=== PATIENT | female | born 1930 | race American Indian/Alaskan Native ===

== ENCOUNTER 2016-11-13 17:35 | Inpatient (IN) | payer MEDICARE, OTHER ==
[2016-11-13 18:31] VITALS: BMI 19.8
--- NOTE | 2016-11-13 19:32 | ED PDOC ---
Arrival/HPI <Kian Boyd - Last Filed: 11/14/16 01:25> - General Historian: Patient - History of Present Illness Time/Duration: Other (Yesterday) Symptom Course: Worsening Quality: Other Context: Home <Mariluz Smith - Last Filed: 11/14/16 11:17> - General Chief Complaint: Shortness Of Breath Time Seen by Provider: 11/13/16 17:55 - History of Present Illness Narrative History of Present Illness (Text): 11/13/16 19:27 A 86 year old female, whose past medical history includes lung cancer, port-a cath, coronary artery bypass surgery, aortic aneurysm and CHF, was brought into the emergency department by EMS complaining of worsening shortness of breath since yesterday. Patient notes mild lower abdominal discomfort but denies any fever, nausea, vomiting, diarrhea, constipation, urinary symptoms, chest pain, shortness of breath or any other complaints. Patient reports she uses O2 at home. Implant Polisher: Dr. Stringer Oncologist: Dr. Duncan (Mariluz Smith) Past Medical History - Provider Review Nursing Documentation Reviewed: Yes - Infectious Disease Hx of Infectious Diseases: None - Tetanus Immunization Tetanus Immunization: Unknown - Cardiac Hx Cardiac Disorders: Yes Hx Congestive Heart Failure: Yes Hx Hypertension: Yes - Pulmonary Hx Respiratory Disorders: Yes Hx Chronic Obstructive Pulmonary Disease (COPD): Yes - Neurological Hx Neurological Disorder: Yes HX Cerebrovascular Accident: Yes (1990) - HEENT Hx HEENT Disorder: Yes Hx Cataracts: Yes (SURGERY) Hx Deafness: No ([place]) - Renal Hx Renal Disorder: No - Endocrine/Metabolic Hx Endocrine Disorders: Yes Hx Diabetes Mellitus Type 2: Yes - Hematological/Oncological Hx Blood Disorders: Yes Hx Cancer: Yes (COLON & LUNG) - Integumentary Hx Dermatological Disorder: No - Musculoskeletal/Rheumatological Hx Musculoskeletal Disorders: Yes Hx Arthritis: Yes - Gastrointestinal Hx Gastrointestinal Disorders: Yes Hx Gall Bladder Disease: Yes Other/Comment: APPENDECTOMY. CHOLECYSTECTOMY. COLON RESECTION - Genitourinary/Gynecological Hx Genitourinary Disorders: Yes Hx Urinary Tract Infection: Yes - Psychiatric Hx Psychophysiologic Disorder: Yes Hx Anxiety: Yes Hx Substance Use: No - Surgical History Hx Appendectomy: Yes Hx Cardiac Catheterization: Yes Hx Cholecystectomy: Yes Hx Coronary Artery Bypass Graft: Yes Hx Coronary Stent: Yes Other/Comment: COLON RESECTION - Anesthesia Hx Anesthesia: Yes Hx Anesthesia Reactions: No Hx Malignant Hyperthermia: No - Suicidal Assessment Feels Threatened In Home Enviroment: No <Mariluz Smith - Last Filed: 11/14/16 11:17> Family/Social History - Physician Review Nursing Documentation Reviewed: Yes Family/Social History: No Known Family HX Smoking Status: Former Smoker Hx Alcohol Use: No Hx Substance Use: No Hx Substance Use Treatment: No <SarahMariluz pedraza Deja - Last Filed: 11/14/16 11:17> Allergies/Home Meds <Kian Boyd - Last Filed: 11/14/16 01:25> <SarahMariluz - Last Filed: 11/14/16 11:17> Allergies/Adverse Reactions: Allergies atorvastatin Allergy (Verified 11/13/16 18:30) HEADACHE meclizine Allergy (Verified 11/13/16 18:30) RASH shellfish derived Allergy (Verified 11/13/16 18:30) SHORTNESS OF BREATH Home Medications: Home Meds Medication Instructions Recorded Confirmed Lidocaine 5% [Lidoderm] 1 patch TOP 07/12/16 Pantoprazole [Protonix EC Tab] 40 mg PO 07/12/16 Risperidone [Risperdal] 0.25 mg PO 16 Review of Systems - Physician Review All systems were reviewed & negative as marked: Yes - Review of Systems Constitutional: absent: Fevers Respiratory: SOB. absent: Cough Cardiovascular: absent: Chest Pain Gastrointestinal: Abdominal Pain (Lower abdominal discomfort). absent: Constipation, Diarrhea, Nausea, Vomiting Genitourinary Female: absent: Dysuria, Frequency, Hematuria, Urine Output Changes <Mariluz Smith Deja - Last Filed: 11/14/16 11:17> Physical Exam Vital Signs Reviewed: Yes Temperature: Afebrile Blood Pressure: Hypertensive Pulse: Regular Respiratory Rate: Normal Appearance: Positive for: Well-Appearing, Non-Toxic, Comfortable Pain Distress: None Mental Status: Positive for: Alert and Oriented X 3 - Systems Exam Head: Present: Atraumatic, Normocephalic Pupils: Present: PERRL Extroacular Muscles: Present: EOMI Conjunctiva: Present: Normal Ears: Present: Normal, Other (Hearing aid noted in right hear) Mouth: Present: Moist Mucous Membranes Neck: Present: Normal Range of Motion Respiratory/Chest: Present: Good Air Exchange, Decreased Breath Sounds, Rhonchi. No: Respiratory Distress, Accessory Muscle Use Cardiovascular: Present: Regular Rate and Rhythm, Normal S1, S2. No: Murmurs Abdomen: Present: Normal Bowel Sounds. No: Tenderness, Distention, Peritoneal Signs Back: Present: Normal Inspection Upper Extremity: Present: Normal Inspection. No: Cyanosis, Edema Lower Extremity: Present: Normal Inspection. No: Edema Neurological: Present: GCS=15, CN II-XII Intact, Speech Normal Skin: Present: Warm, Dry, Normal Color. No: Rashes Psychiatric: Present: Alert, Oriented x 3, Normal Insight, Normal Concentration <Mariluz Smith - Last Filed: 11/14/16 11:17> Vital Signs Temp Pulse Resp BP Pulse Ox 11/14/16 02:33 156/94 H 11/14/16 01:00 97.9 F 88 21 160/90 H 100 11/14/16 00:30 18 99 11/13/16 19:03 98.1 F 11/13/16 18:33 75 16 163/98 H 100 Medical Decision Making - RAD Interpretation Pick Up And Delivery Driver: Radiologist <Kian Boyd - Last Filed: 11/14/16 01:25> - Lab Interpretations I have reviewed the lab results: Yes <Mariluz Smith - Last Filed: 11/14/16 11:17> ED Course and Treatment: 11/13/16 19:27 Impression: A 86 year old female with worsening shortness of breath and lower abdominal discomfort. Plan: -- Abdomen and pelvis CT -- Chest xray -- EKG -- Labs -- Urine culture and Urinalysis -- Reassess and disposition Progress Notes: EKG shows NSR at 84 BPM with flipped T-waves in anterior leads, LVH. Interpreted by me. 11/13/16 22:00 Chest xray showed no change from prior. 11/13/16 23:00 Patient signed out to Dr. Boyd. Pending abdominal CT. 11/14/16 11:15 11/14/16 11:16 (Mariluz Smith) - Lab Interpretations Lab Results: 11/13/16 19:40 11/13/16 19:40 Lab Results 11/13/16 19:40: WBC 5.7, RBC 4.27, Hgb 11.5 L, Hct 36.3, MCV 85.0, MCH 26.9, MCHC 31.7, RDW 16.4 H, Plt Count 233, MPV 10.6, Gran % 67.9, Lymph % (Auto) 20.4 L, [place] % (Auto) 10.9 H, Eos % (Auto) 0.4 L, Baso % (Auto) 0.4, Gran # 3.87 , Lymph # 1.2, [place] # 0.6, Eos # 0.0, Baso # 0.02, Sodium 139, Potassium 4.0, Chloride 97 L, Carbon Dioxide 33, Anion Gap 13, BUN 23 H, Creatinine 1.0, Est GFR ( Amer) > 60, Est GFR (Non-Af Amer) 53, Random Glucose 99, Calcium 9.2, Total Bilirubin 0.9, AST 49 H, ALT 28, Alkaline Phosphatase 77, Troponin I 0.04, NT-Pro-B Natriuret Pep 42703 H, Total Protein 7.9, Albumin 4.1, Globulin 3.8, Albumin/Globulin Ratio 1.1 - RAD Interpretation Narrative RAD Interpretations (Text): CT Abdomen and Pelvis shows: CT Abdomen and Pelvis shows: Lower thorax: The ascending thoracic aorta measures 44 mm. Prominent calcification of the coronary arteries. The left atrium measures 5.2 cm in its AP dimension. Calcified right hilar nodes. Bilateral lower lobe and right middle lobe bronchiectasis with associated fibro- atelectatic change. Trace right pleural effusion. ABDOMEN: Liver: The liver is mildly inhomogeneous and demonstrates several low attenuation foci which are probably cysts. The largest measures 15 mm with a Hounsfield measurement of 16. Gallbladder and bile ducts: Unremarkable. No calcified stones. No ductal dilation. Pancreas: Unremarkable. No mass. No ductal dilation. Spleen: Unremarkable. No splenomegaly. Adrenals: Unremarkable. No mass. Kidneys and ureters: There are bilateral renal cysts measuring up to 24 mm on the right. No hydronephrosis. Stomach and bowel: Evidence of subtotal colectomy. No obstruction. Appendix: See above. PELVIS: Bladder: Unremarkable. No mass. Reproductive: Unremarkable as visualized. ABDOMEN and PELVIS: Intraperitoneal space: Unremarkable. No free air. No significant fluid collection. Bones/joints: Status post sternotomy. Degenerative facet arthropathy of the lower lumbar spine and probable old fractures of the pubic rami. No dislocation. Soft tissues: Unremarkable. Vasculature: There is moderate atherosclerotic calcification of the abdominal aorta. 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 Lymph nodes: See above. IMPRESSION: 1. Mild aneurysmal dilatation of the ascending thoracic aorta measuring 44 mm. 2. Mild cardiomegaly with coronary artery calcifications and prior sternotomy. 3. Bilateral lower lobe and right middle lobe bronchiectasis with associated fibro-atelectatic change and trace right pleural effusion. 4. 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 5. Subtotal colectomy. 6. No bowel obstruction. (Kian Boyd) Radiology Orders: 11/13/16 19:30 CHEST PORTABLE [RAD] Stat 11/13/16 19:32 ABD PELVIS PO & IV CONTRAST [CT] Stat - Medication Orders Current Medication Orders: Acetaminophen (Tylenol 325mg Tab) 650 mg PO Q4H PRN PRN Reason: Pain, Mild (1-3) Alprazolam (Xanax) 0.25 mg PO BID PRN; Protocol PRN Reason: Anxiety Stop: 11/21/16 10:46 Arformoterol Tartrate (Brovana) 15 mcg IH [id number] YAHIR Artificial Tears (Artificial Tears) 0 ml OU 5XD YAHIR Aspirin (Ecotrin) 81 mg PO DAILY YAHIR Budesonide (Pulmicort Respules) 0.25 mg IH [id number] YAHIR Carvedilol (Coreg) 6.25 mg PO BID YAHIR Clopidogrel Bisulfate (Plavix) 75 mg PO DAILY YAHIR Digoxin (Lanoxin) 0.125 mg PO 1400 YAHIR Furosemide (Lasix) 40 mg PO BID YAHIR Isosorbide Mononitrate (Imdur) 30 mg PO DAILY YAHIR Lisinopril (Zestril) 10 mg PO DAILY YAHIR Pantoprazole Sodium (Protonix Ec Tab) 20 mg PO 0730 YAHIR Spironolactone (Aldactone) 25 mg PO BID YAHIR Sucralfate (Carafate Oral Susp) 1 gm PO BID YAHIR Discontinued Medications Arformoterol Tartrate (Brovana) 15 mcg IH [id number] YAHIR Furosemide (Lasix) 40 mg IVP ONCE ONE Stop: 11/14/16 01:04 Last Admin: 11/14/16 02:33 Dose: 40 MG MAR Blood Pressure Document 11/14/16 02:33 MARTA (Rec: 11/14/16 02:34 MARTA [id number]) Blood Pressure Blood Pressure (100/60-150/90) 156/94 IVP Administration Document 11/14/16 02:33 MARTA (Rec: 11/14/16 02:34 MARTA [id number]) Charges for Administration # of IVP Administrations 1 Iohexol (Omnipaque 350 100 Ml) Confirm Administered Dose 350 mg .ROUTE .STK-MED ONE Stop: 11/13/16 21:15 Iohexol (Omnipaque 240 (50 Ml)) Confirm Administered Dose 50 ml .ROUTE .STK-MED ONE Stop: 11/13/16 21:20 Morphine Sulfate (Morphine) 2 mg IVP STAT STA Stop: 11/13/16 20:14 Last Admin: 11/13/16 20:33 Dose: 2 MG MAR Pain Assessment Document 11/13/16 20:33 (Rec: 11/13/16 20:33 [id number]) Pain Reassessment Is this a pain reassessment? Yes Sleep Is patient sleeping during reassessment? No Presence of Pain Presence of Pain Yes IVP Administration Document 11/13/16 20:33 (Rec: 11/13/16 20:33 [id number]) Charges for Administration # of IVP Administrations 1 ED OBSERVATION Date of observation admission: 11/13/16 Time of observation admission: 20:14 <Kian Boyd - Last Filed: 11/14/16 01:25> <Mariluz Smith - Last Filed: 11/14/16 11:17> - Observation admission statement Patient is being placed in observation because:: shortness of breath, abdominal discomfort (Kian Boyd) - Goals of Observation Goals of observation are:: treatment and determine etiology of symptoms. (Kian Boyd) - Progress Note Progress Note: 11/13/16 23:00 Case endorsed to me by Dr. Smith. Pt, whose past medical history includes lung cancer on home O2, port-a cath, coronary artery bypass surgery, aortic aneurysm and CHF, presented for worsening shortness of breath since yesterday, with some lower abdominal discomfort. Pending CT Abdomen/Pelvis, re-assessment, and final disposition. 11/14/16 01:00 Reviewed radiology, CT Abdomen and Pelvis shows: 1. Mild aneurysmal dilatation of the ascending thoracic aorta measuring 44 mm. 2. Mild cardiomegaly with coronary artery calcifications and prior sternotomy. 3. Bilateral lower lobe and right middle lobe bronchiectasis with associated fibro-atelectatic change and trace right pleural effusion. 4. 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 5. Subtotal colectomy. 6. No bowel obstruction. 11/14/16 01:[address] Boo, covering for Dr. Duncan, who is aware and agrees with plan. Accepts pt in to his service. Pt will go to Telemetry observation for CHF and abdominal pain. Requests Dr. Stringer on consult. Pt is no acute distress. Discussed results and hospital observation plan with pt , who is aware and verbalizes understanding. (Kian Boyd) <Kian Boyd - Last Filed: 11/14/16 01:25> - Scribe Statement The provider has reviewed the documentation as recorded by the Scribe <Mariluz Smith - Last Filed: 11/14/16 11:17> - Scribe Statement Carina Ordaz Provider Scribe Attestation: All medical record entries made by the Scribe were at my direction and personally dictated by me. I have reviewed the chart and agree that the record accurately reflects my personal performance of the history, physical exam, medical decision making, and the department course for this patient. I have also personally directed, reviewed, and agree with the discharge instructions and disposition. (Mariluz Smith) Disposition/Present on Arrival - Present on Arrival Any Indicators Present on Arrival: No History of DVT/PE: No History of Uncontrolled Diabetes: No Urinary Catheter: No History of Decub. Ulcer: No History Surgical Site Infection Following: None - Disposition Have Diagnosis and Disposition been Completed?: Yes Disposition Time: 01:27 Patient Plan: Observation <Kian Boyd - Last Filed: 11/14/16 01:25> - Present on Arrival Any Indicators Present on Arrival: No History of DVT/PE: No History of Uncontrolled Diabetes: No Urinary Catheter: No History of Decub. Ulcer: No History Surgical Site Infection Following: None - Disposition Have Diagnosis and Disposition been Completed?: Yes Disposition Time: 23:00 <Mariluz Smith - Last Filed: 11/14/16 11:17> - Disposition Diagnosis: CHF exacerbation, Abdominal pain Disposition: HOSPITALIZED Patient Problems: Current Active Problems Problem Status Diagnosed Urinary tract infection Acute Abdominal pain Acute Aortic aneurysm Acute CHF exacerbation Acute Cardiomegaly Acute Congestive heart failure Acute Metabolic alkalosis Acute Condition: STABLE - Notes Notes (Text): 11/14/16 11:[address] raymond altman pending CT and admission (for chf, if no acute findings on cT) (Mariluz Smith Y)
[2016-11-13 19:47] LABS: ADD MANUAL DIFF? NO
[2016-11-13 20:00] LABS: ALB/GLOB RATIO 1.1 (1.1-1.8); ALKALINE PHOSPHATASE 77 U/L (38-133); ALT/SGPT 28 U/L (7-56); AST/SGOT 49 U/L (15-39); BILIRUBIN,TOTAL 0.9 mg/dL (0.2-1.3); BLOOD UREA NITROGEN 23 mg/dL (7-21); CALCIUM 9.2 mg/dL (8.4-10.5); CARBON DIOXIDE 33 mmol/L (21-33); CHLORIDE 97 mmol/L (98-107); GFR AFRICAN-AMERICAN > 60; GLUCOSE,RANDOM 99 mg/dL (70-110); SODIUM 139 mmol/L (132-148); TOTAL PROTEIN 7.9 g/dL (5.8-8.3)
[2016-11-13 20:11] LABS: TROPONIN I 0.04 ng/mL
[2016-11-13] MEDS ORDERED: Morphine 2 mg/ml ISec IVP STA (20:13)
[2016-11-13 20:17] LABS: BASO # 0.02 [, K/mm3] (0.0-2.0); BASO % 0.4 % (0.0-3.0); EOS % 0.4 % (1.5-5.0); GRAN # 3.87 (1.4-6.5); GRAN % 67.9 % (50.0-68.0); HEMATOCRIT 36.3 % (36.0-48.0); LYMPH # 1.2 (1.2-3.4); LYMPH % 20.4 % (22.0-35.0); MEAN CORPUSCULAR HEMOGLOBIN 26.9 pg (25.0-35.0); MEAN CORPUSCULAR HGB CONC 31.7 g/dl (31.0-37.0); MEAN PLATELET VOLUME 10.6 fl (7.0-11.0); MONO # 0.6 (0.1-0.6); MONO % 10.9 % (1.0-6.0); PLATELET COUNT 233 [, 10^3/uL] (120.0-450.0); RED CELL DISTRIBUTION WIDTH 16.4 % (11.5-14.5); WHITE BLOOD COUNT 5.7 [, 10^3/ul] (4.5-11.0)
[2016-11-13] MEDS ORDERED: Iohexol 350 MG/100 ML VIAL ONE (21:14)
[2016-11-13] MEDS ORDERED: Iohexol 240 (50 ml) ONE (21:19)
--- NOTE | 2016-11-13 23:21 | ED PDOC ---
Physical Exam Vital Signs Reviewed: Yes Vital Signs Temp Pulse Resp BP Pulse Ox 11/13/16 19:03 98.1 F 11/13/16 18:33 75 16 163/98 H 100 Temperature: Afebrile Blood Pressure: Hypertensive Pulse: Regular Respiratory Rate: Normal Appearance: Positive for: Well-Appearing, Non-Toxic, Comfortable Pain Distress: None Mental Status: Positive for: Alert and Oriented X 3 Medical Decision Making ED Course and Treatment: 11/13/16 23:00 Case endorsed to me by Dr. Smith. Pt, whose past medical history includes lung cancer on home O2, port-a cath, coronary artery bypass surgery, aortic aneurysm and CHF, presented for worsening shortness of breath since yesterday, with some lower abdominal discomfort. Pending CT Abdomen/Pelvis, re-assessment, and final disposition. - Lab Interpretations Lab Results: 11/13/16 19:40 11/13/16 19:40 Lab Results 11/13/16 19:40: WBC 5.7, RBC 4.27, Hgb 11.5 L, Hct 36.3, MCV 85.0, MCH 26.9, MCHC 31.7, RDW 16.4 H, Plt Count 233, MPV 10.6, Gran % 67.9, Lymph % (Auto) 20.4 L, [place] % (Auto) 10.9 H, Eos % (Auto) 0.4 L, Baso % (Auto) 0.4, Gran # 3.87 , Lymph # 1.2, [place] # 0.6, Eos # 0.0, Baso # 0.02, Sodium 139, Potassium 4.0, Chloride 97 L, Carbon Dioxide 33, Anion Gap 13, BUN 23 H, Creatinine 1.0, Est GFR ( Amer) > 60, Est GFR (Non-Af Amer) 53, Random Glucose 99, Calcium 9.2, Total Bilirubin 0.9, AST 49 H, ALT 28, Alkaline Phosphatase 77, Troponin I 0.04, NT-Pro-B Natriuret Pep 63406 H, Total Protein 7.9, Albumin 4.1, Globulin 3.8, Albumin/Globulin Ratio 1.1 - RAD Interpretation Radiology Orders: 11/13/16 19:30 CHEST PORTABLE [RAD] Stat 11/13/16 19:32 ABD PELVIS PO & IV CONTRAST [CT] Stat - Medication Orders Current Medication Orders: Discontinued Medications Iohexol (Omnipaque 350 100 Ml) Confirm Administered Dose 350 mg .ROUTE .STK-MED ONE Stop: 11/13/16 21:15 Iohexol (Omnipaque 240 (50 Ml)) Confirm Administered Dose 50 ml .ROUTE .STK-MED ONE Stop: 11/13/16 21:20 Morphine Sulfate (Morphine) 2 mg IVP STAT STA Stop: 11/13/16 20:14 Last Admin: 11/13/16 20:33 Dose: 2 MG MAR Pain Assessment Document 11/13/16 20:33 (Rec: 11/13/16 20:33 [id number]) Pain Reassessment Is this a pain reassessment? Yes Sleep Is patient sleeping during reassessment? No Presence of Pain Presence of Pain Yes IVP Administration Document 11/13/16 20:33 (Rec: 11/13/16 20:33 [id number]) Charges for Administration # of IVP Administrations 1 Disposition/Present on Arrival - Present on Arrival History of DVT/PE: No History of Uncontrolled Diabetes: No Urinary Catheter: No History of Decub. Ulcer: No History Surgical Site Infection Following: None - Disposition Patient Problems: Current Active Problems Problem Status Diagnosed Urinary tract infection Acute Aortic aneurysm Acute CHF exacerbation Acute Cardiomegaly Acute Congestive heart failure Acute Metabolic alkalosis Acute
[2016-11-13 23:28] LABS: PH,URINE 6.5 (4.7-8.0); URINE BILIRUBIN NEGATIVE (NEGATIVE); URINE BLOOD TRACE-INTACT (NEGATIVE); URINE GLUCOSE (UA) NEGATIVE (NEGATIVE); URINE KETONE NEGATIVE (NEGATIVE); URINE LEUKOCYTE ESTERASE MODERATE Leu/uL (NEGATIVE); URINE PROTEIN NEGATIVE mg/dL (<30 mg/dL); URINE UROBILINOGEN 0.2 E.U./dL (<1 E.U./dL)
[2016-11-13 23:30] LABS: URINE APPEARANCE CLEAR (CLEAR); URINE COLOR YELLOW (YELLOW)
[2016-11-13 23:42] LABS: URINE BACTERIA TRACE (NEG); URINE EPITHELIAL CELLS 0 - 2 /hpf (0-5); URINE RBC 0 - 2 /hpf (0-2)
--- NOTE | 2016-11-14 08:00 | CT ---
PROCEDURE: CT Abdomen and Pelvis with contrast HISTORY: Diffuse abdominal pain, shortness of breath. Relevant surgical history: Colon resection. COMPARISON: 03/23/2015. TECHNIQUE: Contrast dose: 95 cc Omnipaque 350. Radiation dose: Total exam DLP = 237.69. MGy-cm. FINDINGS: LOWER THORAX: Marked cardiomegaly. Scarring, findings likely reflective of bronchiectasis. LIVER: Hepatomegaly, hepatic steatosis. Incidental finding(s): Innumerable simple hepatic cysts. GALLBLADDER AND BILE DUCTS: Unremarkable. PANCREAS: Unremarkable. No gross lesion or ductal dilatation. SPLEEN: Unremarkable. ADRENALS: Unremarkable. No mass. KIDNEYS AND URETERS: Unremarkable. No hydronephrosis. No solid mass. Incidental finding(s): Bilateral simple renal cysts VASCULATURE: Unremarkable. No aortic aneurysm. BOWEL: Unremarkable. No obstruction. No gross mural thickening. Postoperative findings status post partial colonic resection consistent with medical/ surgical history. APPENDIX: Not visualized. PERITONEUM: Unremarkable. No free fluid. No free air. LYMPH NODES: Unremarkable. No enlarged lymph nodes. BLADDER: Unremarkable. REPRODUCTIVE: Unremarkable. BONES: Bilateral pelvic ring fractures. No acute fractures identified. OTHER FINDINGS: None. IMPRESSION: No acute findings related to/accounting for the clinical presentation. No significant interval change compared to the prior examination(s). Additional benign and/or incidental findings described above. Concordant results (preliminary interpretation) provided by [facility]. Procedure Completed: 23:34. Preliminary ([facility]) Report: Dictated and Authenticated: 00:09. November 14, 2016. Final Interpretation: 07:58.
--- NOTE | 2016-11-14 08:30 | RAD ---
HISTORY: sob COMPARISON: Comparison is made to the previous study dated 07/19/2016 FINDINGS: LUNGS: Moderate pulmonary vascular congestion is noted. Haziness at the right lower chest is again noted. PLEURA: Right pleural effusion is again noted. CARDIOVASCULAR: Cardiomegaly is seen. Post sternotomy changes are again noted. The aortic arch is moderately enlarged. OSSEOUS STRUCTURES: No significant abnormalities. VISUALIZED UPPER ABDOMEN: Normal. OTHER FINDINGS: Right subclavian catheter is seen in place. IMPRESSION: No significant interval change compared to the previous exam. Moderate cardiomegaly and pulmonary vascular congestion associated with right pleural effusion.
[2016-11-14 11:08] LABS: ADD MANUAL DIFF? NO
[2016-11-14 11:09] LABS: BASO # 0.02 [, K/mm3] (0.0-2.0); BASO % 0.3 % (0.0-3.0); EOS % 0.1 % (1.5-5.0); GRAN # 4.68 (1.4-6.5); GRAN % 70.3 % (50.0-68.0); HEMATOCRIT 36.7 % (36.0-48.0); LYMPH # 1.4 (1.2-3.4); LYMPH % 20.5 % (22.0-35.0); MEAN CELL VOLUME 84.6 fL (80.0-105.0); MEAN CORPUSCULAR HEMOGLOBIN 26.5 pg (25.0-35.0); MEAN CORPUSCULAR HGB CONC 31.3 g/dl (31.0-37.0); MEAN PLATELET VOLUME 10.5 fl (7.0-11.0); MONO # 0.6 (0.1-0.6); MONO % 8.8 % (1.0-6.0); PLATELET COUNT 226 [, 10^3/uL] (120.0-450.0); RED CELL DISTRIBUTION WIDTH 16.1 % (11.5-14.5); WHITE BLOOD COUNT 6.7 [, 10^3/ul] (4.5-11.0)
[2016-11-14 11:22] LABS: ALB/GLOB RATIO 1.1 (1.1-1.8); BILIRUBIN,TOTAL 1.1 mg/dL (0.2-1.3); CALCIUM 9.4 mg/dL (8.4-10.5); POTASSIUM 3.9 mmol/L (3.6-5.0); TOTAL PROTEIN 7.6 g/dL (5.8-8.3)
--- NOTE | 2016-11-14 12:04 | CP.PCM.PCO ---
Physician Communication Note - Physician Communication Note Physician Communication Note: C/O Low abd pain-Neg CT/Physical exam:Chin Liquids /Reexamine prn
[2016-11-14] MEDS: Sucralfate 1 gm/10 ml Oral Susp UD PO SCH ×3 (12:09→18:09)
[2016-11-14] MEDS: Aritificial Tears (15ml) OU SCH ×4 (12:10→21:39)
[2016-11-14] MEDS: Pantoprazole 20 mg EC Tab PO SCH (12:24)
[2016-11-14 12:56] LABS: TROPONIN I 0.08 ng/mL
--- NOTE | 2016-11-14 15:17 | CP.PCM.CON ---
<Karo Ruiz - Last Filed: 11/14/16 15:06> History of Present Illness - History of Present Illness History of Present Illness: SURGICAL CONSULT NOTE FOR DR. WEST 86 year old female with past medical history of nonsmall cell lung ca., CAD s/p CABG, ischemic cardiomyopathy, complete colectomy, HTN, HLD, COPD presented to hospital yesterday for shortness of breath and abdominal pain. Patient is c/o of diffuse abdominal pain that began yesterday. Severity of pain is 10/10 and is constant in nature. Pain does not radiate anywhere. Patient denies having any N/V/D/C, fever, chills. Patient denies having eaten anything out of the ordinary or having any sick contacts. Last BM was today normal in nature. 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 -Medications: please see MAR -Social History: former smoker -Oncologist: Dr. Duncan -Remedial Reading Teacher: Dr. Stringer Review of Systems - Constitutional Constitutional: absent: Chills, Fever, Headache, Lethargy - EENT Eyes: absent: Blurred Vision, Change in Vision Nose/Mouth/Throat: absent: Nasal Congestion, Nasal Discharge, Sore Throat - Cardiovascular Cardiovascular: Dyspnea. absent: Chest Pain, Edema, Pedal Edema - Respiratory Respiratory: absent: Cough, Dyspnea, Wheezing - Gastrointestinal Gastrointestinal: As Per HPI, Abdominal Pain (diffuse). absent: Bloating, Constipation, Diarrhea, Nausea, Vomiting - Musculoskeletal Musculoskeletal: absent: Arthralgias - Integumentary Integumentary: absent: Changing Lesions - Neurological Neurological: absent: Dizziness, Weakness - Psychiatric Psychiatric: absent: Anxiety Past Patient History - Infectious Disease Hx of Infectious Diseases: None - Tetanus Immunizations Tetanus Immunization: Unknown - Past Social History Smoking Status: Former Smoker Alcohol: None Drugs: Denies - CARDIAC Hx Cardiac Disorders: Yes Hx Congestive Heart Failure: Yes Hx Hypertension: Yes - PULMONARY Hx Respiratory Disorders: Yes Hx Chronic Obstructive Pulmonary Disease (COPD): Yes - NEUROLOGICAL Hx Neurological Disorder: Yes HX Cerebrovascular Accident: Yes (1990) - HEENT Hx HEENT Problems: Yes Hx Cataracts: Yes (SURGERY) Hx Deafness: No ([place] - RENAL Hx Chronic Kidney Disease: No - ENDOCRINE/METABOLIC Hx Endocrine Disorders: Yes Hx Diabetes Mellitus Type 2: Yes - HEMATOLOGICAL/ONCOLOGICAL Hx Blood Disorders: Yes Hx Cancer: Yes (COLON & LUNG) - INTEGUMENTARY Hx Dermatological Problems: No - MUSCULOSKELETAL/RHEUMATOLOGICAL Hx Musculoskeletal Disorders: Yes Hx Arthritis: Yes - GASTROINTESTINAL Hx Gastrointestinal Disorders: Yes Hx Gall Bladder Disease: Yes Other/Comment: APPENDECTOMY. CHOLECYSTECTOMY. COLON RESECTION - GENITOURINARY/GYNECOLOGICAL Hx Genitourinary Disorders: Yes Hx Urinary Tract Infection: Yes - PSYCHIATRIC Hx Psychophysiologic Disorder: Yes Hx Anxiety: Yes Hx Substance Use: No - SURGICAL HISTORY Hx Appendectomy: Yes Hx Cardiac Catheterization: Yes Hx Cholecystectomy: Yes Hx Coronary Artery Bypass Graft: Yes Hx Coronary Stent: Yes Other/Comment: COLON RESECTION - ANESTHESIA Hx Anesthesia: Yes Hx Anesthesia Reactions: No Hx Malignant Hyperthermia: No Meds Allergies/Adverse Reactions: Allergies Allergy/AdvReac Type Severity Reaction Status Date / Time atorvastatin Allergy HEADACHE Verified 11/13/16 18:30 meclizine Allergy RASH Verified 11/13/16 18:30 shellfish derived Allergy SHORTNESS Verified 11/13/16 18:30 OF BREATH - Medications Medications: Current Medications Acetaminophen (Tylenol 325mg Tab) 650 mg PO Q4H PRN PRN Reason: Pain, Mild (1-3) Alprazolam (Xanax) 0.25 mg PO BID PRN; Protocol PRN Reason: Anxiety Stop: 11/21/16 10:46 Arformoterol Tartrate (Brovana) 15 mcg IH [id number] [facility] Artificial Tears (Artificial Tears) 0 ml OU 5XD [facility] Last Admin: 11/14/16 12:10 Dose: 1 drop Aspirin (Ecotrin) 81 mg PO DAILY [facility] Last Admin: 11/14/16 12:07 Dose: 81 mg Budesonide (Pulmicort Respules) 0.25 mg IH [id number] [facility] Carvedilol (Coreg) 6.25 mg PO BID [facility] Last Admin: 11/14/16 12:08 Dose: 6.25 mg Clopidogrel Bisulfate (Plavix) 75 mg PO DAILY [facility] Last Admin: 11/14/16 12:09 Dose: 75 mg Digoxin (Lanoxin) 0.125 mg PO 1400 [facility] Furosemide (Lasix) 40 mg PO BID [facility] Last Admin: 11/14/16 12:08 Dose: 40 mg Isosorbide Mononitrate (Imdur) 30 mg PO DAILY [facility] Last Admin: 11/14/16 12:09 Dose: 30 mg Lisinopril (Zestril) 10 mg PO DAILY [facility] Last Admin: 11/14/16 12:09 Dose: 10 mg Pantoprazole Sodium (Protonix Ec Tab) 20 mg PO 0730 [facility] Last Admin: 11/14/16 12:24 Dose: 20 mg Spironolactone (Aldactone) 25 mg PO BID [facility] Last Admin: 11/14/16 12:07 Dose: 25 mg Sucralfate (Carafate Oral Susp) 1 gm PO BID [facility] Last Admin: 11/14/16 12:09 Dose: 1 gm Physical Exam - Constitutional Appears: Non-toxic, No Acute Distress - Head Exam Head Exam: ATRAUMATIC, NORMAL INSPECTION - ENT Exam ENT Exam: Mucous Membranes Moist - Respiratory Exam Respiratory Exam: Clear to Auscultation Bilateral, NORMAL BREATHING PATTERN - Cardiovascular Exam Cardiovascular Exam: REGULAR RHYTHM, +S1, +S2 - GI/Abdominal Exam GI & Abdominal Exam: Normal Bowel Sounds, Soft. absent: Distended, Firm, Guarding, Rigid, Tenderness - Neurological Exam Neurological exam: Alert, Normal Gait, Oriented x3 Results - Vital Signs Recent Vital Signs: Last Vital Signs Temp 98.1 F 11/14/16 12:00 Pulse 75 11/14/16 12:09 Resp 18 11/14/16 12:00 BP 167/87 H 11/14/16 12:09 Pulse Ox 100 11/14/16 05:51 - Labs Result Diagrams: 11/14/16 11:06 11/14/16 11:06 Labs: Laboratory Results - last 24 hr 11/13/16 11/14/16 11/14/16 22:58 11:06 11:15 WBC 6.7 RBC 4.34 Hgb 11.5 L Hct 36.7 MCV 84.6 MCH 26.5 MCHC 31.3 RDW 16.1 H Plt Count 226 MPV 10.5 Gran % 70.3 H Lymph % (Auto) 20.5 L [place] % (Auto) 8.8 H Eos % (Auto) 0.1 L Baso % (Auto) 0.3 Gran # 4.68 Lymph # 1.4 [place] # 0.6 Eos # 0.0 Baso # 0.02 Sodium 138 Potassium 3.9 Chloride 96 L Carbon Dioxide 30 Anion Gap 16 BUN 24 H Creatinine 1.1 Est GFR ( Amer) 57 Est GFR (Non-Af Amer) 47 Random Glucose 87 Calcium 9.4 Total Bilirubin 1.1 AST 34 ALT 27 Alkaline Phosphatase 87 Lactate Dehydrogenase 518 Total Creatine Kinase 79 Troponin I 0.08 D Total Protein 7.6 Albumin 4.0 Globulin 3.6 Albumin/Globulin Ratio 1.1 Urine Color Yellow Urine Appearance Clear Urine pH 6.5 Ur Specific [place] 1.010 Urine Protein Negative Urine Glucose (UA) Negative Urine Ketones Negative Urine Blood Trace-intact H Urine Nitrate Negative Urine Bilirubin Negative Urine Urobilinogen 0.2 Ur Leukocyte Esterase Moderate H Urine RBC 0 - 2 Urine WBC 2 - 5 Ur Epithelial Cells 0 - 2 Urine Bacteria Trace Digoxin 1.1 - EKG Data EKG Interpreted by: Other Assessment & Plan - Assessment and Plan (Free Text) Assessment: 86 year old female with past medical history of subtotal colectomy, cholecysectomy with abdominal pain. Plan: - Liquid diet advance as tolerated - No surgical intervention at this time - Continue medical management - pain management D/W attending Dr. Yehuda Ruiz PGY 1 - Date & Time Date: 11/14/16 Time: 15:20 <Guzman West - Last Filed: 11/14/16 21:13> Meds - Medications Medications: Current Medications Acetaminophen (Tylenol 325mg Tab) 650 mg PO Q4H PRN PRN Reason: Pain, Mild (1-3) Alprazolam (Xanax) 0.25 mg PO BID PRN; Protocol PRN Reason: Anxiety Stop: 11/21/16 10:46 Arformoterol Tartrate (Brovana) 15 mcg IH [id number] [facility] Last Admin: 11/14/16 20:00 Dose: 15 mcg Artificial Tears (Artificial Tears) 0 ml OU 5XD [facility] Last Admin: 11/14/16 18:09 Dose: Not Given Aspirin (Ecotrin) 81 mg PO DAILY [facility] Last Admin: 11/14/16 12:07 Dose: 81 mg Budesonide (Pulmicort Respules) 0.25 mg IH [id number] [facility] Last Admin: 11/14/16 20:00 Dose: 0.25 mg Carvedilol (Coreg) 6.25 mg PO BID [facility] Last Admin: 11/14/16 18:10 Dose: Not Given Clopidogrel Bisulfate (Plavix) 75 mg PO DAILY [facility] Last Admin: 11/14/16 12:09 Dose: 75 mg Digoxin (Lanoxin) 0.125 mg PO 1400 [facility] Last Admin: 11/14/16 16:28 Dose: 0.125 mg Furosemide (Lasix) 40 mg PO BID [facility] Last Admin: 11/14/16 18:11 Dose: Not Given Isosorbide Mononitrate (Imdur) 30 mg PO DAILY [facility] Last Admin: 11/14/16 12:09 Dose: 30 mg Lisinopril (Zestril) 10 mg PO DAILY [facility] Last Admin: 11/14/16 12:09 Dose: 10 mg Pantoprazole Sodium (Protonix Ec Tab) 20 mg PO 0730 [facility] Last Admin: 11/14/16 12:24 Dose: 20 mg Spironolactone (Aldactone) 25 mg PO BID [facility] Last Admin: 11/14/16 18:09 Dose: Not Given Sucralfate (Carafate Oral Susp) 1 gm PO BID [facility] Last Admin: 11/14/16 18:09 Dose: Not Given Results - Vital Signs Recent Vital Signs: Last Vital Signs Temp 98.1 F 11/14/16 17:00 Pulse 63 11/14/16 17:00 Resp 18 11/14/16 17:00 BP 132/66 11/14/16 17:00 Pulse Ox 100 11/14/16 05:51 - Labs Result Diagrams: 11/14/16 11:06 11/14/16 11:06 Labs: Laboratory Results - last 24 hr 11/13/16 11/14/16 11/14/16 22:58 11:06 11:15 WBC 6.7 RBC 4.34 Hgb 11.5 L Hct 36.7 MCV 84.6 MCH 26.5 MCHC 31.3 RDW 16.1 H Plt Count 226 MPV 10.5 Gran % 70.3 H Lymph % (Auto) 20.5 L [place] % (Auto) 8.8 H Eos % (Auto) 0.1 L Baso % (Auto) 0.3 Gran # 4.68 Lymph # 1.4 [place] # 0.6 Eos # 0.0 Baso # 0.02 Sodium 138 Potassium 3.9 Chloride 96 L Carbon Dioxide 30 Anion Gap 16 BUN 24 H Creatinine 1.1 Est GFR ( Amer) 57 Est GFR (Non-Af Amer) 47 Random Glucose 87 Calcium 9.4 Total Bilirubin 1.1 AST 34 ALT 27 Alkaline Phosphatase 87 Lactate Dehydrogenase 518 Total Creatine Kinase 79 Troponin I 0.08 D Total Protein 7.6 Albumin 4.0 Globulin 3.6 Albumin/Globulin Ratio 1.1 Urine Color Yellow Urine Appearance Clear Urine pH 6.5 Ur Specific [place] 1.010 Urine Protein Negative Urine Glucose (UA) Negative Urine Ketones Negative Urine Blood Trace-intact H Urine Nitrate Negative Urine Bilirubin Negative Urine Urobilinogen 0.2 Ur Leukocyte Esterase Moderate H Urine RBC 0 - 2 Urine WBC 2 - 5 Ur Epithelial Cells 0 - 2 Urine Bacteria Trace Digoxin 1.1 Assessment & Plan - Assessment and Plan (Free Text) Assessment: Dx: Abd Pain post CT Abd/Pelvis with oral contrast-? due to adhesions No c/o now-Totally negative exam Recommend : Conservative Rx/No Surgery indicated This consultation done under my direct supervision Juan West MD FACS
--- NOTE | 2016-11-14 15:45 | CARD ---
APPROVED REPORT EKG Measurement Heart [id number] <Conclusion> Sinus rhythm with premature supraventricular complexes Left axis deviation Left ventricular hypertrophy with repolarization abnormality Abnormal ECG
--- NOTE | 2016-11-14 16:13 | PN ---
DATE: 11/14/2016 REASON FOR CONSULTATION AND FOLLOWUP: Abdominal pain, shortness of breath, history of coronary arter y disease, CABG, cardiomyopathy. BRIEF CLINICAL HISTORY: This is an 86-year-old female with a past medical history of coronary artery disease, came in with complaint of abdominal pain and shortness of breath. The patient's CAT scan o f the abdomen was done. Is n.p.o. The patient wants to eat something. Denies any chest pain, denie s any shortness of breath, denies any palpitation now. PAST HISTORY: Significant for coronary artery disease, CABG in the past, last catheterization reveal ed occluded CALLAHAN to LAD, inoperable lung CA, on chemo and radiation; status post Port-A-Cath. Histor y of aortic regurgitation. PREVIOUS CARDIAC WORKUP: As follows: The patient's last catheterization 11/29/2013 that shows severe triple vessel disease, patent saphenous graft to diagonal 1, patent saphenous graft to the RCA, occlu ded CALLAHAN to LAD, severely decreased ____ ejection fraction 20%. The patient had last echo 06/10/2014 that showed 4-chamber dilatation, ejection fraction significantly decreased, RV systolic pressure of 78. The patient had repeat echo on 06/29/2016 that shows ejection fraction 20% to 25%, 4-chamber dil atation consistent with cardiomyopathy, ejection fraction 25%, moderate mitral regurgitation, moderat e tricuspid regurgitation, severe aortic regurgitation, RV systolic pressure 46. CURRENT MEDICATIONS: The patient is taking at home Risperdal, losartan, isosorbide ____, Lasix, digo tracee, Plavix, carvedilol, Pulmicort, aspirin, Xanax. REVIEW OF SYSTEMS: As per HPI. PHYSICAL EXAMINATION: As follows: VITAL SIGNS: Temperature afebrile, heart rate 79, blood pressure 156/75. HEENT: PERRLA. Extraocular muscles intact. NECK: Supple. No carotid bruits. No thyromegaly. CHEST: Clear to auscultation. HEART: S1, S2 regular. ABDOMEN: Soft. EXTREMITIES: Clubbing and cyanosis negative. BLOOD WORKUP: As follows: WBC ____, hemoglobin 11.5, hematocrit ____, platelet count 226. Chemistr y shows sodium 130, potassium 4, chloride ____, carbon dioxide 33, anion gap of 13, BUN 23, creatinin e 1.0. BNP 16,400. Chest x-ray: No acute ____ chest x-ray ____ severe cardiomegaly, possible mild congestive changes. EKG shows normal sinus with APCs, heart rate 82, LVH, left anterior hemiblock. IMPRESSION: Abdominal pain baseline, patient has shortness of breath, history of congestive heart fa ilure, dilated cardiomyopathy, history of coronary artery disease, coronary artery bypass graft, occl uded left internal mammary artery to left anterior descending, patent saphenous vein graft to diagona l, patent right coronary artery, aortic regurgitation, 4 chamber dilated. Last echo 20% to 25%, card iomyopathy, moderate mitral regurgitation, moderate tricuspid regurgitation, severe aortic regurgitat ion, right ventricular systolic pressure 47. The patient had last echo on 06/29/2016 that showed 4-ch fina dilatation consistent with cardiomyopathy, ejection fraction 20% to 25%, moderate mitral regurg itation, moderate ____ regurgitation, severe ____ regurgitation, right ventricular systolic pressure of 46. CAT scan of the abdomen yesterday shows no acute ST-T changes, ____ with acute abdomen. RECOMMENDATION: Resume diet. Continue spironolactone. Continue ____. Continue Coreg. Continue di goxin. Continue Lasix. We will discontinue telemetry. We will follow with you. Thank you Dr. Duncan, for providing us the opportunity in taking care of the patient. We will follo w with you. No evidence of acute coronary syndrome noted. We will follow with you. Shekhar Howard MD cc: [phone] TT: 11/14/2016 13:02:20 Confirmation # [id number] Dictation # [id number] sn
[2016-11-14] MEDS: Digoxin 125 mcg (0.125 mg) Tab PO SCH (16:28)
[2016-11-14] MEDS ORDERED: Arformoterol 15 mcg/2 ml Inh Sol IH SCH (20:00)
[2016-11-14] MEDS: Budesonide 0.25 mg/2 ml Inhal Susp UD IH SCH (20:00)
[2016-11-14] MEDS: Arformoterol 15 mcg/2 ml Inh Sol IH SCH (20:00)
--- NOTE | 2016-11-14 23:27 | CON ---
DATE: 11/14/2016 This is the patient's admission H and P. For Dr. Duncan. CHIEF COMPLAINT: Abdominal pain, shortness of breath. HISTORY OF PRESENT ILLNESS: The patient is an 86-year-old female admitted via the Emergency Room aft er complaining of severe abdominal pain and shortness of breath for approximately 1 day's time. With this, the patient denies nausea or vomiting, diarrhea or constipation, however, her daughter reports she has been constipated lately. She has home oxygen, and has a significant history for comorbiditi es; will be elicited below. She is seen at present resting comfortably in no acute distress after tr eatment has been given in the Emergency Room and on the floor. ALLERGIES: ATORVASTATIN, MECLIZINE, SHELLFISH. Her medicines on admission included Aldactone, Brovana, Carafate, Coreg, Ecotrin, Imdur, digoxin, Las ix, Plavix, Protonix, Pulmicort, Xanax, Zestril, Tylenol. Her past medical history is significant for ASCVD status post CABG in the past, inoperable CA of the lung, hypertension, cardiomyopathy with poor ejection fraction, stage II non-small cell CA of lung tr eated conservatively with radiation, COPD with hypoxemia, history of congestive heart failure, GERD, anxiety. FAMILY HISTORY/SOCIAL HISTORY: Nonsmoker, non-ethanolic. Otherwise noncontributory. REVIEW OF SYSTEMS: Essentially negative to questioning except as above. OBJECTIVE: PHYSICAL EXAMINATION: VITAL SIGNS: Temperature 98.1, pulse 63, respirations 18, blood pressure 132/66, pulse ox of 100%. The patient's labs were done. White blood cell count was 6.7, hemoglobin 11.5, hematocrit 36.7, plat elet count of 226,000, with a chem metabolic panel within normal limits except for BUN of 24, creatin ine of 1.1. B-natriuretic peptide of 16,400. Troponin 0.04 with a repeat of 0.08. Otherwise, es l chem metabolic panel. Urine showed moderate amount of leukocyte esterase. Her digoxin was 1.1. The patient's chest x-ray was done yesterday. It was reported as no significant change, moderate car diomegaly, pulmonary vascular congestion associated right pleural effusion. Post-sternotomy wires ar e noted. The patient had a CT scan of her abdomen and pelvis. It was read as no acute findings related to acc ount for clinical presentation. Otherwise, unremarkable. History of partial colonic resection consi stent with the medical surgical history, as the patient is also status post colon resection. The patient's EKG was done. It was read as sinus rhythm with premature supraventricular complex, lef t axis deviation, LVH. The assessment for this patient is that of abdominal pain, congestive failure, severe cardiomyopathy, hypertension, severe ASCVD, history of carcinoma of the lung, stage II non-small cell in remission, history of colonic resection, chronic obstructive pulmonary disease, anxiety, hypoxemia. The plan for this patient is to admit to the medical floor. Initially, the patient was admitted to t telemetry floor, with transfer to the medical floor as per Dr. Howard, cardiology. Will ask for a c onsultation with Dr. Hernandez, gastrointestinal strategic consultant, along with Dr. Blackman, surgeon, and Dr. Banda, pulmonary. We will continue present her medical regimen as above, with monitoring clinicall y and with labs. The prognosis for this patient is guarded. Adrián Gavin MD cc: [phone] TT: 11/14/2016 23:26:56 Confirmation # [id number] Dictation # [id number] [place]
[2016-11-15] MEDS: Aritificial Tears (15ml) OU SCH ×5 (05:11→22:14)
[2016-11-15 07:23] LABS: ADD MANUAL DIFF? NO
[2016-11-15 07:27] LABS: BASO # 0.01 [, K/mm3] (0.0-2.0); BASO % 0.2 % (0.0-3.0); EOS % 0.3 % (1.5-5.0); GRAN # 4.03 (1.4-6.5); GRAN % 67.6 % (50.0-68.0); HEMATOCRIT 33.3 % (36.0-48.0); LYMPH # 1.1 (1.2-3.4); MEAN CELL VOLUME 83.7 fL (80.0-105.0); MEAN CORPUSCULAR HEMOGLOBIN 26.6 pg (25.0-35.0); MEAN CORPUSCULAR HGB CONC 31.8 g/dl (31.0-37.0); MEAN PLATELET VOLUME 10.5 fl (7.0-11.0); MONO # 0.8 (0.1-0.6); MONO % 13.9 % (1.0-6.0); PLATELET COUNT 218 [, 10^3/uL] (120.0-450.0)
[2016-11-15] MEDS: Acetylcysteine 20% Inhal Soln (4ml) IH SCH ×2 (07:37→19:38)
[2016-11-15] MEDS: Arformoterol 15 mcg/2 ml Inh Sol IH SCH ×2 (07:37→19:38)
[2016-11-15] MEDS: Budesonide 0.25 mg/2 ml Inhal Susp UD IH SCH ×2 (07:37→19:38)
--- NOTE | 2016-11-15 07:53 | CP.PCM.PN ---
Subjective - Date & Time of Evaluation Date of Evaluation: 11/15/16 Time of Evaluation: 06:50 - Subjective Subjective: Surgery Progress Note for Dr Blackman: Pt seen and at bedside. No acute events overnight. Pt reports minor abdominal pain well controlled with Tylenol. Denies any nausea, vomiting or diarrhea. Denies any headaches, dizziness, f/c, sob, cp, palpitations, urinary or BM changes. Objective - Vital Signs/Intake and Output Vital Signs (last 24 hours): Temp Pulse Resp BP Pulse Ox 98.1 F 63 18 132/66 100 11/14/16 17:00 11/14/16 17:00 11/14/16 17:00 11/14/16 17:00 11/14/16 05:51 Intake and Output: 11/15/16 11/15/16 06:59 18:59 Intake Total 240 0 Output Total 100 150 Balance 140 -150 - Medications Medications: Current Medications Acetaminophen (Tylenol 325mg Tab) 650 mg PO Q4H PRN PRN Reason: Pain, Mild (1-3) Last Admin: 11/15/16 05:11 Dose: 650 mg Acetylcysteine (Acetylcysteine 20%) 4 ml IH BIDRESP [facility] Last Admin: 11/15/16 07:37 Dose: 4 ml Alprazolam (Xanax) 0.25 mg PO BID PRN; Protocol PRN Reason: Anxiety Stop: 11/21/16 10:46 Arformoterol Tartrate (Brovana) 15 mcg IH [id number] [facility] Last Admin: 11/15/16 07:37 Dose: 15 mcg Artificial Tears (Artificial Tears) 0 ml OU 5XD [facility] Last Admin: 11/15/16 05:11 Dose: 1 drop Aspirin (Ecotrin) 81 mg PO DAILY [facility] Last Admin: 11/14/16 12:07 Dose: 81 mg Budesonide (Pulmicort Respules) 0.25 mg IH [id number] [facility] Last Admin: 11/15/16 07:37 Dose: 0.25 mg Carvedilol (Coreg) 6.25 mg PO BID [facility] Last Admin: 11/14/16 18:10 Dose: Not Given Clopidogrel Bisulfate (Plavix) 75 mg PO DAILY [facility] Last Admin: 11/14/16 12:09 Dose: 75 mg Digoxin (Lanoxin) 0.125 mg PO 1400 [facility] Last Admin: 11/14/16 16:28 Dose: 0.125 mg Furosemide (Lasix) 40 mg PO BID [facility] Last Admin: 11/14/16 18:11 Dose: Not Given Isosorbide Mononitrate (Imdur) 30 mg PO DAILY [facility] Last Admin: 11/14/16 12:09 Dose: 30 mg Lisinopril (Zestril) 10 mg PO DAILY [facility] Last Admin: 11/14/16 12:09 Dose: 10 mg Pantoprazole Sodium (Protonix Ec Tab) 20 mg PO 0730 [facility] Last Admin: 11/14/16 12:24 Dose: 20 mg Spironolactone (Aldactone) 25 mg PO BID [facility] Last Admin: 11/14/16 18:09 Dose: Not Given Sucralfate (Carafate Oral Susp) 1 gm PO BID [facility] Last Admin: 11/14/16 18:09 Dose: Not Given - Labs Labs: 11/15/16 07:00 - Constitutional Appears: No Acute Distress - ENT Exam ENT Exam: Mucous Membranes Moist - Respiratory Exam Respiratory Exam: Clear to Ausculation Bilateral, NORMAL BREATHING PATTERN - Cardiovascular Exam Cardiovascular Exam: REGULAR RHYTHM, RRR, +S1, +S2. absent: Murmur - GI/Abdominal Exam GI & Abdominal Exam: Soft, Normal Bowel Sounds. absent: Distended, Tenderness - Neurological Exam Neurological Exam: Alert, Awake, Oriented x3 Assessment and Plan - Assessment and Plan (Free Text) Assessment: 86 year old female with past medical history of subtotal colectomy, cholecysectomy presents with abdominal pain. Plan: - Conservative management with no surgical intervention at this time - HHD as tolerated - Medical management as per primary - Pain management Further recs discuss with Dr Yehuda Lr PGY-1
[2016-11-15 08:21] LABS: BILIRUBIN,TOTAL 0.8 mg/dL (0.2-1.3); MAGNESIUM 2.2 mg/dL (1.7-2.2); PHOSPHOROUS 4.1 mg/dL (2.5-4.5); POTASSIUM 3.8 mmol/L (3.6-5.0); TOTAL PROTEIN 6.7 g/dL (5.8-8.3)
--- NOTE | 2016-11-15 08:27 | CON ---
DATE: 11/14/2016 REFERRING PHYSICIAN: Dr. Duncan. REASON FOR CONSULT: History of lungs cancer, cough, and shortness of breath. HISTORY OF PRESENT ILLNESS: This is an 86-year-old female with past medical history significant for lung cancer, history of coronary artery disease, history of bypass, aortic aneurysm, congestive heart failure, came in to ER with shortness of breath, cough. Also had some abdominal discomfort, having loose bowel movements today. There is no hematuria. No leg pain or leg swelling. PAST MEDICAL HISTORY: Chronic obstructive lung disease, stage II lung cancer treated with radiation and chemotherapy, hypertension, cardiomyopathy with decreased LV function, goiter. ALLERGY TO MECLIZINE, SHELLFISH, ATORVASTATIN. SOCIAL HISTORY: Denies any active smoking or alcohol use. FAMILY HISTORY: No significant cardiopulmonary disease reported. MEDICATIONS: She is on Aldactone 25 mg twice a day, Artificial Tears 5 times a day, Brovana 15 mcg i nhaled twice a day, Carafate 1 g twice a day, Coreg 6.25 mg twice a day, Ecotrin 81 mg daily, Imdur 3 0 mg daily, digoxin 0.125 mg daily, Lasix 20 mg twice a day, Plavix 75 mg daily, Protonix 20 mg daily , Pulmicort inhaled twice a day, Tylenol p.r.n. basis, Xanax 0.25 mg twice a day p.r.n., Zestril 10 m g daily. REVIEW OF SYSTEMS: No headache. Has some rhinitis, cough, clear sputum production. No chest pain. Has some abdominal pain. Had a loose stool today. No dysuria. No leg pain or leg swelling. PHYSICAL EXAMINATION: Lying in the bed in no acute distress. Temp is 98, heart rate 63, respiratory rate is 20, blood pressure 132/66, pulse ox 100% on nasal sonido crystal. HENT: Moist mucous membranes. Crowded airway. NECK: Supple. No JVD. LUNGS: Have scattered rhonchi, few crackles at the bases. HEART: S1 and S2. ABDOMEN: Soft, nontender. No organomegaly. EXTREMITIES: There is no edema. NEUROLOGICALLY: Awake, alert. Follows simple commands. LABORATORY DATA: Shows hemoglobin 11.5, hematocrit 36.7, WBC 6.7, platelet count is 226. Sodium 138 , potassium 3.9, chloride 96, bicarbonate 30, BUN 24, creatinine 1.1, calcium is 9.4. AST 34, ALT 27 , alk phos is 87. Troponin is 8. ProBNP 16,400, albumin 4.0. Had a CAT scan of the abdomen done through ER yesterday which shows no acute findings accounting for clinical presentation, which is . Chest x-ray done in the ER shows moderate cardiomegaly and p ulmonary vascular congestion associated with some right pleural effusion. IMPRESSION AND PLAN: Cardiomyopathy with heart failure, stage II lung cancer, been on chemotherapy i n the past. Also has seizure disorder, hypertension. May have sleep apnea syndrome, Alzheimer type dementia, chronic lung disease. Pulmonary point of view doing okay. Will add Mucomyst and Pulmicort to Brovana, add Singulair 10 mg daily. Continue diuretics. Gastric prophylaxis, DVT prophylaxis. Cardiology followup. Thank you, and will follow with you. Shekhar Banda MD cc: [id number] TT: 11/15/2016 08:27:05 Confirmation # [id number] Dictation # [id number] jn
[2016-11-15] MEDS: Sucralfate 1 gm/10 ml Oral Susp UD PO SCH ×2 (09:19→17:15)
[2016-11-15] MEDS: Pantoprazole 20 mg EC Tab PO SCH (09:20)
--- NOTE | 2016-11-15 10:49 | CON ---
DATE: 11/15/2016 This patient was seen and evaluated today. Discussed with Dr. Duncan. This is an 86-year-old patie nt with a past medical history of CA lung, coronary artery disease, status post coronary artery bypas s graft, aortic aneurysm. Admitted with shortness of breath and also severe lower abdominal discomfo rt. No vomiting. The patient also complains of increased frequency of micturition and also some dif ficulty with bowel movements recently. No history of any fever, no hematuria, no bleeding per rectum . PAST MEDICAL HISTORY: Significant for coronary artery disease, status post CABG, history of lung can cer, cardiomyopathy, CHF, GERD, COPD. FAMILY HISTORY: Noncontributory. SOCIAL HISTORY: No smoking. No alcohol. REVIEW OF SYSTEMS: Positive as above. Other systems reviewed. PHYSICAL EXAMINATION: VITAL SIGNS: Temperature is 98.1, blood pressure is 132/66, respirations 18. HEENT: Atraumatic, anicteric. NECK: Supple. HEART: S1, S2 heard. LUNGS: Bilateral normal vesicular breath sounds. ABDOMEN: Soft. No tenderness at that time. EXTREMITIES: No cyanosis. No clubbing. LABORATORY DATA: WBCs 6.7, hemoglobin 11.5, hematocrit 36.7, platelets 226. Urinalysis shows modera te amount of leukocyte esterase. CT of the abdomen is reviewed. IMPRESSION: This 86-year-old patient with lung cancer, coronary artery disease, admitted with abdomi nal pain, shortness of breath. Urinalysis is positive for possible urinary tract infection. Would r equest urine culture, empiric antibiotic therapy, liquid diet. We will continue to closely follow up her care and suggest further management based on the clinical course. Impression is abdominal pain. RECOMMENDATIONS: Would recommend: 1. Follow up the urine culture. 2. Liquid diet. 3. Empiric antibiotic coverage, stool softeners and laxatives. We will continue to closely follow up her care and suggest further management based on the clinical c ourse. Serafin Hernandez MD cc: [id number] TT: 11/15/2016 09:06:44 Confirmation # [id number] Dictation # [id number] en
[2016-11-15] MEDS ORDERED: Simethicone 80 mg Chewtab PO PRN (12:06)
--- NOTE | 2016-11-15 12:08 | CP.PCM.PCO ---
Physician Communication Note - Physician Communication Note Physician Communication Note: +BM/Rx simethicone/tylenol-NO surgery needed
[2016-11-15] MEDS: Digoxin 125 mcg (0.125 mg) Tab PO SCH (13:50)
[2016-11-15 13:53] VITALS: PULSE 76
--- NOTE | 2016-11-15 14:53 | PN ---
DATE: 11/15/[address] Duncan. SUBJECTIVE: The patient is an 86-year-old female seen sitting up in bed, reporting that her abdomina l pain got better yesterday and now it was worse again today with approximately 4/10 on a pain scale, yesterday was 5/10. With this, the patient otherwise was seen by cardiology with cardiology evaluat ion and taken off the telemetry with her BNP rising from 16,400 and 20,000 with a troponin also modes tly elevated. She otherwise was seen by Dr. Blackman, surgeon and Dr. Hernandez with recommendations for simethicone to be given as this may be contributing to her discomfort; however, we will continue present medical regimen for now and monitor her clinically with consideration for discharge home once she is stable. PHYSICAL EXAMINATION: VITAL SIGNS: Temperature 98.5, pulse 60, respirations 20, blood pressure 156/85 and pulse ox 100%. HEENT: Unremarkable. Oxygen is on. NECK: Soft. HEART: Regular rate, occasional ectopic beat. LUNGS: Rare rhonchi, crackles faint at the bases. ABDOMEN: Soft. Minimal tenderness to gentle palpation to the mid epigastrium. NEUROLOGIC: The patient is awake and alert. SKIN: Otherwise, warm, dry and clear. LABORATORY DATA: The patient's labs were done. White blood cell count of 6.3, hemoglobin 10.6, le tocrit 32.3, platelet count 218,000 with a chem metabolic panel showing a B-natriuretic peptide 20,00 0. BUN of 35 with a creatinine of 1.4, otherwise normal chem panel. Her digoxin level earlier was 1 .1. 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 Ejection fraction of 20%-25%. PLAN: After conversation with Dr. Duncan, to continue present medical regimen with simethicone to b e given per Dr. Blackman with the patient to be monitored clinically with consideration for discharge home if she is stable. We will continue Tylenol as needed for her discomfort. Adrián Gavin MD cc: [id number] TT: 11/15/2016 14:52:36 Confirmation # [id number] Dictation # [id number] jn
--- NOTE | 2016-11-15 16:20 | PN ---
DATE: 11/15/2016 The patient is in room 376, bed 2. REASON FOR CONSULTATION: Abdominal pain, shortness of breath, history of coronary artery disease, CA BG, cardiomyopathy. HISTORY OF PRESENT ILLNESS: An 86-year-old female with past medical history of coronary artery disea se status post coronary artery bypass surgery and ischemic cardiomyopathy. Admitted with abdominal p ain and shortness of breath. The patient's CAT scan of the abdomen was done. No acute findings were seen on the CAT scan. The patient is feeling better now. Denies any chest pain, shortness of breat h or palpitations. The patient's previous cardiac workup has been mentioned in detail in our consult note dated 11/14/2016. PHYSICAL EXAMINATION: VITAL SIGNS: Blood pressure 156/85, respirations 20, pulse 60, temperature 98.5. HEAD: Normocephalic. EYES: Pupils normal. Conjunctivae slightly pale. NECK: JVP low. Carotid equal. THORAX: AP diameter normal. LUNGS: No rales. CARDIOVASCULAR: S1, S2. ABDOMEN: Soft. Bowel sounds normal. EXTREMITIES: No clubbing, no cyanosis. LABORATORIES: WBC 6.0, hemoglobin 10.6, hematocrit 33.3, platelets 218. Sodium 136, potassium 3.8, BUN 35, creatinine 1.4, glucose 101. Calcium, phosphorus, magnesium normal. AST, ALT normal. NT-pr o B-natriuretic pep 20,000. TSH 1.21. Chest x-ray: Moderate pulmonary vascular congestion, cardiomegaly, no change as compared to the prev ious exam. DIAGNOSES: Abdominal pain, congestive heart failure, acute on chronic left ventricular systolic fail ure, cardiomyopathy, ischemic type, coronary artery disease status post coronary artery bypass graft. Last echo showed ejection fraction of 20%-25%, moderate mitral regurgitation, moderate tricuspid re gurgitation, severe tricuspid regurgitation, right ventricle systolic pressure 47 mmHg. Echo was don e on 06/29/2016 with 4-chamber dilatation. The patient is on Coreg 6.25 b.i.d., aspirin 81 mg daily, isosorbide mono 30 daily, digoxin 0.125 raymond ly, furosemide 40 mg p.o. b.i.d., Plavix 75 mg p.o. daily, lisinopril 10 mg p.o. daily. We will cont inue present therapy and we will follow with you. Shekhar Stringer MD cc: [id number] TT: 11/15/2016 15:13:26 Confirmation # [id number] Dictation # [id number] en
--- NOTE | 2016-11-15 17:22 | PN ---
DATE: 11/15/2016 REFERRING PHYSICIAN: Dr. Duncan. SUBJECTIVE: She is lying in the bed, head at 45 degrees. Feels a little better. No headache, no rh initis. Cough is improved. No nausea, no vomiting. Improved abdominal pain. No dysuria. No leg p ain or leg swelling. OBJECTIVE: GENERAL: No acute distress. VITAL SIGNS: Temperature is 98, heart rate is 60, respiratory rate is 20, blood pressure 156/85, pul se ox 100% on nasal cannula. HEENT: Moist mucous membranes. Crowded airway. Mallampati score is 4. NECK: Supple, no JVD. LUNGS: Have a few crackles at the bases, scattered rhonchi. HEART: S1, S2. ABDOMEN: Soft, nontender, nondistended. EXTREMITIES: There is no edema. NEUROLOGIC: Awake, alert, follows simple commands. MEDICATIONS: She is on Mucomyst 20% inhaled twice a day, Aldactone 25 mg twice a day, artificial tea rs 5 times a day, Brovana 15 mcg inhaled twice a day, Carafate 1 gram b.i.d., Coreg 6.25 mg twice a d ay, Ecotrin 81 mg daily, Imdur 30 mg daily, digoxin 0.125 mg daily, Lasix 40 mg twice a day, simethic one 80 mg twice a day p.r.n., Plavix 75 mg daily, Protonix 40 mg daily, Pulmicort inhaled twice a da y, Tylenol p.r.n., Xopenex p.r.n., Zestril 10 mg daily. LABORATORY DATA: Shows hemoglobin 10.6, hematocrit 33.3, WBC 6.0, platelet count is 218. Sodium 136 , potassium 3.8, chloride 97, bicarbonate 31, BUN 35, creatinine 1.4, glucose is 101, calcium is 9.0, phosphorous is 4.1, magnesium 2.2. AST 30, ALT 24, alk phos is 68. ProBNP is 20,000. Albumin is 3 .4. TSH 1.21. MICROBIOLOGY: Urine culture has contamination. Recommended repeating it. IMPRESSION AND PLAN: Cardiomyopathy with heart failure; stage II lung cancer, been treated with chem otherapy and radiation therapy I believe, seizure disorder, hypertension, may have sleep apnea syndro me, Alzheimer type dementia, chronic lung disease. Cased discussed with oncology services. Jorge whitaker.o. and inhaled bronchodilator. Keep head elevated at 45 degrees. Gastric prophylaxis. Deep venous thrombosis prophylaxis. Continue diuretics, digoxin, Imdur, Ecotrin, Coreg for heart failure . Thank you, and will follow with you. Shekhar Banda MD cc: [id number] TT: 11/15/2016 17:22:37 Confirmation # [id number] Dictation # [id number] mn
[2016-11-16] MEDS: Aritificial Tears (15ml) OU SCH ×3 (06:10→14:03)
[2016-11-16] MEDS: Acetylcysteine 20% Inhal Soln (4ml) IH SCH (08:15)
[2016-11-16] MEDS: Arformoterol 15 mcg/2 ml Inh Sol IH SCH (08:15)
[2016-11-16] MEDS: Budesonide 0.25 mg/2 ml Inhal Susp UD IH SCH (08:15)
[2016-11-16] MEDS: Pantoprazole 20 mg EC Tab PO SCH (08:34)
[2016-11-16 08:42] VITALS: PULSE 56; O2SAT 100
[2016-11-16] MEDS: Sucralfate 1 gm/10 ml Oral Susp UD PO SCH (09:56)
--- NOTE | 2016-11-16 10:15 | CP.PCM.PCO ---
Physician Communication Note - Physician Communication Note Physician Communication Note: OK D/C:Miralax-Simethicone BID/F/U PRN
--- NOTE | 2016-11-16 13:44 | CP.PCM.PN ---
Subjective - Date & Time of Evaluation Date of Evaluation: 11/16/16 Time of Evaluation: 13:39 - Subjective Subjective: SURGERY NOTE FOR DR. BLACKMAN 86F seen and examined at bedside. Patient states she feels well, denies pain, F/ C/N/V. She is tolerating her diet. Objective - Vital Signs/Intake and Output Vital Signs (last 24 hours): Temp Pulse Resp BP Pulse Ox 98 F 56 L 20 154/80 H 100 11/16/16 08:41 11/16/16 08:41 11/16/16 08:41 11/16/16 09:56 11/16/16 08:41 Intake and Output: 11/16/16 11/16/16 06:59 18:59 Intake Total 120 Output Total 550 Balance -430 - Medications Medications: Current Medications Acetaminophen (Tylenol 325mg Tab) 650 mg PO Q4H PRN PRN Reason: Pain, Mild (1-3) Last Admin: 11/15/16 17:17 Dose: 650 mg Acetylcysteine (Acetylcysteine 20%) 4 ml IH BIDRESP [facility] Last Admin: 11/16/16 08:15 Dose: 4 ml Alprazolam (Xanax) 0.25 mg PO BID PRN; Protocol PRN Reason: Anxiety Stop: 11/21/16 10:46 Last Admin: 11/16/16 10:13 Dose: 0.25 mg Arformoterol Tartrate (Brovana) 15 mcg IH [id number] [facility] Last Admin: 11/16/16 08:15 Dose: 15 mcg Artificial Tears (Artificial Tears) 0 ml OU 5XD [facility] Last Admin: 11/16/16 09:57 Dose: 2 drop Aspirin (Ecotrin) 81 mg PO DAILY [facility] Last Admin: 11/16/16 09:56 Dose: 81 mg Budesonide (Pulmicort Respules) 0.25 mg IH [id number] [facility] Last Admin: 11/16/16 08:15 Dose: 0.25 mg Carvedilol (Coreg) 6.25 mg PO BID [facility] Last Admin: 11/16/16 09:55 Dose: 6.25 mg Clopidogrel Bisulfate (Plavix) 75 mg PO DAILY [facility] Last Admin: 11/16/16 09:56 Dose: 75 mg Digoxin (Lanoxin) 0.125 mg PO 1400 [facility] Last Admin: 11/15/16 13:50 Dose: 0.125 mg Furosemide (Lasix) 40 mg PO BID [facility] Last Admin: 11/16/16 09:56 Dose: 40 mg Isosorbide Mononitrate (Imdur) 30 mg PO DAILY [facility] Last Admin: 11/16/16 09:55 Dose: 30 mg Lisinopril (Zestril) 10 mg PO DAILY [facility] Last Admin: 11/16/16 09:56 Dose: 10 mg Pantoprazole Sodium (Protonix Ec Tab) 20 mg PO 0730 [facility] Last Admin: 11/16/16 08:34 Dose: 20 mg Simethicone (Mylicon Chew Tab) 80 mg PO BID PRN PRN Reason: GI distress Spironolactone (Aldactone) 25 mg PO BID [facility] Last Admin: 11/16/16 09:56 Dose: 25 mg Sucralfate (Carafate Oral Susp) 1 gm PO BID [facility] Last Admin: 11/16/16 09:56 Dose: 1 gm - Labs Labs: 11/15/16 07:00 11/15/16 07:00 - Constitutional Appears: Well, Non-toxic, No Acute Distress - Head Exam Head Exam: ATRAUMATIC - Respiratory Exam Respiratory Exam: Clear to Ausculation Bilateral, NORMAL BREATHING PATTERN - Cardiovascular Exam Cardiovascular Exam: REGULAR RHYTHM, +S1, +S2 - GI/Abdominal Exam GI & Abdominal Exam: Soft. absent: Distended, Firm, Guarding, Rigid, Tenderness , Rebound - Neurological Exam Neurological Exam: Alert, Awake - Skin Skin Exam: Dry, Intact, Normal Color, Warm Assessment and Plan - Assessment and Plan (Free Text) Assessment: 86F presents with abdominal pain. with history of subtotal colectomy and cholecystectomy. Plan: - patient clear for DC as per Dr. Blackman Note. Further recs discuss with Dr. Yehuda Rush, PGY1
[2016-11-16] MEDS: Digoxin 125 mcg (0.125 mg) Tab PO SCH (14:06)
--- NOTE | 2016-11-16 17:25 | PN ---
DATE: 11/16/2016 REFERRING PHYSICIAN: Dr. Duncan SUBJECTIVE: She is out of bed to chair. Night was unremarkable. Feels better. No headache, no rhi nitis. Has cough is better. No nausea, no vomiting, no abdominal pain, no dysuria. No leg pain or leg swelling. OBJECTIVE: GENERAL: No acute distress. VITAL SIGNS: Temperature is 98, heart rate is 56, respiratory rate is 20, blood pressure 154/80, pul se ox 99% on room air. HEENT: Moist mucous membranes. No ulcer or thrush noted. NECK: Supple. No JVD. LUNGS: Fair airflow with few rhonchi. HEART: S1 and S2. ABDOMEN: Soft, nontender. No organomegaly. EXTREMITIES: There is no edema. NEUROLOGIC: Awake, alert, follows simple commands. MEDICATIONS: She is on Mucomyst 20% inhaled q. 12 hours, Aldactone 25 mg twice a day, artificial tea rs to both eyes, Brovana 15 mcg inhaled twice a day, Carafate 1 g twice a day, Coreg 6.25 mg twice a day, Ecotrin 81 mg daily, Imdur 30 mg daily, digoxin 0.125 mg daily, Lasix 40 mg twice a day, Plavix 75 mg daily, Protonix 20 mg daily, Pulmicort inhaled twice a day, Tylenol on a p.r.n. basis, Xanax 0. 25 mg twice a day p.r.n., Zestril 10 mg daily. LABORATORY DATA: Shows hemoglobin 10.6, hematocrit 33.3, WBC 6.0, platelet is 218. Sodium 136, pota ssium 3.8, chloride 97, bicarbonate 31, BUN 35, creatinine 1.4, glucose 101, calcium 9.0, phosphorus 4.1, magnesium 2.2, AST 30, ALT is 24, alkaline phosphatase 68. ProBNP 20,000. IMPRESSION AND PLAN: Cardiomyopathy with heart failure, stage II lung cancer being treated with chem oradiation therapy, seizure disorder, hypertension, may have a sleep apnea syndrome, Alzheimer type d ementia, chronic lung disease. I spoke to nursing staff. Arrangements are being made to send her ho me. We will suggest outpatient attended sleep study, especially because of cardiomyopathy. Gastric prophylaxis, deep venous thrombosis prophylaxis. Fall precaution. Continue inhaled bronchodilators. Thank you and we will follow with you. Shekhar Banda MD cc: [id number] TT: 11/16/2016 17:24:47 Confirmation # [id number] Dictation # [id number]
[2016-11-16 18:04] VITALS: BP 129/67; RESP 19; TEMP 97.8
--- NOTE | 2016-11-16 19:16 | DS ---
For Dr. Duncan. SUBJECTIVE: The patient is an 86-year-old female admitted by the Emergency Room for abdominal discom fort with shortness of breath. She was then admitted to the telemetry for which she was discharged b y Dr. Howard earlier in her hospital stay. The patient noted to have a mild elevation of her troponin, which was being followed by Dr. Howard; however, we did have evaluations with Dr. Blackman, her surgeo n, and Dr. Hernandez, gastrointestinal, with the patient reporting that her abdominal pain is signific antly improved. She is for discharge home today, after conversation with her daughter, Kayla, phon e number [phone], with the patient otherwise in no acute distress. OBJECTIVE: PHYSICAL EXAMINATION: VITAL SIGNS: Temperature 98, pulse 67, respirations 20, blood pressure 162/83, pulse ox 100%. HEENT: Unremarkable. NECK: Supple. HEART: Regular rate. LUNGS: Scattered rhonchi. ABDOMEN: Soft, nontender this visit. EXTREMITIES: No edema. SKIN: Warm, dry and clear. NEUROLOGIC: Awake and alert. LABORATORY DATA: The patient's labs were done yesterday with a white blood cell count of 6.0, hemogl obin 10.6, hematocrit 33.3, platelet count of 218,000 with a chem panel showing a BUN of 35, normal c reatinine of 1.4, otherwise normal chem metabolic panel. Dig level done earlier in her stay of 1.1. ASSESSMENT: Abdominal pain, resolved. History of subtotal colectomy. History of congestive heart f ailure, severe cardiomyopathy, history of ASCVD, stage II nonsmall cell CA of the lung in remission, COPD, anxiety. Oxygen dependency, ejection fraction 20%. PLAN: After conversation with Dr. Duncan, we will discharge the patient on her present medical nelida men to include Aldactone 25 mg twice a day, Brovana 15 mg q.12, Carafate 1 gram b.i.d., Coreg 6.25 b. i.d., Ecotrin once a day 81 mg, Imdur 30 mg once a day, digoxin 0.125 a day, Lasix 40 mg b.i.d., Plav ix 75 mg daily, Protonix 20 mg once a day, Pulmicort 0.25 inhalation q.12, home oxygen, Xanax 0.25 b. i.d. p.r.n. and Zestril 10 mg p.o. daily. We will also recommend that the patient continue on simeth icone 80 mg b.i.d. p.r.n. for gas as this may have contributed to her abdominal pain as per Dr. Raphael landin. With this, the patient's followup will be in approximately 1 weeks' time. With the admonition that should she not feel well to come in earlier to the office or to the Emergency Room should it be necessary. Adrián Gavin MD cc: [id number] TT: 11/16/2016 19:15:01 kvng
--- NOTE | 2016-11-19 10:51 | PQF GENQUE ---
11/19/16 Dr. Guzman Blackman. Etiology of abdominal pain ? Thank you. Clarification of your documentation is requested to better reflect the severity of illness and intensity of treatment of your patient. Indicators present [] Specify: [] [] Specify: [] [] Specify: [] [] Specify: [] Location in the medical record that reflects the above clinical findings: [] Treatment Provided: [ 11/14/16 CONSERVATIVE MEDICAL MEASURES-MIRALAX/ SIMETHICONE RX PHYSICIAN'S RESPONSE Based on your medical judgment of the clinical indicators outlined above please clarify the following: [] Practitioner response GAS CRAMPS-CONSTIPATION [] If unable to determine, please check the box, sign and date. Present On Admission (POA) Indicator: [] Present at the time of admission [] Not present at the time of admissionNOT PRESENT [] Clinically Undetermined In responding to this query, please exercise your independent professional judgment. The fact that a question is asked does not imply that any particular answer is desired or expected. Thank you for your clarification on this documentation. 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
== END 2016-11-16 18:22 | disposition home or self-care (01) | DRG 391 ==
LOC: ED 17:35 → EROBSV 20:14 → ERH 11-14 02:09 → 2RNO 11-14 03:24 → 3RSO 11-14 17:59 → OBSVTOIN 11-14 20:01
PROVIDERS: ADMIT Family Medicine; ATTEND Family Medicine
DX: K59.00 Constipation, unspecified (principal); I50.23 Acute on chronic systolic (congestive) heart failure; J90 Pleural effusion, not elsewhere classified; E87.3 Alkalosis; I71.2 Thoracic aortic aneurysm, without rupture; C34.90 Malignant neoplasm of unspecified part of unspecified bronchus or lung; I42.0 Dilated cardiomyopathy; N39.0 Urinary tract infection, site not specified; R10.9 Unspecified abdominal pain; I08.3 Combined rheumatic disorders of mitral, aortic and tricuspid valves; E11.9 Type 2 diabetes mellitus without complications; I25.5 Ischemic cardiomyopathy; I25.10 Atherosclerotic heart disease of native coronary artery without angina pectoris; E78.5 Hyperlipidemia, unspecified; G40.909 Epilepsy, unspecified, not intractable, without status epilepticus; I10 Essential (primary) hypertension; J44.9 Chronic obstructive pulmonary disease, unspecified; J47.9 Bronchiectasis, uncomplicated; K21.9 Gastro-esophageal reflux disease without esophagitis; Z79.02 Long term (current) use of antithrombotics/antiplatelets; Z79.82 Long term (current) use of aspirin; Z79.899 Other long term (current) drug therapy; Z83.3 Family history of diabetes mellitus; Z85.118 Personal history of other malignant neoplasm of bronchus and lung; Z86.73 Personal history of transient ischemic attack (TIA), and cerebral infarction without residual deficits; Z87.440 Personal history of urinary (tract) infections; Z87.891 Personal history of nicotine dependence; Z90.49 Acquired absence of other specified parts of digestive tract; Z92.21 Personal history of antineoplastic chemotherapy; Z92.3 Personal history of irradiation; Z95.1 Presence of aortocoronary bypass graft; Z95.5 Presence of coronary angioplasty implant and graft; Z99.81 Dependence on supplemental oxygen; Z98.49 Cataract extraction status, unspecified eye; M19.90 Unspecified osteoarthritis, unspecified site; Z88.8 Allergy status to other drugs, medicaments and biological substances; Z91.013 Allergy to seafood; Z83.6 Family history of other diseases of the respiratory system; R09.02 Hypoxemia; F41.9 Anxiety disorder, unspecified; G47.30 Sleep apnea, unspecified; G30.9 Alzheimer's disease, unspecified; F02.80 Dementia in other diseases classified elsewhere, unspecified severity, without behavioral disturbance, psychotic disturbance, mood disturbance, and anxiety; E04.2 Nontoxic multinodular goiter; K66.0 Peritoneal adhesions (postprocedural) (postinfection)

== ENCOUNTER 2016-12-16 10:53 | Inpatient (IN) | payer MEDICARE, OTHER ==
[2016-12-16 10:54] VITALS: BMI 19.8
--- NOTE | 2016-12-16 11:26 | ED PDOC ---
Arrival/HPI - General Time Seen by Provider: 12/16/16 11:08 Historian: Patient - History of Present Illness Narrative History of Present Illness (Text): 12/16/16 11:26 A 86 year old female, whose past medical history includes lung cancer, port-a cath, coronary artery bypass surgery, aortic aneurysm and CHF, presents to the emergency department complaining of shortness of breath since yesterday. Patient denies any relieving or exacerbating factors. Patient notes mild abdominal discomfort but denies any fever, nausea, vomiting, diarrhea, urinary symptoms, chest pain, cough or any other complaints. Oncologist: Dr. Duncan Surgical Resident: Dr. Stringer Time/Duration: Other (Yesterday) Symptom Course: Unchanged Quality: Other Context: Home Past Medical History - Provider Review Nursing Documentation Reviewed: Yes - Infectious Disease Hx of Infectious Diseases: None - Tetanus Immunization Tetanus Immunization: Unknown - Cardiac Hx Cardiac Disorders: Yes Hx Congestive Heart Failure: Yes Hx Hypertension: Yes - Pulmonary Hx Chronic Obstructive Pulmonary Disease (COPD): Yes - Neurological HX Cerebrovascular Accident: Yes (1990) - HEENT Hx HEENT Disorder: Yes Hx Cataracts: Yes (SURGERY) Hx Deafness: No ([place]) - Renal Hx Renal Disorder: No - Endocrine/Metabolic Hx Diabetes Mellitus Type 2: Yes - Hematological/Oncological Hx Blood Disorders: Yes Hx Cancer: Yes (COLON & LUNG) - Integumentary Hx Dermatological Disorder: No - Musculoskeletal/Rheumatological Hx Arthritis: Yes - Gastrointestinal Hx Gastrointestinal Disorders: Yes Hx Gall Bladder Disease: Yes Other/Comment: APPENDECTOMY. CHOLECYSTECTOMY. COLON RESECTION - Genitourinary/Gynecological Hx Genitourinary Disorders: Yes Hx Urinary Tract Infection: Yes - Psychiatric Hx Psychophysiologic Disorder: Yes Hx Anxiety: Yes Hx Substance Use: No - Surgical History Hx Appendectomy: Yes Hx Cardiac Catheterization: Yes Hx Cholecystectomy: Yes Hx Coronary Artery Bypass Graft: Yes Hx Coronary Stent: Yes Other/Comment: COLON RESECTION - Anesthesia Hx Anesthesia: Yes Hx Anesthesia Reactions: No Hx Malignant Hyperthermia: No - Suicidal Assessment Feels Threatened In Home Enviroment: No Family/Social History - Physician Review Nursing Documentation Reviewed: Yes Family/Social History: No Known Family HX Smoking Status: Former Smoker Hx Alcohol Use: No Hx Substance Use: No Hx Substance Use Treatment: No Allergies/Home Meds Allergies/Adverse Reactions: Allergies atorvastatin Allergy (Verified 12/16/16 11:23) HEADACHE meclizine Allergy (Verified 12/16/16 11:23) RASH shellfish derived Allergy (Verified 12/16/16 11:23) SHORTNESS OF BREATH Home Medications: Home Meds Medication Instructions Recorded Confirmed Cholecalciferol (Vitamin D3) 1,000 unit PO DAILY 12/16/16 12/16/16 [Vitamin D3] Ferrous Sulfate [Feosol] 325 mg PO DAILY 12/16/16 12/16/16 Pyridoxine [Vitamin B6] 100 mg PO DAILY 12/16/16 12/16/16 Simvastatin 40 mg PO DAILY 12/16/16 12/16/16 Review of Systems - Physician Review All systems were reviewed & negative as marked: Yes - Review of Systems Constitutional: absent: Fevers Respiratory: SOB. absent: Cough Cardiovascular: absent: Chest Pain Gastrointestinal: Abdominal Pain (Abdominal discomfort). absent: Diarrhea, Nausea, Vomiting Genitourinary Female: absent: Dysuria, Frequency, Hematuria, Urine Output Changes Physical Exam Vital Signs Reviewed: Yes Vital Signs Temp Pulse Resp BP Pulse Ox 12/16/16 13:49 76 16 155/95 H 100 12/16/16 12:44 71 15 161/91 H 100 12/16/16 11:42 183/83 H 12/16/16 11:28 100 12/16/16 11:18 74 17 181/89 H 100 12/16/16 11:10 97.5 F L 78 18 157/89 H 98 Temperature: Afebrile Blood Pressure: Hypertensive Pulse: Regular Respiratory Rate: Normal Appearance: Positive for: Well-Appearing, Non-Toxic, Comfortable Pain Distress: None Mental Status: Positive for: Alert and Oriented X 3 - Systems Exam Head: Present: Atraumatic, Normocephalic Pupils: Present: PERRL Extroacular Muscles: Present: EOMI Conjunctiva: Present: Normal Respiratory/Chest: Present: Good Air Exchange, Rales (To bilateral bases). No: Respiratory Distress, Accessory Muscle Use Cardiovascular: Present: Normal S1, S2, Irregular Rhythm, Other (Regular Rate, 2 /6 Systolic ejection). No: Regular Rate and Rhythm, Murmurs Abdomen: Present: Normal Bowel Sounds. No: Tenderness, Distention, Peritoneal Signs, Rebound, Guarding Upper Extremity: Present: Normal Inspection. No: Cyanosis, Edema Lower Extremity: Present: Normal Inspection, NORMAL PULSES. No: Edema, CALF TENDERNESS Neurological: Present: GCS=15, CN II-XII Intact, Speech Normal Skin: Present: Warm, Dry, Normal Color. No: Rashes Psychiatric: Present: Alert, Oriented x 3, Normal Insight, Normal Concentration Medical Decision Making ED Course and Treatment: 12/16/16 11:26 Impression: A 86 year old female with shortness of breath. Patient notes abdominal discomfort. Plan: -- Chest xray -- EKG -- Labs -- Lasix -- Reassess and disposition Prior Visits: Notes and results from previous visits were reviewed. Patient last seen in ED on 11/13/16 for shortness of breath and lower abdominal discomfort. Patient was hospitalized for CHF exacerbation and abdominal pain. Progress Notes: Chest X-ray read and interpreted by me, which shows right pleura effusion, cardiomegaly, line present, hardware present, CHF. 12/16/16 14:[address] Duncan who referred to Dr. Stringer for admission. Discussed with who referred back to Dr. Duncan for admission. Discussed with who referred to the hospitalist for admission. Discussed with Dr.I Soto who accepts to her service. 12/16/16 14:44 EKG shows sinus arrhythmia with PACs and a left axis with nonspecific ST and T- wave changes similar to EKG of 11/13/2016 - Lab Interpretations Lab Results: 12/16/16 11:40 12/16/16 13:46 Lab Results 12/16/16 13:46: Sodium 140, Potassium 3.6, Chloride 97 L, Carbon Dioxide 32, Anion Gap 15, BUN 17, Creatinine 0.9, Est GFR ( Amer) > 60, Est GFR (Non- Af Amer) 60, Random Glucose 97, Calcium 9.6, Total Bilirubin 1.1, AST 33, ALT 29 , Alkaline Phosphatase 78, Lactate Dehydrogenase 535, Total Creatine Kinase 59, Troponin I 0.07, NT-Pro-B Natriuret Pep 34665 H, Total Protein 7.8, Albumin 4.1 , Globulin 3.7, Albumin/Globulin Ratio 1.1 12/16/16 11:40: WBC 6.4, RBC 4.33, Hgb 11.8 L, Hct 36.8, MCV 85.0, MCH 27.3, MCHC 32.1, RDW 16.0 H, Plt Count 262, MPV 11.8 H, Gran % 70.7 H, Lymph % (Auto) 16.2 L, [place] % (Auto) 12.3 H, Eos % (Auto) 0.5 L, Baso % (Auto) 0.3, Gran # 4.49 , Lymph # 1.0 L, [place] # 0.8 H, Eos # 0.0, Baso # 0.02, PT 12.3 H, INR 1.14 H, APTT 26.4 I have reviewed the lab results: Yes - RAD Interpretation Radiology Orders: 12/16/16 11:22 CHEST PORTABLE [RAD] Stat - Medication Orders Current Medication Orders: Discontinued Medications Furosemide (Lasix) 40 mg IVP STAT STA Stop: 12/16/16 11:22 Last Admin: 12/16/16 11:42 Dose: 40 MG MAR Blood Pressure Document 12/16/16 11:42 MMA (Rec: 12/16/16 11:47 [id number] Blood Pressure Blood Pressure (100/60-150/90 mm Hg) 183/83 IVP Administration Document 12/16/16 11:42 MMA (Rec: 12/16/16 11:47 [id number] Charges for Administration # of IVP Administrations 1 - Scribe Statement The provider has reviewed the documentation as recorded by the Augusta Ordaz Provider Scribe Attestation: All medical record entries made by the Scribe were at my direction and personally dictated by me. I have reviewed the chart and agree that the record accurately reflects my personal performance of the history, physical exam, medical decision making, and the department course for this patient. I have also personally directed, reviewed, and agree with the discharge instructions and disposition. Disposition/Present on Arrival - Present on Arrival Any Indicators Present on Arrival: No History of DVT/PE: No History of Uncontrolled Diabetes: No Urinary Catheter: No History of Decub. Ulcer: No History Surgical Site Infection Following: None - Disposition Have Diagnosis and Disposition been Completed?: Yes Diagnosis: CHF exacerbation, Cardiomegaly, Congestive heart failure, Aortic aneurysm Disposition: HOSPITALIZED Disposition Time: 14:10 Patient Plan: Admission, Telemetry Patient Problems: Current Active Problems Problem Status Diagnosed Urinary tract infection Acute Abdominal pain Acute Aortic aneurysm Acute CHF exacerbation Acute Cardiomegaly Acute Congestive heart failure Acute Metabolic alkalosis Acute Condition: SERIOUS Discharge Instructions (ExitCare): Heart Failure (ED)
[2016-12-16 11:56] LABS: ADD MANUAL DIFF? NO
[2016-12-16 12:01] LABS: BASO # 0.02 K/mm3 (0.0-2.0); BASO % 0.3 % (0.0-3.0); EOS % 0.5 % (1.5-5.0); GRAN # 4.49 (1.4-6.5); GRAN % 70.7 % (50.0-68.0); HEMATOCRIT 36.8 % (36.0-48.0); LYMPH % 16.2 % (22.0-35.0); MEAN CORPUSCULAR HEMOGLOBIN 27.3 pg (25.0-35.0); MEAN CORPUSCULAR HGB CONC 32.1 g/dl (31.0-37.0); MEAN PLATELET VOLUME 11.8 fl (7.0-11.0); MONO # 0.8 (0.1-0.6); MONO % 12.3 % (1.0-6.0); PLATELET COUNT 262 10^3/uL (120.0-450.0); WHITE BLOOD COUNT 6.4 10^3/ul (4.5-11.0)
[2016-12-16 12:13] LABS: INR 1.14 (0.93-1.08); PARTIAL THROMBOPLASTIN TIME 26.4 Seconds (23.7-30.8)
--- NOTE | 2016-12-16 13:04 | RAD ---
HISTORY: sob COMPARISON: 11/13/2016 FINDINGS: LUNGS: No active pulmonary disease. PLEURA: There is a small right effusion CARDIOVASCULAR: There is moderate to severe cardiomegaly OSSEOUS STRUCTURES: Sternal wires VISUALIZED UPPER ABDOMEN: Normal. OTHER FINDINGS: Moderate aortic tortuosity IMPRESSION: Severe cardiomegaly. Minimal right-sided effusion. No significant change
[2016-12-16 14:07] LABS: ALB/GLOB RATIO 1.1 (1.1-1.8); ALKALINE PHOSPHATASE 78 U/L (38-133); ALT/SGPT 29 U/L (7-56); AST/SGOT 33 U/L (15-39); BILIRUBIN,TOTAL 1.1 mg/dL (0.2-1.3); BLOOD UREA NITROGEN 17 mg/dL (7-21); CALCIUM 9.6 mg/dL (8.4-10.5); CARBON DIOXIDE 32 mmol/L (21-33); CHLORIDE 97 mmol/L (98-107); GFR AFRICAN-AMERICAN > 60; GLUCOSE,RANDOM 97 mg/dL (70-110); POTASSIUM 3.6 mmol/L (3.6-5.0); SODIUM 140 mmol/L (132-148); TOTAL PROTEIN 7.8 g/dL (5.8-8.3)
[2016-12-16 14:19] LABS: TROPONIN I 0.07 ng/mL
--- NOTE | 2016-12-16 17:05 | CP.PCM.HP ---
<Karo Ruiz - Last Filed: 12/16/16 17:00> History of Present Illness - History of Present Illness History of Present Illness: CC; SOB 86 year old female with past medical history of lung ca. s/p chemoradiation, colon ca. s/o partial colon resection, CHF with EF of 20-25%, CAD s/p CABG, congestive cardiomyopathy, HTN, HLD presented to ED for chronic SOB worse overnight. Patient states that over night she was unable to sleep due to shortness of breath. She usually uses 2L O2 NC continuously. Patient denies having any CP, however she does c/o of B/L arm pain. She states that this is similar to the pain she felt last time she had a heart attack. Patient also states that she has been drinking a lot more water and other liquids on a daily basis. Patient also c/o lower abdominal pain with no radiation. She denies having any N/V/D/C, dysuria. Last BM was yesterday. She denies having any fevers, chills, SOB at present time, CP, arm pain, abd pain, cough. Patient lives at home alone. 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 -Medications: please see MAR -Social History: former smoker -Oncologist: Dr. Duncan -Pediatric Registered Nurse: Dr. Stringer Present on Admission - Present on Admission Any Indicators Present on Admission: No Review of Systems - Review of Systems All systems: reviewed and no additional remarkable complaints except Past Patient History - Infectious Disease Hx of Infectious Diseases: None - Tetanus Immunizations Tetanus Immunization: Unknown - Past Social History Smoking Status: Former Smoker Chewing Tobacco Use: No Cigar Use: No Alcohol: None Drugs: Denies Home Situation {Lives}: Alone - CARDIAC Hx Cardiac Disorders: Yes Hx Congestive Heart Failure: Yes Hx Hypertension: Yes - PULMONARY Hx Chronic Obstructive Pulmonary Disease (COPD): Yes - NEUROLOGICAL HX Cerebrovascular Accident: Yes (1990) - HEENT Hx HEENT Problems: Yes Hx Cataracts: Yes (SURGERY) Hx Deafness: No ([place]) - RENAL Hx Chronic Kidney Disease: No - ENDOCRINE/METABOLIC Hx Diabetes Mellitus Type 2: Yes - HEMATOLOGICAL/ONCOLOGICAL Hx Blood Disorders: Yes Hx Cancer: Yes (COLON & LUNG) - INTEGUMENTARY Hx Dermatological Problems: No - MUSCULOSKELETAL/RHEUMATOLOGICAL Hx Arthritis: Yes - GASTROINTESTINAL Hx Gastrointestinal Disorders: Yes Hx Gall Bladder Disease: Yes Other/Comment: APPENDECTOMY. CHOLECYSTECTOMY. COLON RESECTION - GENITOURINARY/GYNECOLOGICAL Hx Genitourinary Disorders: Yes Hx Urinary Tract Infection: Yes - PSYCHIATRIC Hx Psychophysiologic Disorder: Yes Hx Anxiety: Yes Hx Substance Use: No - SURGICAL HISTORY Hx Appendectomy: Yes Hx Cardiac Catheterization: Yes Hx Cholecystectomy: Yes Hx Coronary Artery Bypass Graft: Yes Hx Coronary Stent: Yes Other/Comment: COLON RESECTION - ANESTHESIA Hx Anesthesia: Yes Hx Anesthesia Reactions: No Hx Malignant Hyperthermia: No Meds Allergies/Adverse Reactions: Allergies Allergy/AdvReac Type Severity Reaction Status Date / Time atorvastatin Allergy HEADACHE Verified 12/16/16 11:23 meclizine Allergy RASH Verified 12/16/16 11:23 shellfish derived Allergy SHORTNESS Verified 12/16/16 11:23 OF BREATH Physical Exam - Constitutional Appears: Non-toxic, No Acute Distress - Head Exam Head Exam: ATRAUMATIC - Eye Exam Eye Exam: EOMI - ENT Exam ENT Exam: Mucous Membranes Moist - Respiratory Exam Respiratory Exam: Rales (on right lower lung base ). absent: Accessory Muscle Use, Rhonchi, Wheezes, Respiratory Distress - Cardiovascular Exam Cardiovascular Exam: REGULAR RHYTHM, +S1, +S2, Systolic Murmur (Right systolic border ). absent: Gallop, Rubs - GI/Abdominal Exam GI & Abdominal Exam: Normal Bowel Sounds, Soft. absent: Distended, Firm, Guarding, Rigid, Tenderness - Extremities Exam Extremities exam: Negative for: calf tenderness, pedal edema, tenderness - Neurological Exam Neurological exam: Alert, Oriented x3 - Psychiatric Exam Psychiatric exam: Normal Affect, Normal Mood - Skin Skin Exam: Dry, Intact, Normal Color, Warm Results - Vital Signs Recent Vital Signs: Last Vital Signs Temp 97.5 F L 12/16/16 11:10 Pulse 76 12/16/16 13:49 Resp 16 12/16/16 13:49 BP 155/95 H 12/16/16 13:49 Pulse Ox 100 12/16/16 13:49 - Labs Result Diagrams: 12/16/16 11:40 12/16/16 13:46 - EKG Data EKG Interpreted by: ER Physician Assessment & Plan - Assessment and Plan (Free Text) Assessment: 86 year old female with past medical history of history of lung ca. s/p chemoradiation, colon ca. s/o partial colon resection, CHF with EF of 20-25%, CAD s/p CABG, congestive cardiomyopathy, HTN, HLD is admitted for CHF exacerbation. CXR shows right pleural effusion but unchanged from previous CXR from 11/13/16. EKG shows sinus arrhythmia with PAC and left axis deviation. [place] [address]. Initial troponin is .07. Patient is afebrile and normal WBC count. 1. CHF exacerbation - Lasix 40 IV BID - Cardiology Dr. Stringer consulted - Admit to tele - Monitor Is and Os - Heart healthy diet - NC cont 2L to maintain O2 sat >90% - Digoxin .125 mg po qd (home med), Coreg 3.125 mg po BID 2. CAD s/p CABG - Will check serial trops and EKGs - Hgb A1c and lipid panel - Aspirin, plavix - Simvastatin 40 mg PO QD 3. Hx of lung ca. - NC cont - Budesonide, Brovana 4. Anxiety - Xanax .25 BID prn Prophylaxis -Lovenox QD, SCDs - Protonix QD - Continue home meds: VitB6, Vit D, Feosol QD - Date & Time Date: 12/16/16 Time: 17:07 <Stephanie Soto - Last Filed: 12/17/16 17:47> Results - Vital Signs Recent Vital Signs: Last Vital Signs Temp 98.3 F 12/17/16 12:00 Pulse 70 12/17/16 14:00 Resp 18 12/17/16 12:00 BP 141/77 12/17/16 12:00 Pulse Ox 100 12/16/16 20:45 - Labs Result Diagrams: 12/17/16 06:30 12/17/16 06:30 Labs: Laboratory Results - last 24 hr 12/16/16 12/17/16 12/17/16 22:57 06:30 06:30 WBC 6.2 RBC 4.19 Hgb 11.3 L Hct 35.8 L MCV 85.4 MCH 27.0 MCHC 31.6 RDW 15.8 H Plt Count 223 MPV 11.4 H Gran % 73.6 H Lymph % (Auto) 17.4 L [place] % (Auto) 8.8 H Eos % (Auto) 0.0 L Baso % (Auto) 0.2 Gran # 4.53 Lymph # 1.1 L [place] # 0.5 Eos # 0.0 Baso # 0.01 Sodium 140 Potassium 4.1 Chloride 98 Carbon Dioxide 33 Anion Gap 13 BUN 25 H Creatinine 1.1 Est GFR ( Amer) 57 Est GFR (Non-Af Amer) 47 POC Glucose (mg/dL) Random Glucose 111 H Hemoglobin A1c Calcium 9.3 Troponin I 0.09 D 0.10 Triglycerides 82 Cholesterol 138 LDL Cholesterol Direct 51 HDL Cholesterol 59 12/17/16 12/17/16 06:30 16:18 WBC RBC Hgb Hct MCV MCH MCHC RDW Plt Count MPV Gran % Lymph % (Auto) [place] % (Auto) Eos % (Auto) Baso % (Auto) Gran # Lymph # [place] # Eos # Baso # Sodium Potassium Chloride Carbon Dioxide Anion Gap BUN Creatinine Est GFR ( Amer) Est GFR (Non-Af Amer) POC Glucose (mg/dL) 125 H Random Glucose Hemoglobin A1c 6.1 Calcium Troponin I Triglycerides Cholesterol LDL Cholesterol Direct HDL Cholesterol Attending/Attestation - Attestation I have personally seen and examined this patient.: Yes I have fully participated in the care of the patient.: Yes I have reviewed all pertinent clinical information: Yes Notes (Text): I have seen and examined the patient at bedside. This is 86 year old female with history of lung cancer s/p chemoradiation, colon cancer s/p partial colon resection, CHF (EF~20-25%), CAD s/p CABG, Congestive cardiomyopathy, Aortic regurg, HTN, dyslipidemia who presented for evaluation of shortness of breath and found to have CHF exacerbation. Will start lasix 40 IV q12 and continue digoxin, coreg, lipitor, budesonide and brovana. Cardiology consult appreciated. Patient lives alone and is not interested in going to rehab facility. Patient daughter fill up her pill box and she takes her medications regularly. Dr Stephanie Soto
[2016-12-16] MEDS: Digoxin 125 mcg (0.125 mg) Tab PO SCH (18:06)
--- NOTE | 2016-12-16 20:07 | CON ---
DATE: 12/16/2016 The patient in Emergency Room at present. REASON FOR CONSULTATION: Shortness of breath, history of coronary artery disease, COPD, CABG, ischem ic cardiomyopathy. 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 The patient denies chest pain. She complains o f vague abdominal pain in the mid abdomen without nausea, vomiting and diarrhea. The patient states that shortness of breath is present at rest. PAST MEDICAL HISTORY: Positive for coronary artery disease, status post coronary artery bypass graft , occluded grafts and they were followed by stent insertion, cardiomyopathy, EF around 20%-25%, COPD, goiter, small cell CA of the lung treated with chemo and radiation therapy. The patient also has celis btotal colectomy, had a Port-A-Cath insertion. ALLERGIES: ATORVASTATIN AND MECLIZINE AND SHELLFISH. FAMILY HISTORY: Sister has diabetes and tuberculosis. REVIEW OF SYSTEMS: All the systems were reviewed, positive mentioned in the history, others were neg ative. MEDICATIONS: List of home medications. The patient was taking simvastatin 40 mg daily, Feosol 325 m g daily, Brovana 15 mcg IH q. 12 hours, Lasix 40 mg b.i.d., digoxin 0.125 p.o. daily, Plavix 75 mg da linda, Coreg 3.125 b.i.d., Xanax 0.25 b.i.d. p.r.n., vitamin D3 and 1000 units p.o. daily. REVIEW OF SYSTEMS: All the systems were reviewed, positive mentioned in the history, others were neg ative. PHYSICAL EXAMINATION: VITAL SIGNS: Blood pressure 145/95, respirations 16, pulse 84, temperature 97.5. HEENT: Head is normocephalic. Eyes: Pupils normal. Conjunctivae slightly pale. NECK: JVP low. Carotid equal. THORAX: AP diameter normal. LUNGS: Few basal rales. CARDIOVASCULAR: S1, S2, systolic murmur grade III/. No rub. ABDOMEN: Soft, nontender, no organomegaly. EXTREMITIES: No clubbing, no cyanosis. LABORATORY DATA: Shows WBC 6.4, hemoglobin 11.8, platelets 262, hematocrit 36.8. Sodium 140, potass ium 3.6, BUN 17, creatinine 0.9. AST, ALT normal. Troponin 0.07, anti proB natriuretic pep 22,700. Total protein and albumin normal. Chest x-ray showed small right-sided pleural effusion, cardiomega ly. EKG showed multifocal atrial rhythm, LVH, ST-T changes, Q-waves in 1 and aVL suggestive of old a nterior wall MT. The patient's previous cardiac workup; the patient had cardiac catheterization 2013 that showed severe triple-vessel disease, patent SVG to diagonal 1, patent saphenous graft to RC A, occluded CALLAHAN to LAD, severely decreased LV function, ejection fraction 20% with occluded CALLAHAN. T he patient also had echo 06/10/2014 that showed 4-chamber dilatation, ejection fraction decreased, RV systolic pressure of 78. The patient's last echocardiogram was done on 06/29/2016 that showed LV eje ction fraction 20%-25%, 4-chamber dilatation consistent with cardiomyopathy, ejection fraction 20% -2 5%, moderate mitral regurgitation, moderate tricuspid regurgitation, severe aortic regurg, RV systoli c pressure of 46 mmHg suggestive of mild pulmonary hypertension. The patient's anti proB natriuretic pep 22,700. DIAGNOSES: Acute decompensated congestive heart failure, acute on chronic left ventricular systolic failure, 4-chamber dilatation, ejection fraction 20%-25%, moderate mitral regurgitation, moderate tri cuspid regurgitation, right ventricle systolic pressure of 49 mmHg suggestive of mild pulmonary hyper tension, history of coronary artery disease, coronary artery bypass surgery occluded CALLAHAN to LAD, pa tent saphenous graft to right coronary artery, patent diagonal 1, severe aortic regurgitation, diabet es, hypertension, hyperlipidemia, small cell carcinoma of the lung treated with chemo and radiation t herapy, cancer was inoperable, Port-A-Cath insertion. PLAN: To give Lasix 40 IV b.i.d., simvastatin 40 mg p.o. daily, carvedilol 3.125 b.i.d., aspirin 81 mg p.o. daily, ferrous sulfate 324 mg p.o. daily, digoxin 0.125 p.o. daily, Plavix 75 mg p.o. daily, Protonix 40 mg p.o. daily, Xanax 0.25 b.i.d. p.r.n. We will add lisinopril 5 mg p.o. daily to therap y. Will follow repeat troponin and we will follow with you. Shekhar Stringer MD cc: [id number] TT: 12/16/2016 20:06:53 Confirmation # [id number] Dictation # [id number] jn
[2016-12-16] MEDS ORDERED: Pneumococcal 23-Valent Vaccine IM ONE (22:25)
[2016-12-17 07:06] LABS: ADD MANUAL DIFF? NO
[2016-12-17 07:10] LABS: BASO # 0.01 K/mm3 (0.0-2.0); BASO % 0.2 % (0.0-3.0); GRAN # 4.53 (1.4-6.5); GRAN % 73.6 % (50.0-68.0); HEMATOCRIT 35.8 % (36.0-48.0); LYMPH # 1.1 (1.2-3.4); LYMPH % 17.4 % (22.0-35.0); MEAN CELL VOLUME 85.4 fL (80.0-105.0); MEAN CORPUSCULAR HGB CONC 31.6 g/dl (31.0-37.0); MEAN PLATELET VOLUME 11.4 fl (7.0-11.0); MONO # 0.5 (0.1-0.6); MONO % 8.8 % (1.0-6.0); PLATELET COUNT 223 10^3/uL (120.0-450.0); RED CELL DISTRIBUTION WIDTH 15.8 % (11.5-14.5); WHITE BLOOD COUNT 6.2 10^3/ul (4.5-11.0)
[2016-12-17 07:29] LABS: CALCIUM 9.3 mg/dL (8.4-10.5); POTASSIUM 4.1 mmol/L (3.6-5.0)
[2016-12-17 07:34] LABS: TROPONIN I 0.1 ng/mL
[2016-12-17] MEDS: Arformoterol 15 mcg/2 ml Inh Sol IH SCH ×3 (07:57→21:50)
[2016-12-17] MEDS: Budesonide 0.5 mg/2 ml Inhal Susp UD IH SCH ×3 (07:57→21:50)
--- NOTE | 2016-12-17 08:56 | CP.PCM.PN ---
<Bailey Krause - Last Filed: 12/17/16 11:00> Subjective - Date & Time of Evaluation Date of Evaluation: 12/17/16 Time of Evaluation: 08:52 - Subjective Subjective: Hospitalist Progress Note Patient seen and examined at bedside. There were no acute overnight events. She reports feeling well this morning. She does have some mild RLQ abdominal pain. It does not radiate. The patient denies n/v/d or constipation. She says she is regular and has a BM daily. She denies CP, SOB, numbness/tingling, dysuria, hematuria or vision changes. Objective - Vital Signs/Intake and Output Vital Signs (last 24 hours): Temp Pulse Resp BP Pulse Ox 97.2 F L 75 20 188/98 H 100 12/17/16 00:01 12/17/16 02:00 12/17/16 00:01 12/17/16 00:01 12/16/16 20:45 Intake and Output: 12/17/16 12/17/16 06:59 18:59 Intake Total 0 Output Total 0 Balance 0 - Medications Medications: Current Medications Alprazolam (Xanax) 0.25 mg PO BID PRN; Protocol PRN Reason: Anxiety Stop: 12/23/16 15:53 Last Admin: 12/17/16 00:01 Dose: 0.25 mg Arformoterol Tartrate (Brovana) 15 mcg IH [id number] [facility] Last Admin: 12/17/16 07:57 Dose: 15 mcg Aspirin (Ecotrin) 81 mg PO DAILY [facility] Budesonide (Pulmicort Respules) 0.5 mg IH [id number] [facility] Last Admin: 12/17/16 07:57 Dose: 0.5 mg Carvedilol (Coreg) 3.125 mg PO 0800,1700 [facility] Last Admin: 12/16/16 18:06 Dose: 3.125 mg Cholecalciferol (Vitamin D) 1,000 iu PO DAILY [facility] Clopidogrel Bisulfate (Plavix) 75 mg PO DAILY [facility] Digoxin (Lanoxin) 0.125 mg PO 1400 [facility] Last Admin: 12/16/16 18:06 Dose: 0.125 mg Enoxaparin Sodium (Lovenox) 40 mg SC DAILY [facility] PRN Reason: Protocol Ferrous Sulfate (Feosol) 324 mg PO DAILY [facility] Furosemide (Lasix) 40 mg IVP BID [facility] Last Admin: 12/16/16 18:07 Dose: 40 mg Lisinopril (Zestril) 5 mg PO DAILY [facility] Non-Formulary Medication (Simvastatin [Simvastatin]) 40 mg PO DAILY [facility] Pantoprazole Sodium (Protonix Ec Tab) 40 mg PO DAILY [facility] Pyridoxine HCl (Vitamin B6 50 Mg Tab) 100 mg PO DAILY [facility] - Labs Labs: 12/17/16 06:30 12/17/16 06:30 PT 12.3 Seconds (9.9-11.8) H 12/16/16 11:40 INR 1.14 (0.93-1.08) H 12/16/16 11:40 APTT 26.4 Seconds (23.7-30.8) 12/16/16 11:40 - Constitutional Appears: No Acute Distress - Head Exam Head Exam: ATRAUMATIC, NORMAL INSPECTION, NORMOCEPHALIC - Eye Exam Eye Exam: Normal appearance, PERRL Pupil Exam: NORMAL ACCOMODATION - ENT Exam ENT Exam: Mucous Membranes Moist - Neck Exam Neck Exam: Normal Inspection - Respiratory Exam Respiratory Exam: Rales (at bases bilaterally ), NORMAL BREATHING PATTERN. absent: Clear to Ausculation Bilateral, Rhonchi, Wheezes - Cardiovascular Exam Cardiovascular Exam: REGULAR RHYTHM, +S1, +S2. absent: Gallop, Rubs, Murmur - GI/Abdominal Exam GI & Abdominal Exam: Soft, Hypoactive Bowel Sounds. absent: Tenderness, Mass, Organomegaly, Rebound - Extremities Exam Extremities Exam: Normal Inspection. absent: Calf Tenderness, Pedal Edema - Neurological Exam Neurological Exam: Alert, Awake, CN II-XII Intact - Psychiatric Exam Psychiatric exam: Normal Affect, Normal Mood - Skin Skin Exam: Dry, Normal Color, Warm Assessment and Plan - Assessment and Plan (Free Text) Assessment: This is an 86Y F PMH of lung cancer s/p radiation, colon cancer s/p partial colon resection, CHF, CAD, CABG, HTN, HLD admtited for CHF exacerbation. Plan: 1. CHF exacerbation - Last echo showed EF 20-25%, severe aortic regurg, mod tricuspid and mitral regurg - Continue Lasix 40mg BID - Daily weights, strict I&O - Keep Head of bed elevated - Cardiology Consulted - NC 2L prn SOB- maintain spO2>90% 2. CAD s/p CABG - Troponin 0.7, 0.9 and peaked at 0.10 - Continue ASA, Plavix, Lipitor - Heart Healthy Diet - Lipid panel normal - HgbA1c pending 3. HTN - Cardiology added Lisinopril - Continue Coreg, Digoxin 4. History of Lung cancer - Continue Brovana and Pulmicort - NC 2L maintain spO2>90% - Continue home vitamins: Vit B6, Iron, Vit D 5. Anxiety - Continue Xanax 0.25mg BID prn 6. Abdominal pain - will continue to monitor - Most likely secondary to increased gas - patient has regular BM - Will add simethicone GI ppx: Protonix DVT ppx: Lovenox Case seen, reviewed and discussed with attending. Jake Krause PGY1 <Stephanie Soto B - Last Filed: 12/17/16 17:53> Objective - Vital Signs/Intake and Output Vital Signs (last 24 hours): Temp Pulse Resp BP Pulse Ox 98.3 F 70 18 141/77 100 12/17/16 12:00 12/17/16 14:00 12/17/16 12:00 12/17/16 12:00 12/16/16 20:45 Intake and Output: 12/17/16 12/17/16 06:59 18:59 Intake Total 0 Output Total 0 Balance 0 - Medications Medications: Current Medications Albuterol/Ipratropium (Duoneb 3 Mg/0.5 Mg (3 Ml) Ud) 3 ml IH [id number] PRN PRN Reason: Shortness of Breath Alprazolam (Xanax) 0.25 mg PO BID PRN; Protocol PRN Reason: Anxiety Stop: 12/23/16 15:53 Last Admin: 12/17/16 00:01 Dose: 0.25 mg Arformoterol Tartrate (Brovana) 15 mcg IH [id number] [facility] Last Admin: 12/17/16 07:57 Dose: 15 mcg Aspirin (Ecotrin) 81 mg PO DAILY [facility] Last Admin: 12/17/16 10:29 Dose: 81 mg Atorvastatin Calcium (Lipitor) 20 mg PO DIN [facility] Budesonide (Pulmicort Respules) 0.5 mg IH [id number] [facility] Last Admin: 12/17/16 07:57 Dose: 0.5 mg Carvedilol (Coreg) 3.125 mg PO 0800,1700 [facility] Last Admin: 12/17/16 08:57 Dose: 3.125 mg Cholecalciferol (Vitamin D) 1,000 iu PO DAILY [facility] Last Admin: 12/17/16 10:29 Dose: 1,000 iu Clopidogrel Bisulfate (Plavix) 75 mg PO DAILY [facility] Last Admin: 12/17/16 10:29 Dose: 75 mg Digoxin (Lanoxin) 0.125 mg PO 1400 [facility] Last Admin: 12/17/16 14:55 Dose: 0.125 mg Enoxaparin Sodium (Lovenox) 40 mg SC DAILY [facility] PRN Reason: Protocol Last Admin: 12/17/16 10:36 Dose: 40 mg Ferrous Sulfate (Feosol) 324 mg PO DAILY [facility] Last Admin: 12/17/16 10:29 Dose: 324 mg Furosemide (Lasix) 40 mg IVP BID [facility] Last Admin: 12/17/16 10:30 Dose: 40 mg Ibuprofen (Motrin Tab) 600 mg PO Q6H PRN PRN Reason: Pain, moderate (4-7) Lisinopril (Zestril) 5 mg PO DAILY [facility] Last Admin: 12/17/16 10:29 Dose: 5 mg Morphine Sulfate (Morphine) 1 mg IVP Q6H PRN PRN Reason: Pain, severe (8-10) Pantoprazole Sodium (Protonix Ec Tab) 40 mg PO DAILY [facility] Last Admin: 12/17/16 10:29 Dose: 40 mg Pyridoxine HCl (Vitamin B6 50 Mg Tab) 100 mg PO DAILY [facility] Last Admin: 12/17/16 10:31 Dose: 100 mg Simethicone (Mylicon Chew Tab) 80 mg PO [facility] PRN PRN Reason: GI distress Last Admin: 12/17/16 14:55 Dose: 80 mg - Labs Labs: 12/17/16 06:30 12/17/16 06:30 PT 12.3 Seconds (9.9-11.8) H 12/16/16 11:40 INR 1.14 (0.93-1.08) H 12/16/16 11:40 APTT 26.4 Seconds (23.7-30.8) 12/16/16 11:40 Attending/Attestation - Attestation I have personally seen and examined this patient.: Yes I have fully participated in the care of the patient.: Yes I have reviewed all pertinent clinical information, including history, physical exam and plan: Yes Notes (Text): I have seen and examined the patient at bedside. This is 86 year old female with history of lung cancer s/p chemoradiation, colon cancer s/p partial colon resection, CHF (EF~20-25%), CAD s/p CABG, Congestive cardiomyopathy, Aortic regurg, HTN, dyslipidemia who presented for evaluation of shortness of breath and found to have CHF exacerbation. Patient reports that her shortness of breath has improved however she still feels that its hard for her to breath at times. Today she is able to talk in complete sentences. Will continue lasix, digoxin, coreg, lipitor, budesonide and brovana. Patient lives alone and is not interested in going to rehab facility. Patient daughter fill up her pill box and she takes her medications regularly. Dr Stephanie Soto
[2016-12-17] MEDS ORDERED: Non Formulary Medication (Cholecalciferol (Vitamin D3) [Vitamin D3] 1,000 UNIT) PO SCH (10:00)
[2016-12-17] MEDS ORDERED: Non Formulary Medication (Simvastatin [Simvastatin] 40 MG) PO SCH (10:00)
[2016-12-17] MEDS ORDERED: Non Formulary Medication (Pyridoxine [Vitamin B6] 100 MG) PO SCH (10:00)
[2016-12-17] MEDS ORDERED: Non Formulary Medication (Ferrous Sulfate [Feosol] 325 MG) PO SCH (10:00)
[2016-12-17] MEDS: Pantoprazole 40 mg EC Tab PO SCH (10:29)
[2016-12-17] MEDS: Enoxaparin 40 mg Syringe SC SCH (10:36)
--- NOTE | 2016-12-17 11:22 | PN ---
DATE: 12/17/2016 REASON FOR CONSULTATION AND FOLLOWUP: Shortness of breath, coronary artery disease, ischemic cardiom yopathy, COPD. BRIEF CLINICAL HISTORY: This is an 86-year-old female with past medical history significant for maty nary artery disease with CABG, occluded bypass graft, coronary stent post CABG, ischemic cardiomyopat hy; lung CA, inoperable, status post chemoradiation, who came in with 2 days' duration with shortness of breath, possible acute decompensated congestive heart failure secondary to systolic dysfunction, history of aortic regurgitation. Last echo shows ejection fraction 20-25%. The patient denies any c hest pain ____. Feels a lot better and wanted to go home. PHYSICAL EXAMINATION: VITAL SIGNS: Temperature afebrile, heart rate 75, blood pressure 188/98. HEENT: PERRLA. Extraocular muscles intact. NECK: Supple. No carotid bruits. No thyromegaly. CHEST: Clear to auscultation. HEART: S1, S2 regular. ABDOMEN: Soft. EXTREMITIES: Clubbing and cyanosis negative. BLOOD WORKUP: WBC 6.2, hemoglobin 11.____, hematocrit 35.8, platelet count 223. Chemistry shows sod ium 140, potassium 4.1, chloride 90, carbon dioxide 33, anion gap of 13, BUN 25, creatinine 1.1. BNP 22,700. Troponin, 0.07, 0.____, repeat 0.1. IMPRESSION: Decompensated congestive heart failure, indeterminate range of troponin is possibly seco ndary to congestive heart failure, history of coronary artery disease with coronary artery bypass gra ft, history of percutaneous transluminal coronary angioplasty. Last catheterization in 11/29/2016 sh owed severe triple vessel disease: Saphenous venous graft to diagonal 1, saphenous vein graft to rig ht coronary artery patent, occluded left internal mammary artery to left anterior descending; decreas ed left ventricular function. Last echocardiogram on 06/29/2016 shows ejection fraction 20-25%, 4-ch fina dilation consistent with cardiomyopathy. Clinically not in overt failure, though the BNP is el evated. Small cell cancer, on chemoradiation, inoperable. RECOMMENDATION: Continue IV Lasix, continue simvastatin, continue Coreg, aspirin. Will continue lis inopril. Will add DVT prophylaxis. Will continue digoxin. Continue Plavix. Monitor electrolytes. If remains stable, possible discharge home by tomorrow. Continue ELIZABETH inhibitor. Repeat the lab in the morning. Thank you, Dr. Soto/Dr. Duncan, for providing the opportunity in taking care of the patient. Will also add TSH level tomorrow. Will also order a hemoglobin A1c. Shekhar Howard MD cc: [id number] TT: 12/17/2016 10:37:14 Confirmation # [id number] Dictation # [id number] mn
--- NOTE | 2016-12-17 11:31 | CARD ---
APPROVED REPORT EKG Measurement Heart [id number] <Conclusion> Sinus rhythm with blocked premature atrial complexes with occasional premature ventricular complexes Left axis deviation Left ventricular hypertrophy with repolarization abnormality Abnormal ECG
[2016-12-17] MEDS: Simethicone 80 mg Chewtab PO PRN (14:55)
[2016-12-17] MEDS: Digoxin 125 mcg (0.125 mg) Tab PO SCH (14:55)
[2016-12-17] MEDS ORDERED: Morphine 2 mg/ml ISec IVP PRN (14:58)
[2016-12-17] MEDS ORDERED: Albuterol-Ipratrop 3 mg / 0.5 (3 ml) UD IH PRN (15:02)
[2016-12-18 07:15] LABS: ADD MANUAL DIFF? NO
[2016-12-18 07:24] LABS: BASO # 0.01 K/mm3 (0.0-2.0); BASO % 0.2 % (0.0-3.0); EOS % 0.2 % (1.5-5.0); GRAN % 69.2 % (50.0-68.0); HEMATOCRIT 35.3 % (36.0-48.0); LYMPH # 1.2 (1.2-3.4); MEAN CELL VOLUME 84.4 fL (80.0-105.0); MEAN PLATELET VOLUME 11.5 fl (7.0-11.0); MONO # 0.5 (0.1-0.6); MONO % 9.4 % (1.0-6.0); PLATELET COUNT 211 10^3/uL (120.0-450.0); RED CELL DISTRIBUTION WIDTH 15.6 % (11.5-14.5); WHITE BLOOD COUNT 5.8 10^3/ul (4.5-11.0)
[2016-12-18 07:36] LABS: CALCIUM 9.2 mg/dL (8.4-10.5); POTASSIUM 4.4 mmol/L (3.6-5.0)
[2016-12-18] MEDS: Arformoterol 15 mcg/2 ml Inh Sol IH SCH ×2 (07:56→19:32)
[2016-12-18] MEDS: Budesonide 0.5 mg/2 ml Inhal Susp UD IH SCH ×2 (07:57→19:32)
--- NOTE | 2016-12-18 09:56 | US ---
HISTORY: abdominal pain r/o gallstones COMPARISON: 03/24/2015 abdominal ultrasound. Renal ultrasound 06/14/2015 TECHNIQUE: Sonographic evaluation of the right upper quadrant of the abdomen. FINDINGS: LIVER: Measures 14.4 by 10.2 x 15.7 cm. Mild increased echogenicity with mild heterogeneous echotexture suggested of the liver parenchyma. No mass. No intrahepatic bile duct dilatation. GALLBLADDER: The gallbladder is not distended. Diffuse gallbladder wall thickening -measuring approximately 6 mm is re- suggested. No gallstones. COMMON BILE DUCT: Measures 3.4 mm. No stones. No dilatation. PANCREAS: Unremarkable as visualized. No mass. No ductal dilatation. RIGHT KIDNEY: Measures 11.8 cm in length. Normal echogenicity. No calculus, solid mass or hydronephrosis. Two right renal cysts are suggested in the midpole 1.9 x 2.2 x 2.2 cm and on an and a lower pole 2.7 x 2.6 x 2.9 cm. Similar right renal cysts were reported AORTA: No aneurysmal dilatation. IVC: Unremarkable. OTHER FINDINGS: Right pleural effusion. Minimal ascites IMPRESSION: Chronic gallbladder wall thickening. No gallstones seen. Chronic acalculous cholecystitis is 1 consideration. Other etiologies cardiac and liver disease are as noted before also considerations. Small right pleural effusion and trace ascites noted on this exam. Correlation with patient's medical status/other medical issues is needed. Similar right renal cysts Mild diffuse increased liver echogenicity with mild heterogeneity -diffuse fatty infiltration and/or hepatic parenchymal pathology, nonspecific, are considerations. No intrahepatic masses perceived
--- NOTE | 2016-12-18 11:00 | CP.PCM.PN ---
<Bailey Krause - Last Filed: 12/18/16 12:16> Subjective - Date & Time of Evaluation Date of Evaluation: 12/18/16 Time of Evaluation: 10:59 - Subjective Subjective: Hospitalist Progress Note Patient seen and examined at bedside. There were no acute overnight events. She reports that she has abdominal pain that is located in the RUQ. It does not radiate. It is not associated with food. She is having regular BM and passing gas. She denies CP, SOB, n/v/d, numbness/tingling, dysuria or hematuria. Objective - Vital Signs/Intake and Output Vital Signs (last 24 hours): Temp Pulse Resp BP Pulse Ox 98.5 F 66 20 150/81 100 12/18/16 06:00 12/18/16 08:31 12/18/16 06:00 12/18/16 08:31 12/16/16 20:45 Intake and Output: 12/18/16 12/18/16 06:59 18:59 Intake Total 420 Output Total 400 Balance 20 - Medications Medications: Current Medications Albuterol/Ipratropium (Duoneb 3 Mg/0.5 Mg (3 Ml) Ud) 3 ml IH [id number] PRN PRN Reason: Shortness of Breath Alprazolam (Xanax) 0.25 mg PO BID PRN; Protocol PRN Reason: Anxiety Stop: 12/23/16 15:53 Last Admin: 12/17/16 00:01 Dose: 0.25 mg Arformoterol Tartrate (Brovana) 15 mcg IH [id number] [facility] Last Admin: 12/18/16 07:56 Dose: 15 mcg Aspirin (Ecotrin) 81 mg PO DAILY [facility] Last Admin: 12/17/16 10:29 Dose: 81 mg Atorvastatin Calcium (Lipitor) 20 mg PO DIN [facility] Last Admin: 12/17/16 19:05 Dose: Not Given Budesonide (Pulmicort Respules) 0.5 mg IH [id number] [facility] Last Admin: 12/18/16 07:57 Dose: 0.5 mg Carvedilol (Coreg) 3.125 mg PO 0800,1700 [facility] Last Admin: 12/18/16 08:31 Dose: 3.125 mg Cholecalciferol (Vitamin D) 1,000 iu PO DAILY [facility] Last Admin: 12/17/16 10:29 Dose: 1,000 iu Clopidogrel Bisulfate (Plavix) 75 mg PO DAILY [facility] Last Admin: 12/17/16 10:29 Dose: 75 mg Digoxin (Lanoxin) 0.125 mg PO 1400 [facility] Last Admin: 12/17/16 14:55 Dose: 0.125 mg Enoxaparin Sodium (Lovenox) 40 mg SC DAILY [facility] PRN Reason: Protocol Last Admin: 12/17/16 10:36 Dose: 40 mg Ferrous Sulfate (Feosol) 324 mg PO DAILY [facility] Last Admin: 12/17/16 10:29 Dose: 324 mg Furosemide (Lasix) 40 mg IVP BID [facility] Last Admin: 12/17/16 18:49 Dose: 40 mg Ibuprofen (Motrin Tab) 600 mg PO Q6H PRN PRN Reason: Pain, moderate (4-7) Lisinopril (Zestril) 5 mg PO DAILY [facility] Last Admin: 12/17/16 10:29 Dose: 5 mg Morphine Sulfate (Morphine) 1 mg IVP Q6H PRN PRN Reason: Pain, severe (8-10) Pantoprazole Sodium (Protonix Ec Tab) 40 mg PO DAILY [facility] Last Admin: 12/17/16 10:29 Dose: 40 mg Pyridoxine HCl (Vitamin B6 50 Mg Tab) 100 mg PO DAILY [facility] Last Admin: 12/17/16 10:31 Dose: 100 mg Simethicone (Mylicon Chew Tab) 80 mg PO [facility] PRN PRN Reason: GI distress Last Admin: 12/17/16 14:55 Dose: 80 mg - Labs Labs: 12/18/16 06:30 12/18/16 06:30 PT 12.3 Seconds (9.9-11.8) H 12/16/16 11:40 INR 1.14 (0.93-1.08) H 12/16/16 11:40 APTT 26.4 Seconds (23.7-30.8) 12/16/16 11:40 - Constitutional Appears: No Acute Distress - Head Exam Head Exam: ATRAUMATIC, NORMAL INSPECTION, NORMOCEPHALIC - Eye Exam Eye Exam: Normal appearance, PERRL Pupil Exam: NORMAL ACCOMODATION, PERRL - ENT Exam ENT Exam: Mucous Membranes Moist - Neck Exam Neck Exam: Normal Inspection - Respiratory Exam Respiratory Exam: Clear to Ausculation Bilateral, NORMAL BREATHING PATTERN. absent: Rales, Respiratory Distress, Stridor - Cardiovascular Exam Cardiovascular Exam: REGULAR RHYTHM, +S1, +S2. absent: Gallop, Rubs, Murmur - GI/Abdominal Exam GI & Abdominal Exam: Soft, Tenderness (RUQ), Normal Bowel Sounds. absent: Guarding, Hernia, Mass - Extremities Exam Extremities Exam: Normal Inspection. absent: Calf Tenderness, Pedal Edema - Neurological Exam Neurological Exam: Alert, Awake, CN II-XII Intact - Psychiatric Exam Psychiatric exam: Normal Affect, Normal Mood - Skin Skin Exam: Dry, Normal Color, Warm Assessment and Plan - Assessment and Plan (Free Text) Assessment: This is an 86Y F PMH of lung cancer s/p radiation, colon cancer s/p partial colon resection, CHF, CAD, CABG, HTN, HLD admitted for CHF exacerbation. Plan: 1. CHF exacerbation - Improved- no rales on lung exam - Lasix on hold secondary to MADELINE - Cardiology Consulted - NC 2L prn SOB- maintain spO2>90% - Daily weights, strict I&O - Keep Head of bed elevated 2. Abdominal Pain - Abd U/S showed possible chronic cholecystitis - Lactate 1.2, afebrile, no leukocytosis - Motrin prn mod pain, Morphine prn severe pain, simethicone prn - Abdominal pain is intermittent, will continue to monitor 3. MADELINE - Cr increased from 1.1 to 1.6 - will check U/A, FeNa - Lasix on Hold - Continue to monitor 4. CAD s/p CABG - Lipid panel normal - HgbA1c 6.1 - Continue ASA, Plavix - Pt has history of allergy to lipitor- on hold - Pt takes simvastatin at home 5. HTN - Continue Coreg, Digoxin, Lisinopril 6. History of Lung cancer - Continue Brovana and Pulmicort - Continue Vit B6, Iron, Vit D 7. Anxiety - Continue Xanax 0.25mg BID prn GI ppx: Protonix DVT ppx: Lovenox Case seen, reviewed and discussed with attending. Jake Krause PGY1 <Stephanie Soto - Last Filed: 12/19/16 12:36> Objective - Vital Signs/Intake and Output Vital Signs (last 24 hours): Temp Pulse Resp BP Pulse Ox 98.9 F 57 L 19 134/69 99 12/19/16 12:00 12/19/16 12:00 12/19/16 12:00 12/19/16 12:00 12/19/16 06:00 Intake and Output: 12/19/16 12/19/16 06:59 18:59 Intake Total 840 Output Total 800 Balance 40 - Medications Medications: Current Medications Acetaminophen (Tylenol 325mg Tab) 650 mg PO Q4H PRN PRN Reason: Pain, Mild (1-3) Last Admin: 12/19/16 02:40 Dose: 650 mg Albuterol/Ipratropium (Duoneb 3 Mg/0.5 Mg (3 Ml) Ud) 3 ml IH [id number] PRN PRN Reason: Shortness of Breath Alprazolam (Xanax) 0.25 mg PO BID PRN; Protocol PRN Reason: Anxiety Stop: 12/23/16 15:53 Last Admin: 12/17/16 00:01 Dose: 0.25 mg Arformoterol Tartrate (Brovana) 15 mcg IH [id number] [facility] Last Admin: 12/19/16 07:46 Dose: 15 mcg Aspirin (Ecotrin) 81 mg PO DAILY [facility] Last Admin: 12/19/16 09:51 Dose: 81 mg Budesonide (Pulmicort Respules) 0.5 mg IH [id number] [facility] Last Admin: 12/19/16 07:46 Dose: 0.5 mg Carvedilol (Coreg) 3.125 mg PO 0800,1700 [facility] Last Admin: 12/19/16 08:22 Dose: 3.125 mg Clopidogrel Bisulfate (Plavix) 75 mg PO DAILY [facility] Last Admin: 12/19/16 09:50 Dose: 75 mg Digoxin (Lanoxin) 0.125 mg PO 1400 [facility] Last Admin: 12/18/16 14:40 Dose: 0.125 mg Furosemide (Lasix) 40 mg PO 0800,1400 [facility] Isosorbide Mononitrate (Imdur) 30 mg PO DAILY [facility] Last Admin: 12/19/16 09:50 Dose: 30 mg Lisinopril (Zestril) 5 mg PO DAILY [facility] Last Admin: 12/19/16 09:50 Dose: 5 mg Morphine Sulfate (Morphine) 1 mg IVP Q6H PRN PRN Reason: Pain, severe (8-10) Pantoprazole Sodium (Protonix Ec Tab) 40 mg PO ACB [facility] Last Admin: 12/19/16 08:22 Dose: 40 mg Simethicone (Mylicon Chew Tab) 80 mg PO [facility] PRN PRN Reason: GI distress Last Admin: 12/19/16 02:42 Dose: 80 mg Simethicone (Mylicon Liq) 40 mg PO QID PRN PRN Reason: for stomach pain Spironolactone (Aldactone) 25 mg PO BID [facility] Last Admin: 12/19/16 09:50 Dose: 25 mg Sucralfate (Carafate Oral Susp) 1 gm PO ACBD [facility] Last Admin: 12/19/16 08:21 Dose: 1 gm - Labs Labs: 12/19/16 05:00 12/19/16 05:00 PT 12.3 Seconds (9.9-11.8) H 12/16/16 11:40 INR 1.14 (0.93-1.08) H 12/16/16 11:40 APTT 26.4 Seconds (23.7-30.8) 12/16/16 11:40 Attending/Attestation - Attestation I have personally seen and examined this patient.: Yes I have fully participated in the care of the patient.: Yes I have reviewed all pertinent clinical information, including history, physical exam and plan: Yes Notes (Text): I have seen and examined the patient at bedside. This is 86 year old female with history of lung cancer s/p chemoradiation, colon cancer s/p partial colon resection, CHF (EF~20-25%), CAD s/p CABG, Congestive cardiomyopathy, Aortic regurg, HTN, dyslipidemia who presented for evaluation of shortness of breath and found to have CHF exacerbation. Denies chest pain, sob, nausea, vomiting or diarrhea. Patient reports that she has mild abdominal pain. Upon exam, she had mild RUQ tenderness. Abdominal ultrasound revealed fatty infiltration vs CHF vs chronic acalculous cholecystitis. Patient does not have fever, leukocytosis and has mild abdominal pain. Will do blood cultures and procal however will not start antibiotics. Review of record shows that she has been having chronic intermittent abdominal pain. Last time CT was done and it showed fatty infiltration. Will not do HIDA or antibiotics at this time. Today creatinine increased most likely due to lasix. Will hold lasix. Will continue digoxin, coreg, lipitor, budesonide and brovana. Patient lives alone and is not interested in going to rehab facility. Patient daughter fill up her pill box and she takes her medications regularly. Dr Stephanie Soto
[2016-12-18] MEDS: Enoxaparin 40 mg Syringe SC SCH (11:12)
[2016-12-18] MEDS: Pantoprazole 40 mg EC Tab PO SCH (11:13)
[2016-12-18] MEDS: Digoxin 125 mcg (0.125 mg) Tab PO SCH (14:40)
[2016-12-18] MEDS ORDERED: Simethicone 40 mg/0.6 ml Liquid (30 ml) PO STA (17:48)
[2016-12-18] MEDS: Simethicone 80 mg Chewtab PO PRN (18:31)
--- NOTE | 2016-12-18 19:02 | PN ---
DATE: 12/18/2016 REASON FOR CONSULTATION AND FOLLOWUP: Shortness of breath, coronary artery disease, ischemic cardiom yopathy, COPD. BRIEF CLINICAL HISTORY: An 86-year-old female with past medical history significant for CAD, CABG, c ardiomyopathy, aortic regurgitation, admitted with decompensated congestive heart failure, ejection f raction 20%-25%. Denies any chest pain. Complained of mild shortness of breath with complaint of ab dominal pain. PHYSICAL EXAMINATION: VITAL SIGNS: Temperature afebrile, heart rate 60, blood pressure 150/75. HEENT: PERRLA. Extraocular muscles intact. NECK: Supple. No carotid bruits. No thyromegaly. CHEST: Clear to auscultation. HEART: S1, S2 regular. ABDOMEN: Soft. EXTREMITIES: Clubbing and cyanosis negative. LABORATORY DATA: WBC 5.8, hemoglobin , hematocrit 35.3, platelet count 211. Chemistry shows so dium 130, potassium 4.4, chloride 95, carbon dioxide 33, anion gap of 15, BUN 42, creatinine 1.6. IMPRESSION: Decompensated congestive heart failure, acute on chronic, secondary to systolic dysfunct ion, cardiomyopathy, history of coronary artery bypass graft, last catheterization 11/29/2016 shows sev ere triple vessel disease, saphenous graft to diagonal 1, patent saphenous graft to right coronary ar coral, occluded left internal mammary artery to left anterior descending, 4-chamber dilatation by echo , ejection fraction 20%-25%, small cell lung cancer, inoperable, on chemotherapy. RECOMMENDATION: Continue gentle diuretics, continue simvastatin, continue Coreg, continue aspirin, c ontinue lisinopril. Complaining of abdominal pain. Continue ELIZABETH inhibitors. We will get a GI evalu ation with Dr. Hernandez for the abdominal pain. We will follow with you. Shekhar Howard MD cc: [id number] TT: 12/18/2016 19:01:48 Confirmation # [id number] Dictation # [id number] lena
[2016-12-18] MEDS ORDERED: Pantoprazole 40 mg EC Tab PO SCH (21:27)
[2016-12-18] MEDS ORDERED: Sucralfate 1 gm/10 ml Oral Susp UD PO SCH ×2 (21:30)
--- NOTE | 2016-12-18 23:57 | CON ---
DATE: 12/18/2016 This is the patient's hospital visit on the telemetry floor. For Dr. Duncan. CHIEF COMPLAINT: Shortness of breath, abdominal pain. HISTORY OF PRESENT ILLNESS: The patient is an 86-year-old female admitted via the Emergency Room to the hospitalist service for abdominal discomfort, shortness of breath. She was recently admitted on 11/16/2016. One is referred to those records, with discharge medications listed. With this, the colin ent is a patient of Dr. Howard and Dr. Stringer, known to have significant compromised cardiac function w ith her ejection fraction approximately 20%. She was admitted 2 days prior for worsening shortness o f breath. After conversation with Dr. Duncan, we will ask Dr. Howard if the patient may be a candidate for IV Primacor or milrinone with consideration for abdominal discomfort, possibly due to her previo us history of subtotal colectomy along with possible ischemic changes due to poor oxygenation due to cardiomyopathy. With this, her medications were adjusted as the patient was on Lovenox, Plavix and a spirin along with ibuprofen. The ibuprofen was discontinued along with Lovenox. She will continue o n aspirin and Plavix. An iron tablet was also discontinued as this can cause GI upset as the patient is now complaining of abdominal pain. SHE IS ALSO ALLERGIC TO ATORVASTATIN. Atorvastatin was ordered for her; this will be discontinued after conversation with the pharmacy. We will also monitor clini homar. 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 ALLERGIES: INCLUDE ATORVASTATIN, MECLIZINE AND SHELLFISH. MEDICATIONS: At time of discharge included Aldactone, Brovana, Carafate, Coreg, Ecotrin, Imdur, digo tracee, Lasix, Plavix, Protonix, Pulmicort, home oxygen and portable oxygen, Xanax, Zestril, simethicone p.r.n. FAMILY HISTORY AND SOCIAL HISTORY: Nonsmoker, nonethanolic. Her daughter, Kayla, cares for the pat ient at home. REVIEW OF SYSTEMS: Essentially negative to questioning except as above. PHYSICAL EXAMINATION: VITAL SIGNS: Temperature 98, pulse 63, respirations 16, blood pressure 151/81 with a pulse ox of 100 %. LABORATORY DATA: The patient did have an ultrasound of her abdomen yesterday. It was read as chronic gallbladder wall thickening, no gallstones seen, chronic acalculous cholecystitis one consider ation, small right pleural effusion, diffuse fatty liver. A chest x-ray was done 2 days prior. It was read as severe cardiomegaly, minimal right-sided effusion, no significant change. Her EKG done 2 da ys prior was read as sinus rhythm with blocked premature atrial complexes, left axis deviation, left ventricular hypertrophy. ASSESSMENT: Decompensated congestive heart failure, severe cardiomyopathy, atherosclerotic cardiovas cular disease, status post coronary artery bypass grafting with ejection fraction 20%, history of sta ge II nonsmall cell carcinoma of the lung in remission, chronic obstructive pulmonary disease, histor y of subtotal colectomy, anxiety, gastroesophageal reflux disease. PLAN: The patient is to continue present medical regimen with medications adjusted as listed above, consideration for IV milrinone/Primacor as per Dr. Howard. We will monitor clinically and with labs as indicated. Prognosis for this patient is guarded. Adrián Gavin MD cc: [phone] TT: 12/18/2016 23:56:29 Confirmation # [id number] Dictation # [id number] ln
[2016-12-19] MEDS: Simethicone 80 mg Chewtab PO PRN (02:42)
[2016-12-19 06:08] VITALS: O2SAT 99
[2016-12-19 06:57] LABS: ADD MANUAL DIFF? NO
[2016-12-19 07:09] LABS: BASO # 0.01 K/mm3 (0.0-2.0); BASO % 0.2 % (0.0-3.0); EOS % 0.2 % (1.5-5.0); GRAN # 3.57 (1.4-6.5); GRAN % 69.3 % (50.0-68.0); HEMATOCRIT 34.2 % (36.0-48.0); LYMPH # 0.9 (1.2-3.4); LYMPH % 18.1 % (22.0-35.0); MEAN CELL VOLUME 83.8 fL (80.0-105.0); MEAN CORPUSCULAR HEMOGLOBIN 26.7 pg (25.0-35.0); MEAN CORPUSCULAR HGB CONC 31.9 g/dl (31.0-37.0); MEAN PLATELET VOLUME 11.3 fl (7.0-11.0); MONO # 0.6 (0.1-0.6); MONO % 12.2 % (1.0-6.0); PLATELET COUNT 190 10^3/uL (120.0-450.0); RED CELL DISTRIBUTION WIDTH 15.5 % (11.5-14.5); WHITE BLOOD COUNT 5.2 10^3/ul (4.5-11.0)
[2016-12-19 07:26] LABS: CALCIUM 8.8 mg/dL (8.4-10.5); POTASSIUM 3.9 mmol/L (3.6-5.0)
[2016-12-19] MEDS: Arformoterol 15 mcg/2 ml Inh Sol IH SCH (07:46)
[2016-12-19] MEDS: Budesonide 0.5 mg/2 ml Inhal Susp UD IH SCH (07:46)
--- NOTE | 2016-12-19 09:21 | CP.PCM.PN ---
<JimiBailey - Last Filed: 12/19/16 12:27> Subjective - Date & Time of Evaluation Date of Evaluation: 12/19/16 Time of Evaluation: 09:17 - Subjective Subjective: Hospitalist Progress Note Patient seen and examined at bedside. There were no acute overnight events. She reports having abdominal pain that is located at the RUQ. It does not radiate. She is passing gas, and has regular BM, but feels like she is more on the constipated side. She denies CP, SOB, n/v/d, numbness/tingling, dysuria, or hematuria. Objective - Vital Signs/Intake and Output Vital Signs (last 24 hours): Temp Pulse Resp BP Pulse Ox 98.7 F 64 18 161/78 H 99 12/19/16 06:00 12/19/16 06:00 12/19/16 06:00 12/19/16 06:00 12/19/16 06:00 Intake and Output: 12/19/16 12/19/16 06:59 18:59 Intake Total 840 Output Total 800 Balance 40 - Medications Medications: Current Medications Acetaminophen (Tylenol 325mg Tab) 650 mg PO Q4H PRN PRN Reason: Pain, Mild (1-3) Last Admin: 12/19/16 02:40 Dose: 650 mg Albuterol/Ipratropium (Duoneb 3 Mg/0.5 Mg (3 Ml) Ud) 3 ml IH [id number] PRN PRN Reason: Shortness of Breath Alprazolam (Xanax) 0.25 mg PO BID PRN; Protocol PRN Reason: Anxiety Stop: 12/23/16 15:53 Last Admin: 12/17/16 00:01 Dose: 0.25 mg Arformoterol Tartrate (Brovana) 15 mcg IH [id number] [facility] Last Admin: 12/19/16 07:46 Dose: 15 mcg Aspirin (Ecotrin) 81 mg PO DAILY [facility] Last Admin: 12/18/16 11:12 Dose: 81 mg Budesonide (Pulmicort Respules) 0.5 mg IH [id number] [facility] Last Admin: 12/19/16 07:46 Dose: 0.5 mg Carvedilol (Coreg) 3.125 mg PO 0800,1700 [facility] Last Admin: 12/19/16 08:22 Dose: 3.125 mg Clopidogrel Bisulfate (Plavix) 75 mg PO DAILY [facility] Last Admin: 12/18/16 11:13 Dose: 75 mg Digoxin (Lanoxin) 0.125 mg PO 1400 [facility] Last Admin: 12/18/16 14:40 Dose: 0.125 mg Furosemide (Lasix) 40 mg IVP BID [facility] Last Admin: 12/17/16 18:49 Dose: 40 mg Isosorbide Mononitrate (Imdur) 30 mg PO DAILY [facility] Lisinopril (Zestril) 5 mg PO DAILY [facility] Last Admin: 12/18/16 11:13 Dose: 5 mg Morphine Sulfate (Morphine) 1 mg IVP Q6H PRN PRN Reason: Pain, severe (8-10) Pantoprazole Sodium (Protonix Ec Tab) 40 mg PO ACB [facility] Last Admin: 12/19/16 08:22 Dose: 40 mg Simethicone (Mylicon Chew Tab) 80 mg PO PCHS PRN PRN Reason: GI distress Last Admin: 12/19/16 02:42 Dose: 80 mg Spironolactone (Aldactone) 25 mg PO BID [facility] Sucralfate (Carafate Oral Susp) 1 gm PO ACBD [facility] Last Admin: 12/19/16 08:21 Dose: 1 gm - Labs Labs: 12/19/16 05:00 12/19/16 05:00 PT 12.3 Seconds (9.9-11.8) H 12/16/16 11:40 INR 1.14 (0.93-1.08) H 12/16/16 11:40 APTT 26.4 Seconds (23.7-30.8) 12/16/16 11:40 - Constitutional Appears: No Acute Distress - Head Exam Head Exam: ATRAUMATIC, NORMAL INSPECTION, NORMOCEPHALIC - Eye Exam Eye Exam: Normal appearance, PERRL Pupil Exam: NORMAL ACCOMODATION, PERRL - ENT Exam ENT Exam: Mucous Membranes Moist - Neck Exam Neck Exam: Full ROM, Normal Inspection - Respiratory Exam Respiratory Exam: Clear to Ausculation Bilateral, NORMAL BREATHING PATTERN. absent: Rales, Rhonchi, Wheezes - Cardiovascular Exam Cardiovascular Exam: REGULAR RHYTHM, +S1, +S2. absent: Gallop, Rubs, Murmur - GI/Abdominal Exam GI & Abdominal Exam: Soft, Normal Bowel Sounds. absent: Rigid, Tenderness, Mass , Rebound - Extremities Exam Extremities Exam: Normal Inspection. absent: Calf Tenderness, Pedal Edema - Neurological Exam Neurological Exam: Alert, Awake, CN II-XII Intact, Oriented x3 - Psychiatric Exam Psychiatric exam: Normal Affect, Normal Mood - Skin Skin Exam: Dry, Normal Color, Warm Assessment and Plan - Assessment and Plan (Free Text) Assessment: This is an 86Y F PMH of lung cancer s/p radiation, colon cancer s/p partial colon resection, CHF, CAD, CABG, HTN, HLD admitted for CHF exacerbation. Plan: 1. CHF exacerbation - Improved - Lasix 40mg PO BID - Cardiology Consulted started spiranolactone - Daily weight - Strict I&O - NC 2L prn SOB- maintain spO2>90% 2. Abdominal Pain - chronic pain, no pain on exam. - Abd U/S showed possible chronic cholecystitis - afebrile, no leukocytosis - Motrin prn mod pain, Morphine prn severe pain, simethicone prn - GI consulted 3. MADELINE- improved - Cr: 1.4 from 1.6 - FeNa pending - Will restart home lasix PO 4. CAD s/p CABG - Continue ASA, Plavix - Pt takes simvastatin at home 5. HTN - Continue Coreg, Digoxin, Lisinopril 6. History of Lung cancer - Continue Brovana and Pulmicort - Home meds: Vit B6, Iron, Vit D 7. Anxiety - Continue Xanax 0.25mg BID prn GI ppx: Protonix DVT ppx: Lovenox Dispo: Patient is being referred to TCU for further strengthening. Case seen, reviewed and discussed with attending. Jake Krause PGY1 <Stephanie Soto B - Last Filed: 12/19/16 15:55> Objective - Vital Signs/Intake and Output Vital Signs (last 24 hours): Temp Pulse Resp BP Pulse Ox 98.9 F 57 L 19 134/69 99 12/19/16 12:00 12/19/16 12:00 12/19/16 12:00 12/19/16 14:06 12/19/16 06:00 Intake and Output: 12/19/16 12/19/16 06:59 18:59 Intake Total 840 Output Total 800 Balance 40 - Labs Labs: 12/19/16 05:00 12/19/16 05:00 PT 12.3 Seconds (9.9-11.8) H 12/16/16 11:40 INR 1.14 (0.93-1.08) H 12/16/16 11:40 APTT 26.4 Seconds (23.7-30.8) 12/16/16 11:40 Attending/Attestation - Attestation I have personally seen and examined this patient.: Yes I have fully participated in the care of the patient.: Yes I have reviewed all pertinent clinical information, including history, physical exam and plan: Yes Notes (Text): Please refer to discharge summary dictated today. Dr Stephanie Soto
[2016-12-19 11:00] LABS: PH,URINE 5.5 (4.7-8.0); URINE BILIRUBIN NEGATIVE (NEGATIVE); URINE BLOOD TRACE-LYSED (NEGATIVE); URINE GLUCOSE (UA) NEGATIVE (NEGATIVE); URINE KETONE NEGATIVE (NEGATIVE); URINE LEUKOCYTE ESTERASE SMALL Leu/uL (NEGATIVE); URINE PROTEIN NEGATIVE mg/dL (<30 mg/dL); URINE UROBILINOGEN 0.2 E.U./dL (<1 E.U./dL)
[2016-12-19 11:01] LABS: URINE APPEARANCE CLEAR (CLEAR); URINE COLOR YELLOW (YELLOW)
[2016-12-19] MEDS ORDERED: Simethicone 40 mg/0.6 ml Liquid (30 ml) PO PRN (11:07)
--- NOTE | 2016-12-19 11:39 | PN ---
DATE: 12/19/2016 REASON FOR CONSULTATION AND FOLLOWUP: Shortness of breath, coronary artery disease, ischemic cardiom yopathy, COPD. BRIEF CLINICAL HISTORY: This is an 86-year-old female with a past medical history significant for CA D, CABG, cardiomyopathy, aortic regurgitation. Admitted with decompensated congestive heart failure, ejection fraction 20%-25%. Denies any chest pain. Complained of abdominal pain yesterday. Mylicon was given, patient feels a lot better. PHYSICAL EXAMINATION: VITAL SIGNS: Temperature afebrile, heart rate 64, blood pressure 148/69. HEENT: PERRLA. Extraocular muscles intact. NECK: Supple. No carotid bruits. No thyromegaly. CHEST: Clear to auscultation. HEART: S1, S2 regular. ABDOMEN: Soft. EXTREMITIES: Clubbing, cyanosis negative. BLOOD WORKUP: WBC 5. , hemoglobin 10.9, hematocrit 34.2, platelet count 190. Chemistry shows so dium 130, potassium 3. , chloride 98, carbon dioxide 33, anion gap of 10, BUN , creatinine 1 .4. IMPRESSION: Decompensated congestive heart failure, cardiomyopathy, ischemic, status post coronary a rtery bypass graft, status post occluded left internal mammary artery to left anterior descending, pa tent saphenous vein graft to diagonal, patent saphenous vein graft to right coronary artery, aortic r egurgitation, inoperable lung cancer, on chemo and radiation. Last catheterization 11/29/2013. Last echo 06/29/2016 shows 20%-25%, 4-chamber dilatation, consistent with cardiomyopathy. The patient is clinically not in overt heart failure, though BNP elevated. Small cell cancer, on chemo and radiatio n, inoperable lung carcinoma. RECOMMENDATION: Continue gentle diuretic. Discontinue telemetry. Ambulate. We will give another d ose of Mylicon. Continue spironolactone. Continue Coreg. Continue isosorbide mononitrate. Continu e digoxin. Continue Lasix. Discontinue telemetry. We will follow with you. We will give another d ose of Mylicon. The patient feels better with Mylicon. We will follow with you. Discharge planning . Shekhar Howard MD cc: [id number] TT: 12/19/2016 11:38:36 Confirmation # [id number] Dictation # [id number]
[2016-12-19 12:14] LABS: URINE RBC 0 - 2 /hpf (0-2)
[2016-12-19 12:15] LABS: URINE BACTERIA FEW (NEG)
[2016-12-19 12:27] VITALS: BP 134/69; PULSE 57; RESP 19; TEMP 98.9
[2016-12-19] MEDS ORDERED: POLYETHYLENE GLYCOL 3350 17 GM/Dose PACKET PO SCH (13:00)
[2016-12-19 14:07] VITALS: PULSE 78
[2016-12-19] MEDS: Digoxin 125 mcg (0.125 mg) Tab PO SCH (14:07)
--- NOTE | 2016-12-19 14:27 | CP.PCM.DIS ---
<JimiBailey - Last Filed: 12/19/16 14:20> Provider - Provider Date of Admission: 12/16/16 14:46 Attending physician: Stephanie Soto MD Primary care physician: Jose Francisco Duncan MD Consults: Cardio: Lee GI: Mary Time Spent in preparation of Discharge (in minutes): 35 Hospital Course - Lab Results Lab Results: Most Recent Lab Values WBC 5.2 10^3/ul (4.5-11.0) 12/19/16 05:00 RBC 4.08 10^6/uL (3.5-6.1) 12/19/16 05:00 Hgb 10.9 gm/dL (12.0-16.0) L 12/19/16 05:00 Hct 34.2 % (36.0-48.0) L 12/19/16 05:00 MCV 83.8 fL (80.0-105.0) 12/19/16 05:00 MCH 26.7 pg (25.0-35.0) 12/19/16 05:00 MCHC 31.9 g/dl (31.0-37.0) 12/19/16 05:00 RDW 15.5 % (11.5-14.5) H 12/19/16 05:00 Plt Count 190 10^3/uL (120.0-450.0) 12/19/16 05:00 MPV 11.3 fl (7.0-11.0) H 12/19/16 05:00 Gran % 69.3 % (50.0-68.0) H 12/19/16 05:00 Lymph % (Auto) 18.1 % (22.0-35.0) L 12/19/16 05:00 [place] % (Auto) 12.2 % (1.0-6.0) H 12/19/16 05:00 Eos % (Auto) 0.2 % (1.5-5.0) L 12/19/16 05:00 Baso % (Auto) 0.2 % (0.0-3.0) 12/19/16 05:00 Gran # 3.57 (1.4-6.5) 12/19/16 05:00 Lymph # 0.9 (1.2-3.4) L 12/19/16 05:00 [place] # 0.6 (0.1-0.6) 12/19/16 05:00 Eos # 0.0 (0.0-0.7) 12/19/16 05:00 Baso # 0.01 K/mm3 (0.0-2.0) 12/19/16 05:00 PT 12.3 Seconds (9.9-11.8) H 12/16/16 11:40 INR 1.14 (0.93-1.08) H 12/16/16 11:40 APTT 26.4 Seconds (23.7-30.8) 12/16/16 11:40 Sodium 137 mmol/L (132-148) 12/19/16 05:00 Potassium 3.9 mmol/L (3.6-5.0) 12/19/16 05:00 Chloride 98 mmol/L (98-107) 12/19/16 05:00 Carbon Dioxide 33 mmol/L (21-33) 12/19/16 05:00 Anion Gap 10 (10-20) 12/19/16 05:00 BUN 53 mg/dL (7-21) H 12/19/16 05:00 Creatinine 1.4 mg/dL (0.5-1.4) 12/19/16 05:00 Est GFR ( Amer) 43 12/19/16 05:00 Est GFR (Non-Af Amer) 36 12/19/16 05:00 POC Glucose (mg/dL) 117 mg/dL (65-110) H 12/18/16 21:33 Random Glucose 96 mg/dL (70-110) 12/19/16 05:00 Hemoglobin A1c 6.1 % (4.2-6.5) 12/17/16 06:30 Lactic Acid 1.2 mmol/L (0.7-2.1) 12/18/16 09:05 Calcium 8.8 mg/dL (8.4-10.5) 12/19/16 05:00 Total Bilirubin 1.1 mg/dL (0.2-1.3) 12/16/16 13:46 AST 33 U/L (15-39) 12/16/16 13:46 ALT 29 U/L (7-56) 12/16/16 13:46 Alkaline Phosphatase 78 U/L (38-133) 12/16/16 13:46 Lactate Dehydrogenase 535 U/L (333-699) 12/16/16 13:46 Total Creatine Kinase 59 U/L (35-230) 12/16/16 13:46 Troponin I 0.10 ng/mL 12/17/16 06:30 NT-Pro-B Natriuret Pep 95193 pg/mL (0-450) H 12/16/16 13:46 Total Protein 7.8 g/dL (5.8-8.3) 12/16/16 13:46 Albumin 4.1 g/dL (3.0-4.8) 12/16/16 13:46 Globulin 3.7 gm/dL 12/16/16 13:46 Albumin/Globulin Ratio 1.1 (1.1-1.8) 12/16/16 13:46 Triglycerides 82 mg/dL (35-160) 12/17/16 06:30 Cholesterol 138 mg/dL (130-200) 12/17/16 06:30 LDL Cholesterol Direct 51 mg/dL (0-129) 12/17/16 06:30 HDL Cholesterol 59 mg/dL (29-60) 12/17/16 06:30 Procalcitonin 0.14 NG/ML (0.19-0.49) L 12/19/16 09:00 TSH 3rd Generation 0.80 mIU/mL (0.46-4.68) 12/18/16 06:30 Urine Color Yellow (YELLOW) 12/19/16 10:00 Urine Appearance Clear (CLEAR) 12/19/16 10:00 Urine pH 5.5 (4.7-8.0) 12/19/16 10:00 Ur Specific [place] 1.010 (1.005-1.035) 12/19/16 10:00 Urine Protein Negative mg/dL (<30 mg/dL) 12/19/16 10:00 Urine Glucose (UA) Negative mg/dL (NEGATIVE) 12/19/16 10:00 Urine Ketones Negative mg/dL (NEGATIVE) 12/19/16 10:00 Urine Blood Trace-lysed (NEGATIVE) H 12/19/16 10:00 Urine Nitrate Negative (NEGATIVE) 12/19/16 10:00 Urine Bilirubin Negative (NEGATIVE) 12/19/16 10:00 Urine Urobilinogen 0.2 E.U./dL (<1 E.U./dL) 12/19/16 10:00 Ur Leukocyte Esterase Small Baldev/uL (NEGATIVE) H 12/19/16 10:00 Urine RBC 0 - 2 /hpf (0-2) 12/19/16 10:00 Urine WBC 2 - 5 /hpf (0-6) 12/19/16 10:00 Ur Epithelial Cells 4 - 5 /hpf (0-5) 12/19/16 10:00 Urine Bacteria Few (NEG) 12/19/16 10:00 Ur Random Creatinine 92 mg/dL 12/19/16 10:00 - Hospital Course Hospital Course: This is a 86y F with PMH of lung cancer s/p radiation, colon cancer s/p partial colon resection, CHF, CAD, CABG, HTN, HLD admitted for CHF exacerbation. Cardiology was consulted. Patient was diuresed with IV lasix. During her course of diuresis, patient had transient MADELINE, which has improved. Her shortness of breath improved. She was switched to Spiranolactone and PO Lasix. She has been stable throughout her stay. She did report having abdominal pain in her RUQ. GI was consulted. Patient had an abdominal ultrasound, which showed possible chronic cholecystitis. This abdominal pain is not present on examination and patient remained afebrile without leukocytosis. She had regular BM and was passing gas. She denies CP, SOB, n/v/d, numbness/tingling or edema. The patient agreed to be transferred to TCU for further strengthening. We will continue her present management and medications in the TCU. - Date & Time of H&P Date of H&P: 12/16/16 Time of H&P: 17:00 Discharge Exam - Head Exam Head Exam: ATRAUMATIC, NORMAL INSPECTION, NORMOCEPHALIC - Eye Exam Eye Exam: Normal appearance Pupil Exam: NORMAL ACCOMODATION - Respiratory Exam Respiratory Exam: Clear to PA & Lateral (minimal rale), NORMAL BREATHING PATTERN , UNREMARKABLE. absent: Rhonchi, Wheezes - Cardiovascular Exam Cardiovascular Exam: REGULAR RHYTHM, +S1, +S2. absent: Gallop, Rubs, Systolic Murmur - GI/Abdominal Exam GI & Abdominal Exam: Normal Bowel Sounds, Soft, Unremarkable. absent: Guarding , Mass, Rebound, Rigid, Tenderness - Extremities Exam Extremities exam: normal inspection - Neurological Exam Neurological exam: Alert, CN II-XII Intact, Oriented x3 - Psychiatric Exam Psychiatric exam: Normal Affect, Normal Mood - Skin Skin Exam: Dry, Normal Color, Warm Discharge Plan - Follow Up Plan Condition: SERIOUS Disposition: TRANSF TO SNF Instructions: Heart Failure (DC) Additional Instructions: 1. D/C to TCU for further strengthening 2. Continue Orders, Medications and Consult in TCU Referrals: Jose Francisco Duncan MD [Primary Care Provider] - <Stephanie Soto - Last Filed: 12/19/16 15:54> Provider - Provider Date of Admission: 12/16/16 14:46 Attending physician: Stephanie Soto MD Primary care physician: Jose Francisco Duncan MD Hospital Course - Lab Results Lab Results: Most Recent Lab Values WBC 5.2 10^3/ul (4.5-11.0) 12/19/16 05:00 RBC 4.08 10^6/uL (3.5-6.1) 12/19/16 05:00 Hgb 10.9 gm/dL (12.0-16.0) L 12/19/16 05:00 Hct 34.2 % (36.0-48.0) L 12/19/16 05:00 MCV 83.8 fL (80.0-105.0) 12/19/16 05:00 MCH 26.7 pg (25.0-35.0) 12/19/16 05:00 MCHC 31.9 g/dl (31.0-37.0) 12/19/16 05:00 RDW 15.5 % (11.5-14.5) H 12/19/16 05:00 Plt Count 190 10^3/uL (120.0-450.0) 12/19/16 05:00 MPV 11.3 fl (7.0-11.0) H 12/19/16 05:00 Gran % 69.3 % (50.0-68.0) H 12/19/16 05:00 Lymph % (Auto) 18.1 % (22.0-35.0) L 12/19/16 05:00 [place] % (Auto) 12.2 % (1.0-6.0) H 12/19/16 05:00 Eos % (Auto) 0.2 % (1.5-5.0) L 12/19/16 05:00 Baso % (Auto) 0.2 % (0.0-3.0) 12/19/16 05:00 Gran # 3.57 (1.4-6.5) 12/19/16 05:00 Lymph # 0.9 (1.2-3.4) L 12/19/16 05:00 [place] # 0.6 (0.1-0.6) 12/19/16 05:00 Eos # 0.0 (0.0-0.7) 12/19/16 05:00 Baso # 0.01 K/mm3 (0.0-2.0) 12/19/16 05:00 PT 12.3 Seconds (9.9-11.8) H 12/16/16 11:40 INR 1.14 (0.93-1.08) H 12/16/16 11:40 APTT 26.4 Seconds (23.7-30.8) 12/16/16 11:40 Sodium 137 mmol/L (132-148) 12/19/16 05:00 Potassium 3.9 mmol/L (3.6-5.0) 12/19/16 05:00 Chloride 98 mmol/L (98-107) 12/19/16 05:00 Carbon Dioxide 33 mmol/L (21-33) 12/19/16 05:00 Anion Gap 10 (10-20) 12/19/16 05:00 BUN 53 mg/dL (7-21) H 12/19/16 05:00 Creatinine 1.4 mg/dL (0.5-1.4) 12/19/16 05:00 Est GFR ( Amer) 43 12/19/16 05:00 Est GFR (Non-Af Amer) 36 12/19/16 05:00 POC Glucose (mg/dL) 117 mg/dL (65-110) H 12/18/16 21:33 Random Glucose 96 mg/dL (70-110) 12/19/16 05:00 Hemoglobin A1c 6.1 % (4.2-6.5) 12/17/16 06:30 Lactic Acid 1.2 mmol/L (0.7-2.1) 12/18/16 09:05 Calcium 8.8 mg/dL (8.4-10.5) 12/19/16 05:00 Total Bilirubin 1.1 mg/dL (0.2-1.3) 12/16/16 13:46 AST 33 U/L (15-39) 12/16/16 13:46 ALT 29 U/L (7-56) 12/16/16 13:46 Alkaline Phosphatase 78 U/L (38-133) 12/16/16 13:46 Lactate Dehydrogenase 535 U/L (333-699) 12/16/16 13:46 Total Creatine Kinase 59 U/L (35-230) 12/16/16 13:46 Troponin I 0.10 ng/mL 12/17/16 06:30 NT-Pro-B Natriuret Pep 96373 pg/mL (0-450) H 12/16/16 13:46 Total Protein 7.8 g/dL (5.8-8.3) 12/16/16 13:46 Albumin 4.1 g/dL (3.0-4.8) 12/16/16 13:46 Globulin 3.7 gm/dL 12/16/16 13:46 Albumin/Globulin Ratio 1.1 (1.1-1.8) 12/16/16 13:46 Triglycerides 82 mg/dL (35-160) 12/17/16 06:30 Cholesterol 138 mg/dL (130-200) 12/17/16 06:30 LDL Cholesterol Direct 51 mg/dL (0-129) 12/17/16 06:30 HDL Cholesterol 59 mg/dL (29-60) 12/17/16 06:30 Procalcitonin 0.14 NG/ML (0.19-0.49) L 12/19/16 09:00 TSH 3rd Generation 0.80 mIU/mL (0.46-4.68) 12/18/16 06:30 Urine Color Yellow (YELLOW) 12/19/16 10:00 Urine Appearance Clear (CLEAR) 12/19/16 10:00 Urine pH 5.5 (4.7-8.0) 12/19/16 10:00 Ur Specific [place] 1.010 (1.005-1.035) 12/19/16 10:00 Urine Protein Negative mg/dL (<30 mg/dL) 12/19/16 10:00 Urine Glucose (UA) Negative mg/dL (NEGATIVE) 12/19/16 10:00 Urine Ketones Negative mg/dL (NEGATIVE) 12/19/16 10:00 Urine Blood Trace-lysed (NEGATIVE) H 12/19/16 10:00 Urine Nitrate Negative (NEGATIVE) 12/19/16 10:00 Urine Bilirubin Negative (NEGATIVE) 12/19/16 10:00 Urine Urobilinogen 0.2 E.U./dL (<1 E.U./dL) 12/19/16 10:00 Ur Leukocyte Esterase Small Baldev/uL (NEGATIVE) H 12/19/16 10:00 Urine RBC 0 - 2 /hpf (0-2) 12/19/16 10:00 Urine WBC 2 - 5 /hpf (0-6) 12/19/16 10:00 Ur Epithelial Cells 4 - 5 /hpf (0-5) 12/19/16 10:00 Urine Bacteria Few (NEG) 12/19/16 10:00 Ur Random Creatinine 92 mg/dL 12/19/16 10:00 Attending/Attestation - Attestation I have personally seen and examined this patient.: Yes I have fully participated in the care of the patient.: Yes I have reviewed all pertinent clinical information, including history, physical exam and plan: Yes Notes (Text): I have seen and examined the patient at bedside. This is 86 year old female with history of lung cancer s/p chemoradiation, colon cancer s/p partial colon resection, CHF (EF~20-25%), CAD s/p CABG, Congestive cardiomyopathy, Aortic regurg, HTN, dyslipidemia who presented for evaluation of shortness of breath and found to have CHF exacerbation. Denies chest pain, sob, nausea, vomiting or diarrhea. Patient reports that she has intermittent mild abdominal pain which got improved with mylicon. Upon exam , she had mild RUQ tenderness. Abdominal ultrasound revealed fatty infiltration vs CHF vs chronic acalculous cholecystitis. Discussed with Dr Hernandez. Review of record shows that she has been having chronic intermittent abdominal pain. Last time CT was done and it showed fatty infiltration. Will not do HIDA or antibiotics at this time. Creatinine slightly better. Will resume lasix. Will continue digoxin, coreg, lipitor, budesonide and brovana. Patient lives alone and wants to go to TCU. Dr Stephanie Soto
--- NOTE | 2016-12-19 20:21 | CON ---
DATE: 12/19/2016 Seen and examined at the bedside earlier this morning. REQUEST FOR CONSULT: Abdominal pain. HISTORY OF PRESENT ILLNESS: This is an 86-year-old female with a past medical history of lung cancer status post chemo and radiation, colon cancer, status post partial colon resection with history of s evere coronary artery disease. The patient was brought to the Emergency Room for complaints of chron ic shortness of breath, worsening during the night. The patient also is complaining of lower abdomin al pain with no radiation. No reports of any nausea, vomiting, diarrhea or overt GI bleed. The colin ent states that her last bowel movement was yesterday, but does get constipated. Currently complaini ng of dysuria, but denies any hematuria. This patient had an abdominal ultrasound showing chronic ga llbladder wall thickening, no gallstones, and diffuse fatty infiltrations in the liver and increased echogenicity. No mass or intrahepatic ductal dilatation was reported. She was seen by our GI group in the past for abdominal pain in the lower abdomen at least 2 years ago. The patient had a HIDA sca n done back in 03/2015 for thickened gallbladder wall, reported on ultrasound back in 02/2015. The HID A scan was negative and her abdominal pain resolved. She did have a CAT scan done on 10/2016 with p.o . and IV contrast and there were no acute findings related to or accounting for the patient's complai nts. Her last endoscopy was in 2011, found to have gastritis and esophagitis and colonoscopy was in 2010, found to have an anastomotic ulcer and was status post subtotal colectomy. PAST MEDICAL HISTORY: As stated above. Again, has COPD, history of lung cancer, nonsmall cell carci noma stage II, treated with radiation and chemotherapy; history of colon cancer, severe coronary curt ry disease, ischemic cardiomyopathy, history of grade IV aortic regurgitation, dyslipidemia, anxiety and hypertension. PAST SURGICAL HISTORY: She had a subtotal colectomy, CABG, cardiac catheterization in 2013 for sever e triple vessel disease, EGD was 2011, in 2010 showed anastomotic ulcer. ALLERGIES: ATORVASTATIN, MECLIZINE, SHELLFISH DERIVED. FAMILY HISTORY: Sister with diabetes and tuberculosis. MEDICATIONS: Reviewed as per MAR. SOCIAL HISTORY: The patient was a former smoker. Denies ETOH or substance abuse. REVIEW OF SYSTEMS: Systems were reviewed with positive findings, see HPI. LABORATORY DATA: WBC is 5.2, H and H is 10.9 and 34.2, platelet count is 190. PT is from 12/16, it was 12.3, INR is 1.14, PTT 26.4. Sodium 137, K is 3.9, BUN 53, creatinine is 1.4. LFTs are within n ormal limits from 12/16. Had elevated BNP at . Chest x-ray from 12/16 is [id number] card iomegaly, there is a small right pleural effusion. PHYSICAL EXAMINATION: VITAL SIGNS: Temperature is 98.7, blood pressure is 161/78, pulse is 62, respirations 18, 98 on room air. HEENT: Sclerae anicteric. NECK: Supple. CARDIAC: S1, S2. LUNGS: Sounds are clear. No rales or wheeze. ABDOMEN: With bowel sounds. It is soft. On exam, the patient's primary tenderness was in the lower abdomen. When palpated to the right upper quadrant, no tenderness was appreciated. Most of the beau n and tenderness palpated was in the lower abdomen. No rebound or guarding. The patient also was co mplaining of dysuria. EXTREMITIES: No edema, no calf tenderness. NEUROLOGIC: Awake, alert, and oriented. ASSESSMENT: This is an 86-year-old female with a history of lung cancer, status post radiation and c hemotherapy. She also had a history of colon cancer with partial colon resection complaining of lowe r abdominal pain and also dysuria. She did have an abdominal ultrasound reporting chronic gallbladde r wall thickening, likely chronic cholecystitis. She did have a HIDA scan in the past, which was neg ative. Rule out any urinary tract infection. Her urine culture is pending. Has a history of anasto motic ulcer, history of hypertension, coronary artery disease status post coronary artery bypass estefania t, and also constipation. PLAN: Will give the patient a dose of MiraLax. Also, urine culture was sent; follow this up. The p atient is on Plavix and aspirin and is also on Lasix, Aldactone and Carafate. Will continue to follo w the patient with you. Thank you for this consult and for allowing us to participate in your patient's care. The patient wa s seen and case discussed with Dr. Hernandez. The plan was discussed with nursing staff. Quynh GATES cc: [id number] TT: 12/19/2016 20:20:14 Confirmation # [id number] Dictation # [id number] dn
--- NOTE | 2016-12-20 04:46 | CON ---
DATE: 12/19/2016 ADDENDUM: This is an addendum to the GI consultation report dictated by Quynh Gill NP. The patient was seen and evaluated. The patient's main complaint seems to be mainly in the suprapubi c area. The patient also complains of constipation and PHYSICAL EXAMINATION: On examination, she had mild tenderness in the suprapubic area, otherwise unremarkable. The patient complains of constipation. Would start the patient on MiraLax. Follow up the stool and send the urine for culture. Will advance the diet. Thank you very much for allowing us to participate in the care of the patient. Serafin Hernandez MD cc: [id number] TT: 12/20/2016 04:46:15 Confirmation # [id number] Dictation # [id number] [place]
== END 2016-12-19 14:37 | DRG 292 ==
LOC: ED 10:53 → ERH 14:46 → 2RNO 21:54
PROVIDERS: ADMIT Hospitalist; ATTEND Hospitalist
DX: I11.0 Hypertensive heart disease with heart failure (principal); I50.23 Acute on chronic systolic (congestive) heart failure; N17.9 Acute kidney failure, unspecified; I42.0 Dilated cardiomyopathy; I27.2 Other secondary pulmonary hypertension; J44.9 Chronic obstructive pulmonary disease, unspecified; I08.1 Rheumatic disorders of both mitral and tricuspid valves; K81.1 Chronic cholecystitis; E11.9 Type 2 diabetes mellitus without complications; I25.10 Atherosclerotic heart disease of native coronary artery without angina pectoris; E78.5 Hyperlipidemia, unspecified; I25.5 Ischemic cardiomyopathy; K21.9 Gastro-esophageal reflux disease without esophagitis; F41.9 Anxiety disorder, unspecified; R09.02 Hypoxemia; K59.00 Constipation, unspecified; Z87.891 Personal history of nicotine dependence; Z95.1 Presence of aortocoronary bypass graft; Z85.038 Personal history of other malignant neoplasm of large intestine; Z85.118 Personal history of other malignant neoplasm of bronchus and lung; Z92.3 Personal history of irradiation

== ENCOUNTER 2016-12-19 14:37 | Inpatient (IN) | payer OTHER ==
[2016-12-19] MEDS ORDERED: Simethicone 80 mg Chewtab PO PRN (15:46)
[2016-12-19] MEDS ORDERED: Simethicone 40 mg/0.6 ml Liquid (30 ml) PO PRN (15:47)
[2016-12-19 17:10] VITALS: BMI 18.1
[2016-12-19] MEDS ORDERED: Pneumococcal 23-Valent Vaccine IM ONE (17:10)
[2016-12-19] MEDS: Budesonide 0.5 mg/2 ml Inhal Susp UD IH SCH (20:44)
[2016-12-19] MEDS: Arformoterol 15 mcg/2 ml Inh Sol IH SCH ×2 (20:44)
[2016-12-20] MEDS: Pantoprazole 40 mg EC Tab PO SCH (06:02)
[2016-12-20] MEDS: Budesonide 0.5 mg/2 ml Inhal Susp UD IH SCH ×2 (07:15→20:33)
[2016-12-20] MEDS: Arformoterol 15 mcg/2 ml Inh Sol IH SCH ×4 (07:15→20:33)
[2016-12-20] MEDS: Albuterol-Ipratrop 3 mg / 0.5 (3 ml) UD IH PRN (07:15)
[2016-12-20 09:24] LABS: HEMATOCRIT 36.8 % (36.0-48.0); MEAN CELL VOLUME 84.8 fL (80.0-105.0); MEAN CORPUSCULAR HEMOGLOBIN 27.2 pg (25.0-35.0); MEAN CORPUSCULAR HGB CONC 32.1 g/dl (31.0-37.0); MEAN PLATELET VOLUME 11.5 fl (7.0-11.0); RED CELL DISTRIBUTION WIDTH 15.6 % (11.5-14.5); WHITE BLOOD COUNT 5.5 10^3/ul (4.5-11.0)
[2016-12-20 09:33] LABS: ALB/GLOB RATIO 1.1 (1.1-1.8); BILIRUBIN,TOTAL 0.8 mg/dL (0.2-1.3); CALCIUM 9.1 mg/dL (8.4-10.5); POTASSIUM 3.9 mmol/L (3.6-5.0); TOTAL PROTEIN 7.4 g/dL (5.8-8.3)
--- NOTE | 2016-12-20 10:27 | CP.PCM.HP ---
<Bailey Krause - Last Filed: 12/20/16 10:20> History of Present Illness - History of Present Illness History of Present Illness: This is an 86Y F with PMH COPD, CHF (EF 20-25%), CAD, HTN, HLD, lung cancer s/p chemoradiation and colon cancer s/p resection admitted for CHF exacerbation who was transferred to TCU for further strengthening. Patient reports having trouble sleeping last night. She received one Xanax 0.25 without any relief. She reports her abdominal pain, which was present on the medical floor has improved. Miralax was added to her regimen. She reports her stool became loose, but believes that is what has helped the abdominal pain. The patient reports her breathing has improved. She denies having CP, SOB, n/v/d, numbness/tingling , dysuria or hematuria. PMH: COPD, lung cancer s/p chemoradiation, colon cancer s/p colon resection, CHF , CAD s/p CABG, HTN, HLD, aortic regurgitation PSH: CABG, partial colectomy, portacath Home meds: Simvastatin 40mg qd, Vit B6 100mg qd, Lasix 40mg BID, digoxin 0.125mg qd, Plavix 75mg qd, Coreg 3.125mg BID, Pulmicort inh BID, Brovana inh BID, Xanax 0.25mg BID prn, Vit D3, Feosol All: Atorvastatin- headache, Meclizine- Rash, Shellfish-SOB SH: Lives alone, former smoker. Denies drug or alcohol use FH: Non- contributory Superintendent Menagerie: Dr. Stringer Oncologist: Dr. Duncan Present on Admission - Present on Admission Any Indicators Present on Admission: No Review of Systems - Review of Systems Review of Systems: As per HPI Past Patient History - Infectious Disease Hx of Infectious Diseases: None - Tetanus Immunizations Tetanus Immunization: Unknown - Past Social History Smoking Status: Former Smoker Alcohol: None Drugs: Denies Home Situation {Lives}: Alone - CARDIAC Hx Cardiac Disorders: Yes (cad, cabg) Hx Congestive Heart Failure: Yes Hx Hypercholesterolemia: Yes Hx Hypertension: Yes - PULMONARY Hx Chronic Obstructive Pulmonary Disease (COPD): Yes - NEUROLOGICAL HX Cerebrovascular Accident: Yes (1990) - HEENT Hx HEENT Problems: Yes Hx Cataracts: Yes (SURGERY) 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 CHOLECYSTECTOMY. COLON RESECTION - GENITOURINARY/GYNECOLOGICAL Hx Reproductive Disorders: No - PSYCHIATRIC Hx Substance Use: No - SURGICAL HISTORY Hx Appendectomy: Yes Hx Cardiac Catheterization: Yes Hx Cholecystectomy: Yes Hx Coronary Stent: Yes Other/Comment: COLON RESECTION - ANESTHESIA Hx Anesthesia: Yes Hx Anesthesia Reactions: No Hx Malignant Hyperthermia: No Meds Allergies/Adverse Reactions: Allergies Allergy/AdvReac Type Severity Reaction Status Date / Time atorvastatin Allergy HEADACHE Verified 12/16/16 11:23 meclizine Allergy RASH Verified 12/16/16 11:23 shellfish derived Allergy SHORTNESS Verified 12/16/16 11:23 OF BREATH Physical Exam - Constitutional Appears: No Acute Distress - Head Exam Head Exam: NORMAL INSPECTION - Eye Exam Eye Exam: Normal appearance Pupil Exam: NORMAL ACCOMODATION - ENT Exam ENT Exam: Mucous Membranes Moist - Neck Exam Neck exam: Positive for: Normal Inspection - Respiratory Exam Respiratory Exam: Clear to Auscultation Bilateral, NORMAL BREATHING PATTERN. absent: Rales, Rhonchi, Wheezes - Cardiovascular Exam Cardiovascular Exam: REGULAR RHYTHM, +S1, +S2. absent: Gallop, Rubs, Systolic Murmur - GI/Abdominal Exam GI & Abdominal Exam: Normal Bowel Sounds, Soft. absent: Guarding, Mass, Rebound , Rigid, Tenderness - Extremities Exam Extremities exam: Positive for: normal inspection. Negative for: calf tenderness, pedal edema - Neurological Exam Neurological exam: Alert, CN II-XII Intact, Oriented x3 - Psychiatric Exam Psychiatric exam: Normal Affect, Normal Mood - Skin Skin Exam: Dry, Normal Color, Warm Results - Vital Signs Recent Vital Signs: Last Vital Signs Temp 98 F 12/20/16 06:00 Pulse 60 12/20/16 08:43 Resp 20 12/20/16 06:00 BP 124/74 12/20/16 08:43 Pulse Ox 99 12/20/16 06:00 - Labs Result Diagrams: 12/20/16 09:00 12/20/16 09:00 Labs: Laboratory Results - last 24 hr 12/20/16 12/20/16 09:00 09:00 WBC 5.5 RBC 4.34 Hgb 11.8 L Hct 36.8 MCV 84.8 MCH 27.2 MCHC 32.1 RDW 15.6 H Plt Count 214 MPV 11.5 H Sodium 139 Potassium 3.9 Chloride 98 Carbon Dioxide 32 Anion Gap 13 BUN 40 H Creatinine 1.3 Est GFR ( Amer) 47 Est GFR (Non-Af Amer) 39 Random Glucose 118 H Calcium 9.1 Total Bilirubin 0.8 AST 34 ALT 41 Alkaline Phosphatase 72 Total Protein 7.4 Albumin 3.8 Globulin 3.6 Albumin/Globulin Ratio 1.1 Assessment & Plan - Assessment and Plan (Free Text) Assessment: This is an 86Y F with PMH COPD, CHF (EF 20-25%), CAD, HTN, HLD, lung cancer s/p chemoradiation and colon cancer s/p resection admitted for CHF exacerbation who was transferred to TCU for further strengthening. Plan: 1. CHF exacerbation - Improved - Lasix 40mg PO BID, Spiranolactone 25mg BID - Cardiology Consulted - Daily weights, strict I&O - NC 2L prn - maintain spO2>90% 2. Abdominal Pain - Improved - GI consulted - Abd U/S at previous admission showed fatty liver versus chronic cholecystitis - Tylenol prn pain, Simethicone prn gas, Miralax prn constipation - Carafate 3. MADELINE-resolved - Cr: 1.3, baseline around 1.1 - Will continue to monitor Cr and BUN as well as electrolytes and replace as needed 4. CAD s/p CABG - ASA, Plavix 5. HTN - Coreg, Digoxin, Lisinopril 6. Lung cancer History - Brovana and Pulmicort, Duoneb prn SOB - Home meds: Vit B6, Iron, Vit D 7. Anxiety - Xanax 0.25mg BID prn - Will Add Ambien prn at night for sleep GI ppx: Protonix DVT ppx: Lovenox Case seen, discussed and reviewed with attending Jake Krause PGY1 - Date & Time Date: 12/20/16 Time: 10:30 <Stephanie Soto - Last Filed: 12/21/16 12:16> Results - Vital Signs Recent Vital Signs: Last Vital Signs Temp 98.0 F 12/20/16 16:00 Pulse 54 L 12/20/16 18:53 Resp 14 12/20/16 16:00 BP 140/62 12/21/16 09:59 Pulse Ox 95 12/20/16 10:00 - Labs Result Diagrams: 12/21/16 07:00 12/21/16 07:00 Labs: Laboratory Results - last 24 hr 12/20/16 12/20/16 12/20/16 11:23 17:30 21:36 WBC RBC Hgb Hct MCV MCH MCHC RDW Plt Count MPV Sodium Potassium Chloride Carbon Dioxide Anion Gap BUN Creatinine Est GFR ( Amer) Est GFR (Non-Af Amer) POC Glucose (mg/dL) 142 H 130 H 173 H Random Glucose Calcium Total Bilirubin AST ALT Alkaline Phosphatase Total Protein Albumin Globulin Albumin/Globulin Ratio 12/21/16 12/21/16 07:00 07:00 WBC 5.3 RBC 3.91 Hgb 10.6 L Hct 33.1 L MCV 84.7 MCH 27.1 MCHC 32.0 RDW 15.6 H Plt Count 200 MPV 11.3 H Sodium 139 Potassium 3.7 Chloride 96 L Carbon Dioxide 36 H Anion Gap 11 BUN 31 H Creatinine 1.1 Est GFR ( Amer) 57 Est GFR (Non-Af Amer) 47 POC Glucose (mg/dL) Random Glucose 102 Calcium 9.0 Total Bilirubin 0.7 AST 33 ALT 37 Alkaline Phosphatase 61 Total Protein 6.6 Albumin 3.3 Globulin 3.2 Albumin/Globulin Ratio 1.0 L Attending/Attestation - Attestation I have personally seen and examined this patient.: Yes I have fully participated in the care of the patient.: Yes I have reviewed all pertinent clinical information: Yes Notes (Text): I have seen and examined the patient at bedside. This is 86 year old female with history of lung cancer s/p chemoradiation, colon cancer s/p partial colon resection, CHF (EF~20-25%), CAD s/p CABG, Congestive cardiomyopathy, Aortic regurg, HTN, dyslipidemia who presented for evaluation of shortness of breath and found to have CHF exacerbation. Patient will be admitted to TCU for rehab. Denies chest pain, abdominal pain, sob, nausea, vomiting or diarrhea. Will continue digoxin, coreg, lipitor, lasix, budesonide and brovana. Upon discharge patient will follow up with Dr Duncan and Dr Howard. Dr Stephanie Soto
[2016-12-20] MEDS ORDERED: POLYETHYLENE GLYCOL 3350 17 GM/Dose PACKET PO PRN (10:38)
[2016-12-20] MEDS ORDERED: POLYETHYLENE GLYCOL 3350 17 GM/Dose PACKET PO SCH (13:00)
[2016-12-20] MEDS: Digoxin 125 mcg (0.125 mg) Tab PO SCH (13:43)
--- NOTE | 2016-12-20 14:51 | CON ---
DATE: 12/20/[address] Duncan. CHIEF COMPLAINT: Deconditioning. HISTORY OF PRESENT ILLNESS: The patient is an 86-year-old female transferred from the medical floor to TCU for reconditioning. She was admitted for shortness of breath, abdominal pain, with the chong contreras now significantly improved. She was treated for decompensated CHF, cardiomyopathy with followup wi Dr. Howard with consideration for Primacor if she will be a candidate for it. With this, the patibutch contreras is also known to have had surgery in the past, subtotal colectomy with possible adhesions, scar tis efren causing her abdominal discomfort. With this, the patient is otherwise without complaint now, for reconditioning and further treatment as per her attending. PAST MEDICAL HISTORY: As above, ASCVD, status post CABG, inoperable cancer of the lung, cardiomyopat hy, ejection fraction 20%, stage II nonsmall cell CA treated with radiation, COPD with hypoxemia, his tory of CHF, GERD, anxiety, subtotal colectomy. ALLERGIES: INCLUDE ATORVASTATIN, MECLIZINE, SHELLFISH. MEDICATIONS: Included Aldactone, Brovana, Carafate, Coreg, Ecotrin, Imdur, digoxin, Lasix, Plavix, P rotonix, Pulmicort, home oxygen, Xanax, Zestril, simethicone. FAMILY HISTORY AND SOCIAL HISTORY: Noncontributory. She lives with her daughter. She is a nonsmoke r and non-ethanolic. REVIEW OF SYSTEMS: Essentially negative to questioning except as above. OBJECTIVE PHYSICAL EXAMINATION: VITAL SIGNS: Temperature 97.3, pulse 57, respirations 20, blood pressure 140/70, pulse ox 95%. HEENT: Unremarkable. NECK: Supple. HEART: Regular rate. LUNGS: Clear. ABDOMEN: Soft, nontender. EXTREMITIES: No edema. SKIN: Warm, dry and clear. NEUROLOGIC: Awake, alert and oriented. LABORATORY DATA: The patient's labs were done. White blood cell count of 5.5, hemoglobin 11.8, le tocrit 36.8, platelet count 214,000 with a chem metabolic panel showing a BUN of 40, creatinine of 1. 3 with a procalcitonin of 0.1. The patient's blood cultures are negative from yesterday. ASSESSMENT: Deconditioning, exacerbation of congestive heart failure, cardiomyopathy, severe arterio sclerotic cardiovascular disease, status post coronary artery bypass graft, ejection fraction 20%, hi story of stage II nonsmall cell carcinoma of the lung in remission, chronic obstructive pulmonary dis ease, subtotal colectomy, history of anxiety, gastroesophageal reflux disease. PLAN: To continue present medical regimen as per her attending, Dr. Soto with the patient to be mariluz tored clinically and with labs. Prognosis for this patient is guarded. Adrián Gavin MD cc: [id number] TT: 12/20/2016 14:50:33 Confirmation # [id number] Dictation # [id number] tn
--- NOTE | 2016-12-20 17:07 | CON ---
DATE: 12/20/2016 SERVICE: Cardiology. REASON FOR CONSULTATION: Continuity of the care in transitional care unit, history of cardiomyopathy , coronary artery disease, CABG, aortic regurgitation, inoperable lung cancer on chemo, ischemic card iomyopathy. 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 Denies any chest pain, shortness of breath, any palpitation. PAST MEDICAL HISTORY: Significant for coronary artery disease as mentioned, coronary artery bypass m any years ago, status post occluded CALLAHAN to LAD, status post patent saphenous graft to diagonal 1, sa phenous graft to RCA, last stent was placed many years ago, history of cardiomyopathy. Last ejection fraction ____ COPD, goiter, small cell lung carcinoma, inoperable, treated with chemo and radiation, history of subtotal colectomy, history of Port-A-Cath placement. ALLERGIES: ATORVASTATIN, MECLIZINE AND SHELLFISH. FAMILY HISTORY: Diabetes ____. REVIEW OF SYSTEMS: As per HPI. CURRENT MEDICATIONS: The patient is taking at home simvastatin 40 mg daily, Feosol 325 mg, Brovana _ ___ hours a day, Lasix 40 mg daily, digoxin 0.125 mg daily, Plavix 75 mg daily, Coreg 3.125 mg daily, Xanax 0.25 mg daily, vitamin D3. REVIEW OF SYSTEMS: As per HPI. PHYSICAL EXAMINATION: VITAL SIGNS: Temperature afebrile, heart rate 57, blood pressure 140/70. HEENT: PERRLA. Extraocular muscles intact. NECK: Supple. No carotid bruits. No thyromegaly. CHEST: Clear to auscultation. HEART: S1, S2 regular. ABDOMEN: Soft. EXTREMITIES: Clubbing and cyanosis negative. LABORATORY DATA: Blood workup as follows: WBC 5.5, hemoglobin 11.8, hematocrit 36.8, platelet count 214. Chemistry shows sodium 139, potassium 3.9, chloride 90, carbon dioxide 32, anion gap of 13, BU N 40, creatinine 1.3. IMPRESSION: Decompensated congestive heart failure, acute on chronic secondary to systolic dysfuncti on, ischemic cardiomyopathy, ejection fraction 25%, as well as nonischemic secondary to chemo and rad iation, occluded CALLAHAN to LAD, patent saphenous graft to RCA, patent graft to diagonal on last cathete rization. Last echo shows 4-chamber ____ ejection fraction 20%-25%, mitral regurgitation, tricuspid regurgitation, aortic regurgitation, history of multiple stents, history of Port-A-Cath placement. RECOMMENDATION: Continue digoxin, diuretics, spironolactone, sucralfate, Coreg, aspirin, Lasix p.o. b.i.d. Continue rehab. Continue simvastatin, continue Plavix. We will follow with you. Thank you, Dr. Duncan, for providing the opportunity in taking care of this patient. Shekhar Howard MD cc: [id number] TT: 12/20/2016 17:06:11 Confirmation # [id number] Dictation # [id number] lena
[2016-12-21] MEDS: Pantoprazole 40 mg EC Tab PO SCH ×2 (05:24→08:42)
[2016-12-21] MEDS: Arformoterol 15 mcg/2 ml Inh Sol IH SCH ×4 (07:19→22:00)
[2016-12-21] MEDS: Budesonide 0.5 mg/2 ml Inhal Susp UD IH SCH (07:19)
[2016-12-21 08:03] LABS: HEMATOCRIT 33.1 % (36.0-48.0); MEAN CELL VOLUME 84.7 fL (80.0-105.0); MEAN CORPUSCULAR HEMOGLOBIN 27.1 pg (25.0-35.0); MEAN PLATELET VOLUME 11.3 fl (7.0-11.0); RED CELL DISTRIBUTION WIDTH 15.6 % (11.5-14.5); WHITE BLOOD COUNT 5.3 10^3/ul (4.5-11.0)
[2016-12-21 08:12] LABS: BILIRUBIN,TOTAL 0.7 mg/dL (0.2-1.3); POTASSIUM 3.7 mmol/L (3.6-5.0); TOTAL PROTEIN 6.6 g/dL (5.8-8.3)
[2016-12-21] MEDS ORDERED: Non Formulary Medication (Simvastatin [Simvastatin] 40 MG) PO SCH (10:00)
--- NOTE | 2016-12-21 11:16 | PN ---
DATE: 12/21/2016 REASON FOR CONSULTATION AND FOLLOWUP: Continuity of care in transitional care unit, coronary artery disease, CABG, aortic regurgitation, inoperable lung CA, on chemo and ____ ischemic cardiomyopathy. BRIEF CLINICAL HISTORY: This is an 86-year-old female with past medical history significant for maty nary artery disease, CABG, ____ ischemic cardiomyopathy, occluded CALLAHAN to LAD, patent saphenous graft to the diagonal, patent saphenous graft to RCA, multiple admissions with recurrent CHF, 4-chamber di latation, ejection fraction 20-25%, inoperable lung CA, history of aortic regurgitation, admitted wit h shortness of breath, initially treated on the floor and now transferred to transitional care unit. Denies any chest pain, shortness of breath, any palpitation. Complaining of loss of sleep, insomnia at night. PHYSICAL EXAMINATION: VITAL SIGNS: Temperature afebrile, heart rate 54, blood pressure 138/68. HEENT: PERRLA. Extraocular muscles intact. NECK: Supple. No carotid bruits. No thyromegaly. CHEST: Clear to auscultation. HEART: S1, S2 regular. ABDOMEN: Soft. EXTREMITIES: Clubbing and cyanosis negative. LABORATORY DATA: Blood workup as follows: WBC 5.7, hemoglobin 10.7, hematocrit 33.1, platelet count 200. Chemistry shows sodium 130, potassium 3.7, chloride 96, carbon dioxide 39, anion gap of 11, BU N 31, creatinine 1.1. IMPRESSION: Decompensated congestive heart failure, acute on chronic systolic dysfunction, 4-chamber dilatation, ejection fraction 20-25%, aortic regurgitation, coronary artery disease, coronary artery bypass graft, occluded left internal mammary artery to left anterior descending, patent saphenous gr aft to diagonal 1, patent saphenous graft to right coronary artery on last catheterization. Aortic r egurgitation, inoperable lung carcinoma, on chemotherapy, history of radiation and chemotherapy, hist ory of removal of Port-A-Cath. RECOMMENDATION: Continue digoxin, continue diuretics and spironolactone. Continue sucralfate. Cont inue Coreg, aspirin, Lasix p.o. ____.. Continue rehab. Continue Plavix. We will follow with you. Will give 2 doses of Ambien and see the response. Shekhar Howard MD cc: [id number] TT: 12/21/2016 11:15:45 Confirmation # [id number] Dictation # [id number] tn
[2016-12-21] MEDS: Digoxin 125 mcg (0.125 mg) Tab PO SCH (13:54)
--- NOTE | 2016-12-21 19:12 | PN ---
DATE: 12/21/2016 This is the patient's hospital visit on the TCU floor. For Dr. Duncan. SUBJECTIVE: The patient is an 86-year-old female admitted for reconditioning after shortness of sanford th, recurrent CHF, cardiomyopathy, abdominal discomfort, now is improved. She is now participating w [facility] physiotherapy. She is in no acute distress at this time. The patient did complain of some insomnia, but she did sleep during the day yesterday. OBJECTIVE: PHYSICAL EXAMINATION: VITAL SIGNS: Temperature 98.3, pulse 59, respirations 18, blood pressure 134/70, pulse ox 99%. HEENT: Unremarkable. NECK: Supple. HEART: Regular rate. LUNGS: Clear. ABDOMEN: Soft, nontender. EXTREMITIES: No edema. SKIN: Warm, dry and clear. NEUROLOGIC: Awake, alert. LABORATORY DATA: The patient's labs were done. White blood cell count of 5.3, hemoglobin 10.6, le tocrit 33.1, platelet count 200,000. Chem panel showing a chloride of 96, carbon dioxide 36 with an otherwise normal chem panel. ASSESSMENT: Decompensated congestive heart failure, ischemic cardiomyopathy, poor ejection fraction, deconditioning, stage II nonsmall cell cancer of the lung in remission, subtotal colectomy, history of chronic obstructive pulmonary disease, gastroesophageal reflux disease, anxiety. PLAN: Continue present medical regimen with consideration for evaluation with Dr. Howard commenting on milrinone if necessary for this patient. We will monitor clinically and with labs as per Dr. Soto. Adrián Gavin MD cc: [id number] TT: 12/21/2016 19:11:56 Confirmation # [id number] Dictation # [id number] lena
[2016-12-21] MEDS: Albuterol-Ipratrop 3 mg / 0.5 (3 ml) UD IH PRN (22:00)
[2016-12-22] MEDS: Pantoprazole 40 mg EC Tab PO SCH (05:41)
[2016-12-22] MEDS: Arformoterol 15 mcg/2 ml Inh Sol IH SCH ×4 (07:31→21:28)
[2016-12-22] MEDS: Budesonide 0.5 mg/2 ml Inhal Susp UD IH SCH ×2 (07:32→21:33)
[2016-12-22 09:09] LABS: HEMATOCRIT 35.1 % (36.0-48.0); MEAN CELL VOLUME 85.4 fL (80.0-105.0); MEAN CORPUSCULAR HGB CONC 31.6 g/dl (31.0-37.0); MEAN PLATELET VOLUME 11.3 fl (7.0-11.0); RED CELL DISTRIBUTION WIDTH 15.7 % (11.5-14.5); WHITE BLOOD COUNT 5.8 10^3/ul (4.5-11.0)
[2016-12-22 09:19] LABS: BILIRUBIN,TOTAL 0.8 mg/dL (0.2-1.3); CALCIUM 9.7 mg/dL (8.4-10.5); POTASSIUM 4.4 mmol/L (3.6-5.0); TOTAL PROTEIN 7.3 g/dL (5.8-8.3)
--- NOTE | 2016-12-22 10:54 | PN ---
DATE: 12/22/2016 REASON FOR CONSULTATION AND FOLLOWUP: Continuity of care in transitional care unit, CAD, CABG, cardi omyopathy, lung CA, inoperable, status post chemo, status post radiation. BRIEF CLINICAL HISTORY: An 86-year-old female with a past medical history significant for lung CA, i noperable, ischemic and nonischemic cardiomyopathy, CABG. Admitted with decompensated congestive hea rt failure, 4-chamber dilatation, ejection fraction 20%-25%. The patient was treated . Now, alyce wilfred is in transitional care for the continuity of care. Denies any chest pain, shortness of breath , any palpitation. PHYSICAL EXAMINATION: VITAL SIGNS: Temperature afebrile, heart rate 65, blood pressure 143/70. HEENT: PERRLA. Extraocular muscles intact. NECK: Supple. No carotid bruits. No thyromegaly. CHEST: Clear to auscultation. HEART: S1, S2 regular. ABDOMEN: Soft. EXTREMITIES: Clubbing, cyanosis negative. BLOOD WORKUP: WBC 5.8, hemoglobin 11. , hematocrit 35.1, platelet count 211. Chemistry shows so dium 139, potassium 4.4, chloride 90, carbon dioxide 35, anion gap of 10, BUN 30, creatinine 1.2. IMPRESSION: Decompensated congestive heart failure, cardiomyopathy, ischemic and nonischemic, ejecti on fraction 20%-25%. Last catheterization revealed occluded left internal mammary artery, patent sap henous vein graft to diagonal, patent saphenous vein graft to right coronary artery. Inoperable canc er, history of removal of Port-A-Cath. RECOMMENDATION: Continue spironolactone. Continue diuretic. Continue sucralfate. Continue Coreg, aspirin. The patient was complaining of insomnia. Ambien was given. The patient feels okay today. We will follow with you. Thank you, Dr. Duncan, for providing us the opportunity in taking care of the patient. Shekhar Howard MD cc: [id number] TT: 12/22/2016 10:53:34 Confirmation # [id number] Dictation # [id number] en
--- NOTE | 2016-12-22 11:37 | CP.PCM.PN ---
<Josue Lr - Last Filed: 12/22/16 11:34> Subjective - Date & Time of Evaluation Date of Evaluation: 12/22/16 Time of Evaluation: 07:45 - Subjective Subjective: Hospitalist Progress Note: Pt seen and examined at bedside. No acute events overnight. States that she is doing well with no complaints. Denies any sob or leg swelling. She denies any headaches, dizziness, f/c, sob, cp, palpitations, abd pain, urinary or bm changes. Objective - Vital Signs/Intake and Output Vital Signs (last 24 hours): Temp Pulse Resp BP Pulse Ox 98.7 F 65 18 143/70 95 12/22/16 10:00 12/22/16 10:22 12/22/16 10:00 12/22/16 10:22 12/22/16 10:00 - Medications Medications: Current Medications Acetaminophen (Tylenol 325mg Tab) 650 mg PO Q4H PRN PRN Reason: Pain, Mild (1-3) Albuterol/Ipratropium (Duoneb 3 Mg/0.5 Mg (3 Ml) Ud) 3 ml IH [id number] PRN PRN Reason: Shortness of Breath Last Admin: 12/21/16 22:00 Dose: 3 ml Alprazolam (Xanax) 0.25 mg PO BID PRN; Protocol PRN Reason: Anxiety Stop: 12/26/16 18:01 Last Admin: 12/20/16 00:32 Dose: 0.25 mg Arformoterol Tartrate (Brovana) 15 mcg IH [id number] [facility] Last Admin: 12/22/16 07:31 Dose: 15 mcg Arformoterol Tartrate (Brovana) 15 mcg IH [id number] [facility] Last Admin: 12/22/16 07:32 Dose: Not Given Aspirin (Ecotrin) 81 mg PO 0800 [facility] Last Admin: 12/22/16 08:21 Dose: 81 mg Budesonide (Pulmicort Respules) 0.5 mg IH [id number] [facility] Last Admin: 12/22/16 07:32 Dose: 0.5 mg Carvedilol (Coreg) 3.125 mg PO 0800,1700 [facility] Last Admin: 12/22/16 08:20 Dose: 3.125 mg Clopidogrel Bisulfate (Plavix) 75 mg PO 0800 [facility] Last Admin: 12/22/16 08:21 Dose: 75 mg Digoxin (Lanoxin) 0.125 mg PO 1400 [facility] Last Admin: 12/21/16 13:54 Dose: 0.125 mg Furosemide (Lasix) 40 mg PO BID [facility] Last Admin: 12/22/16 10:21 Dose: 40 mg Lisinopril (Zestril) 5 mg PO DAILY [facility] Last Admin: 12/22/16 10:22 Dose: 5 mg Pantoprazole Sodium (Protonix Ec Tab) 40 mg PO 0630 [facility] Last Admin: 12/22/16 05:41 Dose: 40 mg Polyethylene Glycol (Miralax) 17 gm PO DAILY PRN PRN Reason: Constipation Simethicone (Mylicon Liq) 40 mg PO QID PRN PRN Reason: Pain, Mild (1-3) Last Admin: 12/20/16 10:28 Dose: 40 mg Spironolactone (Aldactone) 25 mg PO BID [facility] Last Admin: 12/22/16 10:21 Dose: 25 mg Sucralfate (Carafate Tab) 1 gm PO 0630,1130,1630,2200 [facility] Last Admin: 12/22/16 05:41 Dose: 1 gm Zolpidem Tartrate (Ambien) 5 mg PO HS PRN; Protocol PRN Reason: Insomnia Last Admin: 12/21/16 23:37 Dose: 5 mg - Labs Labs: 12/22/16 08:10 12/22/16 08:10 - Constitutional Appears: No Acute Distress - Head Exam Head Exam: ATRAUMATIC, NORMAL INSPECTION, NORMOCEPHALIC - Eye Exam Eye Exam: EOMI, Normal appearance, PERRL - ENT Exam ENT Exam: Mucous Membranes Moist, Normal Exam - Neck Exam Neck Exam: Full ROM, Normal Inspection. absent: Lymphadenopathy - Respiratory Exam Respiratory Exam: Clear to Ausculation Bilateral, NORMAL BREATHING PATTERN. absent: Rales, Wheezes - Cardiovascular Exam Cardiovascular Exam: REGULAR RHYTHM, RRR, +S1, +S2. absent: Murmur - GI/Abdominal Exam GI & Abdominal Exam: Soft. absent: Distended, Tenderness - Extremities Exam Extremities Exam: absent: Calf Tenderness - Neurological Exam Neurological Exam: Alert, Awake, Oriented x3 - Psychiatric Exam Psychiatric exam: Normal Affect, Normal Mood - Skin Skin Exam: Dry, Intact, Normal Color, Warm Assessment and Plan - Assessment and Plan (Free Text) Assessment: This is an 86Y F with PMH COPD, CHF (EF 20-25%), CAD, HTN, HLD, lung cancer s/p chemoradiation and colon cancer s/p resection admitted for CHF exacerbation who was transferred to TCU for further rehab. 1. CHF exacerbation - Improved - Cont Lasix 40mg PO BID, Spiranolactone 25mg BID - Cardiology Dr Howard Consulted appreciate recs - Daily weights, strict I&O - NC 2L prn - maintain spO2>90% 2. Abdominal Pain - Improved - Abd U/S at previous admission showed fatty liver versus chronic cholecystitis - Tylenol prn pain, Simethicone prn gas, Miralax prn constipation - Carafate 3. MADELINE-resolved - Cr 1.2 - Will continue to monitor Cr and BUN as well as electrolytes and replace as needed 4. CAD s/p CABG - Cont ASA, Plavix 5. HTN - Cont Coreg, Digoxin, Lisinopril 6. Lung cancer History - Brovana and Pulmicort, Duoneb prn SOB - Home meds: Vit B6, Iron, Vit D - F/u Heme/ onc Dr Duncan recs 7. Anxiety - Xanax 0.25mg BID prn - Will Add Ambien prn at night for sleep GI ppx: Protonix DVT ppx: Lovenox Case was seen, discussed and reviewed in detail with Dr Ravi <Rene Ravi - Last Filed: 12/22/16 14:21> Objective - Vital Signs/Intake and Output Vital Signs (last 24 hours): Temp Pulse Resp BP Pulse Ox 98.7 F 65 18 143/70 95 12/22/16 10:00 12/22/16 10:22 12/22/16 10:00 12/22/16 10:22 12/22/16 10:00 - Medications Medications: Current Medications Acetaminophen (Tylenol 325mg Tab) 650 mg PO Q4H PRN PRN Reason: Pain, Mild (1-3) Albuterol/Ipratropium (Duoneb 3 Mg/0.5 Mg (3 Ml) Ud) 3 ml IH [id number] PRN PRN Reason: Shortness of Breath Last Admin: 12/21/16 22:00 Dose: 3 ml Alprazolam (Xanax) 0.25 mg PO BID PRN; Protocol PRN Reason: Anxiety Stop: 12/26/16 18:01 Last Admin: 12/20/16 00:32 Dose: 0.25 mg Arformoterol Tartrate (Brovana) 15 mcg IH [id number] [facility] Last Admin: 12/22/16 07:31 Dose: 15 mcg Arformoterol Tartrate (Brovana) 15 mcg IH [id number] [facility] Last Admin: 12/22/16 07:32 Dose: Not Given Aspirin (Ecotrin) 81 mg PO 0800 [facility] Last Admin: 12/22/16 08:21 Dose: 81 mg Budesonide (Pulmicort Respules) 0.5 mg IH [id number] [facility] Last Admin: 12/22/16 07:32 Dose: 0.5 mg Carvedilol (Coreg) 3.125 mg PO 0800,1700 [facility] Last Admin: 12/22/16 08:20 Dose: 3.125 mg Clopidogrel Bisulfate (Plavix) 75 mg PO 0800 [facility] Last Admin: 12/22/16 08:21 Dose: 75 mg Digoxin (Lanoxin) 0.125 mg PO 1400 [facility] Last Admin: 12/21/16 13:54 Dose: 0.125 mg Furosemide (Lasix) 40 mg PO BID [facility] Last Admin: 12/22/16 10:21 Dose: 40 mg Lisinopril (Zestril) 5 mg PO DAILY [facility] Last Admin: 12/22/16 10:22 Dose: 5 mg Pantoprazole Sodium (Protonix Ec Tab) 40 mg PO 0630 [facility] Last Admin: 12/22/16 05:41 Dose: 40 mg Polyethylene Glycol (Miralax) 17 gm PO DAILY PRN PRN Reason: Constipation Simethicone (Mylicon Liq) 40 mg PO QID PRN PRN Reason: Pain, Mild (1-3) Last Admin: 12/20/16 10:28 Dose: 40 mg Spironolactone (Aldactone) 25 mg PO BID [facility] Last Admin: 12/22/16 10:21 Dose: 25 mg Sucralfate (Carafate Tab) 1 gm PO 0630,1130,1630,2200 [facility] Last Admin: 12/22/16 12:25 Dose: 1 gm Zolpidem Tartrate (Ambien) 5 mg PO HS PRN; Protocol PRN Reason: Insomnia Last Admin: 12/21/16 23:37 Dose: 5 mg - Labs Labs: 12/22/16 08:10 12/22/16 08:10 Attending/Attestation - Attestation I have personally seen and examined this patient.: Yes I have fully participated in the care of the patient.: Yes I have reviewed all pertinent clinical information, including history, physical exam and plan: Yes Notes (Text): 12/22/16 14:11 Attending note; I have seen and examined the patient at bedside with resident. This is a 86 year old female with history of lung cancer s/p chemoradiation, colon cancer s/p partial colon resection, CHF (EF~20-25%), CAD s/p CABG, Congestive cardiomyopathy, Aortic regurg, HTN, dyslipidemia who presented for evaluation of shortness of breath and found to have CHF exacerbation. currently in TCU for gait training. Denies chest pain, abdominal pain, sob, nausea, vomiting or diarrhea. Will continue digoxin, coreg, lipitor, lasix, budesonide and brovana. clinically improving. Continue physical therapy. Upon discharge patient will follow up with PMd and cardiology Dr. Howard. 12/22/16 14:20
[2016-12-22] MEDS: Digoxin 125 mcg (0.125 mg) Tab PO SCH (15:05)
--- NOTE | 2016-12-22 15:59 | PN ---
DATE: 12/22/2016 Hospital visit on TCU. For Dr. Duncan. SUBJECTIVE: The patient is an 86-year-old female admitted for reconditioning after shortness of san[place] th, recurrent CHF, cardiomyopathy, now participating with physiotherapy TCU protocols in no acute dis tress. With this, the patient is also being seen by Dr. Howard, with consideration for Primacor? If he believes it is indicated as the patient has recurrent episodes of presenting symptoms. She is other [place] resting comfortably, in no acute distress at this time. PHYSICAL EXAMINATION: VITAL SIGNS: Temperature 98.7, pulse 65, respirations 18, blood pressure 143/70, pulse ox 95%. HEENT: Unremarkable. NECK: Supple. HEART: Regular rate. LUNGS: Clear. ABDOMEN: Soft, nontender. EXTREMITIES: No edema. SKIN: Warm, dry and clear. NEUROLOGIC: Awake and alert. LABORATORY DATA: The patient's labs were done. White blood cell count 5.8, hemoglobin 11.1, hematoc rit 35.1, platelet count 211,000 with a chem panel showing a BUN of 30, creatinine of 1.2; otherwise, normal chem metabolic panel. ASSESSMENT: Deconditioning, recurrent congestive heart failure, poor ejection fraction, atherosclero tic cardiovascular disease status post coronary artery bypass graft, hypertension, gastroesophageal r eflux disease, nonsmall cell cancer of the lung, stage II in remission, history of subtotal colectomy . PLAN: The patient is to continue present medical regimen with reconditioning with comment from Dr. Ty black regarding possible Primacor/IV milrinone for her recurrent congestive heart failure. Adrián Gavin MD cc: [phone] TT: 12/22/2016 15:59:08 Confirmation # [id number] Dictation # [id number] dn
[2016-12-22] MEDS: Enoxaparin 30 mg Syringe SC SCH (17:25)
[2016-12-23] MEDS: Pantoprazole 40 mg EC Tab PO SCH (05:41)
[2016-12-23 07:09] LABS: HEMATOCRIT 34.8 % (36.0-48.0); MEAN CELL VOLUME 84.3 fL (80.0-105.0); MEAN CORPUSCULAR HEMOGLOBIN 26.6 pg (25.0-35.0); MEAN CORPUSCULAR HGB CONC 31.6 g/dl (31.0-37.0); MEAN PLATELET VOLUME 11.3 fl (7.0-11.0); RED CELL DISTRIBUTION WIDTH 15.4 % (11.5-14.5); WHITE BLOOD COUNT 5.9 10^3/ul (4.5-11.0)
[2016-12-23 07:26] LABS: ALB/GLOB RATIO 1.1 (1.1-1.8); BILIRUBIN,TOTAL 0.8 mg/dL (0.2-1.3); CALCIUM 9.2 mg/dL (8.4-10.5); POTASSIUM 4.4 mmol/L (3.6-5.0)
[2016-12-23] MEDS: Budesonide 0.5 mg/2 ml Inhal Susp UD IH SCH ×2 (07:34→21:22)
[2016-12-23] MEDS: Arformoterol 15 mcg/2 ml Inh Sol IH SCH ×4 (07:34→21:22)
--- NOTE | 2016-12-23 10:11 | PN ---
DATE: 12/23/2016 REASON FOR CONSULTATION AND FOLLOWUP: Continuity of the care in transitional care unit, CAD, CABG, c ardiomyopathy, lung CA, inoperable, status post chemo, status post radiation. BRIEF CLINICAL HISTORY: An 86-year-old female with a past medical history significant for lung CA, i noperable, ischemic cardiomyopathy, CABG. Admitted with decompensated congestive heart failure to [facility] floor and now patient is on transitional care unit for the continuity of care. Denies any chest pain, shortness of breath. Feels better, wanting to go home. PHYSICAL EXAMINATION: VITAL SIGNS: Temperature afebrile, heart rate , blood pressure 144/68. HEENT: PERRLA. Extraocular muscles intact. NECK: Supple. No carotid bruits. No thyromegaly. CHEST: Clear to auscultation. HEART: S1, S2 regular. ABDOMEN: Soft. EXTREMITIES: Clubbing, cyanosis negative. BLOOD WORKUP: WBC 5.9, hemoglobin 11, hematocrit 34.8, platelet count 201. Chemistry shows sodium 1 35, potassium 4.4, chloride 93, carbon dioxide 33, anion gap of 13, BUN 35, creatinine 1.4. IMPRESSION: Decompensated congestive heart failure, acute on chronic secondary to systolic dysfuncti on, ejection fraction 20%-25%, 4-chamber dilatation, history of coronary artery disease, history of c oronary artery bypass graft, history of occluded graft left internal mammary artery to left anterior descending, patent saphenous vein graft to right coronary artery, patent diagonal 1, aortic regurgita tion, mitral regurgitation, tricuspid regurgitation, lung cancer, status post chemo, inoperable lung carcinoma, ischemic and nonischemic cardiomyopathy. RECOMMENDATION: Continue , continue diuretic, continue sucralfate, continue Coreg, continue asp irin. Give Ambien for insomnia. Cardiovascular status is stable. Continue rehabilitation. Okay to be discharged. Shekhar Howard MD cc: [id number] TT: 12/23/2016 10:10:57 Confirmation # [id number] Dictation # [id number] en
[2016-12-23] MEDS: Enoxaparin 30 mg Syringe SC SCH (11:00)
[2016-12-23] MEDS: Digoxin 125 mcg (0.125 mg) Tab PO SCH (14:25)
[2016-12-23 14:27] VITALS: PULSE 62
[2016-12-23 16:19] VITALS: RESP 18
--- NOTE | 2016-12-23 18:09 | PN ---
DATE: 12/23/2016 This is the patient's hospital visit on the TCU floor. For Dr. Duncan. SUBJECTIVE: The patient is an 86-year-old female for reconditioning on TCU after readmission for josue rtness of breath, recurrent CHF, cardiomyopathy, now participating with TCU protocols. After convers ation with Dr. Howard, she is not a candidate for Primacor at this point as he believes some of these s ymptoms she reports may be due to psychologic problems, as the patient does have increased anxiety as per Dr. Howard. We will continue present medical regimen. PHYSICAL EXAMINATION: VITAL SIGNS: Temperature 98.3, pulse 64, respirations 18, blood pressure 142/77 and pulse ox 97%. HEENT: Unremarkable. NECK: Supple. HEART: Regular rate, occasional ectopic beat. LUNGS: Clear. ABDOMEN: Soft, nontender. EXTREMITIES: No edema. SKIN: Warm, dry and clear. NEUROLOGIC: Awake, alert. LABORATORY DATA: The patient's labs were done. White blood cell count of 5.9, hemoglobin 11.0, le tocrit 34.8, platelet count of 201,000. Chem metabolic panel within normal limits except for chlorid e of 93, BUN of 35 with a creatinine of 1.4. ASSESSMENT: Deconditioning, recurrent congestive heart failure, poor ejection fraction, atherosclero tic cardiovascular disease, status post coronary artery bypass graft, hypertension, gastroesophageal reflux disease; nonsmall cell cancer of the lung history, stage II, in remission; history of subtotal colectomy. PLAN: To continue present medical regimen. She is not a candidate for Primacor. Her followup will be clinically and with labs. To participate in TCU protocols. Adrián Gavin MD cc: [id number] TT: 12/23/2016 18:09:29 Confirmation # [id number] Dictation # [id number]
[2016-12-24] MEDS: Pantoprazole 40 mg EC Tab PO SCH (05:33)
[2016-12-24 06:26] VITALS: O2SAT 98
[2016-12-24] MEDS: Arformoterol 15 mcg/2 ml Inh Sol IH SCH (07:36)
[2016-12-24] MEDS: Budesonide 0.5 mg/2 ml Inhal Susp UD IH SCH (07:36)
[2016-12-24 07:41] LABS: HEMATOCRIT 33.7 % (36.0-48.0); MEAN CELL VOLUME 83.4 fL (80.0-105.0); MEAN CORPUSCULAR HGB CONC 32.3 g/dl (31.0-37.0); MEAN PLATELET VOLUME 10.8 fl (7.0-11.0); RED CELL DISTRIBUTION WIDTH 15.3 % (11.5-14.5); WHITE BLOOD COUNT 5.1 10^3/ul (4.5-11.0)
[2016-12-24 07:58] LABS: BILIRUBIN,TOTAL 0.9 mg/dL (0.2-1.3); CALCIUM 9.2 mg/dL (8.4-10.5); POTASSIUM 4.3 mmol/L (3.6-5.0); TOTAL PROTEIN 6.6 g/dL (5.8-8.3)
--- NOTE | 2016-12-24 08:03 | CP.PCM.PN ---
Subjective - Date & Time of Evaluation Date of Evaluation: 12/24/16 Time of Evaluation: 07:59 - Subjective Subjective: Hospitalist Progress Note Patient seen and examined at bedside. There were no acute overnight events. She is resting comfortably in bed. She denies CP, SOB, numbness/tingling, pain, dysuria or hematuria. Objective - Vital Signs/Intake and Output Vital Signs (last 24 hours): Temp Pulse Resp BP Pulse Ox 98.1 F 59 L 18 139/67 98 12/24/16 06:00 12/24/16 06:00 12/24/16 06:00 12/24/16 06:00 12/24/16 06:00 Intake and Output: 12/24/16 12/24/16 06:59 18:59 Intake Total 240 Balance 240 - Medications Medications: Current Medications Acetaminophen (Tylenol 325mg Tab) 650 mg PO Q4H PRN PRN Reason: Pain, Mild (1-3) Last Admin: 12/24/16 01:45 Dose: 650 mg Albuterol/Ipratropium (Duoneb 3 Mg/0.5 Mg (3 Ml) Ud) 3 ml IH [id number] PRN PRN Reason: Shortness of Breath Last Admin: 12/21/16 22:00 Dose: 3 ml Alprazolam (Xanax) 0.25 mg PO BID PRN; Protocol PRN Reason: Anxiety Stop: 12/26/16 18:01 Last Admin: 12/24/16 02:19 Dose: 0.25 mg Arformoterol Tartrate (Brovana) 15 mcg IH [id number] [facility] Last Admin: 12/24/16 07:36 Dose: 15 mcg Arformoterol Tartrate (Brovana) 15 mcg IH [id number] [facility] Last Admin: 12/23/16 21:22 Dose: Not Given Aspirin (Ecotrin) 81 mg PO 0800 [facility] Last Admin: 12/23/16 11:00 Dose: 81 mg Budesonide (Pulmicort Respules) 0.5 mg IH [id number] [facility] Last Admin: 12/24/16 07:36 Dose: 0.5 mg Carvedilol (Coreg) 3.125 mg PO 0800,1700 [facility] Last Admin: 12/23/16 18:00 Dose: 3.125 mg Clopidogrel Bisulfate (Plavix) 75 mg PO 0800 [facility] Last Admin: 12/23/16 09:00 Dose: 75 mg Digoxin (Lanoxin) 0.125 mg PO 1400 [facility] Last Admin: 12/23/16 14:25 Dose: 0.125 mg Enoxaparin Sodium (Lovenox) 30 mg SC DAILY [facility] PRN Reason: Protocol Last Admin: 12/23/16 11:00 Dose: 30 mg Furosemide (Lasix) 40 mg PO BID [facility] Last Admin: 12/23/16 18:46 Dose: 40 mg Lisinopril (Zestril) 5 mg PO DAILY [facility] Last Admin: 12/23/16 11:00 Dose: 5 mg Pantoprazole Sodium (Protonix Ec Tab) 40 mg PO 0630 [facility] Last Admin: 12/24/16 05:33 Dose: 40 mg Polyethylene Glycol (Miralax) 17 gm PO DAILY PRN PRN Reason: Constipation Simethicone (Mylicon Liq) 40 mg PO QID PRN PRN Reason: Pain, Mild (1-3) Last Admin: 12/20/16 10:28 Dose: 40 mg Spironolactone (Aldactone) 25 mg PO BID [facility] Last Admin: 12/23/16 18:44 Dose: 25 mg Sucralfate (Carafate Tab) 1 gm PO 0630,1130,1630,2200 [facility] Last Admin: 12/24/16 05:33 Dose: 1 gm Zolpidem Tartrate (Ambien) 5 mg PO HS PRN; Protocol PRN Reason: Insomnia Last Admin: 12/24/16 01:45 Dose: 5 mg - Labs Labs: 12/24/16 07:00 12/23/16 06:20 - Constitutional Appears: No Acute Distress - Head Exam Head Exam: NORMAL INSPECTION, NORMOCEPHALIC - Eye Exam Eye Exam: Normal appearance - ENT Exam ENT Exam: Mucous Membranes Moist - Respiratory Exam Respiratory Exam: Clear to Ausculation Bilateral, NORMAL BREATHING PATTERN. absent: Rales, Rhonchi, Wheezes - Cardiovascular Exam Cardiovascular Exam: REGULAR RHYTHM, +S1, +S2. absent: Gallop, Rubs, Murmur - GI/Abdominal Exam GI & Abdominal Exam: Soft, Normal Bowel Sounds. absent: Rigid, Tenderness, Mass , Rebound - Extremities Exam Extremities Exam: Normal Inspection. absent: Calf Tenderness, Pedal Edema - Neurological Exam Neurological Exam: Alert, Awake, CN II-XII Intact, Oriented x3 - Psychiatric Exam Psychiatric exam: Normal Affect, Normal Mood - Skin Skin Exam: Dry, Normal Color, Warm Assessment and Plan - Assessment and Plan (Free Text) Assessment: This is an 86Y F with PMH COPD, CHF (EF 20-25%), CAD, HTN, HLD, lung cancer s/p chemoradiation and colon cancer s/p resection admitted for CHF exacerbation who was transferred to TCU for further rehab. Plan: 1. CHF exacerbation- resolved - Cardiology Consulted - Continue Lasix and Spiranolactone - Continue daily weights, strict 1&O - Continue NC prn SOB 2. Abdominal pain - chronic and intermittent, no tenderness on exam - reports it is relieved by Miralax - Will continue Miralax prn, Simethicone prn - Continue Carafate, Tylenol prn pain 3. HTN - Continue Lisinopril, Digoxin, Coreg 4. CAD - Continue ASA and Plavix 5. History of Lung cancer - Continue Brovana, Pulmicort - Continue Duoneb prn - Continue Iron, Vitamin B6 and D 6. Anxiety - Xanax prn - Ambien prn insomnia GI ppx: Protonix DVT ppx: Lovenox Dispo: Patient plan for D/C on December 26. She will follow up with PMD Dr. Duncan and Cardiology Dr. Howard. She will be d/c with one new medicine: Spiranolactone 25mg BID Case was seen, discussed and reviewed in with attending.
[2016-12-24 10:19] VITALS: TEMP 98.3
[2016-12-24 10:24] VITALS: BP 139/67; PULSE 62
--- NOTE | 2016-12-24 13:02 | PN ---
DATE: 12/24/2016 REASON FOR CONSULTATION AND FOLLOWUP: Continuity of care in transitional care unit, history of CAD, history of CABG, history of cardiomyopathy. History of lung CA, inoperable; status post chemo, statu s post radiation. BRIEF CLINICAL HISTORY: An 86-year-old female with past medical history of CA lung inoperable, histo ry of cardiomyopathy, admitted with CHF on acute floor, now is in transitional care unit for the cont inuity of care. Denies any chest pain, shortness of breath, any palpitation. PHYSICAL EXAMINATION: VITAL SIGNS: Temperature afebrile, heart rate 62, blood pressure 139/67. HEENT: PERRLA. Extraocular muscles intact. NECK: Supple. No carotid bruits. No thyromegaly. CHEST: Clear to auscultation. HEART: S1, S2 regular. ABDOMEN: Soft. EXTREMITIES: Clubbing and cyanosis negative. LABORATORY DATA: Blood workup as follows: WBC 5.1, hemoglobin 10.9, hematocrit 33.7, platelet count 201. Chemistry shows sodium 130, potassium 4.2, chloride 95, carbon dioxide 34, anion gap of 14, BU N 35, creatinine 1.2. IMPRESSION: Acute decompensated congestive heart failure, acute on chronic secondary to systolic dys function, hypertension, hyperlipidemia, coronary artery disease, coronary artery bypass graft, inoper able lung cancer, cardiomyopathy, ischemic, occluded left internal mammary artery to left anterior de scending. RECOMMENDATION: Continue medical treatment. Continue rehab. We will follow with you. Aggressive m edical treatment. No invasive cardiac workup at this time. Thank you, Dr. Duncan, for providing us the opportunity in taking care of the patient. We will foll ow with you. Shekhar Howard MD cc: [id number] TT: 12/24/2016 13:02:13 Confirmation # [id number] Dictation # [id number]
--- NOTE | 2016-12-24 13:24 | CP.PCM.DIS ---
<Bailey Krause - Last Filed: 12/24/16 13:12> Provider - Provider Date of Admission: 12/19/16 14:37 Attending physician: Rene Ravi MD Primary care physician: Jose Francisco Duncan MD Consults: Cardiology: Dr. Howard Time Spent in preparation of Discharge (in minutes): 35 Hospital Course - Lab Results Lab Results: Most Recent Lab Values WBC 5.1 10^3/ul (4.5-11.0) 12/24/16 07:00 RBC 4.04 10^6/uL (3.5-6.1) 12/24/16 07:00 Hgb 10.9 gm/dL (12.0-16.0) L 12/24/16 07:00 Hct 33.7 % (36.0-48.0) L 12/24/16 07:00 MCV 83.4 fL (80.0-105.0) 12/24/16 07:00 MCH 27.0 pg (25.0-35.0) 12/24/16 07:00 MCHC 32.3 g/dl (31.0-37.0) 12/24/16 07:00 RDW 15.3 % (11.5-14.5) H 12/24/16 07:00 Plt Count 201 10^3/uL (120.0-450.0) 12/24/16 07:00 MPV 10.8 fl (7.0-11.0) 12/24/16 07:00 Sodium 139 mmol/L (132-148) 12/24/16 07:00 Potassium 4.3 mmol/L (3.6-5.0) 12/24/16 07:00 Chloride 95 mmol/L (98-107) L 12/24/16 07:00 Carbon Dioxide 34 mmol/L (21-33) H 12/24/16 07:00 Anion Gap 14 (10-20) 12/24/16 07:00 BUN 35 mg/dL (7-21) H 12/24/16 07:00 Creatinine 1.2 mg/dL (0.5-1.4) 12/24/16 07:00 Est GFR ( Amer) 52 12/24/16 07:00 Est GFR (Non-Af Amer) 43 12/24/16 07:00 POC Glucose (mg/dL) 112 mg/dL (65-110) H 12/23/16 05:23 Random Glucose 100 mg/dL (70-110) 12/24/16 07:00 Calcium 9.2 mg/dL (8.4-10.5) 12/24/16 07:00 Total Bilirubin 0.9 mg/dL (0.2-1.3) 12/24/16 07:00 AST 26 U/L (15-39) 12/24/16 07:00 ALT 37 U/L (7-56) 12/24/16 07:00 Alkaline Phosphatase 55 U/L (38-133) 12/24/16 07:00 Total Protein 6.6 g/dL (5.8-8.3) 12/24/16 07:00 Albumin 3.3 g/dL (3.0-4.8) 12/24/16 07:00 Globulin 3.3 gm/dL 12/24/16 07:00 Albumin/Globulin Ratio 1.0 (1.1-1.8) L 12/24/16 07:00 - Hospital Course Hospital Course: This is an 86Y F with PMH COPD, CHF (EF 20-25%), CAD, HTN, HLD, lung cancer s/p chemoradiation and colon cancer s/p resection admitted for CHF exacerbation who was transferred to TCU for further gait training. Throughout her stay, the patient remained stable. She said she feels well and would like to go home. She denies having any CP, SOB, n/v/d, numbness/tingling or pain. She was seen by Cardiology who reports that the patient has been stable and is OK for discharge. One new medication was added to her current home regimen. Spiranolactone 25mg BID which was sent to her pharmacy. Of note, patient does not have an advance directive or power of civil litigation attorney. Patient was educated on advance directive, but would not like to make a final decision at this time. I spoke with her daughter who is aware of patient's discharge and condition. The patient will follow up with Dr. Stringer in [address] Duncan in 1 week. - Date & Time of H&P Date of H&P: 12/20/16 Time of H&P: 08:00 Discharge Exam - Head Exam Head Exam: ATRAUMATIC, NORMAL INSPECTION, NORMOCEPHALIC - Eye Exam Eye Exam: Normal appearance Pupil Exam: NORMAL ACCOMODATION - ENT Exam ENT Exam: Mucous Membranes Moist - Respiratory Exam Respiratory Exam: Clear to PA & Lateral, NORMAL BREATHING PATTERN, UNREMARKABLE. absent: Rales, Rhonchi, Wheezes - Cardiovascular Exam Cardiovascular Exam: REGULAR RHYTHM, +S1, +S2. absent: Gallop, Rubs, Systolic Murmur - GI/Abdominal Exam GI & Abdominal Exam: Normal Bowel Sounds, Soft, Unremarkable. absent: Mass, Rebound, Rigid, Tenderness - Extremities Exam Extremities exam: normal inspection - Psychiatric Exam Psychiatric exam: Normal Affect, Normal Mood - Skin Skin Exam: Dry, Normal Color, Warm Discharge Plan - Discharge Medications Prescriptions: Spironolactone [Aldactone] 25 mg PO BID #60 tab Aspirin [Ecotrin] 81 mg PO 0800 #30 - Follow Up Plan Condition: GOOD Disposition: HOME/ ROUTINE Instructions: Heart Failure (DC), Diabetes Mellitus Type 2 in Adults (DC), Fall Prevention for Older Adults (GEN) Additional Instructions: 1. Please start Spiranolactone 25mg BID. 2. Follow up with Dr. Stringer in 1 week. 3. Follow up with PMD Dr. Duncan in 1 week. Referrals: Jose Francisco Duncan MD [Primary Care Provider] - Clinical Quality Measures - CQM - Heart Failure Ejection Fraction: Less Than 40 % ELIZABETH Inhibitor Prescribed: Yes Beta-Jace Prescribed: Carvedilol Aldosterone Antagonist Prescribed: Yes Will be discharged to: Home Follow Up Date (must be within 7 days from discharge): 12/31/16 Follow Up Time: 09:00 - Date & Time of Discharge Summary Date of Discharge Summary: 12/24/16 Time of Discharge Summary: 13:15 <Rene Ravi - Last Filed: 12/24/16 15:53> Provider - Provider Date of Admission: 12/19/16 14:37 Attending physician: Rene Ravi MD Primary care physician: Jose Francisco Duncan MD Hospital Course - Lab Results Lab Results: Most Recent Lab Values WBC 5.1 10^3/ul (4.5-11.0) 12/24/16 07:00 RBC 4.04 10^6/uL (3.5-6.1) 12/24/16 07:00 Hgb 10.9 gm/dL (12.0-16.0) L 12/24/16 07:00 Hct 33.7 % (36.0-48.0) L 12/24/16 07:00 MCV 83.4 fL (80.0-105.0) 12/24/16 07:00 MCH 27.0 pg (25.0-35.0) 12/24/16 07:00 MCHC 32.3 g/dl (31.0-37.0) 12/24/16 07:00 RDW 15.3 % (11.5-14.5) H 12/24/16 07:00 Plt Count 201 10^3/uL (120.0-450.0) 12/24/16 07:00 MPV 10.8 fl (7.0-11.0) 12/24/16 07:00 Sodium 139 mmol/L (132-148) 12/24/16 07:00 Potassium 4.3 mmol/L (3.6-5.0) 12/24/16 07:00 Chloride 95 mmol/L (98-107) L 12/24/16 07:00 Carbon Dioxide 34 mmol/L (21-33) H 12/24/16 07:00 Anion Gap 14 (10-20) 12/24/16 07:00 BUN 35 mg/dL (7-21) H 12/24/16 07:00 Creatinine 1.2 mg/dL (0.5-1.4) 12/24/16 07:00 Est GFR ( Amer) 52 12/24/16 07:00 Est GFR (Non-Af Amer) 43 12/24/16 07:00 POC Glucose (mg/dL) 112 mg/dL (65-110) H 12/23/16 05:23 Random Glucose 100 mg/dL (70-110) 12/24/16 07:00 Calcium 9.2 mg/dL (8.4-10.5) 12/24/16 07:00 Total Bilirubin 0.9 mg/dL (0.2-1.3) 12/24/16 07:00 AST 26 U/L (15-39) 12/24/16 07:00 ALT 37 U/L (7-56) 12/24/16 07:00 Alkaline Phosphatase 55 U/L (38-133) 12/24/16 07:00 Total Protein 6.6 g/dL (5.8-8.3) 12/24/16 07:00 Albumin 3.3 g/dL (3.0-4.8) 12/24/16 07:00 Globulin 3.3 gm/dL 12/24/16 07:00 Albumin/Globulin Ratio 1.0 (1.1-1.8) L 12/24/16 07:00 Attending/Attestation - Attestation I have personally seen and examined this patient.: Yes I have fully participated in the care of the patient.: Yes I have reviewed all pertinent clinical information, including history, physical exam and plan: Yes Notes (Text): 12/24/16 15:50 Attending note; I have seen and examined the patient at bedside with resident in TCU. This is a 86 year old female with history of lung cancer s/p chemoradiation, colon cancer s/p partial colon resection, CHF (EF~20-25%), CAD s/p CABG, Congestive cardiomyopathy, Aortic regurg, HTN, dyslipidemia who presented for evaluation of shortness of breath and found to have CHF exacerbation. Currently stable cardiac status. Cardiology evaluation with Dr. Howard appreciated. Cleared by cardiology for discharge. continue aspirin, Plavix, digoxin, coreg, lipitor, lasix, budesonide and brovana. Advance directives discussed. PoLST form given. Patient will consider getting power of civil litigation attorney/complete POlst form. Case discussed with social service manager in detail. Patient will be discharged home today. Upon discharge patient will follow up with PMd and cardiology Dr. Howard. Diagnosis; Acute systolic heart failure Cardiomyopathy History of lung cancer Hypertension
[2016-12-24] MEDS: Enoxaparin 30 mg Syringe SC SCH (14:16)
--- NOTE | 2016-12-24 23:30 | CON ---
DATE: 12/24/2016 The patient is in room 314, bed 1. REASON FOR CONSULTATION: Followup. 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 BRIEF CLINICAL HISTORY: The patient is 86 years old. PAST MEDICAL HISTORY: Significant for stage IV lung cancer, inoperable; history of cardiomyopathy ad mitted with CHF on the acute floor and now transferred to the TCU. The patient denies any history of fevers, chills, nausea, vomiting at rest. PHYSICAL EXAMINATION: VITAL SIGNS: Stable. T-max is 98.4. Heart rate is 62, blood pressure is 139/67. HEENT: Head is normocephalic, atraumatic. Conjunctivae pale. Sclerae are anicteric. Pupils are e qually reactive to light and accommodation. NECK: Supple. There is no adenopathy. LUNGS: Clear to percussion and auscultation. HEART: Reveals PMI to be in the 5th intercostal space inside the midclavicular line. S1 and S2 are normal. No gallop or murmur is heard. ABDOMEN: Soft, nontender. EXTREMITIES: Reveals no cyanosis, clubbing, or edema. LABORATORY DATA: Reveals a white count of 5.1, hemoglobin 10.9, hematocrit 33.7, platelet count 201, 000. Sodium is 130, K is 4.2, chloride is 95, CO2 is 34, anion gap of 14, BUN is 35, creatinine of 1 .2. ASSESSMENT NOTES AND PLAN: The patient has acute decompensated congestive heart failure; background history of anemia with heart failure secondary to chronic dysfunction of the systolic aspect of the h eart; hypertension; hyperlipidemia; coronary artery disease; coronary artery bypass graft; inoperable lung cancer; cardiomyopathy, ischemic. Occluded left internal mammary artery, left anterior d escending artery as well. We will continue the current medications. Discussed with Dr. Saldana and Dr. Howard, and we will eduardo nue to follow up with the patient and make appropriate recommendations. The patient will continue me dical treatment. Continue rehabilitation and will stay in a heart surgery facility before plan casandra to go home. Routine post exam instructions have been given to the patient. Orders for the leiva sfer and medicines also described in the management. Jose Francisco Duncan MD cc: [id number] TT: 12/24/2016 23:29:56 Confirmation # [id number] Dictation # [id number]
== END 2016-12-24 18:52 | disposition home health service (06) | DRG 292 ==
LOC: TRCU 14:37
PROVIDERS: ADMIT Hospitalist; ATTEND Internal Medicine
PROC: F07Z9FZ Gait Training/Functional Ambulation Treatment using Assistive, Adaptive, Supportive or Protective Equipment (ICD-10-PCS; principal; 2016-12-21)
PROC: F07Z8ZZ Transfer Training Treatment (ICD-10-PCS; 2016-12-21)
PROC: F07Z5ZZ Bed Mobility Treatment (ICD-10-PCS; 2016-12-21)
PROC: F07L6YZ Therapeutic Exercise Treatment of Musculoskeletal System - Lower Back / Lower Extremity using Other Equipment (ICD-10-PCS; 2016-12-21)
PROC: F08Z2FZ Grooming/Personal Hygiene Treatment using Assistive, Adaptive, Supportive or Protective Equipment (ICD-10-PCS; 2016-12-21)
PROC: F08Z1FZ Dressing Techniques Treatment using Assistive, Adaptive, Supportive or Protective Equipment (ICD-10-PCS; 2016-12-23)
DX: I11.0 Hypertensive heart disease with heart failure (principal); I50.23 Acute on chronic systolic (congestive) heart failure; C34.91 Malignant neoplasm of unspecified part of right bronchus or lung; I08.3 Combined rheumatic disorders of mitral, aortic and tricuspid valves; J44.9 Chronic obstructive pulmonary disease, unspecified; I25.10 Atherosclerotic heart disease of native coronary artery without angina pectoris; E78.5 Hyperlipidemia, unspecified; F41.9 Anxiety disorder, unspecified; R10.9 Unspecified abdominal pain; G47.00 Insomnia, unspecified; I25.5 Ischemic cardiomyopathy; K21.9 Gastro-esophageal reflux disease without esophagitis; Z95.5 Presence of coronary angioplasty implant and graft; Z85.038 Personal history of other malignant neoplasm of large intestine; Z87.891 Personal history of nicotine dependence; Z95.1 Presence of aortocoronary bypass graft; Z92.3 Personal history of irradiation; Z90.49 Acquired absence of other specified parts of digestive tract

== ENCOUNTER 2018-05-09 04:02 | Inpatient (IN) | payer MEDICARE, OTHER ==
[2018-05-09 04:02] VITALS: PULSE 62
[2018-05-09 05:12] LABS: HEMOGLOBIN 11.4 g/dL (12.0-16.0); MEAN CELL VOLUME 84.4 fl (80.0-105.0); MEAN CORPUSCULAR HEMOGLOBIN 26.9 pg (25.0-35.0); MEAN CORPUSCULAR HGB CONC 31.8 g/dl (31.0-37.0); RBC 4.24 10^6/uL (3.5-6.1); RED CELL DISTRIBUTION WIDTH 14.3 % (11.5-14.5); WHITE BLOOD COUNT 8.4 10^3/ul (4.5-11.0)
[2018-05-09 05:14] LABS: ALB/GLOB RATIO 1.2 (1.1-1.8); ALBUMIN 3.9 g/dL (3.0-4.8); CALCIUM 9.4 mg/dL (8.4-10.5)
[2018-05-09 05:26] LABS: TROPONIN I 0.05 ng/mL
[2018-05-09 05:35] LABS: PARTIAL THROMBOPLASTIN TIME 24.8 Seconds (25.1-36.5); PROTHROMBIN TIME 11.5 SECONDS (9.4-12.5)
--- NOTE | 2018-05-09 05:46 | ED PDOC ---
Arrival/HPI - General Chief Complaint: Chest Pain Time Seen by Provider: 05/09/18 04:24 Historian: Patient - History of Present Illness Narrative History of Present Illness (Text): 05/09/18 05:43 87 year old female, whose past medical history includes lung cancer, colon cancer, colon resection, CAD, CABG, cardiomyopathy, and hypertension, who presents to the Emergency department complaining of a transient episode of left sided chest discomfort. Patient states she feels fine now. Patient denies any sob, back pain, chills, fever, cough, or any other complaints. Time/Duration: 4-6 hours Symptom Onset: Gradual Symptom Course: Unchanged Activities at Onset: Light Context: Home Past Medical History - Provider Review Nursing Documentation Reviewed: Yes - Infectious Disease Hx of Infectious Diseases: None - Tetanus Immunization Tetanus Immunization: Unknown - Cardiac Hx Cardiac Disorders: Yes (CAD, CABG) Hx Congestive Heart Failure: Yes Hx Hypertension: Yes - Pulmonary Hx Chronic Obstructive Pulmonary Disease (COPD): Yes - Neurological HX Cerebrovascular Accident: Yes (1990) - HEENT Hx HEENT Disorder: Yes Hx Cataracts: Yes (SURGERY) Hx Deafness: ([place]) - Renal Hx Renal Disorder: No - Endocrine/Metabolic Hx Diabetes Mellitus Type 2: Yes - Hematological/Oncological Hx Blood Disorders: Yes Hx Anemia: Yes Hx Cancer: Yes (COLON & LUNG) Hx Chemotherapy: Yes Other/Comment: chemo and radiation - Integumentary Hx Dermatological Disorder: No - Musculoskeletal/Rheumatological Hx Falls: No - Gastrointestinal Hx Gastrointestinal Disorders: Yes Hx Gall Bladder Disease: Yes Other/Comment: APPENDECTOMY. CHOLECYSTECTOMY. COLON RESECTION - Genitourinary/Gynecological Hx Reproductive Disorders: No - Psychiatric Hx Psychophysiologic Disorder: Yes Hx Anxiety: Yes Hx Substance Use: No - Surgical History Hx Appendectomy: Yes Hx Cardiac Catheterization: Yes Hx Cholecystectomy: Yes Hx Coronary Stent: Yes Other/Comment: COLON RESECTION - Anesthesia Hx Anesthesia: Yes Hx Anesthesia Reactions: No Hx Malignant Hyperthermia: No - Suicidal Assessment Feels Threatened In Home Enviroment: No Family/Social History - Physician Review Nursing Documentation Reviewed: Yes Family/Social History: Unknown Family HX Smoking Status: Former Smoker Hx Alcohol Use: No Hx Substance Use: No Hx Substance Use Treatment: No Allergies/Home Meds Allergies/Adverse Reactions: Allergies atorvastatin Allergy (Verified 05/09/18 04:03) HEADACHE meclizine Allergy (Verified 05/09/18 04:03) RASH shellfish derived Allergy (Verified 05/09/18 04:03) SHORTNESS OF BREATH Home Medications: Home Meds Medication Instructions Recorded Confirmed Cholecalciferol (Vitamin D3) 1,000 unit PO DAILY 12/16/16 12/19/16 [Vitamin D3] Ferrous Sulfate [Feosol] 325 mg PO DAILY 12/16/16 12/19/16 Pyridoxine [Vitamin B6] 100 mg PO DAILY 12/16/16 12/19/16 Simvastatin 40 mg PO DAILY 12/16/16 12/19/16 Review of Systems - Physician Review All systems were reviewed & negative as marked: Yes - Review of Systems Constitutional: Normal Eyes: Normal ENT: Normal Respiratory: Normal. absent: SOB, Cough Cardiovascular: Chest Pain (lft sided cp) Gastrointestinal: Normal. absent: Abdominal Pain Genitourinary Female: Normal. absent: Dysuria, Frequency Musculoskeletal: Normal. absent: Back Pain, Neck Pain Skin: Normal. absent: Rash Neurological: Normal. absent: Headache, Dizziness Endocrine: Normal Hemo/Lymphatic: Normal Psychiatric: Normal Physical Exam Vital Signs Reviewed: Yes Vital Signs Temp Pulse Resp BP Pulse Ox 05/09/18 04:12 97.8 F 80 17 106/68 99 Temperature: Afebrile Blood Pressure: Normal Pulse: Regular Respiratory Rate: Normal Appearance: Positive for: Well-Appearing, Non-Toxic, Comfortable Pain Distress: None Mental Status: Positive for: Alert and Oriented X 3 - Systems Exam Head: Present: Atraumatic, Normocephalic Pupils: Present: PERRL Extroacular Muscles: Present: EOMI Conjunctiva: Present: Normal Mouth: Present: Moist Mucous Membranes Neck: Present: Normal Range of Motion Respiratory/Chest: Present: Clear to Auscultation, Good Air Exchange. No: Respiratory Distress, Accessory Muscle Use Cardiovascular: Present: Regular Rate and Rhythm, Normal S1, S2. No: Murmurs Abdomen: No: Tenderness, Distention, Peritoneal Signs Back: Present: Normal Inspection Upper Extremity: Present: Normal Inspection. No: Cyanosis, Edema Lower Extremity: Present: Normal Inspection. No: Edema Neurological: Present: GCS=15, CN II-XII Intact, Speech Normal Skin: Present: Warm, Dry, Normal Color. No: Rashes Psychiatric: Present: Alert, Oriented x 3, Normal Insight, Normal Concentration Medical Decision Making ED Course and Treatment: 05/09/18 05:46 Impression: 87 year old female presents to the emergency department Complaining of left sided chest pain. Plan: -- EKG -- CXR -- Reassess and disposition Progress Notes: EKG reviewed, shows NSR at 66 bpm. PAC. LAD. Nonspecific ST/T wave changes. CXR reviewed, shows no acute processes. 05/09/18 06:02 Patient remained asymptomatic in the ED.Case was discussed with PMD .Request patient be placed on his service./ on consult. - Lab Interpretations Lab Results: 05/09/18 04:32 05/09/18 04:32 Lab Results 05/09/18 04:32: WBC 8.4 D, RBC 4.24, Hgb 11.4 L, Hct 35.8 L, MCV 84.4, MCH 26.9 , MCHC 31.8, RDW 14.3, Plt Count 294, MPV 10.0 05/09/18 04:32: Sodium 137, Potassium 4.4, Chloride 96 L, Carbon Dioxide 31, Anion Gap 15, BUN 38 H, Creatinine 1.5 H, Est GFR ( Amer) 40, Est GFR ( Non-Af Amer) 33, Random Glucose 123 H, Calcium 9.4, Total Bilirubin 0.4, AST 25 , ALT 19, Alkaline Phosphatase 54, Lactate Dehydrogenase 405, Total Creatine Kinase 73, Troponin I 0.05 D, Total Protein 7.1, Albumin 3.9, Globulin 3.2, Albumin/Globulin Ratio 1.2 05/09/18 04:32: PT 11.5, INR 1.00, APTT 24.8 L - RAD Interpretation Radiology Orders: 05/09/18 04:51 CHEST PORTABLE [RAD] Stat - Scribe Statement The provider has reviewed the documentation as recorded by the Scribvaleria Vazquez All medical record entries made by the Scribe were at my direction and personally dictated by me. I have reviewed the chart and agree that the record accurately reflects my personal performance of the history, physical exam, medical decision making, and the department course for this patient. I have also personally directed, reviewed, and agree with the discharge instructions and disposition. Disposition/Present on Arrival - Present on Arrival Any Indicators Present on Arrival: No History of DVT/PE: No History of Uncontrolled Diabetes: No Urinary Catheter: No History of Decub. Ulcer: No History Surgical Site Infection Following: None - Disposition Have Diagnosis and Disposition been Completed?: Yes Diagnosis: Chest pain Disposition: HOSPITALIZED Disposition Time: 06:02 Condition: STABLE Discharge Instructions (ExitCare): Chest Pain (ED) Forms: [employer] (Korean)
[2018-05-09] MEDS: Arformoterol 15 mcg/2 ml Inh Sol IH SCH ×2 (08:30→19:32)
[2018-05-09] MEDS: Budesonide 0.5 mg/2 ml Inhal Susp UD IH SCH ×2 (09:30→19:32)
--- NOTE | 2018-05-09 09:32 | CARD ---
APPROVED REPORT Date of service: 05/09/2018 EKG Measurement Heart [id number] [id number] <Conclusion> Sinus rhythm with blocked premature atrial complexes Left axis deviation Left ventricular hypertrophy with repolarization abnormality Abnormal ECG
--- NOTE | 2018-05-09 11:32 | RAD ---
Date of service: 05/09/2018 HISTORY: chest pain COMPARISON: 12/16/2016 FINDINGS: LUNGS: No active pulmonary disease. PLEURA: No significant pleural effusion identified, no pneumothorax apparent. CARDIOVASCULAR: Severe cardiomegaly and aortic tortuosity. Sternal wires OSSEOUS STRUCTURES: No significant abnormalities. VISUALIZED UPPER ABDOMEN: Normal. OTHER FINDINGS: None. IMPRESSION: No active disease.
[2018-05-09 15:48] VITALS: BMI 19.1
[2018-05-09] MEDS ORDERED: Pneumococcal 23-Valent Vaccine IM ONE (15:48)
--- NOTE | 2018-05-09 19:45 | CON ---
DATE: 05/09/2018 PULMONARY CONSULTATION REFERRING PHYSICIAN: Adrián Gavin MD REASON FOR CONSULTATION: Cough, shortness of breath, chest pain, lung cancer. HISTORY OF PRESENT ILLNESS: This is an 87-year-old female known to me from previous admission with multiple medical issue including chronic lung disease, history of lung cancer, colon cancer, history of colon resection, coronary artery disease, history of coronary bypass surgery, cardiomyopathy, hypertension, comes into emergency room with chest discomfort with shortness of breath, not much cough. No sputum production. No nausea. No vomiting. No diarrhea. No leg pain or leg swelling. PAST MEDICAL HISTORY: As per history of present illness, also with diabetes, anemia. ALLERGIES: ATORVASTATIN, MECLIZINE, SHELLFISH. FAMILY HISTORY: No significant cardiopulmonary disease reported. SOCIAL HISTORY: Stopped smoking many years ago. Denies any alcohol use. MEDICATIONS: She is on Aldactone 25 mg twice a day, aspirin 81 mg daily, Brovana inhaled twice a day, Coreg 3.125 mg twice a day, ferrous sulfate 324 mg daily, Lasix 40 mg twice a day, Plavix 75 mg daily, budesonide inhaled twice a day, Tylenol p.r.n., vitamin B6 100 mg daily, Xanax 0.25 mg twice a day. REVIEW OF SYSTEMS: No headache. No rhinitis. Gets short of breath, cough, left-sided chest discomfort. No nausea. No vomiting. No diarrhea. No dysuria. No leg pain or leg swelling. PHYSICAL EXAMINATION: GENERAL: Lying in the bed, no acute distress. VITAL SIGNS: Temperature is 98, heart rate 68, respiratory rate is 20, blood pressure is 148/77, pulse ox 96% on room air. HEENT: Moist mucous membrane. No ulcer or thrush noted. NECK: Supple. No JVD. LUNGS: Have a few scattered rhonchi. She has left-sided chest tender on palpation. HEART: S1 and S2. ABDOMEN: Soft, nontender. No organomegaly. EXTREMITIES: No edema. NEUROLOGICAL: Awake and alert. Follows simple command. LABORATORY DATA: Shows hemoglobin 11.4, hematocrit 35.8, WBC 8.4, platelet is 294. INR 1. PTT is 25. Sodium 137, potassium 4.4, chloride 96, bicarbonate 31, BUN 38, creatinine 1.5, glucose 123, calcium is 9.4, total bili 0.4, AST 25, ALT 19, alk phos is 54. LDH 405. Troponin less than 0.05. Albumin is 3.9. Digoxin level 1.7. Chest x-ray done in ER shows no infiltrate or effusion noted. Has CAT scan of the chest done in 01/22/2018, which showed there is a chronic consolidation and bronchiectasis in the right lower lobe, amount of consolidation has slightly improved. There is no evidence of discrete mass or endobronchial lesion. IMPRESSION AND PLAN: Chronic obstructive lung disease with bronchiectasis, history of cardiomyopathy with heart failure. Has a history of stage II lung cancer treated with chemotherapy. There is also seizure disorder, hypertension with some component of dementia, chronic lung disease. Pulmonary point of view, probably have exacerbation of her bronchiectasis. We will add inhaled bronchodilator, antibiotics, small dose of steroids, gastric prophylaxis, deep vein thrombosis prophylaxis. We will recommend pulmonary function test and attended sleep study upon discharge as outpatient to assure there is no component of sleep apnea adding to the cardiomyopathy. Thank you and we will follow with you. Shekhar Banda MD
[2018-05-09] MEDS: MethylPREDNISolone 40 mg Vial IVP SCH (21:41)
[2018-05-10] MEDS: Budesonide 0.5 mg/2 ml Inhal Susp UD IH SCH ×2 (07:39→19:40)
[2018-05-10] MEDS: Arformoterol 15 mcg/2 ml Inh Sol IH SCH ×2 (07:39→19:40)
[2018-05-10 07:59] LABS: BASO # 0.01 K/mm3 (0.0-2.0); BASO % 0.1 % (0.0-3.0); EOS % 0.1 % (1.5-5.0); GRAN # 8.26 (1.4-6.5); GRAN % 84.8 % (50.0-68.0); HEMOGLOBIN 12.7 g/dL (12.0-16.0); LYMPH # 1.4 (1.2-3.4); LYMPH % 13.9 % (22.0-35.0); MEAN CELL VOLUME 83.8 fl (80.0-105.0); MEAN CORPUSCULAR HEMOGLOBIN 27.1 pg (25.0-35.0); MEAN CORPUSCULAR HGB CONC 32.4 g/dl (31.0-37.0); MEAN PLATELET VOLUME 9.8 fl (7.0-11.0); MONO # 0.1 (0.1-0.6); MONO % 1.1 % (1.0-6.0); RBC 4.68 10^6/uL (3.5-6.1); RED CELL DISTRIBUTION WIDTH 14.2 % (11.5-14.5); WHITE BLOOD COUNT 9.8 10^3/ul (4.5-11.0)
[2018-05-10 08:14] LABS: ALB/GLOB RATIO 1.1 (1.1-1.8); ALBUMIN 4.2 g/dL (3.0-4.8); CALCIUM 9.7 mg/dL (8.4-10.5)
[2018-05-10 08:21] LABS: TROPONIN I 0.04 ng/mL
[2018-05-10] MEDS: MethylPREDNISolone 40 mg Vial IVP SCH ×2 (10:37→21:33)
[2018-05-10] MEDS ORDERED: POLYETHYLENE GLYCOL 3350 17 GM/Dose PACKET PO ONE (14:36)
[2018-05-10] MEDS: POLYETHYLENE GLYCOL 3350 17 GM/Dose PACKET PO SCH (17:32)
--- NOTE | 2018-05-11 00:16 | PN ---
DATE: 05/10/2018 PULMONARY PROGRESS NOTE REFERRING PHYSICIAN: Adrián Gavin MD. SUBJECTIVE: She is lying in the bed, head at 45 degrees. Son is at bedside. Night was unremarkable. Feels better. Has some upper shoulder discomfort. Short of breath with exertion. No chest pain. No nausea, vomiting, diarrhea, leg pain or leg swelling. OBJECTIVE: GENERAL: In no acute distress. VITAL SIGNS: Temperature is 98, heart rate is 82, respiratory rate is 20, blood pressure 170/96, pulse ox 97% on nasal cannula. HEENT: Moist mucous membrane. No ulcer or thrush. NECK: Supple. No JVD. LUNGS: Have a few scattered rhonchi. HEART: S1 and S2. ABDOMEN: Soft, nontender, no organomegaly. EXTREMITIES: No edema. NEUROLOGIC: Awake, alert. Follows simple command. MEDICATIONS: She is on spironolactone 25 mg twice a day, aspirin 81 mg daily, Brovana inhaled twice a day, Colace 100 mg three times a day, Coreg 3.125 mg twice a day, Cozaar 12.5 mg daily, ferrous sulfate 324 mg daily, heparin 5000 subcu every 12 hours, Lasix 40 mg twice a day, MiraLax 17 g twice a day, Plavix 75 mg daily, Pulmicort inhaled twice a day, Solu-Medrol 20 mg every 12 hours, Tylenol p.r.n., vitamin B6 100 mg daily, Xanax 0.25 mg twice a day. LABORATORY DATA: Shows hemoglobin 12.7, hematocrit 39.2, WBC 9.8, platelet is 288. Sodium 137, potassium 5.1, chloride 97, bicarbonate 31, BUN 40, creatinine 1.5, glucose 171, calcium 9.7, total bili 0.5, AST 29, ALT 19, alk phos is 58. Albumin is 4.2. TSH 0.73. Chest x-ray done yesterday does not show any infiltrate or effusion. IMPRESSION AND PLAN: Chronic obstructive lung disease with bronchiectasis; also history of cardiomyopathy; heart failure; history of stage II lung cancer, been on chemotherapy; seizure disorder; hypertension; dementia; chronic lung disease. Spoke to the patient's son at bedside. All the questions answered. Also spoke to the nursing staff. Continue IV and inhaled bronchodilator, antibiotics. Keep head at 45 degrees. Gastric prophylaxis, deep vein thrombosis prophylaxis. Fall precaution. Out of bed to chair. Thank you and we will follow with you. Shekhar Banda MD
--- NOTE | 2018-05-11 02:33 | CON ---
DATE: 05/10/2018 REASON FOR CONSULTATION: Chest pain. HISTORY OF PRESENT ILLNESS: The patient is an 87-year-old female who has a history of lung cancer, colon cancer, status post resection and chemotherapy. The patient has a history of coronary artery disease, status post coronary artery bypass surgery and was last seen by Dr. Howard in 11/[address] Howard's evaluation that find the patient has left ventricular systolic dysfunction, ischemic cardiomyopathy with ejection fraction of 25% and the patient did have on a previous cardiac catheterization, occluded CALLAHAN to the LAD with patent saphenous vein graft to the right coronary artery and patent saphenous vein graft to a diagonal branch and was not amenable for any further intervention after having multiple coronary stents. The patient presented with chest pain which she described as sharp. SOCIAL HISTORY: The patient is a nonsmoker. She lives by herself with the help of homemaker. MEDICATIONS: Aldactone 25 mg twice a day, aspirin 81 mg once daily, Brovana 15 mcg inhalation every 12 hours, Colace 100 mg t.i.d., Coreg 3.125 mg twice a day, Feosol one tablet once a day, Lasix 40 mg p.o. twice a day, Plavix 75 mg once a day, Solu-Medrol 20 mg a.c. every 12 hours, pyridoxine 100 mg daily, Xanax 0.25 mg twice a day. REVIEW OF SYSTEMS: No fever or chills. No hematemesis and no hemoptysis. The patient was reported to have history of seizure, however, she denies having any recent seizure activity. PHYSICAL EXAMINATION: GENERAL: The patient is an elderly female who does not appear to be in acute distress. VITAL SIGNS: Blood pressure 139/67, heart rate 66, temperature 98.3, respirations 19. HEENT: Head normocephalic. CHEST: Minimal rhonchi. HEART: S1, S2 regular. ABDOMEN: Soft. EXTREMITIES: Significant muscle wasting. LABORATORY DATA: Today's hemoglobin and hematocrit 12.7 and 39.2, white count and platelet count are within normal limits. Today's SMA-7, sodium 137, potassium 5.1, chloride 97, CO2 of 31, glucose 171, BUN 40, creatinine 1.1. Troponin was 0.05, 0.03 and 0.04. TSH level is within normal limit. PTT 24.8, INR is 1. Digoxin level is 1.7. EKG on 05/09 revealed sinus rhythm with prolonged APCs. LVH with repolarization changes. ASSESSMENT: 1. Chest pain, consider non-ST elevation myocardial infarction. 2. Coronary artery disease, status post coronary artery bypass surgery with occluded left internal mammary artery to the left anterior descending and patent saphenous vein graft to the right coronary artery and to a diagonal branch. 3. Ischemic cardiomyopathy. 4. History of stage IV lung carcinoma with recurrence, on chemotherapy. 5. History of colon carcinoma. RECOMMENDATIONS: Continue Aldactone 25 mg twice a day, aspirin 81 mg once a day, Coreg 3.125 mg twice a day, Lasix 40 mg p.o. twice a day, Plavix 75 mg orally daily, Solu-Medrol 20 mg intravenously every 4 hours. Start subcutaneous heparin at 5000 units twice a day and Cozaar 12.5 mg orally daily and conservative medical approach is recommended. Malachi Jensen MD
--- NOTE | 2018-05-11 05:23 | HP ---
HISTORY OF PRESENT ILLNESS: This is one of the several admissions for this 87-year-old female who was admitted through the emergency room with left-sided chest pain associated with cough, shortness of breath in the background history of having multiple medical issues including chronic lung disease, history of stage IV non-small cell lung cancer, colon cancer, history of colonic resection, coronary artery disease with significant cardiomyopathy and ejection fraction in the low teens, history of coronary artery bypass surgery, history of hypertension, and now admitted through the emergency room with the complaints of chest discomfort associated with shortness of breath lasting few hours, therefore coming into the hospital. Patient denies any history of sputum production. No nausea, vomiting, diarrhea, leg pain, or leg swelling. REVIEW OF SYSTEMS: A 12-system review of systems was done, all of which were inconclusive except for what is mentioned in the HPI. PAST MEDICAL HISTORY: Significant for anemia, coronary artery disease, chronic obstructive pulmonary disease, cardiomyopathy with very poor ejection fraction, hypertension, history of colonic resection with a history of colon cancer and diverticulosis. Patient is being on nasal oxygen at home as well and on multiple cardiac medications under the care of Dr. Howard. ALLERGIES: PATIENT'S ALLERGIES ARE TO ATORVASTATIN, MECLIZINE, AND SHELLFISH. FAMILY HISTORY: No significant cardiopulmonary disease in the family and no history of cancers in the family as well. MEDICATIONS: Patient's medications at home include Aldactone 25 b.i.d., aspirin 81 mg daily, Brovana inhaled daily twice, Coreg 3.125 mg twice a day, ferrous sulfate 324 mg daily, Lasix 40 mg twice a day, Plavix 75 mg daily, budesonide inhaled twice a day, Tylenol p.r.n., vitamin B6 100 mg daily, Xanax 0.25 mg p.o. b.i.d. PHYSICAL EXAMINATION: GENERAL: Patient is examined in bed. She is lying in bed, in no acute distress. VITAL SIGNS: Stable. T-max is 98.4, heart rate of 68, respirations 20, blood pressure is 148/77, pulse ox is 96% on room air. HEENT: Head is normocephalic, atraumatic. Conjunctivae pale. Sclerae is anicteric. Pupils are equally reactive to light and accommodation. Examination of the oropharynx reveals no ulcers or thrush. Tongue is moist. Patient is edentulous. NECK: Supple. There is no adenopathy. No jugular venous distention noted. LUNGS: Reveal scattered rhonchi. Patient is complaining of some left-sided chest wall pain, which is tender on palpation. HEART: Reveals PMI to be in the fifth intercostal space, inside the midclavicular line. S1 and S2 are normal. No gallop or murmur is heard. ABDOMEN: Soft and nontender. Bowel sounds are present. Liver and spleen are not palpable. No rebound, rigidity or guarding is noted. EXTREMITIES: Reveal no cyanosis, clubbing, or edema. NEUROLOGIC: Reveals higher functions to be normal. No focal deficits are noted. Patient is able to recognize me, but she still has problems of early dementia. LABORATORY DATA: Reveals a hemoglobin of 11.4, hematocrit 35.8, white count of 8.4, platelet count 294,000. INR is 1, PTT is 25. Sodium is 137, K is 4.4, chloride is 96, bicarbonate is 31, BUN is 38 with creatinine of 1.5, glucose is 123. Calcium is 9.4. Total bili is 0.4, AST is 25, ALT is 19, alkaline phosphatase is 54. LDH is 405. Troponin is less than 0.05. Albumin is 3.9. Digoxin level is 1.7. Chest x-ray done in the emergency room shows no infiltrate or effusion. 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 There is no evidence of discrete mass or endobronchial lesion on that CAT scan. ASSESSMENT, NOTES AND PLAN: Patient has chronic obstructive lung disease with bronchiectasis, history of cardiomyopathy with heart failure, history of stage IV lung cancer treated with chemotherapy and radiation, history of seizure disorder, history of hypertension, some component of dementia, chronic lung disease. Patient has bronchiectasis, on bronchodilators. Question of sleep apnea is also raised. Patient has been seen by Pulmonology and has been started on bronchodilators and steroids along with antibiotics along with gastric and deep venous thrombosis prophylaxes. PLAN: Serial cardiac enzymes have been ordered. We will continue to monitor the patient. From the pulmonary point of view, we will get per se input from Cardiology as to further management. From cardiac point of view, to optimize the oral medications, so that if the additional workup over the next 24 hours was negative, we can plan on patient being treated as an outpatient when she is stabilized. I discussed in detail with the patient and the patient's daughter is visiting her today. Plan is as aforementioned. We will continue to monitor the patient. Labs for a.m. have been requested. Jose Francisco Duncan MD
--- NOTE | 2018-05-11 06:42 | CP.PCM.PN ---
Subjective - Date & Time of Evaluation Date of Evaluation: 05/11/18 Time of Evaluation: 06:30 - Subjective Subjective: Awake, alert, denies chest pain, trying to sleep Reason for consultation and follow up: Cardiac evaluation of chest pain,history of coronary artery disease,coronary artery bypass grafting, cardiomyopathy Seen and examined by me and Dr. Howard Objective - Vital Signs/Intake and Output Vital Signs (last 24 hours): Temp Pulse Resp BP Pulse Ox 98.2 F 75 20 124/67 96 05/11/18 00:00 05/11/18 02:00 05/11/18 00:00 05/11/18 00:00 05/11/18 00:00 Intake and Output: 05/10/18 05/11/18 18:59 06:59 Intake Total 660 Balance 660 - Medications Medications: Current Medications Acetaminophen (Tylenol 325mg Tab) 650 mg PO Q4 PRN PRN Reason: Fever >100.4 F Last Admin: 05/09/18 23:17 Dose: 650 mg Acetaminophen (Tylenol 325mg Tab) 650 mg PO Q4H PRN PRN Reason: Pain, Mild (1-3) Alprazolam (Xanax) 0.25 mg PO BID PRN PRN Reason: Anxiety Stop: 05/16/18 06:45 Last Admin: 05/11/18 00:48 Dose: 0.25 mg Arformoterol Tartrate (Brovana) 15 mcg IH [id number] [facility] Last Admin: 05/10/18 19:40 Dose: 15 mcg Aspirin (Aspirin Chewable) 81 mg PO DAILY [facility] Last Admin: 05/10/18 10:36 Dose: 81 mg Budesonide (Pulmicort Respules) 0.5 mg IH [id number] [facility] Last Admin: 05/10/18 19:40 Dose: 0.5 mg Carvedilol (Coreg) 3.125 mg PO BID [facility] Last Admin: 05/10/18 17:29 Dose: 3.125 mg Clopidogrel Bisulfate (Plavix) 75 mg PO DAILY [facility] Last Admin: 05/10/18 10:37 Dose: 75 mg Docusate Sodium (Colace) 100 mg PO TID [facility] Last Admin: 05/10/18 17:29 Dose: 100 mg Ferrous Sulfate (Feosol) 324 mg PO DAILY [facility] Last Admin: 05/09/18 10:03 Dose: 324 mg Furosemide (Lasix) 40 mg PO BID [facility] Last Admin: 05/10/18 17:30 Dose: 40 mg Heparin Sodium (Porcine) (Heparin) 5,000 units SC Q12 [facility] PRN Reason: Protocol Last Admin: 05/10/18 21:35 Dose: 5,000 units Losartan Potassium (Cozaar) 12.5 mg PO DAILY [facility] Last Admin: 05/10/18 15:00 Dose: 12.5 mg Methylprednisolone (Solu-Medrol) 20 mg IVP Q12 [facility] Last Admin: 05/10/18 21:33 Dose: 20 mg Polyethylene Glycol (Miralax) 17 gm PO BID [facility] Last Admin: 05/10/18 17:32 Dose: 17 gm Pyridoxine HCl (Vitamin B6 50 Mg Tab) 100 mg PO DAILY [facility] Last Admin: 05/10/18 10:47 Dose: 100 mg Spironolactone (Aldactone) 25 mg PO BID [facility] Last Admin: 05/10/18 17:32 Dose: 25 mg - Labs Labs: 05/10/18 07:00 05/10/18 07:00 PT 11.5 SECONDS (9.4-12.5) 05/09/18 04:32 INR 1.00 05/09/18 04:32 APTT 24.8 Seconds (25.1-36.5) L 05/09/18 04:32 - Constitutional Appears: No Acute Distress - Eye Exam Eye Exam: Normal appearance - ENT Exam ENT Exam: Mucous Membranes Moist - Respiratory Exam Respiratory Exam: Decreased Breath Sounds, Clear to Ausculation Bilateral, NORMAL BREATHING PATTERN - Cardiovascular Exam Cardiovascular Exam: REGULAR RHYTHM, +S1, +S2 Additional comments: denies chest pain now - GI/Abdominal Exam GI & Abdominal Exam: Soft, Normal Bowel Sounds - Extremities Exam Extremities Exam: Normal Capillary Refill - Neurological Exam Neurological Exam: Alert, Awake, Oriented x3 - Psychiatric Exam Psychiatric exam: Normal Affect - Skin Skin Exam: Dry, Warm Assessment and Plan - Assessment and Plan (Free Text) Assessment: A 87 year old female who came in to the ER due to left sided chest discomfort, non radiating. History of coronary artery disease, post CABG 2005, cardiomyopathy, CHF, COPD, hyperlipidemia,peripheral vascular disease and hypertension. History of lung cancer, colon cancer, colon resection. Denies chest pain now. Atypical chest pain. Echo to evaluate LV function. Review of previous cardiac work up: 07/09/16- ECHO- Dilated four chambers, LVEF 20-25% Moderate TR/MR, Severe AR, RVSP 46 mmHg 12/09/13- Cardiac cath done due to chest pain and positive stress test Triple vessel disease, Patent SVG to D1 and RCA LVEF 15-20%, Severe AR Optimal medical management at that time. Plan: Denies chest pain now EKG -NSR with APC's Troponin- indeterminate results x 3 Will order echo to evaluate LV function Stable heart rate and blood pressure Continue current treatment Continue current medications Will follow up Plan and treatment discussed with Dr. Howard
[2018-05-11 07:12] LABS: BASO # 0.01 K/mm3 (0.0-2.0); BASO % 0.1 % (0.0-3.0); GRAN # 12.15 (1.4-6.5); GRAN % 87.5 % (50.0-68.0); HEMOGLOBIN 11.8 g/dL (12.0-16.0); LYMPH # 1.3 (1.2-3.4); LYMPH % 9.5 % (22.0-35.0); MEAN CORPUSCULAR HEMOGLOBIN 27.1 pg (25.0-35.0); MEAN CORPUSCULAR HGB CONC 32.6 g/dl (31.0-37.0); MEAN PLATELET VOLUME 10.1 fl (7.0-11.0); MONO # 0.4 (0.1-0.6); MONO % 2.9 % (1.0-6.0); RBC 4.36 10^6/uL (3.5-6.1); RED CELL DISTRIBUTION WIDTH 14.2 % (11.5-14.5); WHITE BLOOD COUNT 13.9 10^3/ul (4.5-11.0)
[2018-05-11 07:43] LABS: ALB/GLOB RATIO 1.2 (1.1-1.8); CALCIUM 9.6 mg/dL (8.4-10.5)
[2018-05-11] MEDS: Budesonide 0.5 mg/2 ml Inhal Susp UD IH SCH (08:12)
[2018-05-11] MEDS: Arformoterol 15 mcg/2 ml Inh Sol IH SCH (08:12)
[2018-05-11] MEDS: MethylPREDNISolone 40 mg Vial IVP SCH (09:31)
[2018-05-11] MEDS: POLYETHYLENE GLYCOL 3350 17 GM/Dose PACKET PO SCH (09:31)
--- NOTE | 2018-05-11 13:28 | CP.PCM.PN ---
Subjective - Date & Time of Evaluation Date of Evaluation: 05/11/18 Time of Evaluation: 13:24 - Subjective Subjective: Heme/Onc Progress Note for Dr. Duncan -- Johann Salazar DO PGY2 Patient seen and examined at bedside. No acute overnight events. Patient states that CP has subsided. Patient offers no other complaints at this time. Pt denies CP, SOB, n/v/d, abdominal pain, fever, chills, HUANG, or dizziness. Objective - Vital Signs/Intake and Output Vital Signs (last 24 hours): Temp Pulse Resp BP Pulse Ox 97.9 F 69 20 122/68 97 05/11/18 08:20 05/11/18 09:25 05/11/18 08:20 05/11/18 09:30 05/11/18 08:20 Intake and Output: 05/11/18 05/11/18 06:59 18:59 Intake Total 240 Balance 240 - Medications Medications: Current Medications Acetaminophen (Tylenol 325mg Tab) 650 mg PO Q4 PRN PRN Reason: Fever >100.4 F Last Admin: 05/09/18 23:17 Dose: 650 mg Acetaminophen (Tylenol 325mg Tab) 650 mg PO Q4H PRN PRN Reason: Pain, Mild (1-3) Alprazolam (Xanax) 0.25 mg PO BID PRN PRN Reason: Anxiety Stop: 05/16/18 06:45 Last Admin: 05/11/18 00:48 Dose: 0.25 mg Arformoterol Tartrate (Brovana) 15 mcg IH [id number] [facility] Last Admin: 05/11/18 08:12 Dose: 15 mcg Aspirin (Aspirin Chewable) 81 mg PO DAILY [facility] Last Admin: 05/11/18 09:24 Dose: 81 mg Budesonide (Pulmicort Respules) 0.5 mg IH [id number] [facility] Last Admin: 05/11/18 08:12 Dose: 0.5 mg Carvedilol (Coreg) 3.125 mg PO BID [facility] Last Admin: 05/11/18 09:24 Dose: 3.125 mg Clopidogrel Bisulfate (Plavix) 75 mg PO DAILY [facility] Last Admin: 05/11/18 09:31 Dose: 75 mg Docusate Sodium (Colace) 100 mg PO TID [facility] Last Admin: 05/11/18 09:24 Dose: 100 mg Ferrous Sulfate (Feosol) 324 mg PO DAILY [facility] Last Admin: 05/11/18 09:28 Dose: 324 mg Furosemide (Lasix) 40 mg PO BID [facility] Last Admin: 05/11/18 09:30 Dose: 40 mg Heparin Sodium (Porcine) (Heparin) 5,000 units SC Q12 [facility] PRN Reason: Protocol Last Admin: 05/11/18 09:32 Dose: 5,000 units Losartan Potassium (Cozaar) 12.5 mg PO DAILY [facility] Last Admin: 05/11/18 09:25 Dose: 12.5 mg Methylprednisolone (Solu-Medrol) 20 mg IVP Q12 [facility] Last Admin: 05/11/18 09:31 Dose: 20 mg Polyethylene Glycol (Miralax) 17 gm PO BID [facility] Last Admin: 05/11/18 09:31 Dose: Not Given Pyridoxine HCl (Vitamin B6 50 Mg Tab) 100 mg PO DAILY [facility] Last Admin: 05/10/18 10:47 Dose: 100 mg Spironolactone (Aldactone) 25 mg PO BID [facility] Last Admin: 05/11/18 09:24 Dose: 25 mg - Labs Labs: 05/11/18 06:30 05/11/18 06:30 PT 11.5 SECONDS (9.4-12.5) 05/09/18 04:32 INR 1.00 05/09/18 04:32 APTT 24.8 Seconds (25.1-36.5) L 05/09/18 04:32 - Constitutional Appears: No Acute Distress, Cachectic - Eye Exam Eye Exam: Normal appearance - ENT Exam ENT Exam: Mucous Membranes Moist - Neck Exam Neck Exam: Normal Inspection - Respiratory Exam Respiratory Exam: Clear to Ausculation Bilateral. absent: Rales, Rhonchi, Wheezes - Cardiovascular Exam Cardiovascular Exam: RRR, +S1, +S2. absent: Gallop, Rubs, Murmur - GI/Abdominal Exam GI & Abdominal Exam: Soft. absent: Distended, Guarding, Tenderness, Rebound - Extremities Exam Extremities Exam: Normal Inspection - Back Exam Back Exam: NORMAL INSPECTION - Neurological Exam Neurological Exam: Alert, Awake, Oriented x3 - Psychiatric Exam Psychiatric exam: Normal Affect, Normal Mood - Skin Skin Exam: Dry, Intact, Normal Color, Warm Assessment and Plan - Assessment and Plan (Free Text) Assessment: 88 yo F with PMH of stage IV NSCLC, colon CA s/p colonic resection, COPD, CAD, HFrEF, CABG, and HTN admitted for for evaluation and treatment for chest pain. EKG and cardiac enzymes were trended and ACS was ruled out. CP has subsided and we will f/u with cardiology to optimize patient's home medications prior to discharge. Plan: - Troponin x3 indeterminate - EKG showed NSR with APC's - F/u Echo - Cont Aldactone, Coreg, Cozaar, Lasix for medical management of HF - Cont ASA, Plavix for CAD - Cont Budesonide and Pulmicort for h/o COPD - Cont Feosol/Colace for h/o Fe-def anemia - Solu-medrol per Pulm - Heparin for DVT PPx - Cardiology consulted - Pulm consulted Case reviewed and discussed with Dr. Duncan. Johann Salazar DO PGY2
--- NOTE | 2018-05-11 15:27 | CP.PCM.DIS ---
Provider - Provider Date of Admission: 05/09/18 08:16 Attending physician: Adrián Gavin MD Primary care physician: Adrián Gavin MD Consults: Cardio: Lee Pulm: Veronika Time Spent in preparation of Discharge (in minutes): 45 Diagnosis - Discharge Diagnosis (1) Chest pain Status: Resolved Priority: High (2) CAD (coronary artery disease) Status: Chronic Priority: High (3) Chronic HFrEF (heart failure with reduced ejection fraction) Status: Chronic Priority: High (4) Lung cancer Status: Chronic Priority: Medium (5) Colon cancer Status: Chronic Priority: Medium Hospital Course - Lab Results Lab Results: Most Recent Lab Values WBC 13.9 10^3/ul (4.5-11.0) H D 05/11/18 06:30 RBC 4.36 10^6/uL (3.5-6.1) 05/11/18 06:30 Hgb 11.8 g/dL (12.0-16.0) L 05/11/18 06:30 Hct 36.2 % (36.0-48.0) 05/11/18 06:30 MCV 83.0 fl (80.0-105.0) 05/11/18 06:30 MCH 27.1 pg (25.0-35.0) 05/11/18 06:30 MCHC 32.6 g/dl (31.0-37.0) 05/11/18 06:30 RDW 14.2 % (11.5-14.5) 05/11/18 06:30 Plt Count 305 10^3/uL (120.0-450.0) 05/11/18 06:30 MPV 10.1 fl (7.0-11.0) 05/11/18 06:30 Gran % 87.5 % (50.0-68.0) H 05/11/18 06:30 Lymph % (Auto) 9.5 % (22.0-35.0) L 05/11/18 06:30 [place] % (Auto) 2.9 % (1.0-6.0) 05/11/18 06:30 Eos % (Auto) 0.0 % (1.5-5.0) L 05/11/18 06:30 Baso % (Auto) 0.1 % (0.0-3.0) 05/11/18 06:30 Gran # 12.15 (1.4-6.5) H 05/11/18 06:30 Lymph # (Auto) 1.3 (1.2-3.4) 05/11/18 06:30 [place] # (Auto) 0.4 (0.1-0.6) 05/11/18 06:30 Eos # (Auto) 0.0 (0.0-0.7) 05/11/18 06:30 Baso # (Auto) 0.01 K/mm3 (0.0-2.0) 05/11/18 06:30 PT 11.5 SECONDS (9.4-12.5) 05/09/18 04:32 INR 1.00 05/09/18 04:32 APTT 24.8 Seconds (25.1-36.5) L 05/09/18 04:32 Sodium 138 mmol/L (132-148) 05/11/18 06:30 Potassium 5.1 mmol/L (3.6-5.0) H 05/11/18 06:30 Chloride 98 mmol/L (98-107) 05/11/18 06:30 Carbon Dioxide 30 mmol/L (21-33) 05/11/18 06:30 Anion Gap 15 (10-20) 05/11/18 06:30 BUN 58 mg/dL (7-21) H 05/11/18 06:30 Creatinine 1.6 mg/dl (0.7-1.2) H 05/11/18 06:30 Est GFR ( Amer) 37 05/11/18 06:30 Est GFR (Non-Af Amer) 30 05/11/18 06:30 Random Glucose 165 mg/dL (70-110) H 05/11/18 06:30 Calcium 9.6 mg/dL (8.4-10.5) 05/11/18 06:30 Total Bilirubin 0.4 mg/dL (0.2-1.3) 05/11/18 06:30 AST 34 U/L (14-36) 05/11/18 06:30 ALT 18 U/L (7-56) 05/11/18 06:30 Alkaline Phosphatase 54 U/L (38-126) 05/11/18 06:30 Lactate Dehydrogenase 405 U/L (333-699) 05/09/18 04:32 Total Creatine Kinase 73 U/L (35-230) 05/09/18 04:32 Troponin I 0.04 ng/mL D 05/10/18 07:00 Total Protein 7.3 g/dL (5.8-8.3) 05/11/18 06:30 Albumin 4.0 g/dL (3.0-4.8) 05/11/18 06:30 Globulin 3.3 gm/dL 05/11/18 06:30 Albumin/Globulin Ratio 1.2 (1.1-1.8) 05/11/18 06:30 TSH 3rd Generation 0.73 mIU/mL (0.46-4.68) 05/10/18 07:00 Digoxin 1.7 ng/mL (0.8-2.0) 05/09/18 04:32 - Hospital Course Hospital Course: Patient is a 88 yo F with PMH of stage IV NSCLC, colon CA s/p colonic resection , COPD, CAD, HFrEF, CABG, and HTN presented to ED with transient left sided chest pain and dyspnea on exertion. When evaluated in the ED chest pain had resolved. However, troponin was found to be at an indeterminate and with her significant cardiac history the patient was admitted for chest pain to rule out acute coronary syndrome. EKG was unremarkable showing NSR with occasional PAC's and rate of 66. Cardiac enzymes were trended which were indeterminate x3. Pulmonology was consulted due to her dyspnea, which was likely due to a worsening of her bronchiectasis. IV steroids and inhaled treatments were started. Pulmonology recommended outpatient pulmonary function testing and sleep study. Cardiology was consulted, medications were optimized and repeat echo was ordered as the previous echo from 2016 showed EF of 20-25%, moderate TR /MR, and severe AR. Today, the patient was seen and examined at bedside. Patient reports no chest pain since admission. Case was discussed and cleared by all consultants. Plan including follow up and medications were discussed with patient and family at bedside, who acknowledged and agreed with plan. Patient to follow up with Dr. Duncan, Dr. Howard, and Dr. Banda on discharge. Discharge Prescriptions - Medrol dose pack - Losartan 12.5 mg PO daily #30 - Simvastatin 40 mg PO daily #30 Home Medications to Continue - Pyridoxine 100 mg PO daily - Ferrous Sulfate 325 mg PO daily - Cholecalciferol 1000 mg PO daily - Aldactone 25 mg PO BID - Lasix 40 mg PO BID - Digoxin 0.125 mg PO daily - Plavix 75 mg PO daily - Coreg 3.125 mg PO BID - Pulmicort 0.5 mg IH BID - Brovana 15 mcg IH BID - Xanax 0.25 mg PO BID prn - ASA 81 mg PO daily Discharge Exam - Head Exam Head Exam: NORMAL INSPECTION - Eye Exam Eye Exam: Normal appearance - ENT Exam ENT Exam: Normal Exam - Respiratory Exam Respiratory Exam: Clear to PA & Lateral. absent: Rales, Rhonchi, Wheezes - Cardiovascular Exam Cardiovascular Exam: RRR, +S1, +S2. absent: Diastolic murmur, Gallop, Rubs - GI/Abdominal Exam GI & Abdominal Exam: Soft. absent: Distended, Guarding, Hernia, Tenderness - Extremities Exam Extremities exam: normal inspection - Back Exam Back exam: NORMAL INSPECTION - Neurological Exam Neurological exam: Alert, Oriented x3 - Psychiatric Exam Psychiatric exam: Normal Affect, Normal Mood - Skin Skin Exam: Dry, Intact, Normal Color, Warm Discharge Plan - Discharge Medications Prescriptions: Losartan [Cozaar] 12.5 mg PO DAILY #30 tab Methylprednisolone [Medrol Dose Pack (21 tabs)] See Taper PO DAILY #21 mg Simvastatin 40 mg PO DAILY #30 tablet - Follow Up Plan Condition: STABLE Disposition: HOME/ ROUTINE Instructions: Chest Pain (DC), Chest Pain (GEN) Additional Instructions: - Follow up with Dr. Duncan within 3-5 days - Follow up with book publisher within 3-5 days - Follow up with quality assurance consultant within 3-5 days for outpatient pulmonary function testing and sleep study - Take New medications as prescribed - Resume other home medications as prescribed - Return to ED if symptoms return Referrals: Shekhar Howard MD [Staff Provider] - Adrián Gavin MD [Primary Care Provider] - Shekhar Banda MD [Staff Provider] -
--- NOTE | 2018-05-11 16:07 | CARD ---
APPROVED REPORT Date of service: 05/11/2018 EXAM: Two-dimensional and M-mode echocardiogram with Doppler and color Doppler. INDICATION CP/LVFX 2D DIMENSIONS Left Atrium (2D)4.7 (1.6-4.0cm)IVSd1.2 (0.7-1.1cm) LVDd3.9 (3.9-5.9cm)PWd1.2 (0.7-1.1cm) M-Mode DIMENSIONS Aortic Root3.40 (2.2-3.7cm)Aortic Cusp Exc.1.40 (1.5-2.0cm) Aortic Valve AoV Peak Fmslocth877.0cm/sAoV VTI35.1cmAO Peak GR.15mmHg LVOT Peak Uphqdtit422.0cm/sLVOT VTI22.30cmAO Mean GR.7mmHg AI P 1/2 [id number] Mitral Valve MV E Xqrmhdpm23.8cm/sMV A Ejznutec38.6cm/sE/A ratio0.5 TDI Lateral E' Peak V5.07cm/sMedial E' Peak V3.51cm/sE/Lateral E'7.1 E/Medial E'10.2 Pulmonary Valve PV Peak Rmfwkuwh14.3cm/sPV Peak Grad.2mmHg Tricuspid Valve TR Peak Ybzgdufg426bn/sRAP [id number] Peak Gr.21mmHg [id number] LEFT VENTRICLE The left ventricle is normal size. There is mild concentric left ventricular hypertrophy. The systolic function is moderately impaired.EF-25-30% There is moderate to severe hypokinesis in the lateral wall. Transmitral Doppler flow pattern is Grade III-reversible restrictive diastolic dysfunction. No left ventricle thrombus noted on this study. There is no ventricular septal defect visualized. There is no left ventricular aneurysm. There is no mass noted in the left ventricle. RIGHT VENTRICLE The right ventricle is normal size. There is normal right ventricular wall thickness. The right ventricular systolic function is normal. ATRIA The left atrium is mildly dilated. The right atrium size is normal. The atrial septum is aneurysmal. AORTIC VALVE The aortic valve is thickened but opens well. There is moderate to severe aortic regurgitation. There is mild valvular aortic stenosis. There is no aortic valvular vegetation. MITRAL VALVE The mitral valve is thickened but opens well. Mitral annular calcification is moderate. Mitral regurgitation is trace to mild. There is no mitral valve stenosis. There is no evidence of mitral valve prolapse. TRICUSPID VALVE The tricuspid valve leaflets are thickened , but open well. There is trace to mild tricuspid regurgitation.RVSP-31 mmof Hg. There is no tricuspid valve stenosis. There is no tricuspid valve prolapse or vegetation. PULMONIC VALVE The pulmonary valve is normal in structure. There is trace pulmonic valvular regurgitation. There is no pulmonic valvular stenosis. GREAT VESSELS The aortic root is normal in size. The ascending aorta is normal in size. The pulmonary artery is normal. The IVC is normal in size and collapses >50% with inspiration. PERICARDIAL EFFUSION There is no pleural effusion. There is no pericardial effusion. <Conclusion> The left ventricle is normal size. There is mild concentric left ventricular hypertrophy. The systolic function is moderately impaired.EF-25-30% There is mild valvular aortic stenosis. Mitral regurgitation is trace to mild. There is trace to mild tricuspid regurgitation.RVSP-31 mmof Hg. The IVC is normal in size and collapses >50% with inspiration. There is no pericardial effusion.
[2018-05-11 17:03] VITALS: BP 127/75; PULSE 73; RESP 18; TEMP 98.3; O2SAT 98
--- NOTE | 2018-05-11 18:43 | PN ---
DATE: 05/11/2018 PULMONARY PROGRESS NOTE REFERRING PHYSICIAN: Adrián Gavin MD SUBJECTIVE: She is lying in the bed, head at 45 degrees. Night was unremarkable. No chest pain, no nausea, no vomiting, no diarrhea. No leg pain or leg swelling. OBJECTIVE: GENERAL: In no acute distress. VITAL SIGNS: Temperature is 98, heart rate 73, respiratory rate is 18, blood pressure 127/75, pulse ox 98% on room air. HEENT: Moist mucous membranes. Crowded airway. NECK: Supple. No JVD. LUNGS: A fair airflow with rhonchi. HEART: S1 and S2. ABDOMEN: Soft, nontender. No organomegaly. EXTREMITIES: No edema. NEUROLOGIC: Awake, alert, and follows simple commands. LABORATORY DATA: Shows hemoglobin 11.8, hematocrit 36.2, WBC 13.9, and platelet count is 305. Sodium 138, potassium 4.1, chloride 98, bicarbonate 30. BUN 58, creatinine 1.6. Glucose 165. Calcium 9.6. AST 34, ALT 18, alk phos is 54. Albumin is 4. TSH is 0.3. MEDICATIONS: Reviewed. No new changes in medication reported since yesterday. Had an echocardiogram done today, which shows right ventricular systolic pressure is 31, LV ejection fraction 25% to 30%. 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 Pulmonary point of view, she is doing okay. Continue bronchodilator. Keep head at 45 degrees. Could be discharged on p.o. antibiotics. Gastric prophylaxis, DVT prophylaxis. Aspiration precaution. Fall precaution. Out of bed to chair. Will benefit from therapy. Thank you and we will follow with you. Shekhar Banda MD
== END 2018-05-11 18:14 | disposition home or self-care (01) | DRG 191 ==
LOC: ED 04:02 → ERH 06:00 → OBSVTOIN 08:16 → ERH 13:46 → 3RSO 14:26
PROVIDERS: ADMIT Family Medicine; ATTEND Family Medicine
DX: J47.1 Bronchiectasis with (acute) exacerbation (principal); I50.22 Chronic systolic (congestive) heart failure; I11.0 Hypertensive heart disease with heart failure; I25.10 Atherosclerotic heart disease of native coronary artery without angina pectoris; I25.5 Ischemic cardiomyopathy; G40.909 Epilepsy, unspecified, not intractable, without status epilepticus; F03.90 Unspecified dementia, unspecified severity, without behavioral disturbance, psychotic disturbance, mood disturbance, and anxiety; E78.5 Hyperlipidemia, unspecified; E11.51 Type 2 diabetes mellitus with diabetic peripheral angiopathy without gangrene; H91.90 Unspecified hearing loss, unspecified ear; Z85.118 Personal history of other malignant neoplasm of bronchus and lung; Z85.038 Personal history of other malignant neoplasm of large intestine; Z92.3 Personal history of irradiation; Z95.1 Presence of aortocoronary bypass graft; Z79.02 Long term (current) use of antithrombotics/antiplatelets; Z79.82 Long term (current) use of aspirin; Z87.891 Personal history of nicotine dependence; Z92.21 Personal history of antineoplastic chemotherapy; Z99.81 Dependence on supplemental oxygen; Z86.73 Personal history of transient ischemic attack (TIA), and cerebral infarction without residual deficits; Z95.5 Presence of coronary angioplasty implant and graft

== ENCOUNTER 2018-06-16 00:28 | Inpatient (IN) | payer MEDICARE, OTHER ==
--- NOTE | 2018-06-16 01:02 | ED PDOC ---
Arrival/HPI - General Chief Complaint: Dizziness/Lightheaded Time Seen by Provider: 06/16/18 00:32 Historian: Patient - History of Present Illness Narrative History of Present Illness (Text): 06/16/18 01:02 Enriqueta Escobar is a 88 year old female, whose past medical history includes lung cancer, colon cancer, colon resection, CAD, CABG, cardiomyopathy, and hypertension, who presents to the Emergency department brought in by EMS co mplaining of near-syncope prior to arrival. Patient states she was at home when she felt increasingly dizzy and near-syncopal. Patient notes she felt weak and could not stand, so she crawled to the door. Patient reports associated headache and chest discomfort. Patient denies fevers, chills, shortness of breath, abdominal pain, nausea, vomiting, diarrhea, back pain, neck pain, or any other complaints. PMD: Dr. Boo Time/Duration: Prior to Arrival Symptom Onset: Gradual Symptom Course: Unchanged Activities at Onset: Light Context: Home Past Medical History - Provider Review Nursing Documentation Reviewed: Yes - Infectious Disease Hx of Infectious Diseases: None - Tetanus Immunization Tetanus Immunization: Unknown - Cardiac Hx Cardiac Disorders: Yes (CAD, CABG) Hx Congestive Heart Failure: Yes Hx Hypertension: Yes - Pulmonary Hx Chronic Obstructive Pulmonary Disease (COPD): Yes - Neurological HX Cerebrovascular Accident: Yes (1990) - HEENT Hx HEENT Disorder: Yes Hx Cataracts: Yes (SURGERY) Hx Deafness: ([place]) - Renal Hx Renal Disorder: No - Endocrine/Metabolic Hx Diabetes Mellitus Type 2: Yes - Hematological/Oncological Hx Blood Disorders: Yes Hx Anemia: Yes Hx Cancer: Yes (COLON & LUNG) Hx Chemotherapy: Yes Other/Comment: chemo and radiation - Integumentary Hx Dermatological Disorder: No - Musculoskeletal/Rheumatological Hx Falls: No - Gastrointestinal Hx Gastrointestinal Disorders: Yes Hx Gall Bladder Disease: Yes Other/Comment: APPENDECTOMY. CHOLECYSTECTOMY. COLON RESECTION - Genitourinary/Gynecological Hx Genitourinary Disorders: Yes Hx Urinary Tract Infection: Yes - Psychiatric Hx Psychophysiologic Disorder: Yes Hx Anxiety: Yes Hx Substance Use: No - Surgical History Hx Appendectomy: Yes Hx Cardiac Catheterization: Yes Hx Cholecystectomy: Yes Hx Coronary Stent: Yes Other/Comment: COLON RESECTION - Anesthesia Hx Anesthesia: Yes Hx Anesthesia Reactions: No Hx Malignant Hyperthermia: No - Suicidal Assessment Feels Threatened In Home Enviroment: No Family/Social History - Physician Review Nursing Documentation Reviewed: Yes Family/Social History: Unknown Family HX Smoking Status: Former Smoker Hx Alcohol Use: No Hx Substance Use: No Hx Substance Use Treatment: No Allergies/Home Meds Allergies/Adverse Reactions: Allergies atorvastatin Allergy (Verified 06/16/18 00:30) HEADACHE meclizine Allergy (Verified 06/16/18 00:30) RASH shellfish derived Allergy (Verified 06/16/18 00:30) SHORTNESS OF BREATH Home Medications: Home Meds Medication Instructions Recorded Confirmed Cholecalciferol (Vitamin D3) 1,000 unit PO DAILY 12/16/16 06/16/18 [Vitamin D3] Ferrous Sulfate [Feosol] 325 mg PO DAILY 12/16/16 06/16/18 Pyridoxine [Vitamin B6] 100 mg PO DAILY 12/16/16 06/16/18 Review of Systems - Physician Review All systems were reviewed & negative as marked: Yes - Review of Systems Constitutional: Other (+Generalized Weakness). absent: Fevers Respiratory: absent: SOB, Cough Cardiovascular: Chest Pain, Other (+near-syncope) Gastrointestinal: absent: Abdominal Pain, Nausea, Vomiting Musculoskeletal: absent: Back Pain, Neck Pain Neurological: Headache, Dizziness Physical Exam Vital Signs Reviewed: Yes Appearance: Positive for: Well-Appearing Pain Distress: None Mental Status: Positive for: Alert and Oriented X 3 - Systems Exam Head: Present: Atraumatic, Normocephalic Pupils: Present: PERRL Extroacular Muscles: Present: EOMI Conjunctiva: Present: Normal Mouth: Present: Moist Mucous Membranes Neck: Present: Normal Range of Motion Respiratory/Chest: Present: Clear to Auscultation, Good Air Exchange. No: Respiratory Distress, Accessory Muscle Use Cardiovascular: Present: Regular Rate and Rhythm, Normal S1, S2. No: Murmurs Abdomen: No: Tenderness, Distention, Peritoneal Signs Back: Present: Normal Inspection Upper Extremity: Present: Normal Inspection. No: Cyanosis, Edema Lower Extremity: Present: Normal Inspection. No: Edema Neurological: Present: GCS=15, CN II-XII Intact, Speech Normal Skin: Present: Warm, Dry, Normal Color. No: Rashes Psychiatric: Present: Alert, Oriented x 3, Normal Insight, Normal Concentration Medical Decision Making ED Course and Treatment: 06/16/18 01:02 Impression: 88 year old female presents to the Emergency department with complaints of dizziness and a headache. Plan: -- Labs -- Head CT -- EKG -- CXR -- Reassess and disposition Prior Visits: Notes and results from previous visits were reviewed. Progress Notes: Reviewed EKG, NSR at 72 bpm. Occasional PAC. LVH. Unchanged from previous on 05/09/2018. 06/16/18 02:58 CXR reviewed, shows no acute processes. 06/16/18 03:[address] reviewed, shows: CT SCAN OF THE BRAIN WITHOUT IV CONTRAST CLINICAL INDICATION: Near syncope. COMPARISON: 07/03/2016. TECHNIQUE: Axial and reformatted sagittal and coronal images of the brain obtained without IV contrast administration. COMMENTS: There is normal configuration of sella turcica. There are no intra or extra- axial collections. There is no mass effect or midline shift. There is no evidence of hematoma formation. No hydrocephalus is present. The ventricles are symmetrical. No abnormal calcifications are present. There is diffuse age-appropriate cerebellar and cerebral atrophy with proportionally dilated ventricles and cortical sulci. There are bilateral periventricular and subcortical white matter hypolucencies compatible with mild chronic microvascular disease. Otherwise, no significant focal abnormalities are seen either in the posterior fossa or supratentorial compartment. IMPRESSION: 1. Age-appropriate cerebellar and cerebral atrophy. 2. Mild chronic microvascular disease. 3. No evidence of acute intracranial pathology. Unchanged. Thank you for your kind referral of this patient. Electronically signed on Jun 16, 2018 3:07:13 AM EDT by: Scotty Hester M.D., Certified by ABR, MSK, Neuroradiology 06/16/18 03:[address] Duncan, covering for Dr. Boo, who is aware and agrees with plan. Pt will go to Telemetry observation for near syncope. Requests Dr. Marroquin on consult. - Lab Interpretations I have reviewed the lab results: Yes - RAD Interpretation Hand Wood Sander: ED Physician - EKG Interpretation Interpreted by ED Physician: Yes Type: 12 lead EKG - PA / FRUIT SHIPPER / Resident Statement MD/DO has reviewed & agrees with the documentation as recorded. - Scribe Statement The provider has reviewed the documentation as recorded by the Scribe Nahed Salas training with Raiza Oh Provider Scribe Attestation: All medical record entries made by the Scribe were at my direction and personally dictated by me. I have reviewed the chart and agree that the record accurately reflects my personal performance of the history, physical exam, medical decision making, and the department course for this patient. I have also personally directed, reviewed, and agree with the discharge instructions and disposition. Disposition/Present on Arrival - Present on Arrival Any Indicators Present on Arrival: No History of DVT/PE: No History of Uncontrolled Diabetes: No Urinary Catheter: No History of Decub. Ulcer: No History Surgical Site Infection Following: None - Disposition Have Diagnosis and Disposition been Completed?: Yes Diagnosis: Near syncope Disposition: HOSPITALIZED Disposition Time: 03:29 Patient Plan: Observation Condition: STABLE Referrals: Adrián Gavin MD [Primary Care Provider] - Follow up with primary Forms: [employer] (Romanian)
[2018-06-16 03:00] LABS: HEMOGLOBIN 11.4 g/dL (12.0-16.0); MEAN CORPUSCULAR HEMOGLOBIN 27.1 pg (25.0-35.0); MEAN CORPUSCULAR HGB CONC 31.6 g/dl (31.0-37.0); MEAN PLATELET VOLUME 9.4 fl (7.0-11.0); PARTIAL THROMBOPLASTIN TIME 27.2 Seconds (25.1-36.5); PROTHROMBIN TIME 11.4 SECONDS (9.4-12.5); RBC 4.2 10^6/uL (3.5-6.1); RED CELL DISTRIBUTION WIDTH 14.5 % (11.5-14.5); WHITE BLOOD COUNT 9.4 10^3/ul (4.5-11.0)
[2018-06-16 03:01] LABS: ALB/GLOB RATIO 1.2 (1.1-1.8); ALBUMIN 4.2 g/dL (3.0-4.8); CALCIUM 9.7 mg/dL (8.4-10.5)
[2018-06-16 03:13] LABS: TROPONIN I 0.03 ng/mL
[2018-06-16] MEDS ORDERED: Non Formulary Medication (Simvastatin [Simvastatin] 40 MG) PO SCH (10:00)
--- NOTE | 2018-06-16 10:26 | CARD ---
APPROVED REPORT Date of service: 06/16/2018 EKG Measurement Heart [id number] <Conclusion> Sinus rhythm with premature atrial complexes in a pattern of bigeminy Left axis deviation Left ventricular hypertrophy with repolarization abnormality No change
[2018-06-16] MEDS: Cholecalciferol 1,000 INTLU TAB PO SCH (10:45)
--- NOTE | 2018-06-16 12:01 | RAD ---
Date of service: 06/16/2018 PROCEDURE: CHEST RADIOGRAPH, 1 VIEW HISTORY: fever COMPARISON: Portable chest 05/09/2018. Chest CT 01/22/2018. FINDINGS: Right-sided MediPort reiterated as well as post CABG changes. LUNGS: No definite acute airspace disease appreciated. Fibrotic changes are reiterated at the right greater than left lung bases. PLEURA: No pneumothorax or pleural fluid seen. CARDIOVASCULAR: Stable cardiomegaly. No pulmonary vascular congestion. Calcific atherosclerotic changes are seen related to the thoracic aorta. Prominent aortic ectasis is appreciated with dilatation reiterated as documented on prior chest CT 01/22/2018. OSSEOUS STRUCTURES: No significant abnormalities. VISUALIZED UPPER ABDOMEN: Normal. OTHER FINDINGS: None. IMPRESSION: No definite acute infiltrate, pleural effusion or pneumothorax. No pulmonary vascular congestion. Cardiomegaly is stable as well as aortic ectasis and dilatation appearing reiterated.
--- NOTE | 2018-06-16 12:09 | CT ---
Date of service: 06/16/2018 PROCEDURE: CT HEAD WITHOUT CONTRAST. HISTORY: near syncope COMPARISON: None available. TECHNIQUE: Axial computed tomography images were obtained through the head/brain without intravenous contrast. Radiation dose: Total exam DLP = mGy-cm. This CT exam was performed using one or more of the following dose reduction techniques: Automated exposure control, adjustment of the mA and/or kV according to patient size, and/or use of iterative reconstruction technique. FINDINGS: HEMORRHAGE: No intracranial hemorrhage. BRAIN: No mass effect or edema. Chronic periventricular white matter ischemic disease. VENTRICLES: Unremarkable. No hydrocephalus. CALVARIUM: Unremarkable. PARANASAL SINUSES: Unremarkable as visualized. No significant inflammatory changes. MASTOID AIR CELLS: Unremarkable as visualized. No inflammatory changes. OTHER FINDINGS: None. IMPRESSION: No acute hemorrhage.
[2018-06-16 14:15] VITALS: BMI 21.3
[2018-06-16] MEDS ORDERED: Influenza Vaccine 60 mcg/0.5 mL SYR (4YR UP) IM ONE (14:15)
[2018-06-16] MEDS ORDERED: Pneumococcal 23-Valent Vaccine IM ONE (14:15)
[2018-06-16] MEDS: Digoxin 125 mcg (0.125 mg) Tab PO SCH (14:20)
[2018-06-16 17:47] LABS: URINE BILIRUBIN NEGATIVE (NEGATIVE); URINE BLOOD NEGATIVE (NEGATIVE); URINE GLUCOSE (UA) NEGATIVE (NEGATIVE); URINE LEUKOCYTE ESTERASE SMALL Leu/uL (NEGATIVE); URINE PROTEIN NEGATIVE mg/dL (<30 mg/dL); URINE UROBILINOGEN 0.2 E.U./dL (<1 E.U./dL)
[2018-06-16 17:48] LABS: URINE APPEARANCE CLEAR (CLEAR); URINE COLOR LIGHT YELLOW (YELLOW)
[2018-06-16 17:51] LABS: URINE BACTERIA NEG (NEG); URINE RBC NEGATIVE /hpf (0-2)
--- NOTE | 2018-06-16 19:49 | CON ---
DATE: 06/16/2018 CARDIOLOGY CONSULTATION REASON FOR CONSULTATION: Followup dizziness, lightheadedness, near syncope, cardiac evaluation, history of coronary artery disease with CABG. BRIEF CLINICAL HISTORY: The patient is an 88-year-old female, with a past medical history significant for lung CA, colon cancer, chronic resection, CAD status post CABG, status post stent, cardiomyopathy, ishemic hypertension, aortic regurgitation, who was in her usual state of health yesterday when she started walking at home, felt very dizzy and very unsteady gait. She felt that she was going to pass out or she will fall, so called the daughter and called the ambulance and came here. Denies any chest pain, denies shortness of breath, denies any palpitation. PAST MEDICAL HISTORY: Significant for coronary artery disease, as mentioned history of coronary artery bypass surgery. Her last catheterization revealed occluded CALLAHAN to LAD, patent saphenous graft to diagonal 1 and patent saphenous graft to RCA. Last stent was placed many years ago. History of ischemic cardiomyopathy. Ejection fraction significantly decreased. COPD, goiter, small cell lung cancer, inoperable treated with chemo and radiation. History of subtotal colectomy, history of Port-A-Cath. SURGICAL HISTORY: Significant for inoperable lung cancer treated with radiation and chemo, history of subtotal colectomy for colon cancer, history of Port-A-Cath placement. ALLERGIES: ALLERGY TO SHELL FISH, ALLERGY TO MECLIZINE AND ATORVASTATIN. Recent cardiac workup as follows: The patient had an echocardiography done on 05/11/2018 that revealed ejection fraction 25% to 30%, mild valvular aortic stenosis, trace to mild mitral regurgitation, trace to mild tricuspid regurgitation, RV systolic pressure of 31. No pericardial effusion dated 05/11/2018. CURRENT MEDICATIONS: The patient is taking at home spironolactone 25 mg, simvastatin 40 mg daily, Vitamin B6, pyridoxine, Medrol pack, losartan, furosemide,ferrous sulphate, digoxin, Plavix, Coreg, aspirin and Brovana. REVIEW OF SYSTEMS: As per HPI. PHYSICAL EXAMINATION VITAL SIGNS: As follows: Height of the patient 5 feet 1 inch, weight of the patient 113 pounds, body mass index 21.5 kg/m2. Rest of the examination as follows. Temperature afebrile, heart rate 61, blood pressure 113/62. HEENT: PERRLA. Extraocular muscles intact. NECK: Supple. No carotid bruit or thyromegaly. CHEST: Clear to auscultation. HEART: S1 and S2, regular. ABDOMEN: Soft. EXTREMITIES: Clubbing and cyanosis negative. No JVD LABORATORY DATA: Blood workup as follows: WBC 9.5, hemoglobin 11.4, hematocrit 36.1, and platelet count 350. Chemistry shows sodium 130, potassium 4.9, chloride 97, carbon dioxide 32, anion gap of 35. BUN 35, creatinine 1.5. Total protein 0.03 x2 negative. EKG shows normal sinus . No acute ST-T changes noted. IMPRESSION: An 88-year-old female with past medical history significant for coronary artery disease; CABG many years ago; history of lung CA, inoperable status post chemo, status post radiation; history of colon cancer; status post right hemicolectomy; cardiomyopathy, last echo in April 2018 showed ejection fraction 20% to 25%, trace to mild mitral regurgitation, trace to mild tricuspid regurgitation, right ventricular systolic pressure of 31, admitted with dizziness, near syncope. RECOMMENDATIONS: We will do orthostatic hypotension. Check electrolytes, monitor electrolytes closely. Further recommendations per hospital course. We will follow with you. No evidence of acute CO at this time. We will get TSH and also get orthostatics. Thank you, Dr. Lazo for providing us the opportunity in taking care of her patient, Enriqueta Escobar. We will follow with you. Shekhar Howard MD
[2018-06-16] MEDS ORDERED: Arformoterol 15 mcg/2 ml Inh Sol IH SCH ×2 (20:00)
--- NOTE | 2018-06-16 20:22 | CP.PCM.HP ---
History of Present Illness - History of Present Illness History of Present Illness: Hematology/Oncology History and Physical (Dr. Duncan's Service) Mrs. Martins is an 88 year old female with a past medical history significant for COPD, systolic CHF (EF 25-30%), CAD, HTN, HLD, lung cancer s/p chemoradiation and colon cancer s/p resection who presented with near syncope. Patient reports that she was resting in her bed and suddenly felt as if she was going to faint. She felt this way for approximately one minute, in which time she dialed for an ambulance and unlocked her front door. Patient reports that she had associated SOB and vague chest discomfort. She denies ever having felt this way in the past. She reports that she has been urinating more frequently lately but that she is staying hydrated with adequate PO intake. She denies any dysuria, malodorous urine, or any changes in color. She also denies any fevers, chills, headache, changes in her vision, dysphagia, palpitations, cough, wheezing, sputum production, hemoptysis, abdominal pain, N/V/D/C, skin changes or any numbness/tingling of any extremity. PMH: As stated above PSH: CABG, partial colectomy, portacath Family History: Non-contributory Social History: Denies any current tobacco, alcohol or illicit drug use; Former smoker; Lives alone Allergies: Lipitor, Meclizine, and Shellfish Home Medications: As per VICKIE Assistant Professor Of Economics: Dr. Howard Oncologist: Dr. Duncan Present on Admission - Present on Admission Any Indicators Present on Admission: No Review of Systems - Review of Systems Review of Systems: As stated in HPI, otherwise negative Past Patient History - Infectious Disease Hx of Infectious Diseases: None - Tetanus Immunizations Tetanus Immunization: Unknown - Past Social History Smoking Status: Former Smoker - CARDIAC Hx Cardiac Disorders: Yes Hx Angina: Yes Hx Cardia Arrhythmia: Yes Hx Circulatory Problems: Yes Hx Congestive Heart Failure: Yes Hx Heart Murmur: No Hx Heart Transplant: No Hx Hypercholesterolemia: Yes Hx Hypertension: Yes Hx Internal Defibrillator: No Hx Mitral Valve Prolapse: No Hx Pacemaker: No Hx Peripheral Edema: Yes Hx Peripheral Vascular Disease: No - PULMONARY Hx Respiratory Disorders: No - NEUROLOGICAL Hx Neurological Disorder: No - HEENT Hx HEENT Problems: No - RENAL Hx Chronic Kidney Disease: No - ENDOCRINE/METABOLIC Hx Diabetes Mellitus Type 2: Yes - HEMATOLOGICAL/ONCOLOGICAL Hx Blood Disorders: No - INTEGUMENTARY Hx Dermatological Problems: No - MUSCULOSKELETAL/RHEUMATOLOGICAL Hx Musculoskeletal Disorders: No Hx Arthritis: Yes Hx Falls: No - GASTROINTESTINAL Hx Gastrointestinal Disorders: No - GENITOURINARY/GYNECOLOGICAL Hx Genitourinary Disorders: No - PSYCHIATRIC Hx Psychophysiologic Disorder: No Hx Substance Use: No - SURGICAL HISTORY Hx Surgeries: Yes Hx Amputation: No Hx Appendectomy: Yes Hx Cardiac Catheterization: Yes Hx Cholecystectomy: Yes Hx Coronary Stent: No Hx Gastric Bypass Surgery: No Hx Hysterectomy: No Hx Joint Replacement: No Hx Kidney Transplant: No Hx Liver Transplant: No Hx Mastectomy: No Hx Musculoskeletal Surgery: No Hx Open Heart Surgery: Yes Hx Orthopedic Surgery: No Hx Splenectomy: No Hx Valve Replacement: No - ANESTHESIA Hx Anesthesia: Yes Hx Anesthesia Reactions: No Hx Malignant Hyperthermia: No Meds Allergies/Adverse Reactions: Allergies Allergy/AdvReac Type Severity Reaction Status Date / Time atorvastatin Allergy HEADACHE Verified 06/16/18 00:30 meclizine Allergy RASH Verified 06/16/18 00:30 shellfish derived Allergy SHORTNESS Verified 06/16/18 00:30 OF BREATH Physical Exam - Constitutional Appears: Non-toxic, No Acute Distress - Head Exam Head Exam: ATRAUMATIC, NORMOCEPHALIC - Eye Exam Eye Exam: EOMI, Normal appearance - ENT Exam ENT Exam: Mucous Membranes Moist - Neck Exam Neck exam: Positive for: Full Rom - Respiratory Exam Respiratory Exam: Clear to Auscultation Bilateral, NORMAL BREATHING PATTERN. absent: Accessory Muscle Use, Decreased Breath Sounds, Rales, Rhonchi, Wheezes, Respiratory Distress, Stridor - Cardiovascular Exam Cardiovascular Exam: RRR, +S1, +S2 - GI/Abdominal Exam GI & Abdominal Exam: Normal Bowel Sounds, Soft. absent: Tenderness - Extremities Exam Extremities exam: Positive for: full ROM, normal capillary refill, normal inspection, pedal pulses present. Negative for: calf tenderness, joint swelling, pedal edema, tenderness - Neurological Exam Neurological exam: Alert, Oriented x3 - Psychiatric Exam Psychiatric exam: Normal Affect, Normal Mood - Skin Skin Exam: Dry, Intact, Normal Color, Warm Results - Vital Signs Recent Vital Signs: Last Vital Signs Temp 98.5 F 06/16/18 14:29 Pulse 70 06/16/18 17:32 Resp 18 06/16/18 14:29 BP 136/76 06/16/18 17:32 Pulse Ox 98 06/16/18 06:24 - Labs Result Diagrams: 06/16/18 02:30 06/16/18 02:30 Labs: Laboratory Results - last 24 hr 06/16/18 06/16/18 06/16/18 02:30 02:30 02:30 WBC 9.4 D RBC 4.20 Hgb 11.4 L Hct 36.1 MCV 86.0 D MCH 27.1 MCHC 31.6 RDW 14.5 Plt Count 350 MPV 9.4 PT 11.4 INR 1.00 APTT 27.2 Sodium 138 Potassium 4.9 Chloride 97 L Carbon Dioxide 32 Anion Gap 13 BUN 35 H Creatinine 1.5 H Est GFR ( Amer) 40 Est GFR (Non-Af Amer) 33 POC Glucose (mg/dL) Random Glucose 136 H Serum Osmolality Calcium 9.7 Total Bilirubin 0.3 AST 23 ALT 18 Alkaline Phosphatase 60 Lactate Dehydrogenase 402 Total Creatine Kinase 67 Troponin I 0.03 D Total Protein 7.6 Albumin 4.2 Globulin 3.4 Albumin/Globulin Ratio 1.2 Urine Color Urine Appearance Urine pH Ur Specific Howell Urine Protein Urine Glucose (UA) Urine Ketones Urine Blood Urine Nitrate Urine Bilirubin Urine Urobilinogen Ur Leukocyte Esterase Urine RBC Urine WBC Ur Epithelial Cells Urine Bacteria Urine Osmolality Ur Random Urea Nitrogn 06/16/18 06/16/18 06/16/18 08:12 09:00 09:00 WBC RBC Hgb Hct MCV MCH MCHC RDW Plt Count MPV PT INR APTT Sodium Potassium Chloride Carbon Dioxide Anion Gap BUN Creatinine Est GFR ( Amer) Est GFR (Non-Af Amer) POC Glucose (mg/dL) 126 H Random Glucose Serum Osmolality 298 Calcium Total Bilirubin AST ALT Alkaline Phosphatase Lactate Dehydrogenase Total Creatine Kinase Troponin I 0.03 Total Protein Albumin Globulin Albumin/Globulin Ratio Urine Color Urine Appearance Urine pH Ur Specific Howell Urine Protein Urine Glucose (UA) Urine Ketones Urine Blood Urine Nitrate Urine Bilirubin Urine Urobilinogen Ur Leukocyte Esterase Urine RBC Urine WBC Ur Epithelial Cells Urine Bacteria Urine Osmolality Ur Random Urea Nitrogn 06/16/18 06/16/18 06/16/18 11:48 14:45 17:43 WBC RBC Hgb Hct MCV MCH MCHC RDW Plt Count MPV PT INR APTT Sodium Potassium Chloride Carbon Dioxide Anion Gap BUN Creatinine Est GFR ( Amer) Est GFR (Non-Af Amer) POC Glucose (mg/dL) 211 H Random Glucose Serum Osmolality Calcium Total Bilirubin AST ALT Alkaline Phosphatase Lactate Dehydrogenase Total Creatine Kinase Troponin I 0.02 D Total Protein Albumin Globulin Albumin/Globulin Ratio Urine Color Urine Appearance Urine pH Ur Specific Howell Urine Protein Urine Glucose (UA) Urine Ketones Urine Blood Urine Nitrate Urine Bilirubin Urine Urobilinogen Ur Leukocyte Esterase Urine RBC Urine WBC Ur Epithelial Cells Urine Bacteria Urine Osmolality 331 Ur Random Urea Nitrogn 06/16/18 06/16/18 17:43 17:43 WBC RBC Hgb Hct MCV MCH MCHC RDW Plt Count MPV PT INR APTT Sodium Potassium Chloride Carbon Dioxide Anion Gap BUN Creatinine Est GFR ( Amer) Est GFR (Non-Af Amer) POC Glucose (mg/dL) Random Glucose Serum Osmolality Calcium Total Bilirubin AST ALT Alkaline Phosphatase Lactate Dehydrogenase Total Creatine Kinase Troponin I Total Protein Albumin Globulin Albumin/Globulin Ratio Urine Color Light yellow Urine Appearance Clear Urine pH 6.0 Ur Specific Howell 1.010 Urine Protein Negative Urine Glucose (UA) Negative Urine Ketones Negative Urine Blood Negative Urine Nitrate Negative Urine Bilirubin Negative Urine Urobilinogen 0.2 Ur Leukocyte Esterase Small H Urine RBC Negative Urine WBC 1 - 3 Ur Epithelial Cells 1 - 3 Urine Bacteria Neg Urine Osmolality Ur Random Urea Nitrogn 522 Assessment & Plan - Assessment and Plan (Free Text) Assessment: 88 year old female with a past medical history significant for COPD, systolic CHF (EF 25-30%), CAD, HTN, HLD, lung cancer s/p chemoradiation and colon cancer s/p resection who presented with near syncope. Plan: 1. Near Syncope -CT Head showed age appropriate microvascular changes and no acute intracranial pathology -Chest X-Ray showed no acute disease -EKG showed NSR at 72 beats/min with PAC's and LVH; Unchanged from previous EKG's -Three serial troponins negative -UA negative for UTI -Orthostatic VS negative -Carotid US pending -Neurology and Cardiology consulted, all recommendations appreciated 2. MADELINE -Patient with Creatinine of 1.5 (Baseline prior to 04/2018 was approximately 1.1) -Fractional Excretion of Urea workup pending -Holding Cozaar and Lasix for 24 hours -No signs/symptoms of obstruction with adequate UOP -Continue to monitor with daily CMP's 3. History of Systolic CHF (EF 25-30%) -Most Recent 2D Echocardiogram reviewed -Holding Cozaar and Lasix for 24 hours -Continue home Coreg, Digoxin and Aldactone -Cardiology consulted, all recommendations appreciated 4. History of CAD s/p CABG -TSH, Lipid panel and A1c pending -Continue home ASA and Plavix 5. History of HTN -Holding Cozaar for 24 hours -Currently normotensive 6. History of HLD -Lipid panel pending -Lipitor 20mg daily GI Prophylaxis: Protonix DVT Prophylaxis: Heparin Diet: Heart Healthy Patient seen and case discussed with attending, Dr. Duncan. Dane Newsome PGY2 - Date & Time Date: 06/16/18 Time: 20:22
[2018-06-16] MEDS: Budesonide 0.5 mg/2 ml Inhal Susp UD IH SCH (21:30)
[2018-06-16] MEDS ORDERED: Simethicone 80 mg Chewtab PO ONE (23:12)
[2018-06-16 23:29] LABS: URINE BILIRUBIN NEGATIVE (NEGATIVE); URINE BLOOD NEGATIVE (NEGATIVE); URINE GLUCOSE (UA) NEGATIVE (NEGATIVE); URINE LEUKOCYTE ESTERASE MODERATE Leu/uL (NEGATIVE); URINE PROTEIN NEGATIVE mg/dL (<30 mg/dL); URINE UROBILINOGEN 0.2 E.U./dL (<1 E.U./dL)
[2018-06-16 23:35] LABS: URINE APPEARANCE SL CLOUDY (CLEAR); URINE COLOR YELLOW (YELLOW)
[2018-06-16 23:49] LABS: URINE BACTERIA SMALL (NEG); URINE RBC 0 - 2 /hpf (0-2)
[2018-06-17] MEDS: Pantoprazole 40 mg EC Tab PO SCH (06:17)
--- NOTE | 2018-06-17 07:15 | CP.PCM.PN ---
Subjective - Date & Time of Evaluation Date of Evaluation: 06/17/18 Time of Evaluation: 06:15 - Subjective Subjective: Awake, alert, no distress,some dizziness when getting up Reason for consultation and follow up:Cardiac evaluation of near syncopal epis ode,lightheadedness, history of coronary artery disease post CABG. See and examined by me and Dr. Howard Objective - Vital Signs/Intake and Output Vital Signs (last 24 hours): Temp Pulse Resp BP Pulse Ox 98.5 F 70 18 136/76 98 06/16/18 14:29 06/16/18 17:32 06/16/18 14:29 06/16/18 17:32 06/16/18 06:24 - Medications Medications: Current Medications Aspirin (Ecotrin) 81 mg PO 0800 [facility] Atorvastatin Calcium (Lipitor) 20 mg PO DAILY [facility] Last Admin: 06/16/18 10:45 Dose: 20 mg Budesonide (Pulmicort Respules) 0.5 mg IH [id number] [facility] Last Admin: 06/16/18 21:30 Dose: 0.5 mg Carvedilol (Coreg) 3.125 mg PO 0800,1700 [facility] Last Admin: 06/16/18 17:32 Dose: 3.125 mg Cholecalciferol (Vitamin D) 1,000 intlu PO DAILY [facility] Last Admin: 06/16/18 10:45 Dose: 1,000 intlu Clopidogrel Bisulfate (Plavix) 75 mg PO 0800 [facility] Digoxin (Digoxin) 0.125 mg PO 1400 [facility] Last Admin: 06/16/18 14:20 Dose: 0.125 mg Ferrous Sulfate (Feosol) 324 mg PO DAILY [facility] Last Admin: 06/16/18 10:45 Dose: 324 mg Furosemide (Lasix) 40 mg PO 0800,1400 [facility] Heparin Sodium (Porcine) (Heparin) 5,000 units SC Q8 [facility]; Protocol Last Admin: 06/17/18 06:15 Dose: 5,000 units Losartan Potassium (Cozaar) 12.5 mg PO DAILY [facility] Pantoprazole Sodium (Protonix Ec Tab) 40 mg PO 0600 [facility] Last Admin: 06/17/18 06:17 Dose: 40 mg Spironolactone (Aldactone) 25 mg PO BID [facility] Last Admin: 06/16/18 17:32 Dose: 25 mg - Labs Labs: 06/16/18 02:30 06/16/18 02:30 PT 11.4 SECONDS (9.4-12.5) 06/16/18 02:30 INR 1.00 06/16/18 02:30 APTT 27.2 Seconds (25.1-36.5) 06/16/18 02:30 - Constitutional Appears: Non-toxic, No Acute Distress - Head Exam Head Exam: NORMAL INSPECTION, NORMOCEPHALIC - Eye Exam Eye Exam: Normal appearance Pupil Exam: NORMAL ACCOMODATION - ENT Exam ENT Exam: Mucous Membranes Dry Additional comments: hard of hearing - Respiratory Exam Respiratory Exam: Decreased Breath Sounds, Clear to Ausculation Bilateral, NORMAL BREATHING PATTERN - Cardiovascular Exam Cardiovascular Exam: +S1, +S2 - GI/Abdominal Exam GI & Abdominal Exam: Soft, Normal Bowel Sounds - Extremities Exam Extremities Exam: Full ROM, Normal Capillary Refill - Neurological Exam Neurological Exam: Alert, Awake, Oriented x3 - Psychiatric Exam Psychiatric exam: Normal Affect, Normal Mood - Skin Skin Exam: Dry, Normal Color, Warm Assessment and Plan - Assessment and Plan (Free Text) Assessment: An 88 year old female who came in to the ER due to lightheadedness and near syncope. 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 Orthostatic vital signs normal, no orthostatic hypotension. Probably dehydrated, slight elevation BUN/creatinine. Will start low rate fluids/NSS. Plan: No distress, still feeling dizzy when getting up Negative for orthostatic hypotension probably dehydrated, Bun /creatinine elevated Will start IV NSS at 50 cc/hr for hydration Orthostatic vital signs; Lying BP-103/75 Sitting BP- 112/64 Standing 128/69 Controlled heart rate Controlled blood pressure Troponin negative Continue current treatment Continue current medications chart reviewed Will follow up Plan and treatment discussed with Dr. Howard
[2018-06-17 07:17] LABS: BASO # 0.02 K/mm3 (0.0-2.0); BASO % 0.2 % (0.0-3.0); EOS # 0.1 (0.0-0.7); EOS % 0.7 % (1.5-5.0); GRAN # 7.12 (1.4-6.5); GRAN % 69.3 % (50.0-68.0); HEMOGLOBIN 11.6 g/dL (12.0-16.0); LYMPH # 2.1 (1.2-3.4); LYMPH % 20.1 % (22.0-35.0); MEAN CELL VOLUME 84.6 fl (80.0-105.0); MEAN CORPUSCULAR HEMOGLOBIN 27.1 pg (25.0-35.0); MEAN PLATELET VOLUME 9.5 fl (7.0-11.0); MONO % 9.7 % (1.0-6.0); RBC 4.28 10^6/uL (3.5-6.1); RED CELL DISTRIBUTION WIDTH 14.4 % (11.5-14.5); WHITE BLOOD COUNT 10.3 10^3/ul (4.5-11.0)
[2018-06-17 07:22] LABS: ALB/GLOB RATIO 1.2 (1.1-1.8); ALBUMIN 4.1 g/dL (3.0-4.8); CALCIUM 9.8 mg/dL (8.4-10.5)
[2018-06-17] MEDS ORDERED: Sodium Chloride 0.9% 1,000 ML IV SCH (07:45)
[2018-06-17] MEDS: Budesonide 0.5 mg/2 ml Inhal Susp UD IH SCH ×2 (07:55→20:10)
[2018-06-17] MEDS ORDERED: Sod Polystyrene Sulf 15 gm/60 ml Susp PO ONE (08:09)
--- NOTE | 2018-06-17 08:37 | CON ---
DATE: 06/16/2018 NEUROLOGY CONSULT CHIEF COMPLAINT: Near syncope. HISTORY OF PRESENT ILLNESS: This is an 88-year-old woman with past medical history of stage IV lung cancer, on radiation chemotherapy; colon cancer as well as colon resection; coronary artery disease, CABG; cardiomyopathy; hypertension, who presented to the ER because she states she was at home when she increasingly felt lightheaded and generalized weakness especially when she got from a sitting to a standing position. Came to the hospital for further evaluation. CAT scan of head showed no acute intracranial abnormalities. She had mild low systolic blood pressures, otherwise orthostatics were unremarkable. CAT scan of the head showed no acute intracranial abnormalities. She had elevated BUN and creatinine of . Currently, no focal weakness of the extremities. Currently, deconditioned and also evidence of peripheral neuropathy on examination from underlying cancer. PAST MEDICAL HISTORY: As above. SOCIAL HISTORY: No illicit drug use, smoking, or EtOH abuse. ALLERGIES: TO ATORVASTATIN, MECLIZINE, AND SHELLFISH. FAMILY HISTORY: Noncontributory. REVIEW OF SYSTEMS: Fourteen-point review of systems is as per the HPI. LABORATORY DATA: Sodium is 138, potassium 4.9, chloride 97, carbon dioxide 32, BUN of 35, creatinine 1.5. Random glucose of 136. PHYSICAL EXAMINATION: VITAL SIGNS: Temperature of 98.4, pulse rate 64, blood pressure 129/69, respiratory rate 18, and oxygen saturation 97% by room air. GENERAL: The patient is sitting up in bed, in no acute distress. HEENT: Atraumatic, normocephalic. PERRLA. Extraocular muscles intact. NECK: Supple. No JVD. No adenopathy noted. LUNGS: Clear to auscultation. No adventitious sounds. HEART: S1 and S2. Normal rate and rhythm. No murmurs, rubs, or gallops. ABDOMEN: Soft, nontender, and nondistended. Bowel sounds are present. EXTREMITIES: No clubbing. No cyanosis. Peripheral pulses 2+ felt bilaterally. NEUROLOGIC: The patient is alert and oriented to person, place, month, and year. Recall after 5 minutes is 0/3. Poor attention span. Slow thought process. Cranial nerves II through XII intact. This patient has bilateral hard of hearing. Motor: Mildly deconditioned. Increased tone throughout. Moves all extremities equally. No pronator drift seen. Sensory: Decreased light touch and pinprick up to the calves bilaterally. Decreased vibration of the toes. DTRs are 2+ throughout at both knees and ankles. Coordination: [id number] intact. No dysmetria noted. IMPRESSION: Her dizziness is more secondary to near syncope from possibly history of hypoperfusion to the brain, superimposed on underlying decondition and mild dehydration. RECOMMENDATION: At this time, I recommend: 1. Adequate fluids throughout the day. 2. Avoid sudden movements. 3. Physical therapy to evaluate for underlying deconditioned state. 4. Carotid Doppler. At this time, she is currently stable. Thank you for this consult. Anuj Marroquin MD
[2018-06-17] MEDS: Cholecalciferol 1,000 INTLU TAB PO SCH (09:16)
--- NOTE | 2018-06-17 10:09 | US ---
PROCEDURE: Bilateral carotid artery duplex ultrasound HISTORY: Carotid stenosis syncope PHYSICIAN(S): Kieran Lozano MD. TECHNIQUE: Duplex sonography and color-flow Doppler were used to evaluate the carotid bifurcations and limited segments of the vertebral arteries bilaterally. FINDINGS: There is moderate heterogeneous echogenic plaque noted at the carotid bifurcations bilaterally. The exam is somewhat limited by shadowing. The peak systolic velocity in the proximal right internal carotid artery is 59 cm/sec. This corresponds to a 20 to 39% proximal right ICA stenosis. Normal systolic velocities are noted in the proximal right external carotid artery. There is antegrade flow in the small right vertebral artery. The peak systolic velocity in the proximal left internal carotid artery is 73 cm/sec. This corresponds to a 20 to 39% proximal left ICA stenosis. Normal systolic velocities are noted in the proximal left external carotid artery. There is antegrade flow in the dominant left vertebral artery. IMPRESSION: 1. Bilateral 20-39% proximal ICA stenoses. 2. Antegrade flow in both vertebral arteries. 3. Limited exam due to shadowing plaque and tortuous vessels
--- NOTE | 2018-06-17 13:57 | CP.PCM.PN ---
Subjective - Date & Time of Evaluation Date of Evaluation: 06/17/18 Time of Evaluation: 13:51 - Subjective Subjective: Hematology/Oncology Progress Note (Dr. Duncan's Service) Patient seen and assessed at bedside. No acute events noted overnight. Patient denies any complaints at this time including fevers, chills, headache, chest pain, SOB, abdominal pain, N/V/D/C, changes in urine output, skin changes or any numbness/tingling/weakness of any extremity. Objective - Vital Signs/Intake and Output Vital Signs (last 24 hours): Temp Pulse Resp BP Pulse Ox 98.3 F 74 19 123/69 95 06/17/18 06:00 06/17/18 09:17 06/17/18 06:00 06/17/18 09:17 06/17/18 06:00 - Medications Medications: Current Medications Aspirin (Ecotrin) 81 mg PO 0800 [facility] Last Admin: 06/17/18 09:17 Dose: 81 mg Atorvastatin Calcium (Lipitor) 20 mg PO DAILY [facility] Last Admin: 06/17/18 09:16 Dose: 20 mg Budesonide (Pulmicort Respules) 0.5 mg IH [id number] [facility] Last Admin: 06/17/18 07:55 Dose: 0.5 mg Carvedilol (Coreg) 3.125 mg PO 0800,1700 [facility] Last Admin: 06/17/18 09:17 Dose: 3.125 mg Cholecalciferol (Vitamin D) 1,000 intlu PO DAILY [facility] Last Admin: 06/17/18 09:16 Dose: 1,000 intlu Clopidogrel Bisulfate (Plavix) 75 mg PO 0800 [facility] Last Admin: 06/17/18 09:16 Dose: 75 mg Digoxin (Digoxin) 0.125 mg PO 1400 [facility] Last Admin: 06/16/18 14:20 Dose: 0.125 mg Ferrous Sulfate (Feosol) 324 mg PO DAILY [facility] Last Admin: 06/17/18 09:16 Dose: 324 mg Furosemide (Lasix) 40 mg PO 0800,1400 [facility] Last Admin: 06/17/18 09:17 Dose: 40 mg Heparin Sodium (Porcine) (Heparin) 5,000 units SC Q8 [facility]; Protocol Last Admin: 06/17/18 06:15 Dose: 5,000 units Sodium Chloride (Sodium Chloride 0.9%) 1,000 mls @ 50 mls/hr IV .Q20H [facility] Stop: 06/18/18 03:44 Last Admin: 06/17/18 09:20 Dose: 50 mls/hr Losartan Potassium (Cozaar) 12.5 mg PO DAILY [facility] Pantoprazole Sodium (Protonix Ec Tab) 40 mg PO 0600 [facility] Last Admin: 06/17/18 06:17 Dose: 40 mg Spironolactone (Aldactone) 25 mg PO BID [facility] Last Admin: 06/17/18 09:17 Dose: 25 mg - Labs Labs: 06/17/18 06:55 06/17/18 06:55 PT 11.4 SECONDS (9.4-12.5) 06/16/18 02:30 INR 1.00 06/16/18 02:30 APTT 21.4 Seconds (25.1-36.5) L 06/17/18 06:55 - Constitutional Appears: Non-toxic, No Acute Distress - Head Exam Head Exam: ATRAUMATIC, NORMOCEPHALIC - Eye Exam Eye Exam: EOMI, Normal appearance - ENT Exam ENT Exam: Mucous Membranes Moist, Normal Exam, Normal Oropharynx - Neck Exam Neck Exam: Full ROM, Normal Inspection. absent: Lymphadenopathy, Meningismus, Tenderness, Thyromegaly - Respiratory Exam Respiratory Exam: Clear to Ausculation Bilateral, NORMAL BREATHING PATTERN. absent: Accessory Muscle Use, Rales, Rhonchi, Wheezes, Respiratory Distress - Cardiovascular Exam Cardiovascular Exam: REGULAR RHYTHM, RRR, +S1, +S2 - GI/Abdominal Exam GI & Abdominal Exam: Soft, Normal Bowel Sounds. absent: Tenderness - Extremities Exam Extremities Exam: Full ROM, Normal Capillary Refill, Normal Inspection. absent: Calf Tenderness, Joint Swelling, Pedal Edema, Tenderness - Neurological Exam Neurological Exam: Alert, Awake, Oriented x3 - Psychiatric Exam Psychiatric exam: Normal Affect, Normal Mood - Skin Skin Exam: Dry, Intact, Normal Color, Warm Assessment and Plan - Assessment and Plan (Free Text) Assessment: 88 year old female with a past medical history significant for COPD, systolic CHF (EF 25-30%), CAD, HTN, HLD, lung cancer s/p chemoradiation and colon cancer s/p resection who presented with near syncope. Plan: 1. Near Syncope -CT Head showed age appropriate microvascular changes and no acute intracranial pathology -Chest X-Ray showed no acute disease -Carotid US showed bilateral proximal ICA stenosis of 20-39% -EKG showed NSR at 72 beats/min with PAC's and LVH; Unchanged from previous EKG's -Three serial troponins negative -UA negative for UTI -Orthostatic VS negative -Neurology and Cardiology consulted, all recommendations appreciated 2. MADELINE -Patient with Creatinine of 1.5 on admission (Baseline prior to 04/2018 was approximately 1.1) -Currently downtrending with creatinine of 1.4 on today's CMP -Fractional Excretion of Urea workup pending -Continue Normal Saline at 50mls/hr (1000mls only) -No signs/symptoms of obstruction with adequate UOP -Continue to monitor with daily CMP's 3. History of Systolic CHF (EF 25-30%) -Most Recent 2D Echocardiogram reviewed -Continue home Coreg, Cozaar, Digoxin Lasix and Aldactone -Cardiology consulted, all recommendations appreciated 4. History of CAD s/p CABG -TSH and Lipid panel within normal limits -A1c pending -Continue home ASA and Plavix 5. History of HTN -Continue home Cozaar 6. History of HLD -Lipid panel within normal limits -Lipitor 20mg daily GI Prophylaxis: Protonix DVT Prophylaxis: Heparin Diet: Heart Healthy Disposition: PT recommending patient be sent to TCU upon discharge for further rehabilitation. Will make patient inpatient and order TCU evaluation. Patient seen and case discussed with attending, Dr. Duncan. Dane Newsome PGY2
--- NOTE | 2018-06-17 14:59 | PN ---
DATE: 06/17/2018 This note is in addition to dictated by nurse practitioner. REASON FOR CONSULTATION AND FOLLOW UP: Dizziness, light headedness, near syncope, cardiac evaluation, coronary artery disease, CABG. SUBJECTIVE: Patient is still complaining of mild dizziness. Clinically not in failure, but the patient has decreased LV function in the past. We will get gentle hydration, normal saline 50 mL an hour. Though orthostatic blood pressure was checked, found to be normal, lying 103/75, sitting 112/64, and standing 128/69. PLAN: Cautious hydration. Resume rest of the medication. If remained stable, possible discharge home. Continue DVT prophylaxis. We will repeat the blood workup in the morning. Thank you, Dr. Gavin, for providing the opportunity in taking care of patient, Enriqueta Escobar. Shekhar Howard MD
[2018-06-17] MEDS: Digoxin 125 mcg (0.125 mg) Tab PO SCH (15:37)
[2018-06-18] MEDS: Pantoprazole 40 mg EC Tab PO SCH (06:30)
[2018-06-18 07:05] LABS: ALB/GLOB RATIO 1.1 (1.1-1.8); ALBUMIN 3.7 g/dL (3.0-4.8); CALCIUM 9.1 mg/dL (8.4-10.5)
[2018-06-18 07:18] LABS: BASO # 0.01 K/mm3 (0.0-2.0); BASO % 0.1 % (0.0-3.0); EOS # 0.1 (0.0-0.7); EOS % 1.1 % (1.5-5.0); GRAN # 6.12 (1.4-6.5); GRAN % 67.1 % (50.0-68.0); HEMOGLOBIN 10.6 g/dL (12.0-16.0); LYMPH # 1.9 (1.2-3.4); LYMPH % 21.1 % (22.0-35.0); MEAN CELL VOLUME 83.9 fl (80.0-105.0); MEAN CORPUSCULAR HEMOGLOBIN 26.6 pg (25.0-35.0); MEAN CORPUSCULAR HGB CONC 31.7 g/dl (31.0-37.0); MEAN PLATELET VOLUME 9.6 fl (7.0-11.0); MONO % 10.6 % (1.0-6.0); RBC 3.98 10^6/uL (3.5-6.1); RED CELL DISTRIBUTION WIDTH 14.4 % (11.5-14.5); WHITE BLOOD COUNT 9.1 10^3/ul (4.5-11.0)
--- NOTE | 2018-06-18 07:21 | CP.PCM.PN ---
Subjective - Date & Time of Evaluation Date of Evaluation: 06/18/18 Time of Evaluation: 06:50 - Subjective Subjective: Awake, alert, no distress, watching TV Reason for consultation and follow up:Cardiac evaluation of near syncopal episode,lightheadedness, history of coronary artery disease post CABG. See and examined by me and Dr. Howard Objective - Vital Signs/Intake and Output Vital Signs (last 24 hours): Temp Pulse Resp BP Pulse Ox 98.7 F 92 H 20 130/70 94 L 06/17/18 16:56 06/17/18 17:25 06/17/18 16:56 06/17/18 17:25 06/17/18 16:56 - Medications Medications: Current Medications Acetaminophen (Tylenol 325mg Tab) 650 mg PO Q6H PRN PRN Reason: Headache Last Admin: 06/18/18 00:36 Dose: 650 mg Aspirin (Ecotrin) 81 mg PO 0800 [facility] Last Admin: 06/17/18 09:17 Dose: 81 mg Atorvastatin Calcium (Lipitor) 20 mg PO DAILY [facility] Last Admin: 06/17/18 09:16 Dose: 20 mg Budesonide (Pulmicort Respules) 0.5 mg IH [id number] [facility] Last Admin: 06/17/18 20:10 Dose: 0.5 mg Carvedilol (Coreg) 3.125 mg PO 0800,1700 [facility] Last Admin: 06/17/18 17:25 Dose: 3.125 mg Cholecalciferol (Vitamin D) 1,000 intlu PO DAILY [facility] Last Admin: 06/17/18 09:16 Dose: 1,000 intlu Clopidogrel Bisulfate (Plavix) 75 mg PO 0800 [facility] Last Admin: 06/17/18 09:16 Dose: 75 mg Digoxin (Digoxin) 0.125 mg PO 1400 [facility] Last Admin: 06/17/18 15:37 Dose: 0.125 mg Ferrous Sulfate (Feosol) 324 mg PO DAILY [facility] Last Admin: 06/17/18 09:16 Dose: 324 mg Furosemide (Lasix) 40 mg PO 0800,1400 [facility] Last Admin: 06/17/18 15:37 Dose: 40 mg Heparin Sodium (Porcine) (Heparin) 5,000 units SC Q8 [facility]; Protocol Last Admin: 06/18/18 06:30 Dose: 5,000 units Losartan Potassium (Cozaar) 12.5 mg PO DAILY [facility] Last Admin: 06/17/18 09:17 Dose: 12.5 mg Pantoprazole Sodium (Protonix Ec Tab) 40 mg PO 0600 [facility] Last Admin: 06/18/18 06:30 Dose: 40 mg Spironolactone (Aldactone) 25 mg PO BID [facility] Last Admin: 06/17/18 17:25 Dose: 25 mg - Labs Labs: 06/17/18 06:55 06/18/18 06:30 PT 11.4 SECONDS (9.4-12.5) 06/16/18 02:30 INR 1.00 06/16/18 02:30 APTT 21.4 Seconds (25.1-36.5) L 06/17/18 06:55 - Constitutional Appears: Non-toxic, No Acute Distress - Head Exam Head Exam: NORMAL INSPECTION, NORMOCEPHALIC - Eye Exam Eye Exam: Normal appearance Pupil Exam: NORMAL ACCOMODATION - ENT Exam ENT Exam: Mucous Membranes Moist - Respiratory Exam Respiratory Exam: Clear to Ausculation Bilateral, NORMAL BREATHING PATTERN - Cardiovascular Exam Cardiovascular Exam: REGULAR RHYTHM, +S1, +S2 Additional comments: right chest port/accessed - GI/Abdominal Exam GI & Abdominal Exam: Soft, Normal Bowel Sounds - Extremities Exam Extremities Exam: Full ROM, Normal Capillary Refill - Neurological Exam Neurological Exam: Alert, Awake, Oriented x3 - Psychiatric Exam Psychiatric exam: Normal Affect, Normal Mood - Skin Skin Exam: Dry, Normal Color, Warm Assessment and Plan - Assessment and Plan (Free Text) Assessment: An 88 year old female who came in to the ER due to lightheadedness and near syncope. 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 Orthostatic vital signs normal, no orthostatic hypotension. Probably dehydrated, slight elevation BUN/creatinine. Will start low rate fluids/NSS. Plan: Feels okay, no distress,watching TV As per RN ,slow heart rate at 42/ min last night while asleep, asymptomatic Will hold Digoxin dose today and get digoxin level Telemetry with NSR with APC's IV NSS at 50 cc/hr x 1 liter for hydration Controlled heart rate Controlled blood pressure On ASA 81 mg daily, Lipitor 20 mg daily, Coreg 3.125 mg BID,Plavix 75 mg daily, Digoxin 0.125mg daily, Lasix 40 mg BID,Cozaar 12.5 mg daily,Aldactone 25 mg BID Continue current treatment Continue current medications Possible TCU for reconditioning Chart reviewed Will follow up Plan and treatment discussed with Dr. Howard
[2018-06-18] MEDS: Budesonide 0.5 mg/2 ml Inhal Susp UD IH SCH ×2 (07:36→20:48)
[2018-06-18] MEDS ORDERED: Sod Polystyrene Sulf 15 gm/60 ml Susp PO ONE (08:13)
--- NOTE | 2018-06-18 08:17 | CP.PCM.PN ---
Subjective - Date & Time of Evaluation Date of Evaluation: 06/18/18 Time of Evaluation: 08:17 - Subjective Subjective: Hematology/Oncology Progress Note (Dr. Duncan's Service) Patient seen and assessed at bedside. Patient was noted to have bradycardia ov ernight on electronic device monitor and was reported to be asymptomatic at the time of these events with stable VS. Patient also reports that she has intermittent anxiety that she is prescribed PRN Xanax for at home. Patient denies any complaints at this time including fevers, chills, headache, chest pain, SOB, abdominal pain, N/V/D/C, changes in urine output, skin changes or any numbness/tingling of any extremity. Objective - Vital Signs/Intake and Output Vital Signs (last 24 hours): Temp Pulse Resp BP Pulse Ox 98.7 F 92 H 20 130/70 94 L 06/17/18 16:56 06/17/18 17:25 06/17/18 16:56 06/17/18 17:25 06/17/18 16:56 Intake and Output: 06/18/18 06/18/18 06:59 18:59 Intake Total 600 Output Total 600 Balance 0 - Medications Medications: Current Medications Acetaminophen (Tylenol 325mg Tab) 650 mg PO Q6H PRN PRN Reason: Headache Last Admin: 06/18/18 00:36 Dose: 650 mg Aspirin (Ecotrin) 81 mg PO 0800 [facility] Last Admin: 06/17/18 09:17 Dose: 81 mg Atorvastatin Calcium (Lipitor) 20 mg PO DAILY [facility] Last Admin: 06/17/18 09:16 Dose: 20 mg Budesonide (Pulmicort Respules) 0.5 mg IH [id number] [facility] Last Admin: 06/18/18 07:36 Dose: 0.5 mg Carvedilol (Coreg) 3.125 mg PO 0800,1700 [facility] Last Admin: 06/17/18 17:25 Dose: 3.125 mg Cholecalciferol (Vitamin D) 1,000 intlu PO DAILY [facility] Last Admin: 06/17/18 09:16 Dose: 1,000 intlu Clopidogrel Bisulfate (Plavix) 75 mg PO 0800 [facility] Last Admin: 06/17/18 09:16 Dose: 75 mg Digoxin (Digoxin) 0.125 mg PO 1400 [facility] Last Admin: 06/17/18 15:37 Dose: 0.125 mg Ferrous Sulfate (Feosol) 324 mg PO DAILY [facility] Last Admin: 06/17/18 09:16 Dose: 324 mg Furosemide (Lasix) 40 mg PO 0800,1400 [facility] Last Admin: 06/17/18 15:37 Dose: 40 mg Heparin Sodium (Porcine) (Heparin) 5,000 units SC Q8 [facility]; Protocol Last Admin: 06/18/18 06:30 Dose: 5,000 units Losartan Potassium (Cozaar) 12.5 mg PO DAILY [facility] Last Admin: 06/17/18 09:17 Dose: 12.5 mg Pantoprazole Sodium (Protonix Ec Tab) 40 mg PO 0600 [facility] Last Admin: 06/18/18 06:30 Dose: 40 mg Spironolactone (Aldactone) 25 mg PO BID [facility] Last Admin: 06/17/18 17:25 Dose: 25 mg - Labs Labs: 06/18/18 06:30 06/18/18 06:30 PT 11.4 SECONDS (9.4-12.5) 06/16/18 02:30 INR 1.00 06/16/18 02:30 APTT 21.4 Seconds (25.1-36.5) L 06/17/18 06:55 - Constitutional Appears: Non-toxic, No Acute Distress - Head Exam Head Exam: ATRAUMATIC, NORMOCEPHALIC - Eye Exam Eye Exam: EOMI, Normal appearance - ENT Exam ENT Exam: Mucous Membranes Moist - Neck Exam Neck Exam: Full ROM, Normal Inspection. absent: Lymphadenopathy, Meningismus, Tenderness, Thyromegaly - Respiratory Exam Respiratory Exam: Clear to Ausculation Bilateral, NORMAL BREATHING PATTERN Additional comments: Right chest wall port intact without signs of clinical infection of surrounding soft tissues - Cardiovascular Exam Cardiovascular Exam: REGULAR RHYTHM, RRR, +S1, +S2 - GI/Abdominal Exam GI & Abdominal Exam: Soft, Normal Bowel Sounds. absent: Tenderness - Extremities Exam Extremities Exam: absent: Calf Tenderness, Joint Swelling, Pedal Edema - Neurological Exam Neurological Exam: Alert, Awake, Oriented x3 - Psychiatric Exam Psychiatric exam: Normal Affect, Normal Mood - Skin Skin Exam: Dry, Intact, Normal Color, Warm Assessment and Plan - Assessment and Plan (Free Text) Assessment: 88 year old female with a past medical history significant for COPD, systolic CHF (EF 25-30%), CAD, HTN, HLD, lung cancer s/p chemoradiation and colon cancer s/p resection who presented with near syncope. Plan: 1. Near Syncope -CT Head showed age appropriate microvascular changes and no acute intracranial pathology -Chest X-Ray showed no acute disease -Carotid US showed bilateral proximal ICA stenosis of 20-39% -EKG showed NSR at 72 beats/min with PAC's and LVH; Unchanged from previous EKG's -Three serial troponins negative -UA negative for UTI -Orthostatic VS negative -Neurology and Cardiology consulted, all recommendations appreciated 2. Asymptomatic Bradycardia -Holding todays dose of Digoxin -Digoxin level pending -Currently with RRR and stable VS 3. MADELINE (Resolved) -Patient with Creatinine of 1.5 on admission (Baseline prior to 04/2018 was approximately 1.2-1.3) -Currently downtrending with creatinine of 1.4 on today's CMP -Fractional Excretion of Urea workup pending -No signs/symptoms of obstruction with adequate UOP -Continue to monitor with daily CMP's 4. History of Systolic CHF (EF 25-30%) -Most Recent 2D Echocardiogram reviewed -Continue home Coreg, Cozaar, Digoxin, Lasix, and Aldactone -Cardiology consulted, all recommendations appreciated 5. History of CAD s/p CABG -TSH and Lipid panel within normal limits -A1c 6.9 -Continue home ASA and Plavix 6. History of HTN -Continue home Cozaar 7. History of HLD -Lipid panel within normal limits -Lipitor 20mg daily GI Prophylaxis: Protonix DVT Prophylaxis: Heparin Diet: Heart Healthy Disposition: PT recommending patient be sent to TCU upon discharge for further rehabilitation. TCU evaluation pending. Patient seen and case discussed with attending, Dr. Duncan. Dane Newsome PGY2
[2018-06-18] MEDS: Cholecalciferol 1,000 INTLU TAB PO SCH (10:17)
--- NOTE | 2018-06-18 16:29 | PN ---
DATE: 06/18/2018 REASON FOR CONSULTATION AND FOLLOWUP: Cardiac evaluation, near syncope, light headedness, history of CABG. SUBJECTIVE: Patient seen with our nurse practitioner, Griselda Garg. Case discussed in length. Patient was given IV fluid, significantly improved. Denies further episode of dizziness. Plan is we will discontinue IV fluid. No evidence of orthostatic hypotension. No evidence of [place]. RECOMMENDATIONS: Patient has 1 episode of heart rate in the 40s. We will add on the digoxin level. On admission digoxin was 1.4. So, we will hold digoxin. Repeat digoxin level tomorrow and if it is below, we will restart. CVS status is stable. Telemetry is discontinued. Continue Coreg, continue losartan, continue digoxin, continue Lasix. Potassium is 5.1. We will also hold spironolactone. Repeat SMA-7 in the morning. We will follow with you. Again in view of high potassium, we will hold spironolactone for now. Repeat SMA-7 in the morning. We will discontinue IV fluid. Continue DVT prophylaxis. Thank you, Dr. Gavin, for providing us the opportunity in taking care of the patient, Enriqueta Escobar. Shekhar Howard MD
[2018-06-18 17:05] VITALS: RESP 20
[2018-06-19] MEDS: Pantoprazole 40 mg EC Tab PO SCH (05:39)
--- NOTE | 2018-06-19 06:04 | CP.PCM.PN ---
Subjective - Date & Time of Evaluation Date of Evaluation: 06/19/18 Time of Evaluation: 06:30 - Subjective Subjective: Awake, alert, no distress, watching TV Reason for consultation and follow up:Cardiac evaluation of near syncopal episode,lightheadedness, history of coronary artery disease post CABG. See and examined by me and Dr. Howard Objective - Vital Signs/Intake and Output Vital Signs (last 24 hours): Temp Pulse Resp BP Pulse Ox 98.6 F 89 20 168/64 H 97 06/18/18 17:04 06/19/18 02:00 06/18/18 17:04 06/18/18 17:19 06/18/18 17:04 Intake and Output: 06/18/18 06/19/18 18:59 06:59 Intake Total 1640 Output Total 500 Balance 1140 - Medications Medications: Current Medications Acetaminophen (Tylenol 325mg Tab) 650 mg PO Q6H PRN PRN Reason: Headache Last Admin: 06/19/18 05:38 Dose: 650 mg Alprazolam (Xanax) 0.25 mg PO BID PRN; Protocol PRN Reason: Anxiety Stop: 06/25/18 13:30 Aspirin (Ecotrin) 81 mg PO 0800 [facility] Last Admin: 06/18/18 10:16 Dose: 81 mg Atorvastatin Calcium (Lipitor) 20 mg PO DAILY [facility] Last Admin: 06/18/18 10:17 Dose: 20 mg Budesonide (Pulmicort Respules) 0.5 mg IH [id number] [facility] Last Admin: 06/18/18 20:48 Dose: 0.5 mg Carvedilol (Coreg) 3.125 mg PO 0800,1700 [facility] Last Admin: 06/18/18 17:19 Dose: 3.125 mg Cholecalciferol (Vitamin D) 1,000 intlu PO DAILY [facility] Last Admin: 06/18/18 10:17 Dose: 1,000 intlu Clopidogrel Bisulfate (Plavix) 75 mg PO 0800 [facility] Last Admin: 06/18/18 10:17 Dose: 75 mg Digoxin (Digoxin) 0.125 mg PO 1400 [facility] Last Admin: 06/17/18 15:37 Dose: 0.125 mg Ferrous Sulfate (Feosol) 324 mg PO DAILY [facility] Last Admin: 06/18/18 10:16 Dose: 324 mg Furosemide (Lasix) 40 mg PO 0800,1400 [facility] Last Admin: 06/18/18 14:10 Dose: 40 mg Heparin Sodium (Porcine) (Heparin) 5,000 units SC Q8 [facility]; Protocol Last Admin: 06/19/18 05:38 Dose: 5,000 units Losartan Potassium (Cozaar) 12.5 mg PO DAILY [facility] Last Admin: 06/18/18 10:14 Dose: 12.5 mg Pantoprazole Sodium (Protonix Ec Tab) 40 mg PO 0600 [facility] Last Admin: 06/19/18 05:39 Dose: 40 mg Spironolactone (Aldactone) 25 mg PO BID [facility] Last Admin: 06/18/18 10:13 Dose: 25 mg - Labs Labs: 06/18/18 06:30 06/18/18 06:30 PT 11.4 SECONDS (9.4-12.5) 06/16/18 02:30 INR 1.00 06/16/18 02:30 APTT 21.4 Seconds (25.1-36.5) L 06/17/18 06:55 - Constitutional Appears: Non-toxic, No Acute Distress - Head Exam Head Exam: NORMAL INSPECTION, NORMOCEPHALIC - Eye Exam Eye Exam: Normal appearance Pupil Exam: NORMAL ACCOMODATION - ENT Exam ENT Exam: Mucous Membranes Moist - Cardiovascular Exam Cardiovascular Exam: REGULAR RHYTHM, +S1, +S2 Additional comments: Telemetry NSR with PAC/PVC's right chest port accessed - GI/Abdominal Exam GI & Abdominal Exam: Soft, Normal Bowel Sounds - Extremities Exam Extremities Exam: Full ROM, Normal Capillary Refill - Neurological Exam Neurological Exam: Alert, Awake, Oriented x3 - Psychiatric Exam Psychiatric exam: Normal Affect, Normal Mood - Skin Skin Exam: Dry, Normal Color, Warm Assessment and Plan - Assessment and Plan (Free Text) Assessment: An 88 year old female who came in to the ER due to lightheadedness and near syncope. 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 Orthostatic vital signs normal, no orthostatic hypotension. Probably dehydrated, slight elevation BUN/creatinine. Will start low rate fluids/NSS. Potassium 5.1, held Spirolactone. Plan: Complaints of some abdominal discomfort, claimed ate fairly for lunch or dinner, Offered hot tea Held digoxin dose yesterday due to episode of bradycardia Digoxin level 1.4, Resume Digoxin dose today Telemetry with NSR with APC's and VPC's Held Aldactone yesterday for elevated potassium Controlled heart rate Controlled blood pressure On ASA 81 mg daily, Lipitor 20 mg daily, Coreg 3.125 mg BID,Plavix 75 mg daily, Digoxin 0.125mg daily, Lasix 40 mg BID,Cozaar 12.5 mg daily Continue current treatment Continue current medications Possible TCU for reconditioning Chart reviewed Will follow up Plan and treatment discussed with Dr. Howard
[2018-06-19 07:07] LABS: BASO # 0.02 K/mm3 (0.0-2.0); BASO % 0.2 % (0.0-3.0); EOS # 0.1 (0.0-0.7); EOS % 0.5 % (1.5-5.0); GRAN # 7.26 (1.4-6.5); GRAN % 70.2 % (50.0-68.0); HEMOGLOBIN 11.3 g/dL (12.0-16.0); LYMPH # 2.4 (1.2-3.4); MEAN CELL VOLUME 83.7 fl (80.0-105.0); MEAN CORPUSCULAR HEMOGLOBIN 27.2 pg (25.0-35.0); MEAN CORPUSCULAR HGB CONC 32.5 g/dl (31.0-37.0); MEAN PLATELET VOLUME 9.6 fl (7.0-11.0); MONO # 0.6 (0.1-0.6); MONO % 6.1 % (1.0-6.0); RBC 4.16 10^6/uL (3.5-6.1); RED CELL DISTRIBUTION WIDTH 14.4 % (11.5-14.5); WHITE BLOOD COUNT 10.3 10^3/uL (4.5-11.0)
[2018-06-19 07:38] LABS: ALB/GLOB RATIO 1.1 (1.1-1.8); ALBUMIN 3.9 g/dL (3.0-4.8); CALCIUM 9.7 mg/dL (8.4-10.5)
[2018-06-19] MEDS: Budesonide 0.5 mg/2 ml Inhal Susp UD IH SCH ×2 (07:56→20:23)
[2018-06-19] MEDS: Cholecalciferol 1,000 INTLU TAB PO SCH (09:42)
[2018-06-19] MEDS: Digoxin 125 mcg (0.125 mg) Tab PO SCH (14:23)
[2018-06-19 14:27] VITALS: PULSE 94
--- NOTE | 2018-06-19 16:48 | CP.PCM.PN ---
Subjective - Date & Time of Evaluation Date of Evaluation: 06/19/18 Time of Evaluation: 16:45 - Subjective Subjective: Hematology/Oncology Progress Note (Dr. Duncan's Service) Patient seen and assessed at bedside. No acute events noted overnight. Patient denies any complaints at this time including fevers, chills, headache, chest pain, SOB, abdominal pain, N/V/D/C, changes in urine output, skin changes or any numbness/tingling of any extremity. Objective - Vital Signs/Intake and Output Vital Signs (last 24 hours): Temp Pulse Resp BP Pulse Ox 98.5 F 91 H 20 139/88 97 06/19/18 06:00 06/19/18 10:00 06/19/18 06:00 06/19/18 14:25 06/19/18 06:00 - Medications Medications: Current Medications Acetaminophen (Tylenol 325mg Tab) 650 mg PO Q6H PRN PRN Reason: Headache Last Admin: 06/19/18 05:38 Dose: 650 mg Alprazolam (Xanax) 0.25 mg PO BID PRN; Protocol PRN Reason: Anxiety Stop: 06/25/18 13:30 Last Admin: 06/19/18 09:45 Dose: 0.25 mg Aspirin (Ecotrin) 81 mg PO 0800 [facility] Last Admin: 06/19/18 09:40 Dose: 81 mg Atorvastatin Calcium (Lipitor) 20 mg PO DAILY [facility] Last Admin: 06/19/18 09:41 Dose: 20 mg Budesonide (Pulmicort Respules) 0.5 mg IH [id number] [facility] Last Admin: 06/19/18 07:56 Dose: 0.5 mg Carvedilol (Coreg) 3.125 mg PO 0800,1700 [facility] Last Admin: 06/19/18 09:39 Dose: 3.125 mg Cholecalciferol (Vitamin D) 1,000 intlu PO DAILY [facility] Last Admin: 06/19/18 09:42 Dose: 1,000 intlu Clopidogrel Bisulfate (Plavix) 75 mg PO 0800 [facility] Last Admin: 06/19/18 09:41 Dose: 75 mg Digoxin (Digoxin) 0.125 mg PO 1400 [facility] Last Admin: 06/19/18 14:23 Dose: 0.125 mg Ferrous Sulfate (Feosol) 324 mg PO DAILY [facility] Last Admin: 06/19/18 09:40 Dose: 324 mg Furosemide (Lasix) 40 mg PO 0800,1400 [facility] Last Admin: 06/19/18 14:25 Dose: 40 mg Heparin Sodium (Porcine) (Heparin) 5,000 units SC Q8 [facility]; Protocol Last Admin: 06/19/18 14:23 Dose: 5,000 units Losartan Potassium (Cozaar) 12.5 mg PO DAILY [facility] Last Admin: 06/19/18 09:39 Dose: 12.5 mg Pantoprazole Sodium (Protonix Ec Tab) 40 mg PO 0600 [facility] Last Admin: 06/19/18 05:39 Dose: 40 mg Spironolactone (Aldactone) 25 mg PO BID [facility] Last Admin: 06/18/18 10:13 Dose: 25 mg - Labs Labs: 06/19/18 06:30 06/19/18 06:30 PT 11.4 SECONDS (9.4-12.5) 06/16/18 02:30 INR 1.00 06/16/18 02:30 APTT 21.4 Seconds (25.1-36.5) L 06/17/18 06:55 - Additional Findings Additional findings: - Constitutional Appears: Non-toxic, No Acute Distress - Head Exam Head Exam: ATRAUMATIC, NORMOCEPHALIC - Eye Exam Eye Exam: EOMI, Normal appearance - ENT Exam ENT Exam: Mucous Membranes Moist - Neck Exam Neck Exam: Full ROM, Normal Inspection. absent: Lymphadenopathy, Meningismus, Tenderness, Thyromegaly - Respiratory Exam Respiratory Exam: Clear to Ausculation Bilateral, NORMAL BREATHING PATTERN Additional comments: Right chest wall port intact without signs of clinical infection of surrounding soft tissues - Cardiovascular Exam Cardiovascular Exam: REGULAR RHYTHM, RRR, +S1, +S2 - GI/Abdominal Exam GI & Abdominal Exam: Soft, Normal Bowel Sounds. absent: Tenderness - Extremities Exam Extremities Exam: absent: Calf Tenderness, Joint Swelling, Pedal Edema - Neurological Exam Neurological Exam: Alert, Awake, Oriented x3 - Psychiatric Exam Psychiatric exam: Normal Affect, Normal Mood - Skin Skin Exam: Dry, Intact, Normal Color, Warm Assessment and Plan - Assessment and Plan (Free Text) Assessment: 88 year old female with a past medical history significant for COPD, systolic CHF (EF 25-30%), CAD, HTN, HLD, lung cancer s/p chemoradiation and colon cancer s/p resection who presented with near syncope. Plan: 1. Near Syncope -CT Head showed age appropriate microvascular changes and no acute intracranial pathology -Chest X-Ray showed no acute disease -Carotid US showed bilateral proximal ICA stenosis of 20-39% -EKG showed NSR at 72 beats/min with PAC's and LVH; Unchanged from previous EK G's -Three serial troponins negative -UA negative for UTI -Orthostatic VS negative -Neurology and Cardiology consulted, all recommendations appreciated 2. Asymptomatic Bradycardia -Digoxin level at 1.4 (WNL); Restarted home dose of Digoxin -Currently with RRR and stable VS 3. MADELINE (Resolved) -Patient with Creatinine of 1.5 on admission (Baseline prior to 04/2018 was approximately 1.2-1.3) -Currently stable with creatinine of 1.5 on today's CMP -Fractional Excretion of Urea workup pending -No signs/symptoms of obstruction with adequate UOP -Continue to monitor with daily CMP's 4. History of Systolic CHF (EF 25-30%) -Most Recent 2D Echocardiogram reviewed -Continue home Coreg, Cozaar, Digoxin, and Lasix -Holding Aldactone in setting of recurrent hyperkalemia -Cardiology consulted, all recommendations appreciated 5. History of CAD s/p CABG -TSH and Lipid panel within normal limits -A1c 6.9 -Continue home ASA and Plavix 6. History of HTN -Continue home Cozaar 7. History of HLD -Lipid panel within normal limits -Lipitor 20mg daily GI Prophylaxis: Protonix DVT Prophylaxis: Heparin Diet: Heart Healthy Disposition: TCU upon discharge for further rehabilitation. TCU evaluation pending. Patient seen and case discussed with attending, Dr. Gavin. Dane Newsome PGY2
--- NOTE | 2018-06-19 22:09 | PN ---
DATE: 06/19/2018 REASON FOR CONSULTATION AND FOLLOWUP: Cardiac evaluation, near syncope, lightheadedness, history of CABG. SUBJECTIVE: The patient seen and examined with the nurse practitioner. Please note, the addition to the note dictated by nurse practitioner, Griselda Garg. The patient feels a lot better. IV fluid was discontinued. No evidence of [place]. RECOMMENDATIONS: Continue Coreg, continue spironolactone, continue digoxin, continue aspirin, continue DVT prophylaxis, continue Lasix. CVS status is stable. Possible discharge home. Discharge planning. Thank you, Dr. Saldana, for providing us the opportunity in taking care of the patient, Enriqueta Escobar. Shekhar Howard MD cc: Rahel Saldana MD
[2018-06-20] MEDS: Pantoprazole 40 mg EC Tab PO SCH (05:27)
[2018-06-20] MEDS: Budesonide 0.5 mg/2 ml Inhal Susp UD IH SCH (07:44)
[2018-06-20 09:27] VITALS: BP 147/72; PULSE 71; TEMP 98.5; O2SAT 97
[2018-06-20] MEDS: Cholecalciferol 1,000 INTLU TAB PO SCH (09:45)
--- NOTE | 2018-06-21 03:31 | DS ---
For Dr. Duncan, SUBJECTIVE: The patient is an 88-year-old female, sees Dr. Duncan for history of lung cancer status post chemoradiation with colon cancer status post resection with presyncopal episode for which she was admitted via the emergency room. The patient also suffers from COPD, congestive heart failure with poor ejection fraction and coronary artery disease. At present, she is now feeling stronger, however we will transfer to transitional care for TCU protocols in order to strengthen the patient prior to discharge home with the patient seen today in no acute distress, feeling better. OBJECTIVE/PHYSICAL EXAMINATION: VITAL SIGNS: Temperature 98.5, pulse 71, respirations 20, blood pressure 147/72 and pulse oximetry 97%. HEENT: Unremarkable. NECK: Supple. HEART: Regular rate. Occasional ectopic beat. LUNGS: Rare rhonchi. ABDOMEN: Soft and nontender. EXTREMITIES: No edema. SKIN: Warm and dry. NEUROLOGIC: Awake and alert. She also has a port on the right chest wall with an additional IV access in her right forearm which will be discontinued. LABORATORY DATA: The patient's labs were done yesterday to include white blood cell count of 10.3, hemoglobin 11.3, hematocrit 34.8 and platelet count of 344,000. Chem metabolic panel improved to normal except for BUN 35 and creatinine 1.5 with an AST of 51. Urine specimen on 06/16/2018 showed leukocyte esterase moderate amount, otherwise negative findings. Digoxin level on 06/18/2018 was 1.4. ASSESSMENT: For this patient is that of history of small cell cancer, history of colon cancer, presyncope, atherosclerotic cardiovascular disease status post coronary artery bypass grafting, status post stenting, hypertension, chronic obstructive pulmonary disease, ischemic cardiomyopathy, deconditioning, chronic kidney disease and bradycardia. PLAN: For this patient after conversation with Dr. 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 We will transfer her to transitional care for reconditioning with her medicines to be continued to include Coreg, Cozaar, digoxin, Ecotrin, ferrous sulfate with heparin subcutaneous every 12 hours for now which we will discontinue when she is ambulatory, Lasix, Lipitor, Plavix, Protonix, Pulmicort, vitamin D and Xanax p.r.n. This is a complex patient with a comprehensive medical necessity and appropriate visit carried out in excess of 40 minutes with the patient's questions answered to her satisfaction. It should be noted that Aldactone was discontinued as per Dr. Howard and will be restarted as per Dr. Howard should it be indicated. Adrián Gavin MD
== END 2018-06-20 14:15 | DRG 641 ==
LOC: ED 00:28 → ERH 03:25 → 2RNO 06:58 → 3RNO 17:20 → OBSVTOIN 06-17 15:49
PROVIDERS: ADMIT Family Medicine; ATTEND Family Medicine
DX: E86.0 Dehydration (principal); I50.22 Chronic systolic (congestive) heart failure; I13.0 Hypertensive heart and chronic kidney disease with heart failure and stage 1 through stage 4 chronic kidney disease, or unspecified chronic kidney disease; N18.9 Chronic kidney disease, unspecified; R55 Syncope and collapse; J44.9 Chronic obstructive pulmonary disease, unspecified; E11.22 Type 2 diabetes mellitus with diabetic chronic kidney disease; I25.10 Atherosclerotic heart disease of native coronary artery without angina pectoris; I25.5 Ischemic cardiomyopathy; E87.5 Hyperkalemia; I35.1 Nonrheumatic aortic (valve) insufficiency; E78.00 Pure hypercholesterolemia, unspecified; E78.5 Hyperlipidemia, unspecified; G63 Polyneuropathy in diseases classified elsewhere; I65.23 Occlusion and stenosis of bilateral carotid arteries; R26.81 Unsteadiness on feet; Z86.73 Personal history of transient ischemic attack (TIA), and cerebral infarction without residual deficits; Z87.891 Personal history of nicotine dependence; Z85.038 Personal history of other malignant neoplasm of large intestine; Z95.1 Presence of aortocoronary bypass graft; Z92.21 Personal history of antineoplastic chemotherapy; Z92.3 Personal history of irradiation; Z85.118 Personal history of other malignant neoplasm of bronchus and lung; Z95.5 Presence of coronary angioplasty implant and graft

== ENCOUNTER 2018-06-20 13:30 | Inpatient (IN) | payer OTHER ==
[2018-06-20] MEDS: Digoxin 125 mcg (0.125 mg) Tab PO SCH (15:12)
[2018-06-20] MEDS ORDERED: Pneumococcal 23-Valent Vaccine IM ONE (16:03)
[2018-06-20] MEDS ORDERED: Influenza Vaccine 60 mcg/0.5 mL SYR (4YR UP) IM ONE (16:03)
[2018-06-20] MEDS: Budesonide 0.5 mg/2 ml Inhal Susp UD IH SCH (20:49)
[2018-06-21] MEDS: Pantoprazole 20 mg EC Tab PO SCH (05:46)
[2018-06-21] MEDS: Budesonide 0.5 mg/2 ml Inhal Susp UD IH SCH ×2 (07:13→21:16)
[2018-06-21 07:37] LABS: HEMOGLOBIN 11.5 g/dL (12.0-16.0); MEAN CELL VOLUME 84.1 fl (80.0-105.0); MEAN CORPUSCULAR HEMOGLOBIN 27.3 pg (25.0-35.0); MEAN CORPUSCULAR HGB CONC 32.5 g/dl (31.0-37.0); MEAN PLATELET VOLUME 9.7 fl (7.0-11.0); RBC 4.21 10^6/uL (3.5-6.1); RED CELL DISTRIBUTION WIDTH 14.5 % (11.5-14.5); WHITE BLOOD COUNT 9.6 10^3/uL (4.5-11.0)
[2018-06-21 08:07] LABS: ALB/GLOB RATIO 1.1 (1.1-1.8); ALBUMIN 4.1 g/dL (3.0-4.8); CALCIUM 9.7 mg/dL (8.4-10.5)
[2018-06-21] MEDS: Cholecalciferol 1,000 INTLU TAB PO SCH (09:58)
[2018-06-21] MEDS: Digoxin 125 mcg (0.125 mg) Tab PO SCH (13:05)
--- NOTE | 2018-06-21 19:56 | CON ---
DATE: 06/21/2018 The patient admitted for Dr. Adrián Gavin. Date of admission to the TCU is 06/20/2018. REFERRING MD: Dr. Gavin. REASON FOR CONSULTATION Evaluation of a patient unknown to me who presents with acute renal failure superimposed on chronic kidney disease stage II/III. HISTORY OF PRESENT ILLNESS: The patient is a pleasant 88-year-old black female with a history of COPD, long history of cigarette smoking, history of lung cancer, history of colon cancer status post partial colectomy, history of CHF with a low ejection fraction 25-30%, history of LVH, history of valvular heart disease. History of ASHD status post CABG, status post PTCA stents, history of hypertension, history of anemia, past history of cigarette smoking with COPD. The patient presented to the hospital last week with a near syncopal episode. She was transitioned over to the TCU. Her baseline BUN is in the 30s with a creatinine of 1.4-1.5 range. With diuretic therapy, the patient's BUN is now 56 with a creatinine of 1.9. The patient does require diuretic therapy for treatment of her CHF and low ejection fraction. The patient had been on Aldactone, but this was discontinued because of potassium of 5.1. She continues on low-dose angiotensin receptor dudley therapy. Of note, at acute care, the patient did have white blood cells in her urine. Urine cultures were not sent. The patient denies any UTI symptoms. We are asked to evaluate the patient for elevated BUN and creatinine above her baseline levels. PAST MEDICAL HISTORY: Significant for COPD, past history of cigarette smoking, history of lung cancer, history of chronic kidney disease stage II/III, history of cardiomyopathy, hypertension, LVH, history of aortic stenosis, aortic insufficiency, mitral regurgitation, tricuspid regurgitation, hypertension, colon cancer status post partial colectomy, history of anemia and COPD. MEDICATIONS AT HOME: Included that of Aldactone, simvastatin, vitamin B6, p.r.n. steroids, losartan, Lasix, Feosol, digoxin, Plavix, vitamin D3, Coreg, Pulmicort Respules, Ecotrin, Brovana and Xanax. ALLERGIES: THE PATIENT IS ALLERGIC TO ATORVASTATIN, MECLIZINE AND SHELLFISH. CURRENT MEDICATIONS IN HOSPITAL: Include that of Coreg, Aldactone is on hold, losartan 12.5 mg a day, digoxin, Ecotrin, Feosol, subcu heparin, p.o. Lasix 40 every 12 hours, Lipitor, Plavix, Protonix, Pulmicort, Tylenol p.r.n., vitamin D and Xanax. SOCIAL HISTORY A 30-year history of cigarette smoking one pack per day. The patient quit years back. Presently, no history of cigarettes, no history of alcohol use. FAMILY HISTORY: Father and mother have both . The patient states they lived in a different part of the country and she does not know their cause of . REVIEW OF SYSTEMS: A 10-point systems reviewed with the patient, all negative except what is noted above. GENERAL: The patient states appetite and weight have been stable. ENT: Denies any hearing or visual problems. PULMONARY: No shortness of breath. Past history of COPD. No history of asthma. CARDIAC: History as noted above. No ongoing chest pain. GI: No nausea, vomiting, diarrhea, constipation or abdominal pain. : History of chronic kidney disease stage II/III. Positive white cells in her urine, but no urinary tract symptoms. GYNECOLOGICAL: Postmenopausal. ENDOCRINE: No history of diabetes. MUSCULOSKELETAL: No complaints. NEUROLOGIC: No past history of CVA, TIA, seizures or syncope. HEMATOLOGIC/ONCOLOGIC: History of mild anemia. History of malignancy as noted above, lung cancer and colon cancer. PSYCHIATRIC: History is negative. PHYSICAL EXAMINATION: GENERAL: The patient is currently seen in the TCU. She is comfortable lying supine in bed. Appears to be in no acute distress. She is watching television. VITAL SIGNS: Blood pressure 119/70, pulse of 93, temperature 98.1, respiratory rate of 16, pulse ox is 95%. HEENT: Exam shows her to be normocephalic, atraumatic. Conjunctivae are pink. Sclerae are nonicteric. Pupils equal, reactive to light and accommodation. Extraocular muscles are intact. NECK: Supple. No neck vein distention. No thyromegaly. No lymphadenopathy. No bruits. CHEST: Positive port in her right chest wall. LUNGS: Clear to auscultation and percussion. No rales, no rhonchi or wheezing. CARDIOVASCULAR: Shows a regular rate and rhythm. /AI/MR/TR. No S3, no S4, no rub. ABDOMEN: Soft. Bowel sounds normal. No rebound, guarding or masses. BACK: Shows no CVAT. No spinal tenderness. EXTREMITIES: Show no lower extremity cyanosis, clubbing or edema. Distal lower extremity pulses are 1-2+ bilaterally. NEUROLOGIC: Shows her be alert, oriented x3 with no gross focal motor or sensory deficits noted. LABORATORY DATA AND IMAGING: Admitting EKG to acute care showed normal sinus rhythm with APCs and LVH. Admitting chest x-ray showed no acute pulmonary disease. Labs: CBC; white blood cell count 9.6 with a hemoglobin of 11.5, stable; platelet count is 326,000. Coags have been normal. Chemistry showed normal electrolytes. BUN is 56 with a creatinine of 1.9 today. Her baseline BUN is in the low to mid 30 range with a baseline creatinine in the 1.4-1.5 range. Glucose is 129. Her hemoglobin A1c of note was 6.9%. Liver enzymes are normal. AST slightly elevated at 39. Albumin level is 4.1. TSH level was normal at 1.49. Cholesterol profile was acceptable. Urine showed no protein. She did have white blood cells in her urine on 06/16/2018. Toxicology, digoxin level on last check was 1.4. Microbiology, no cultures were sent. ASSESSMENT: 1. Acute renal failure superimposed on chronic kidney disease stage III. Her baseline BUN is in the 1.4-1.5 range. The patient likely will remain prerenal as she requires diuretic therapy for treatment of a low ejection fraction and congestive heart failure. Her outpatient dose of Lasix is 80 mg PO daily. She will likely continue on this to prevent congestive heart failure and we will need to accept perhaps a slightly higher level of BUN and creatinine. Nevertheless, I will check her urine culture and sensitivity in light of the fact that she had white blood cells in her urine. I will obtain a 24-hour urine for creatinine clearance and protein to obtain baseline levels. I will also order a baseline renal ultrasound which she has not had done. 2. History of chronic obstructive pulmonary disease. Past history of cigarette smoking. 3. History of cardiomyopathy with congestive heart failure, ejection fraction 25-30% with aortic stenosis/aortic insufficiency/mitral regurgitation/tricuspid regurgitation. History of left ventricular hypertrophy. The patient remains on diuretic therapy for prevention of exacerbation of her congestive heart failure. Arteriosclerotic heart disease status post coronary artery bypass grafting, status post percutaneous transluminal coronary angioplasty and stent, stable. 4. Hypertension. Blood pressure controlled on present medical therapy. 5. History of colon and lung cancer. These appear to be stable. The patient is status post partial colectomy for colon cancer. 6. History of anemia. Hemoglobins are acceptable in the 11-12 range. 7. Mild elevation of glucose with a hemoglobin A1c of 6.9% noted. Perhaps ongoing diabetes. PLAN: 1. If her BUN and creatinine continue to increase, no choice but to hold angiotensin receptor dudley therapy. 2. For right now, I will continue the patient on diuretic therapy as long as her BUN and creatinine do not significantly go higher. Again, this is a balancing act with the use of diuretics for prevention of CHF and avoidance of worsening of her renal parameters. 3. We will obtain renal ultrasound to establish a baseline. 4. A 24-hour urine for creatinine clearance and protein as noted above. 5. Urine C and S to be sent prior to the 24-hour urine in light of the fact that she had white blood cells in her urine. 6. Phosphorus level checked, it was 3.4. The patient should be maintained on a renal diet. 7. Continue to follow labs on a frequent basis in the TCU until we are certain that her BUN and creatinine have stabilized. 8. Case discussed with TCU staff and the patient in detail. Thank you for letting me partake and share in the care of your patient. Kian Shook MD [email or web address]
--- NOTE | 2018-06-22 02:27 | HP ---
DATE OF EXAM: 06/21/2018 This is [facility] admission history and physical on TCU. For Dr. Duncan. CHIEF COMPLAINT: Deconditioning. HISTORY OF PRESENT ILLNESS: The patient is an 88-year-old female, admitted recently for presyncopal episode which was treated with good effect as per Dr. Howard and Lopez, Cardiology and Neurology respectively with good effect as she is now reported she feels better; however, the patient reports that she did not sleep well since her Xanax, which helps her sleep, has not been given. Upon review of the chart, it is p.r.n. and not scheduled. We will clarify this and correct it as the patient has been on a significant period of time and may go into withdrawal. She takes one in the morning and two at bedtime for her anxiety and for insomnia with good effect. Otherwise, she is feeling better. No shortness of breath at this visit. Appetite is better also. 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 FAMILY HISTORY AND SOCIAL HISTORY: Nonsmoker, non-ethanolic. Daughter living in [place]. Son living in [place], alive and well. ALLERGIES: LIPITOR, MECLIZINE, AND SHELLFISH/IODINE. MEDICATIONS: Include Aldactone, which is on hold; Brovana; Carafate; Coreg; Ecotrin; Imdur; digoxin; Lasix; Plavix; Protonix; Pulmicort; Xanax; Zestril; Tylenol; and continue oxygen. REVIEW OF SYSTEMS: A 12-point review of systems was done, which was negative to questioning except for items mentioned in the history of present illness. PHYSICAL EXAMINATION VITAL SIGNS: Temperature 97.7, pulse 70, respirations 16, blood pressure 136/60, pulse ox 100%.. HEENT: Unremarkable. NECK: Supple. HEART: Regular rate, occasional ectopic beat. LUNGS: Occasional rhonchi. ABDOMEN: Soft and nontender. EXTREMITIES: No edema. SKIN: Otherwise warm, dry and clear. NEUROLOGIC: Awake and alert with port in the right chest. LABORATORY DATA: The patient's labs were done with a white blood cell count of 9.6, hemoglobin of 11.5, hematocrit of 35.4, platelet count of 326,000 with a chem metabolic panel showing a rising in her creatinine of 1.9, BUN of 56, non-fasting glucose 129, AST of 39 with otherwise normal chem panel. Digoxin level was noted on 06/18/2018 noted to be 1.4. ASSESSMENT: For this patient is that of deconditioning, history of non-small cell cancer of the lung, history of colon cancer, presyncope, aortic stenosis, common bile duct, status post coronary artery bypass graft with bypass grafting status post stenting, hypertension, chronic obstructive pulmonary disease, ischemic cardiomyopathy, chronic kidney disease, bradycardia, insomnia and anxiety. PLAN: Plan for this patient after conversation with Dr. Duncan is to continue present medical regimen. We will adjust the dosing on her Xanax with 1 tablet during the a.m. and 2 tablets at bedtime. We will continue recommendations as per Dr. Howard and Dr. Marroquin.. We will ask for consult with Dr. Shook regarding her CRF now, worsening to possibly acute renal failure. We will hold Aldactone as her potassium was elevated recently restart as per Dr. Shook with her other medications to continue including Coreg, Cozaar, digoxin, Ecotrin, Feosol, heparin subcutaneous, Lasix, Plavix, Protonix, Pulmicort, Tylenol, vitamin D and her Xanax. We will also check an ultrasound of the kidneys as per Dr. Shook with the patient to continue oxygen as indicated. This is a complex patient with a comprehensive medical necessity and appropriate visit carried out in excess of 40 minutes with the patient's questions answered to her satisfaction. Adrián Gavin MD
[2018-06-22] MEDS: Pantoprazole 20 mg EC Tab PO SCH (05:18)
[2018-06-22] MEDS: Budesonide 0.5 mg/2 ml Inhal Susp UD IH SCH ×2 (07:20→20:28)
[2018-06-22 07:21] LABS: HEMOGLOBIN 11.5 g/dL (12.0-16.0); MEAN CELL VOLUME 84.4 fl (80.0-105.0); MEAN CORPUSCULAR HEMOGLOBIN 27.1 pg (25.0-35.0); MEAN CORPUSCULAR HGB CONC 32.1 g/dl (31.0-37.0); MEAN PLATELET VOLUME 10.4 fl (7.0-11.0); RBC 4.24 10^6/uL (3.5-6.1); RED CELL DISTRIBUTION WIDTH 14.6 % (11.5-14.5); WHITE BLOOD COUNT 8.8 10^3/uL (4.5-11.0)
[2018-06-22] MEDS: Cholecalciferol 1,000 INTLU TAB PO SCH (10:07)
[2018-06-22 10:14] LABS: ALB/GLOB RATIO 1.2 (1.1-1.8); ALBUMIN 4.2 g/dL (3.0-4.8); CALCIUM 9.6 mg/dL (8.4-10.5)
--- NOTE | 2018-06-22 14:18 | CON ---
DATE: 06/22/2018 The patient is in room 321, bed 1. REASON FOR CONSULTATION: Coronary artery disease with CABG, dizziness, lightheadedness, near syncope deconditioning. HISTORY OF PRESENT ILLNESS: The patient is an 88-year-old female who was admitted to medical floor with dizziness and near syncope and now she has improved. She is now admitted to Transitional Care Unit for deconditioning and physical therapy. The patient has past medical history significant for lung carcinoma, colon cancer, colonic resection, CAD status post CABG, status post stent insertion, cardiomyopathy, ischemic attack, hypertension, aortic regurgitation. She was admitted to medical floor that she felt very dizzy walking and very unsteady gait. She denies any chest pain, shortness of breath or palpitation. She felt like that she is going to fall down. The patient was treated on medical floor. She has improved, now she is in Transitional Care Unit for deconditioning of physical therapy. The patient is sitting in chair without any cardiac symptoms of chest pain, shortness of breath or palpitation. PAST MEDICAL HISTORY: Significant for coronary artery disease, history of coronary bypass surgery, history of stent insertion. Her last cardiac catheterization showed occluded CALLAHAN to LAD, patent saphenous vein graft to diagonal one and patent saphenous graft to RCA. She had stent insertion many years ago; history of ischemic cardiomyopathy, ejection fraction is significantly reduced; COPD; goiter; small cell lung cancer, inoperable, treated with chemo and radiation; history of subtotal colectomy; history of Port-A-Cath. ALLERGIES: THE PATIENT IS ALLERGIC TO SHELLFISH, MECLIZINE, ATORVASTATIN. Recent cardiac workup, the patient had an echocardiogram done on 05/11/2018 that revealed ejection fraction of 25-30%, mild valvular aortic stenosis, [id number] mitral regurgitation, [id number] tricuspid regurgitation, RV systolic pressure of 31 mmHg, no pericardial effusion. MEDICATIONS AT HOME: The patient was taking spironolactone 25 mg daily, simvastatin 40 daily, vitamin B6, , Medrol Dosepak, losartan, furosemide, ferrous sulfate, digoxin, Plavix, Coreg, aspirin, Brovana. PHYSICAL EXAMINATION: VITAL SIGNS: Blood pressure 112/66, respirations 16, pulse 69, temperature 97.7. HEENT: Head is normocephalic. Eyes: Pupils are normal. Conjunctivae are slightly pale. NECK: JVP low. Carotid equal. Thorax AP diameter normal. LUNGS: Clear. CARDIOVASCULAR: S1 and S2. ABDOMEN: Soft and nontender. No organomegaly. EXTREMITIES: No clubbing, no cyanosis. LABORATORY DATA: WBC 8.8, hemoglobin 11.5, hematocrit 35.8, platelets 325. Sodium 139, potassium 4.6, BUN 69, creatinine 1.9, calcium 9.6, phosphorus 5.0, magnesium 2.1. AST 47, ALT 30. DIAGNOSTICS: EKG shows sinus rhythm with premature atrial complexes, sometimes referring bigeminy, LVH with repolarization abnormality. Chest x-ray noted effusion and acute infiltrate, cardiomegaly is stable, aortic ectasia and dilatation as before. DIAGNOSES: Dizziness, unsteady gait, near syncope, deconditioning, coronary artery disease, history of coronary artery bypass surgery status post stent insertion, ischemic cardiomyopathy, mild valvular aortic stenosis, ischemic cardiomyopathy, history of lung carcinoma treated with radiation and chemotherapy, history of colon resection, post hemicolectomy, ejection fraction 20-25% as mentioned on the echo above, mild mitral regurgitation, mild tricuspid regurgitation. PLAN: To continue physical therapy for her deconditioning. Continue spironolactone 25 b.i.d., carvedilol 3.125 p.o. daily, losartan 12.5 mg p.o. daily, digoxin 0.125 daily, aspirin 81 daily, ferrous sulfate 324 mg daily, heparin 5000 units subcutaneously daily, furosemide 40 mg b.i.d., Plavix 75 daily, Protonix 20 daily. We will follow with you. Shekhar Stringer MD
[2018-06-22] MEDS: Digoxin 125 mcg (0.125 mg) Tab PO SCH (14:55)
--- NOTE | 2018-06-22 15:07 | US ---
Date of service: 06/22/2018 PROCEDURE: Ultrasound of the Kidneys HISTORY: ARF, CKD3 COMPARISON: None available. TECHNIQUE: Sonogram of the kidneys. FINDINGS: RIGHT KIDNEY: Measures: 9.5 x 3.0 x 4.4 cm. Normal in size, contour and echogenicity. No stone, solid mass lesion or hydronephrosis visualized. There are 2 separate 2.4 cm cysts in the mid and lower pole LEFT KIDNEY: Measures: 8.0 x 4.0 x 5.3 cm. Normal in size, contour and echogenicity. No stone, solid mass lesion or hydronephrosis visualized. 2 cm cyst in the upper pole OTHER FINDINGS: None. IMPRESSION: Unremarkable renal sonogram.
[2018-06-23] MEDS: Pantoprazole 20 mg EC Tab PO SCH (05:58)
[2018-06-23 06:37] LABS: HEMOGLOBIN 10.9 g/dL (12.0-16.0); MEAN CELL VOLUME 84.2 fl (80.0-105.0); MEAN CORPUSCULAR HGB CONC 32.1 g/dl (31.0-37.0); MEAN PLATELET VOLUME 10.3 fl (7.0-11.0); RBC 4.04 10^6/uL (3.5-6.1); RED CELL DISTRIBUTION WIDTH 14.6 % (11.5-14.5); WHITE BLOOD COUNT 8.1 10^3/uL (4.5-11.0)
[2018-06-23 06:47] LABS: ALB/GLOB RATIO 1.2 (1.1-1.8); ALBUMIN 3.9 g/dL (3.0-4.8); CALCIUM 9.3 mg/dL (8.4-10.5)
[2018-06-23] MEDS: Budesonide 0.5 mg/2 ml Inhal Susp UD IH SCH ×2 (07:26→20:17)
[2018-06-23] MEDS: Cholecalciferol 1,000 INTLU TAB PO SCH (09:56)
[2018-06-23] MEDS: Sodium Chloride 0.45% 1,000 ML IV SCH (13:57)
[2018-06-23] MEDS: Digoxin 125 mcg (0.125 mg) Tab PO SCH (14:08)
--- NOTE | 2018-06-23 15:02 | PN ---
DATE: 06/23/2018 SUBJECTIVE: The patient is currently seen lying comfortable in bed in the TCU. She is eating lunch. According to the nursing staff, her fluid hydration orally has been minimal. The patient is currently off Lasix, Aldactone. Her BUN and creatinine continue to elevate. MEDICATIONS: Medication list reviewed. The patient is currently on Coreg, digoxin, Ecotrin, Feosol, subcu heparin, Plavix, Protonix, Pulmicort Respules, Tylenol, vitamin D and Xanax. OBJECTIVE: VITAL SIGNS: Blood pressure 100/60, pulse of 70, temperature 97.7, respiratory rate of 16, pulse ox is 95%. HEENT: Exam shows her to be normocephalic, atraumatic. Conjunctivae are pink. Sclerae are nonicteric. NECK: Supple. No neck vein distention. CHEST: Clear to auscultation and percussion. No rales, rhonchi or wheezing. She has a port in her right chest wall. CARDIOVASCULAR: Shows a regular rate and rhythm with /AI/MR/TR. No S3, no S4, no rub. ABDOMEN: Soft. Bowel sounds normal. No rebound, guarding or masses. EXTREMITIES: Show no lower extremity cyanosis, clubbing or edema. She has diminished lower extremity pulses bilaterally. LABORATORY DATA AND IMAGING: CBC: White blood cell count 8.1 with a hemoglobin of 10.9, platelet count is 300,000. Chemistries showed normal electrolytes. BUN 83 with a creatinine of 2.3, up from a BUN of 56 and a creatinine of 1.9. Her baseline BUN on acute care was in the 30s. Her baseline creatinine was 1.5-1.6 on acute care. Microbiology: Urine culture showed multiple species and mixed specimen. 24-hour urines are in progress. Her renal ultrasound was done and is unremarkable. She has bilateral kidney cysts. No increased echogenicity. Kidneys are normal size. ASSESSMENT: 1. Acute renal failure superimposed on chronic kidney disease stage 3. The patient appears to be mildly volume depleted. All of her diuretic therapy was discontinued. There is no evidence for congestive heart failure or hypervolemia. It appears that her oral intake is perhaps mildly suboptimal. No choice, but to start the patient on low-dose IV fluid hydration with close monitoring for any development of congestive heart failure. 2. History of chronic obstructive pulmonary disease, currently stable. The patient continues on inhalation therapy. 3. Hypertension. Blood pressure is in the low normal range. I did discontinue losartan because of the elevated BUN and creatinine. She does remain on Coreg. 4. Past history of colon and lung cancer. This appears to be stable. The patient is status post partial colectomy for a colon cancer. 5. History of mild anemia. Hemoglobin is stable in the 10-11 range. 6. 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 The patient's last glucose level was 121. She did have a hemoglobin of 6.9% earlier. PLAN: 1. Await 24-hour urine results. 2. Aldactone, Lasix and losartan were discontinued. 3. No choice but to start the patient on very low-dose fluid hydration. Her baseline BUN is in the 30s and she has only had a rising BUN since admission on diuretic therapy. Her baseline creatinine is in the mid 1 range and is currently up to 2.3. 4. Continue to monitor labs on a daily basis. 5. Follow up any development of CHF. In light of her elevated BUN and creatinine, there is no choice other than to start low-dose IV fluid hydration. Kian Shook MD
--- NOTE | 2018-06-23 16:05 | PN ---
DATE: 06/23/2018 REASON FOR CONSULTATION AND FOLLOWUP: Continuity of care in Transitional Care Unit, history of coronary artery disease, CABG, admitted with dizziness, near syncope patient transferred to Transitional Care Unit. SUBJECTIVE: The patient denies any chest pain, shortness of breath, or any palpitations. Denies any further episode of dizziness. PHYSICAL EXAMINATION: GENERAL: Not in apparent distress, sitting at the bedside brushing her teeth. VITAL SIGNS: Temperature afebrile, heart rate 70, blood pressure 100/60. HEENT: PERRLA. Extraocular muscles intact. NECK: Supple. No carotid bruits or thyromegaly. CHEST: Clear to auscultation. HEART: S1, S2 regular. ABDOMEN: Soft. EXTREMITIES: Clubbing, cyanosis negative. LABORATORY DATA: Blood workup as follows: WBC 8.8, hemoglobin 10.9, hematocrit 34, platelet count 300. Chemistry shows sodium 138, potassium 4.8, chloride 98, carbon dioxide 29, anion gap of 15, BUN 83, creatinine is 2.3. IMPRESSION: An 88-year-old female with a past medical history significant for coronary artery disease, coronary artery bypass graft, status post percutaneous transluminal coronary angioplasty in the past, history of aortic regurgitation, last catheterization revealed occluded left internal mammary artery to left anterior descending, patent saphenous graft to the diagonal 1 open and saphenous vein graft to the right coronary artery patent. Admitted with dizziness. Now, the patient in the Transitional Care Unit for the continuity of care. History of lung carcinoma, advanced, inoperable, chemotherapy and radiation therapy. Now, the patient remains in acute renal failure. RECOMMENDATIONS: We will hold Lasix, continue digoxin, liberalize p.o. fluids, continue DVT prophylaxis, and we will resume diuretics tomorrow if the renal function stabilizes. We will follow with you. Also, we will hold spironolactone as well because of the elevated potassium. Will follow with you. Will repeat the blood workup in the morning. Thank you, Dr. Duncan/Dr. Gavin, for providing us the opportunity in taking care of patient, Enriqueta Escobar. Shekhar Howard MD [facility] # [id number]
--- NOTE | 2018-06-23 17:33 | CP.PCM.PN ---
Subjective - Date & Time of Evaluation Date of Evaluation: 06/23/18 Time of Evaluation: 17:32 - Subjective Subjective: Hematology/Oncology Progress Note (Dr. Duncan's Service) Patient seen and assessed at bedside. No acute events noted overnight. Patient denies any complaints at this time including fevers, chills, headache, chest pain, SOB at rest, abdominal pain, N/V/D/C, changes in urine output, skin changes or any numbness/tingling of any extremity. Objective - Vital Signs/Intake and Output Vital Signs (last 24 hours): Temp Pulse Resp BP Pulse Ox 97.9 F 81 18 100/51 L 95 06/23/18 16:00 06/23/18 16:00 06/23/18 16:00 06/23/18 16:00 06/23/18 16:00 - Medications Medications: Current Medications Acetaminophen (Tylenol 325mg Tab) 650 mg PO Q6H PRN; Protocol PRN Reason: Headache Last Admin: 06/23/18 03:11 Dose: 650 mg Alprazolam (Xanax) 0.5 mg PO HS YAHIR; Protocol Stop: 06/28/18 22:01 Last Admin: 06/22/18 21:30 Dose: 0.5 mg Alprazolam (Xanax) 0.25 mg PO DAILY YAHIR; Protocol Stop: 06/29/18 10:01 Last Admin: 06/23/18 09:58 Dose: 0.25 mg Aspirin (Ecotrin) 81 mg PO 0800 YAHIR; Protocol Last Admin: 06/23/18 08:00 Dose: 81 mg Budesonide (Pulmicort Respules) 0.5 mg IH [id number] YAHIR; Protocol Last Admin: 06/23/18 07:26 Dose: 0.5 mg Carvedilol (Coreg) 3.125 mg PO 0800,1800 YAHIR; Protocol Last Admin: 06/23/18 08:00 Dose: 3.125 mg Cholecalciferol (Vitamin D) 1,000 intlu PO DAILY YAHIR; Protocol Last Admin: 06/23/18 09:56 Dose: 1,000 intlu Clopidogrel Bisulfate (Plavix) 75 mg PO DAILY YAHIR; Protocol Last Admin: 06/23/18 09:56 Dose: 75 mg Digoxin (Digoxin) 0.125 mg PO 1400 YAHIR; Protocol Last Admin: 06/23/18 14:08 Dose: 0.125 mg Ferrous Sulfate (Feosol) 324 mg PO QOTHERDAY YAHIR; Protocol Last Admin: 06/23/18 09:56 Dose: 324 mg Furosemide (Lasix) 40 mg PO 0800,1400 YAHIR Last Admin: 06/23/18 08:01 Dose: 40 mg Heparin Sodium (Porcine) (Heparin) 5,000 units SC 0600,1800 YAHIR; Protocol Last Admin: 06/23/18 05:57 Dose: 5,000 units Sodium Chloride (Sodium Chloride 0.45%) 1,000 mls @ 60 mls/hr IV .[id number] YAHIR Last Admin: 06/23/18 13:57 Dose: 60 mls/hr Pantoprazole Sodium (Protonix Ec Tab) 20 mg PO 0600 YAHIR; Protocol Last Admin: 06/23/18 05:58 Dose: 20 mg Spironolactone (Aldactone) 25 mg PO BID YAHIR; Protocol - Labs Labs: 06/23/18 06:00 06/23/18 06:00 - Additional Findings Additional findings: - Constitutional Appears: Non-toxic, No Acute Distress - Head Exam Head Exam: ATRAUMATIC, NORMOCEPHALIC - Eye Exam Eye Exam: EOMI, Normal appearance - ENT Exam ENT Exam: Mucous Membranes Moist - Neck Exam Neck Exam: Full ROM, Normal Inspection. absent: Lymphadenopathy, Meningismus, Tenderness, Thyromegaly - Respiratory Exam Respiratory Exam: Clear to Ausculation Bilateral, NORMAL BREATHING PATTERN Additional comments: Right chest wall port intact without signs of clinical infection of surrounding soft tissues - Cardiovascular Exam Cardiovascular Exam: REGULAR RHYTHM, RRR, +S1, +S2 - GI/Abdominal Exam GI & Abdominal Exam: Soft, Normal Bowel Sounds. absent: Tenderness - Extremities Exam Extremities Exam: absent: Calf Tenderness, Joint Swelling, Pedal Edema - Neurological Exam Neurological Exam: Alert, Awake, Oriented x3 - Psychiatric Exam Psychiatric exam: Normal Affect, Normal Mood - Skin Skin Exam: Dry, Intact, Normal Color, Warm Assessment and Plan - Assessment and Plan (Free Text) Assessment: 88 year old female with a past medical history significant for COPD, systolic CHF (EF 25-30%), CAD, HTN, HLD, lung cancer s/p chemoradiation and colon cancer s/p resection who presented with near syncope. Patient was transferred to the TCU for further physical rehabilitation. Plan: 1. Near Syncope -CT Head showed age appropriate microvascular changes and no acute intracranial pathology -Chest X-Ray showed no acute disease -Carotid US showed bilateral proximal ICA stenosis of 20-39% -EKG showed NSR at 72 beats/min with PAC's and LVH; Unchanged from previous EKG's -Three serial troponins negative -UA negative for UTI -Orthostatic VS negative -Neurology and Cardiology consulted, all recommendations appreciated 2. MADELINE -Patient with Creatinine of 1.5 on admission (Baseline prior to 04/2018 was approximately 1.2-1.3) -Currently with creatinine of 1.7 on today's CMP -Renal US unremarkable -24 hour urine results pending -Discontinue Aldactone, Lasix and Cozaar -Started on low dose IV hydration per Nephrology -Continue to monitor with daily CMP's -Nephrology consulted, all recommendations appreciated 3. History of Systolic CHF (EF 25-30%) -Most Recent 2D Echocardiogram reviewed -Continue home Coreg and Digoxin -Holding Aldactone, Lasix and Cozaar in setting of MADELINE -Cardiology consulted, all recommendations appreciated 4. History of CAD s/p CABG -TSH and Lipid panel within normal limits -A1c 6.9 -Continue home ASA and Plavix 5. History of HTN -Continue to monitor off of Cozaar -Holding Cozaar in setting of MADELINE 6. History of HLD -Lipid panel within normal limits -Continue Lipitor 20mg daily 7. History of Anxiety -Continue home Xanax 8. Deconditioning -Continue daily PT GI Prophylaxis: Protonix DVT Prophylaxis: Heparin Diet: Heart Healthy Code Status: Full code Patient seen and case discussed with attending, Dr. Duncan. Dane Newsome PGY2
[2018-06-24] MEDS: Pantoprazole 20 mg EC Tab PO SCH (05:26)
[2018-06-24] MEDS: Sodium Chloride 0.45% 1,000 ML IV SCH (05:28)
[2018-06-24 07:14] LABS: ALB/GLOB RATIO 1.2 (1.1-1.8); ALBUMIN 3.6 g/dL (3.0-4.8); CALCIUM 8.9 mg/dL (8.4-10.5)
[2018-06-24] MEDS: Budesonide 0.5 mg/2 ml Inhal Susp UD IH SCH ×2 (07:19→19:45)
[2018-06-24 07:22] LABS: HEMOGLOBIN 10.2 g/dL (12.0-16.0); MEAN CELL VOLUME 83.5 fl (80.0-105.0); MEAN CORPUSCULAR HEMOGLOBIN 26.8 pg (25.0-35.0); MEAN CORPUSCULAR HGB CONC 32.1 g/dl (31.0-37.0); MEAN PLATELET VOLUME 10.5 fl (7.0-11.0); RBC 3.81 10^6/uL (3.5-6.1); RED CELL DISTRIBUTION WIDTH 14.8 % (11.5-14.5); WHITE BLOOD COUNT 8.6 10^3/uL (4.5-11.0)
[2018-06-24] MEDS: Cholecalciferol 1,000 INTLU TAB PO SCH (10:06)
[2018-06-24] MEDS: Digoxin 125 mcg (0.125 mg) Tab PO SCH (13:33)
[2018-06-24] MEDS ORDERED: Petrolatum Oint Foilpak (5 gm) TOP PRN ×2 (14:45→14:52)
[2018-06-24] MEDS ORDERED: Lubricant Eye Drops UD OU PRN (14:45)
--- NOTE | 2018-06-24 15:00 | PN ---
DATE: 06/24/2018 LOCATION: The patient in room 321, bed 1. REASON FOR CONSULTATION AND FOLLOWUP: Coronary artery disease, CABG, history of angioplasty and stent insertion, dizziness, near syncope, deconditioning. SUBJECTIVE: The patient was on the medical floor for dizziness and near syncope, which she improved with the treatment, now she is in Transitional Care Unit for deconditioning and getting physical therapy. Denies any chest pain, shortness of breath or palpitations. The patient lying flat in bed without any cardiac symptoms. PHYSICAL EXAMINATION: VITAL SIGNS: Blood pressure 128/68, respirations 16, pulse 65, temperature 98.1. HEENT: Head is normocephalic. Eyes: Pupils normal, conjunctivae slightly pale. NECK: JVP low. Carotid equal. THORAX: AP diameter normal. CARDIOVASCULAR: S1, S2. LUNGS: Clear. ABDOMEN: Soft, no tenderness, no organomegaly. Bowel sounds normal. EXTREMITIES: No clubbing, no cyanosis. LABORATORY DATA: WBC 8.6, hemoglobin 10.2, hematocrit 31.8, platelet 289. Sodium 136, potassium 4.2, BUN 76, creatinine 1.7, AST 42, ALT 28, total protein within normal. DIAGNOSES: Coronary artery disease, coronary artery bypass graft surgery, status post angioplasty, stent insertion in the past, dizziness, near syncope, history of ischemic cardiomyopathy, history of lung carcinoma inoperable, status post chemotherapy and radiation therapy, renal failure. PLAN: The patient's Lasix and Aldactone has been on hold because of high BUN, creatinine. The patient already started on IV fluids by Dr. Shook. We will continue the patient on digoxin 0.125 p.o. daily, aspirin 81 mg daily, carvedilol 3.125 p.o. daily, ferrous sulfate 324 mg every other day, heparin 5000 units subcu daily, Plavix 75 daily, Protonix 20 mg p.o. daily. We will repeat SMA-7, magnesium, phosphorus, digoxin level in the morning and we will follow with you. Shekhar Stringer MD
--- NOTE | 2018-06-24 15:41 | RAD ---
Date of service: 06/24/2018 HISTORY: Shortness of breath. COMPARISON: 06/16/2018 TECHNIQUE: Chest PA and lateral FINDINGS: LUNGS: Low lung volumes accentuating markings at the lung bases. PLEURA: No significant pleural effusion identified. No pneumothorax apparent. CARDIOVASCULAR: Cardiomegaly. No evidence of acute, significant cardiovascular disease. No radiographic findings to suggest acute or significant cardiovascular disease. Incidental Finding(s): Postoperative changes related to sternotomy. Atherosclerotic calcifications identified primarily aortic arch. Venous access catheter in stable, satisfactory position. OSSEOUS STRUCTURES: No significant abnormalities. VISUALIZED UPPER ABDOMEN: Normal. OTHER FINDINGS: None. IMPRESSION: No active disease. No significant interval change compared to the prior examination(s).
--- NOTE | 2018-06-24 15:53 | PN ---
DATE: 06/24/2018 SUBJECTIVE: The patient is seen lying in bed in the Transitional Care Unit. She complains of some discomfort on lying down. She denies any chest tightness. She denies any shortness of breath. PHYSICAL EXAMINATION: GENERAL: Elderly lady sitting in bed. VITAL SIGNS: Blood pressure 95/47, heart rate 61, respiratory rate 14, temperature 97.6. HEENT: Normocephalic, atraumatic, positive pallor. NECK: Supple, no JVD. LUNGS: Diffuse crackles at left base, crackles at right base also. CARDIAC: S1, S2, regular rate and rhythm, no murmur, no rub. ABDOMEN: Soft, nondistended, nontender, bowel sounds present. EXTREMITIES: No lower extremity edema. LABORATORY DATA: WBC 8.6, hemoglobin 10.2, hematocrit 32, platelets 289. Sodium 136, potassium 4.2, chloride 101, CO2 of 29, BUN 76, creatinine 1.7, glucose 112, calcium 8.9, phosphorus not checked, AST 42, ALT 28. Urine culture, 10-50,000 colonies of multiple organisms. Renal ultrasound unremarkable. CURRENT MEDICATIONS: Aldactone 25 b.i.d. on hold, Coreg 3.125 b.i.d., digoxin 0.125 daily, Ecotrin, Feosol, heparin, Lasix 40 p.o. b.i.d., Plavix 75, Protonix 20, Lasix was on hold, half-normal saline at 60, Tylenol, Xanax. ASSESSMENT AND PLAN: 1. Acute kidney injury superimposed on chronic kidney disease, stage III/IV. 2. Chronic obstructive pulmonary disease. 3. History of hypertension, currently blood pressure is low. 4. History of colon cancer and lung cancer. 5. Mild anemia. PLAN: 1. Currently, the patient has a lot of crackles at the bases, repeat chest x-ray. 2. Restart Lasix. 3. Monitor daily labs. 4. Discontinue IV fluids. Dominga Ford MD
[2018-06-24 16:46] LABS: URINE 24 HOUR TOTAL PROTEIN 55 mg/24HR (42-225); URINE COLLECTION TIME 24 HOURS; URINE TOTAL VOLUME 500 mL (800-1400)
[2018-06-25] MEDS: Pantoprazole 20 mg EC Tab PO SCH (05:43)
[2018-06-25 06:30] LABS: CALCIUM 9.1 mg/dL (8.4-10.5)
[2018-06-25] MEDS: Budesonide 0.5 mg/2 ml Inhal Susp UD IH SCH ×2 (07:23→19:47)
[2018-06-25] MEDS: Cholecalciferol 1,000 INTLU TAB PO SCH (10:20)
--- NOTE | 2018-06-25 10:37 | CP.PCM.PN ---
Subjective - Date & Time of Evaluation Date of Evaluation: 06/25/18 Time of Evaluation: 10:37 - Subjective Subjective: Hematology/Oncology Progress Note (Dr. Duncan's Service) Patient seen and assessed at bedside. No acute events noted overnight. Patient reports that she has not had a great appetite and reports that she is "too old for PT". Patient denies any complaints at this time including fevers, chills, headache, chest pain, SOB at rest, abdominal pain, N/V/D/C, changes in urine output, skin changes or any numbness/tingling of any extremity. Objective - Vital Signs/Intake and Output Vital Signs (last 24 hours): Temp Pulse Resp BP Pulse Ox 98.0 F 57 L 16 111/64 97 06/25/18 06:00 06/25/18 08:56 06/25/18 06:00 06/25/18 08:56 06/25/18 06:00 - Medications Medications: Current Medications Acetaminophen (Tylenol 325mg Tab) 650 mg PO Q6H PRN; Protocol PRN Reason: Headache Last Admin: 06/24/18 17:23 Dose: 650 mg Alprazolam (Xanax) 0.5 mg PO HS [facility]; Protocol Stop: 06/28/18 22:01 Last Admin: 06/24/18 21:17 Dose: 0.5 mg Alprazolam (Xanax) 0.25 mg PO DAILY [facility]; Protocol Stop: 06/29/18 10:01 Last Admin: 06/24/18 10:08 Dose: 0.25 mg Artificial Tears (Refresh Opth Soln) 0.3 ml OU Q2 PRN PRN Reason: Dry eyes Aspirin (Ecotrin) 81 mg PO 0800 [facility]; Protocol Last Admin: 06/25/18 08:57 Dose: 81 mg Budesonide (Pulmicort Respules) 0.5 mg IH [id number] [facility]; Protocol Last Admin: 06/25/18 07:23 Dose: 0.5 mg Carvedilol (Coreg) 3.125 mg PO 0800,1800 [facility]; Protocol Last Admin: 06/25/18 08:56 Dose: 3.125 mg Cholecalciferol (Vitamin D) 1,000 intlu PO DAILY [facility]; Protocol Last Admin: 06/25/18 10:20 Dose: 1,000 intlu Clopidogrel Bisulfate (Plavix) 75 mg PO DAILY [facility]; Protocol Last Admin: 06/25/18 10:20 Dose: 75 mg Digoxin (Digoxin) 0.125 mg PO 1400 [facility]; Protocol Last Admin: 06/24/18 13:33 Dose: 0.125 mg Emollient Ointment (Vaseline Oint) 5 gm TOP Q2H PRN PRN Reason: Dry nasal passages Ferrous Sulfate (Feosol) 324 mg PO QOTHERDAY [facility]; Protocol Last Admin: 06/25/18 10:20 Dose: 324 mg Furosemide (Lasix) 40 mg PO 0800,1400 [facility] Last Admin: 06/23/18 08:01 Dose: 40 mg Heparin Sodium (Porcine) (Heparin) 5,000 units SC 0600,1800 [facility]; Protocol Last Admin: 06/25/18 05:43 Dose: 5,000 units Pantoprazole Sodium (Protonix Ec Tab) 20 mg PO 0600 [facility]; Protocol Last Admin: 06/25/18 05:43 Dose: 20 mg Spironolactone (Aldactone) 25 mg PO BID [facility]; Protocol - Labs Labs: 06/24/18 06:30 06/25/18 06:00 - Additional Findings Additional findings: - Constitutional Appears: Non-toxic, No Acute Distress - Head Exam Head Exam: ATRAUMATIC, NORMOCEPHALIC - Eye Exam Eye Exam: EOMI, Normal appearance - ENT Exam ENT Exam: Mucous Membranes Moist - Neck Exam Neck Exam: Full ROM, Normal Inspection. absent: Lymphadenopathy, Meningismus, Tenderness, Thyromegaly - Respiratory Exam Respiratory Exam: Clear to Ausculation Bilateral, NORMAL BREATHING PATTERN Additional comments: Right chest wall port intact without signs of clinical infection of surrounding soft tissues - Cardiovascular Exam Cardiovascular Exam: REGULAR RHYTHM, RRR, +S1, +S2 - GI/Abdominal Exam GI & Abdominal Exam: Soft, Normal Bowel Sounds. absent: Tenderness - Extremities Exam Extremities Exam: absent: Calf Tenderness, Joint Swelling, Pedal Edema - Neurological Exam Neurological Exam: Alert, Awake, Oriented x3 - Psychiatric Exam Psychiatric exam: Normal Affect, Normal Mood - Skin Skin Exam: Dry, Intact, Normal Color, Warm Assessment and Plan - Assessment and Plan (Free Text) Assessment: 88 year old female with a past medical history significant for COPD, systolic CHF (EF 25-30%), CAD, HTN, HLD, lung cancer s/p chemoradiation and colon cancer s/p resection who presented with near syncope. Patient was transferred to the TCU for further physical rehabilitation. Plan: 1. Near Syncope -CT Head showed age appropriate microvascular changes and no acute intracranial pathology -Chest X-Ray showed no acute disease -Carotid US showed bilateral proximal ICA stenosis of 20-39% -EKG showed NSR at 72 beats/min with PAC's and LVH; Unchanged from previous EKG's -Three serial troponins negative -UA negative for UTI -Orthostatic VS negative -Neurology and Cardiology consulted, all recommendations appreciated 2. MADELINE -Patient with Creatinine of 1.5 on admission (Baseline prior to 04/2018 was approximately 1.2-1.3) -Currently with creatinine of 1.4 on today's CMP -Renal US unremarkable -Started Lasix 40mg PO daily -Discontinue Aldactone and Cozaar -Continue to monitor with daily CMP's -Nephrology consulted, all recommendations appreciated 3. History of Systolic CHF (EF 25-30%) -Most Recent 2D Echocardiogram reviewed -Continue home Coreg and Digoxin -Started Lasix 40mg PO daily -Holding Aldactone and Cozaar in setting of MADELINE -Patient currently without signs of decompensation and Milrinone drip is not indicated at this time, per cardiology -Cardiology consulted, all recommendations appreciated 4. History of CAD s/p CABG -TSH and Lipid panel within normal limits -A1c 6.9 -Continue home ASA and Plavix 5. History of HTN -Continue to monitor off of Cozaar -Holding Cozaar in setting of MADELINE 6. History of HLD -Lipid panel within normal limits -Continue Lipitor 20mg daily 7. History of Anxiety -Continue home Xanax 8. Deconditioning -Continue daily PT GI Prophylaxis: Protonix DVT Prophylaxis: Heparin Diet: Heart Healthy Code Status: Full code Patient seen and case discussed with attending, Dr. Duncan. Dane Newsome PGY2
[2018-06-25] MEDS: Digoxin 125 mcg (0.125 mg) Tab PO SCH (14:49)
--- NOTE | 2018-06-25 16:08 | PN ---
DATE: 06/25/2018 SUBJECTIVE: The patient is seen lying in bed. She is awake, she is alert, she is comfortable. She is undergoing physical therapy. PHYSICAL EXAMINATION: GENERAL: Elderly lady lying in bed. VITAL SIGNS: Blood pressure 105/64, heart rate 55, respiratory rate 16, temperature 98. NECK: Supple, no JVD. LUNGS: Bilateral equal entry, rales at bases. CARDIAC: S1, S2. Regular rate and rhythm, positive murmur, no rub. ABDOMEN: Soft, nondistended. EXTREMITIES: No edema. LABORATORY DATA: Sodium 138, potassium 4.3, chloride 104, CO2 of 28, BUN 60, creatinine 1.4, glucose 109, calcium 9.1, phosphorus 2.7, magnesium 2.1. CURRENT MEDICATIONS: Coreg 3.125 b.i.d., digoxin 0.125 daily, aspirin, Feosol 324 every other day, Lasix 40 mg b.i.d. to start today, IV fluids discontinued. ASSESSMENT: 1. Acute kidney injury superimposed on chronic kidney disease stage IV, resolved acute kidney injury. 2. Prerenal azotemia, resolved. 3. Underlying history of severe pulmonary hypertension, coronary artery disease, congestive heart failure. 4. History of lung cancer. PLAN: 1. Change Lasix to 40 mg daily since the patient is preload dependent. 2. Continue physical therapy. 3. Renal parameters are at baseline. Dominga Ford MD
--- NOTE | 2018-06-26 01:55 | PN ---
DATE: 06/25/2018 REASON FOR CONSULTATION AND FOLLOWUP: Coronary artery disease, CABG, history of angioplasty, history of stent, admitted with near syncope and deconditioned body in Transitional Care Unit, continued care in Transitional Care Unit. The patient denies any chest pain, shortness of breath, or any palpitations. Complaining of pain in the left side of the nostril. OBJECTIVE: GENERAL: Not in apparent distress. VITAL SIGNS: As follows; temperature afebrile, heart rate 55, and blood pressure 105/65. HEENT: PERRLA. Extraocular muscles intact. NECK: Supple. No carotid bruit or thyromegaly. CHEST: Clear to auscultation. HEART: S1 and S2 regular. ABDOMEN: Soft. EXTREMITIES: Clubbing and cyanosis negative. LABORATORY DATA: Blood workup as follows; WBC 8.6, hemoglobin , hematocrit 31.8, and platelet count 289. Chemistry shows sodium 138, potassium 4.3, chloride 104, carbon dioxide 28, anion gap of 9, BUN 60, and creatinine 1.4. Total protein 6.6 and albumin 3.6 as of yesterday. IMPRESSION: An 88-year-old female with past medical history significant for coronary artery disease with coronary artery bypass surgery, status post occluded graft, history of angioplasty, history of stent in the past, admitted with dizziness, near syncope, ischemic cardiomyopathy, lung cancer inoperable, and status post chemotherapy, status post radiation. RECOMMENDATIONS: Continue spironolactone, continue Coreg, continue digoxin, continue aspirin, continue DVT prophylaxis, continue Lasix, and Continue Plavix. Question by Dr. Duncan, resident that the patient needs Primacor, although the patient has a history of congestive heart failure, still the patient is on chronic congestive heart failure secondary to systolic dysfunction, nothing acute decompensated. Do not suggest at this time to have her start Primacor, the patient is in , but chronic CHF secondary to systolic dysfunction and not in acute distress, not in acute decompensation. We will treat medically. Continue rehabilitation. Received medical treatment, possible discharge planning. Thank you Dr. Duncan for providing us an opportunity in taking care of the patient, Enriqueta Escobar. Shekhar Howard MD [facility] # [id number]
[2018-06-26] MEDS: Pantoprazole 20 mg EC Tab PO SCH (05:14)
[2018-06-26 06:56] LABS: CALCIUM 9.1 mg/dL (8.4-10.5)
[2018-06-26] MEDS: Budesonide 0.5 mg/2 ml Inhal Susp UD IH SCH ×2 (07:46→19:38)
[2018-06-26] MEDS: Cholecalciferol 1,000 INTLU TAB PO SCH (10:07)
[2018-06-26] MEDS: Digoxin 125 mcg (0.125 mg) Tab PO SCH (15:00)
--- NOTE | 2018-06-26 17:36 | PN ---
DATE: 06/26/2018 SUBJECTIVE: The patient is seen lying in bed. She is sleeping comfortably. PHYSICAL EXAMINATION: GENERAL: Elderly lady lying in bed. VITAL SIGNS: Blood pressure 124/60, heart rate 71, respiratory rate 20, temperature 98. HEENT: Normocephalic, atraumatic. NECK: Supple, no JVD. LUNGS: Bilateral equal air entry, bilateral equal expansion, crackles at bases. CARDIAC: S1 and S2, regular rate and rhythm, no murmur, no rub. ABDOMEN: Soft, nondistended, nontender, bowel sounds present. EXTREMITIES: No lower extremity edema. LABORATORY DATA: No CBC. Sodium 140, potassium 4.4, chloride 107, CO2 of 27, BUN 46, creatinine 1.2, glucose 107, calcium 9.1. CURRENT MEDICATIONS: Coreg 3.125 b.i.d., digoxin 0.125 daily, Ecotrin 81, Feosol 324 every other day, heparin subcu, Lasix 40 p.o. daily, Plavix 75, Protonix, Pulmicort, Tylenol, Xanax. ASSESSMENT: 1. Acute kidney injury superimposed on chronic kidney disease stage 3/4, resolved acute kidney injury. Suspect intravascular volume depletion, resolving and acute kidney injury in this patient who is dependent because of severe pulmonary hypertension. 2. History of lung cancer. 3. Chronic anemia. PLAN: 1. Continue low-dose Lasix. 2. Avoid over diuresis. 3. Continue to hold Aldactone. 4. Physical therapy. Dominga Ford MD
--- NOTE | 2018-06-26 18:50 | PN ---
DATE: 06/26/2018 LOCATION: The patient in room 321, bed 1. REASON FOR CONSULTATION AND FOLLOWUP: Coronary artery disease, CABG, history of angioplasty with stent insertion, admitted with near syncope and dizziness, now admitted to Transitional Care Unit for deconditioning. SUBJECTIVE: The patient lying flat in bed without any chest pain, shortness of breath, or palpitation. She says that when she walks around she feels tired. PHYSICAL EXAMINATION: VITAL SIGNS: Blood pressure 124/70, respirations 20, pulse 65, temperature 98. HEENT: Head is normocephalic. Eyes: Pupils normal, conjunctivae slightly pale. NECK: JVP low. Carotid equal. THORAX: AP diameter normal. LUNGS: No rales. CARDIOVASCULAR: S1, S2. ABDOMEN: Soft, no tenderness, no organomegaly. Bowel sounds normal. EXTREMITIES: No clubbing, no cyanosis. LABORATORY DATA: WBC 8.6, hemoglobin 10.2, hematocrit 31.8, platelet 289. Sodium 140, potassium 4.4, BUN 46, creatinine 1.2, glucose 107, calcium 9.1. DIAGNOSES: Dizziness; near syncope; coronary artery disease, history of coronary artery bypass graft surgery, history of angioplasty, stent insertion; ischemic cardiomyopathy; left ventricular systolic dysfunction; lung cancer, inoperable, status post chemotherapy and radiation therapy; anemia. PLAN: Continue physical therapy. The patient is on spironolactone 25 b.i.d., carvedilol 3.125 p.o. b.i.d., digoxin 0.125 daily, aspirin 81 daily, ferrous sulfate 324 mg p.o. every other day, heparin 5000 units subcu daily, furosemide 40 daily, Plavix 75 daily, Protonix 20 daily. We will continue present therapy and we will follow up. Shekhar Stringer MD
[2018-06-27] MEDS: Pantoprazole 20 mg EC Tab PO SCH (05:38)
[2018-06-27 06:07] LABS: CALCIUM 9.1 mg/dL (8.4-10.5)
[2018-06-27] MEDS: Budesonide 0.5 mg/2 ml Inhal Susp UD IH SCH ×2 (07:20→20:29)
[2018-06-27] MEDS: Cholecalciferol 1,000 INTLU TAB PO SCH (10:55)
[2018-06-27] MEDS: Digoxin 125 mcg (0.125 mg) Tab PO SCH (14:58)
[2018-06-27 16:18] VITALS: RESP 18; TEMP 97.5; O2SAT 95
[2018-06-28] MEDS: Pantoprazole 20 mg EC Tab PO SCH (05:47)
[2018-06-28 06:54] LABS: CALCIUM 9.4 mg/dL (8.4-10.5)
[2018-06-28] MEDS: Budesonide 0.5 mg/2 ml Inhal Susp UD IH SCH (07:50)
[2018-06-28 08:13] VITALS: BP 133/64; PULSE 70
[2018-06-28] MEDS: Cholecalciferol 1,000 INTLU TAB PO SCH (09:43)
--- NOTE | 2018-06-28 12:46 | PN ---
DATE: 06/28/2018 SUBJECTIVE: The patient is seen lying in bed. She is awake, she is alert. She is comfortable. PHYSICAL EXAMINATION: VITAL SIGNS: Blood pressure 133/64, heart rate 70, respiratory rate 18-20, temperature 97.5. NECK: Supple, no JVD. LUNGS: Bilateral equal air entry, bilateral equal expansion. EXTREMITIES: No lower extremity edema. LABORATORY DATA: Sodium 139, potassium 4.1, chloride 104, CO2 of 30, BUN 31, creatinine 1.2, glucose 113, calcium 9.4. MEDICATIONS: List reviewed. ASSESSMENT AND PLAN: 1. Acute kidney injury, resolved. 2. Stable chronic kidney disease, stage III. 3. Severe pulmonary hypertension. 4. History of lung cancer. 5. Hypertension. PLAN: Renal parameters are stable. Avoid nephrotoxins. Avoid over diuresis. Dominga Ford MD
[2018-06-28] MEDS: Digoxin 125 mcg (0.125 mg) Tab PO SCH (13:16)
[2018-06-28 13:21] VITALS: PULSE 78
--- NOTE | 2018-06-28 16:46 | CP.PCM.PN ---
Subjective - Date & Time of Evaluation Date of Evaluation: 06/27/18 Time of Evaluation: 19:00 - Subjective Subjective: No acute events. Patients complains of some mild throat discomfort and left nostril irritation. Not wearing oxygen at bed side today ROS: 12 ROS otherwise negative Objective - Vital Signs/Intake and Output Vital Signs (last 24 hours): Temp Pulse Resp BP Pulse Ox 97.5 F L 70 18 133/64 95 06/27/18 16:00 06/28/18 08:08 06/27/18 16:00 06/28/18 09:43 06/27/18 16:00 - Medications Medications: Current Medications Acetaminophen (Tylenol 325mg Tab) 650 mg PO Q6H PRN; Protocol PRN Reason: Headache Last Admin: 06/24/18 17:23 Dose: 650 mg Alprazolam (Xanax) 0.5 mg PO HS [facility]; Protocol Stop: 06/28/18 22:01 Last Admin: 06/27/18 21:25 Dose: 0.5 mg Alprazolam (Xanax) 0.25 mg PO DAILY [facility]; Protocol Stop: 06/29/18 10:01 Last Admin: 06/28/18 09:45 Dose: 0.25 mg Artificial Tears (Refresh Opth Soln) 0.3 ml OU Q2 PRN PRN Reason: Dry eyes Aspirin (Ecotrin) 81 mg PO 0800 [facility]; Protocol Last Admin: 06/28/18 08:09 Dose: 81 mg Budesonide (Pulmicort Respules) 0.5 mg IH [id number] [facility]; Protocol Last Admin: 06/28/18 07:50 Dose: 0.5 mg Carvedilol (Coreg) 3.125 mg PO 0800,1800 [facility]; Protocol Last Admin: 06/28/18 08:08 Dose: 3.125 mg Cholecalciferol (Vitamin D) 1,000 intlu PO DAILY [facility]; Protocol Last Admin: 06/28/18 09:43 Dose: 1,000 intlu Clopidogrel Bisulfate (Plavix) 75 mg PO DAILY [facility]; Protocol Last Admin: 06/28/18 09:43 Dose: 75 mg Digoxin (Digoxin) 0.125 mg PO 1400 [facility]; Protocol Last Admin: 06/28/18 13:16 Dose: 0.125 mg Emollient Ointment (Vaseline Oint) 5 gm TOP Q2H PRN PRN Reason: Dry nasal passages Ferrous Sulfate (Feosol) 324 mg PO QOTHERDAY [facility]; Protocol Last Admin: 06/27/18 10:55 Dose: 324 mg Furosemide (Lasix) 40 mg PO DAILY [facility] Last Admin: 06/28/18 09:43 Dose: 40 mg Heparin Sodium (Porcine) (Heparin) 5,000 units SC 0600,1800 [facility]; Protocol Last Admin: 06/28/18 05:47 Dose: 5,000 units Pantoprazole Sodium (Protonix Ec Tab) 20 mg PO 0600 [facility]; Protocol Last Admin: 06/28/18 05:47 Dose: 20 mg Sodium Chloride ([place] Nasal [place]) 0 ml NS Q8 PRN PRN Reason: Nasal congestion Spironolactone (Aldactone) 25 mg PO BID [facility]; Protocol - Labs Labs: 06/24/18 06:30 06/28/18 06:15 - Constitutional Appears: Well - Eye Exam Eye Exam: EOMI, Normal appearance, PERRL - ENT Exam ENT Exam: Mucous Membranes Moist, Normal Exam - Respiratory Exam Respiratory Exam: Clear to Ausculation Bilateral, NORMAL BREATHING PATTERN - Cardiovascular Exam Cardiovascular Exam: REGULAR RHYTHM, +S1, +S2. absent: Murmur - GI/Abdominal Exam GI & Abdominal Exam: Soft, Normal Bowel Sounds. absent: Tenderness - Extremities Exam Extremities Exam: Full ROM, Normal Capillary Refill, Normal Inspection. absent: Joint Swelling, Pedal Edema Assessment and Plan - Assessment and Plan (Free Text) Assessment: Ms. Martins is an 88 y/o woman with pmhx significant for COPD, CHF (EF 250-30%), CAD, HTN, lung cancer s/p chemoradiation, and colon cancer s/p resection who presents with near syncope and how currently in the TCU for further physical rehabilitation. #near syncope (thought to be orthostatic vs vasovagal) -w/up for CT head, CXR, tropnoins and EKG wnl -Carotid b/l US demosntrated ICA stenosis of 20-39% -cardiology and neurology consulted #MADELINE -thought to be pre-renal azotemia -holding off on further diuresis nephrology contuslted #CHF/CAD -continue home corege and digoxin -holding aldactone and Cozaar in setting of MADELINE -patient currently w/o signs of decompensation -continue lasix 40mg qd -continue ASA and plavix #HLD -continue with lipitor #Anxiety -Continue home Xanax #Dispo -likely home tomorrow -continue with PT GI Prophylaxis: Protonix DVT Prophylaxis: Heparin Diet: Heart Healthy Code Status: Full code
--- NOTE | 2018-06-28 16:54 | CP.PCM.DIS ---
Provider - Provider Date of Admission: 06/20/18 13:30 Attending physician: Adrián Gavin MD Primary care physician: Adrián Gavin MD Consults: Cardiology, Nephrology, Physical Therapy Time Spent in preparation of Discharge (in minutes): 40 Diagnosis - Discharge Diagnosis (1) Syncope Status: Acute Hospital Course - Lab Results Lab Results: Micro Results 06/22/18 05:33 Urine,Clean Catch Urine Culture - Final 10-50,000 CFU/ML. MULTIPLE SPECIES. PROBABLE CONTAMINATION. Most Recent Lab Values WBC 8.6 10^3/uL (4.5-11.0) 06/24/18 06:30 RBC 3.81 10^6/uL (3.5-6.1) 06/24/18 06:30 Hgb 10.2 g/dL (12.0-16.0) L 06/24/18 06:30 Hct 31.8 % (36.0-48.0) L 06/24/18 06:30 MCV 83.5 fl (80.0-105.0) 06/24/18 06:30 MCH 26.8 pg (25.0-35.0) 06/24/18 06:30 MCHC 32.1 g/dl (31.0-37.0) 06/24/18 06:30 RDW 14.8 % (11.5-14.5) H 06/24/18 06:30 Plt Count 289 10^3/uL (120.0-450.0) 06/24/18 06:30 MPV 10.5 fl (7.0-11.0) 06/24/18 06:30 Sodium 139 mmol/L (132-148) 06/28/18 06:15 Potassium 4.1 mmol/L (3.6-5.0) 06/28/18 06:15 Chloride 104 mmol/L (98-107) 06/28/18 06:15 Carbon Dioxide 30 mmol/L (21-33) 06/28/18 06:15 Anion Gap 10 (10-20) 06/28/18 06:15 BUN 31 mg/dL (7-21) H 06/28/18 06:15 Creatinine 1.2 mg/dl (0.7-1.2) 06/28/18 06:15 Est GFR ( Amer) 51 06/28/18 06:15 Est GFR (Non-Af Amer) 42 06/28/18 06:15 Random Glucose 113 mg/dL (70-110) H 06/28/18 06:15 Calcium 9.4 mg/dL (8.4-10.5) 06/28/18 06:15 Phosphorus 2.7 mg/dL (2.5-4.5) 06/25/18 06:00 Magnesium 2.1 mg/dL (1.7-2.2) 06/25/18 06:00 Total Bilirubin 0.3 mg/dL (0.2-1.3) 06/24/18 06:30 AST 42 U/L (14-36) H 06/24/18 06:30 ALT 28 U/L (7-56) 06/24/18 06:30 Alkaline Phosphatase 50 U/L (38-126) 06/24/18 06:30 Total Protein 6.6 g/dL (5.8-8.3) 06/24/18 06:30 Albumin 3.6 g/dL (3.0-4.8) 06/24/18 06:30 Globulin 3.0 gm/dL 06/24/18 06:30 Albumin/Globulin Ratio 1.2 (1.1-1.8) 06/24/18 06:30 Urine Collection Time 24 HOURS 06/24/18 15:00 Urine Total Volume 500 mL (800-1400) L 06/24/18 15:00 Creatinine Clearance 10.0 ml/min (80-120) L 06/24/18 15:00 Ur Protein 24 Hr Calc 55 mg/24HR (42-225) 06/24/18 15:00 Digoxin 1.6 ng/mL (0.8-2.0) 06/25/18 06:00 - Hospital Course Hospital Course: Ms. Martins is an 88 y/o woman with pmhx significant for COPD, CHF (EF 250-30%), CAD, HTN, lung cancer s/p chemoradiation, and colon cancer s/p resection who presents with near syncope and how currently in the TCU for further physical rehabilitation. Patient had a caridac and neurologic syncope w/up which was largely unremarkable. Course complicated by MADELINE but with medication titration (holding cozaar, and aldactone; initiating lasix) creatinine stabilized. On day of discharge patient was stable and w/o complaints. She was instructed to call her primary oncology (Dr. Duncan) and Facility Security Officer (Dr. Stringer) tomorrow to arrange for f/u later this week. Son was at bedside and and verbalized understanding plann #near syncope (thought to be orthostatic vs vasovagal) -w/up for CT head, CXR, tropnoins and EKG wnl -Carotid b/l US demosntrated ICA stenosis of 20-39% -cardiology and neurology consulted #COPD -continue home oxygen. #MADELINE -thought to be pre-renal azotemia -holding off on further diuresis nephrology contuslted #CHF/CAD -continue home corege and digoxin -holding aldactone and Cozaar in setting of MADELINE -patient currently w/o signs of decompensation -continue lasix 40mg qd -continue ASA and plavix #HLD -continue with lipitor #Anxiety -Continue home Xanax #Dispo -home Discharge Exam - Eye Exam Eye Exam: EOMI, Normal appearance, PERRL - ENT Exam ENT Exam: Mucous Membranes Moist, Normal Oropharynx. absent: Mucous Membranes Dry - Respiratory Exam Respiratory Exam: Clear to PA & Lateral, NORMAL BREATHING PATTERN, UNREMARKABLE. absent: Accessory Muscle Use - Cardiovascular Exam Cardiovascular Exam: REGULAR RHYTHM - GI/Abdominal Exam GI & Abdominal Exam: Normal Bowel Sounds - Extremities Exam Extremities exam: normal inspection - Skin Skin Exam: Dry, Intact, Normal Color, Warm Discharge Plan - Discharge Medications Prescriptions: ALPRAZolam [Xanax] 0.25 mg PO DAILY #90 tab - Follow Up Plan Condition: GOOD Disposition: HOME/ ROUTINE Instructions: Syncope (Fainting), Heart Failure, Adult, Chronic Kidney Disease, Heart Failure (DC), Heart Failure (GEN), Pacemaker (DC), Pacemaker (GEN), Pulmonary Edema (DC), Pulmonary Edema (GEN), Ascites (DC), Ascites (GEN) Referrals: Adrián Gavin MD [Primary Care Provider] -
--- NOTE | 2018-06-28 21:09 | PN ---
DATE: 06/28/2018 SEX OF THE PATIENT: Female. AGE OF THE PATIENT: 88. REASON FOR CONSULTATION AND FOLLOWUP: Coronary artery disease, CABG, history of angioplasty, history of stent, admitted with near-syncope, deconditioned body in outpatient Transitional Care Unit for continuity of care. Complaining of pain in the left side of the nostril. PHYSICAL EXAMINATION: VITAL SIGNS: Temperature afebrile, heart rate 70, and blood pressure 133/64. HEENT: PERRLA. Extraocular muscles intact. NECK: Supple. No carotid bruit or thyromegaly. CHEST: Clear to auscultation. HEART: S1 and S2 regular. ABDOMEN: Soft. EXTREMITIES: Clubbing and cyanosis negative. LABORATORY DATA: Blood workup as follows: WBC 8.6, hemoglobin 10.3, hematocrit 31.8, and platelet count 289. Chemistries: Sodium 138, potassium 4.3, chloride 104, carbon dioxide 30, anion gap of 10, BUN 31, and creatinine 1.2. IMPRESSION: This is an 88-year-old female with past medical history significant for coronary artery disease, coronary artery bypass graft, aortic regurgitation, status post stent, lung cancer inoperable, status post chemotherapy, status post radiation, admitted with deconditioning of the body, initially admitted to the medical floor with dizziness. After stabilizing, transferred to Transitional Care Unit for continuity of care. Complaining of pain in the left nostril from the oxygen. RECOMMENDATIONS: Continue Coreg, continue digoxin, continue aspirin, continue DVT prophylaxis, continue Lasix, continue Plavix, and saline nasal drop. We will follow. We will start possible discharge today. Shekhar Howard MD
== END 2018-06-28 16:47 | disposition home or self-care (01) | DRG 312 ==
LOC: TRCU 13:30
PROVIDERS: ADMIT Family Medicine; ATTEND Family Medicine
PROC: F08Z2ZZ Grooming/Personal Hygiene Treatment (ICD-10-PCS; 2018-06-20)
PROC: F08Z1ZZ Dressing Techniques Treatment (ICD-10-PCS; 2018-06-20)
PROC: F08Z0ZZ Bathing/Showering Techniques Treatment (ICD-10-PCS; 2018-06-20)
PROC: 3E02340 Introduction of Influenza Vaccine into Muscle, Percutaneous Approach (ICD-10-PCS; 2018-06-20)
PROC: F07Z9FZ Gait Training/Functional Ambulation Treatment using Assistive, Adaptive, Supportive or Protective Equipment (ICD-10-PCS; principal; 2018-06-21)
PROC: F07M6ZZ Therapeutic Exercise Treatment of Musculoskeletal System - Whole Body (ICD-10-PCS; 2018-06-21)
DX: I95.1 Orthostatic hypotension (principal); N17.9 Acute kidney failure, unspecified; N18.4 Chronic kidney disease, stage 4 (severe); I13.0 Hypertensive heart and chronic kidney disease with heart failure and stage 1 through stage 4 chronic kidney disease, or unspecified chronic kidney disease; I50.22 Chronic systolic (congestive) heart failure; J44.9 Chronic obstructive pulmonary disease, unspecified; E11.22 Type 2 diabetes mellitus with diabetic chronic kidney disease; D64.9 Anemia, unspecified; E78.5 Hyperlipidemia, unspecified; F41.9 Anxiety disorder, unspecified; G47.00 Insomnia, unspecified; I08.3 Combined rheumatic disorders of mitral, aortic and tricuspid valves; I25.10 Atherosclerotic heart disease of native coronary artery without angina pectoris; I25.5 Ischemic cardiomyopathy; I27.20 Pulmonary hypertension, unspecified; I65.29 Occlusion and stenosis of unspecified carotid artery; K21.9 Gastro-esophageal reflux disease without esophagitis; Z79.02 Long term (current) use of antithrombotics/antiplatelets; Z79.82 Long term (current) use of aspirin; Z79.899 Other long term (current) drug therapy; Z85.038 Personal history of other malignant neoplasm of large intestine; Z85.118 Personal history of other malignant neoplasm of bronchus and lung; Z87.891 Personal history of nicotine dependence; Z90.49 Acquired absence of other specified parts of digestive tract; Z92.21 Personal history of antineoplastic chemotherapy; Z92.3 Personal history of irradiation; Z95.1 Presence of aortocoronary bypass graft; Z95.5 Presence of coronary angioplasty implant and graft; Z99.81 Dependence on supplemental oxygen; Z88.8 Allergy status to other drugs, medicaments and biological substances; Z91.013 Allergy to seafood; Z23 Encounter for immunization

== ENCOUNTER 2018-07-07 14:05 | Inpatient (IN) | payer MEDICARE, OTHER ==
[2018-07-07 14:07] VITALS: BMI 20.3
--- NOTE | 2018-07-07 14:36 | ED PDOC ---
Arrival/HPI - General Chief Complaint: GI Problem Historian: Patient - History of Present Illness Narrative History of Present Illness (Text): 07/07/18 14:23 88 year old female whose past medical history includes lung cancer, colon cancer, colon resection, CAD, CABG, cardiomyopathy, and hypertension, who presents to the Emergency department for blood in the stool. Patient states she went to the bathroom and found a bowl full of blood. She reports slight abdominal pain, and shortness of breath, she normally uses a 2L oxygen tank at home. She denies any soreness to the area, dizziness, fevers, chills, headache, dizziness, chest pain, nausea, vomiting, diarrhea, back pain, neck pain, or any other complaint. PMD: Dr. Boo Oncologist: Dr. Duncan Time/Duration: Prior to Arrival Symptom Onset: Sudden Symptom Course: Unchanged Activities at Onset: Light Context: Home Past Medical History - Provider Review Nursing Documentation Reviewed: Yes - Infectious Disease Hx of Infectious Diseases: None - Tetanus Immunization Tetanus Immunization: Unknown - Cardiac Hx Cardiac Disorders: Yes Hx Congestive Heart Failure: Yes Hx Hypertension: Yes - Pulmonary Hx Respiratory Disorders: No - Neurological Hx Neurological Disorder: No - HEENT Hx HEENT Disorder: No - Renal Hx Renal Disorder: No - Endocrine/Metabolic Hx Diabetes Mellitus Type 2: Yes - Hematological/Oncological Hx Blood Disorders: No - Integumentary Hx Dermatological Disorder: No - Musculoskeletal/Rheumatological Hx Arthritis: Yes - Gastrointestinal Hx Gastrointestinal Disorders: Yes (POOR APPETITE,LUNG CA, COLON CA WITH RESECTION,) - Genitourinary/Gynecological Hx Genitourinary Disorders: Yes Hx Reproductive Disorders: No - Psychiatric Hx Psychophysiologic Disorder: No Hx Substance Use: No - Surgical History Hx Amputation: No Hx Appendectomy: Yes Hx Cardiac Catheterization: Yes Hx Cholecystectomy: Yes Hx Coronary Stent: No Hx Gastric Bypass Surgery: No Hx Hysterectomy: No Hx Joint Replacement: No Hx Kidney Transplant: No Hx Liver Transplant: No Hx Mastectomy: No Hx Musculoskeletal Surgery: No Hx Open Heart Surgery: Yes Hx Orthopedic Surgery: No Hx Splenectomy: No Hx Valve Replacement: No - Anesthesia Hx Anesthesia: Yes Hx Anesthesia Reactions: No Hx Malignant Hyperthermia: No - Suicidal Assessment Feels Threatened In Home Enviroment: No Family/Social History - Physician Review Nursing Documentation Reviewed: Yes Family/Social History: No Known Family HX Smoking Status: Former Smoker Hx Alcohol Use: No Hx Substance Use: No Hx Substance Use Treatment: No Allergies/Home Meds Allergies/Adverse Reactions: Allergies atorvastatin Allergy (Verified 07/07/18 14:07) HEADACHE meclizine Allergy (Verified 07/07/18 14:07) RASH shellfish derived Allergy (Verified 07/07/18 14:07) SHORTNESS OF BREATH Home Medications: Home Meds Medication Instructions Recorded Confirmed Cholecalciferol (Vitamin D3) 1,000 unit PO DAILY 12/16/16 06/20/18 [Vitamin D3] Ferrous Sulfate [Feosol] 325 mg PO DAILY 12/16/16 06/20/18 Pyridoxine [Vitamin B6] 100 mg PO DAILY 12/16/16 06/20/18 Review of Systems - Physician Review All systems were reviewed & negative as marked: Yes - Review of Systems Constitutional: absent: Fevers Respiratory: SOB Cardiovascular: absent: Chest Pain Gastrointestinal: Abdominal Pain, Hematochezia. absent: Diarrhea, Nausea, Vomiting Musculoskeletal: absent: Back Pain, Neck Pain Neurological: absent: Headache, Dizziness Physical Exam Vital Signs Reviewed: Yes Temperature: Afebrile Blood Pressure: Hypotensive Pulse: Regular Respiratory Rate: Normal Appearance: Positive for: Well-Appearing, Non-Toxic, Comfortable, Cachectic Pain Distress: None Mental Status: Positive for: Alert and Oriented X 3 - Systems Exam Head: Present: Atraumatic, Normocephalic Pupils: Present: PERRL Extroacular Muscles: Present: EOMI Conjunctiva: Present: Normal Mouth: Present: Moist Mucous Membranes Neck: Present: Normal Range of Motion Respiratory/Chest: Present: Clear to Auscultation, Good Air Exchange, Other (Power port noted in R hemithorax ). No: Respiratory Distress, Accessory Muscle Use Cardiovascular: Present: Regular Rate and Rhythm, Normal S1, S2. No: Murmurs Abdomen: Present: Tenderness (tender to palpation of the LLQ & subrapubic region), Normal Bowel Sounds. No: Distention, Peritoneal Signs Rectal: Present: Rectal Tenderness, Gross Blood, Hemorrhoids, Normal Rectal Tone, Other (hemeoccult positive, external non-thrombosed hemrroid present at 6 o'clock position) Back: Present: Normal Inspection Upper Extremity: Present: Normal Inspection. No: Cyanosis, Edema Lower Extremity: Present: Normal Inspection. No: Edema Neurological: Present: GCS=15, CN II-XII Intact, Speech Normal Skin: Present: Warm, Dry, Normal Color. No: Rashes Psychiatric: Present: Alert, Oriented x 3, Normal Insight, Normal Concentration Medical Decision Making ED Course and Treatment: 07/07/18 14:23 Impression: 88 year old female who presents to the emergency department complaining of blood in stool. Differential Diagnosis included but are not limited to: Diverticular bleed Angiodysplasia Plan: -- Labs --VBG --ICU consult --GI consult --Protonix drip -- Chest X-Ray -- Blood Culture -- Urine Culture -- Urinalysis -- Reassess and disposition Prior Visits: Notes and results from previous visits were reviewed. Patient last seen in the ED on 06/16/2018 for near syncopal episode, she was admitted to the hospital for further evaluation. Progress Notes: 07/07/18 15:[address] Duncan(heme-onc), requests Dr. Blackman(surgery), Dr. Hernandez(GI), and Dr. Howard(cardiology) on consult. 07/07/18 15:23 Spoke to GI fellow, who agrees with plan of management and will see patient. Labs reviewed hemoglobin noted to be 9, pending CT. Informed consent for blood obtained. 07/07/18 16:[address] Aviles(fast food crew lead) who will come see the patient. 07/07/18 16:[address] Blackman(surgery) who requests surgery resident to be called and evaluate the patient. 07/07/18 17:12 Dr. Aviles evaluated patient at the bedside and states patient does not meet eligibility for ICU care at this time. He confirms her code status as DNR/DNI and states she is stable for monitoring on the floor at this time. - Lab Interpretations I have reviewed the lab results: Yes - RAD Interpretation Narrative RAD Interpretations (Text): 07/07/18 16:20 Chest X-ray reviewed, shows: FINDINGS: LUNGS:Right-sided MediPort unchanged in position. Pulmonary volumes appear s omewhat improved bilaterally. Limited linear atelectasis appreciate the right base. No definite infiltrate bilaterally. PLEURA:No significant pleural effusion identified, no pneumothorax apparent. CARDIOVASCULAR:Calcific atherosclerotic changes are seen related to the thoracic aorta. Cardiomegaly appears stable. No pulmonary vascular congestion. Prominent aorta reiterated. OSSEOUS STRUCTURES:No significant abnormalities. VISUALIZED UPPER ABDOMEN:Normal. OTHER FINDINGS:None. IMPRESSION: Limited linear atelectasis right base. No definite infiltrate bilaterally. Pr ominent aorta reiterated. Cardiomegaly stable. No pulmonary vascular congestion. 07/07/18 17:33 CT of abdomen and Pelvis reviewed, shows: IMPRESSION: Limited visualization of the lower lobe reveals cardiomegaly. 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 Right lower lobe consolidation. Bibasilar atelectasis. Hepatic steatosis. Numerous hepatic hypodense lesions favored to reflect cysts. Additional too small to characterize hepatic hypodensities. Bilateral renal cysts. Evidence of partial colonic resection. Additional findings as above. Radiology Orders: 07/07/18 14:24 CHEST PORTABLE [RAD] Stat Stringed Instrument Tuner: Radiologist - EKG Interpretation EKG Interpretation (Text): 07/07/18 18:20 EKG reviewed, shows: Sinus arrhythmia at 79bpm with inverted T-waves v3-v6. Interpreted by ED Physician: Yes Type: 12 lead EKG - Scribe Statement The provider has reviewed the documentation as recorded by the Scribe Nahed Salas Provider Scribe Attestation: All medical record entries made by the Scribe were at my direction and personally dictated by me. I have reviewed the chart and agree that the record accurately reflects my personal performance of the history, physical exam, medical decision making, and the department course for this patient. I have also personally directed, reviewed, and agree with the discharge instructions and disposition. Disposition/Present on Arrival - Present on Arrival Any Indicators Present on Arrival: No History of DVT/PE: No History of Uncontrolled Diabetes: No Urinary Catheter: No History of Decub. Ulcer: No History Surgical Site Infection Following: None - Disposition Have Diagnosis and Disposition been Completed?: Yes Diagnosis: GI bleed Disposition Time: 17:11 Patient Plan: Admission Patient Problems: Current Active Problems Problem Status Onset GI bleed Acute Condition: GUARDED
[2018-07-07 15:00] LABS: BASO # 0.01 K/mm3 (0.0-2.0); BASO % 0.1 % (0.0-3.0); EOS % 0.3 % (1.5-5.0); GRAN # 9.55 (1.4-6.5); GRAN % 81.4 % (50.0-68.0); LYMPH # 1.5 (1.2-3.4); MEAN CELL VOLUME 85.8 fl (80.0-105.0); MEAN CORPUSCULAR HEMOGLOBIN 27.1 pg (25.0-35.0); MEAN CORPUSCULAR HGB CONC 31.6 g/dl (31.0-37.0); MEAN PLATELET VOLUME 9.1 fl (7.0-11.0); MONO # 0.6 (0.1-0.6); MONO % 5.2 % (1.0-6.0); RBC 3.32 10^6/uL (3.5-6.1); RED CELL DISTRIBUTION WIDTH 14.9 % (11.5-14.5); WHITE BLOOD COUNT 11.7 10^3/uL (4.5-11.0)
[2018-07-07 15:03] LABS: INR 1.07; PARTIAL THROMBOPLASTIN TIME 23.6 Seconds (25.1-36.5); PROTHROMBIN TIME 12.2 SECONDS (9.4-12.5)
[2018-07-07] MEDS ORDERED: Sodium Chloride 0.9% 1,000 ML IV STA ×2 (15:04→16:14)
[2018-07-07 15:11] LABS: ALB/GLOB RATIO 1.1 (1.1-1.8); ALBUMIN 3.5 g/dL (3.0-4.8); CALCIUM 9.1 mg/dL (8.4-10.5)
--- NOTE | 2018-07-07 15:50 | RAD ---
Date of service: 07/07/2018 HISTORY: gi bleed COMPARISON: Chest radiographs 06/24/2018. FINDINGS: LUNGS: Right-sided MediPort unchanged in position. Pulmonary volumes appear somewhat improved bilaterally. Limited linear atelectasis appreciate the right base. No definite infiltrate bilaterally. PLEURA: No significant pleural effusion identified, no pneumothorax apparent. CARDIOVASCULAR: Calcific atherosclerotic changes are seen related to the thoracic aorta. Cardiomegaly appears stable. No pulmonary vascular congestion. Prominent aorta reiterated. OSSEOUS STRUCTURES: No significant abnormalities. VISUALIZED UPPER ABDOMEN: Normal. OTHER FINDINGS: None. IMPRESSION: Limited linear atelectasis right base. No definite infiltrate bilaterally. Prominent aorta reiterated. Cardiomegaly stable. No pulmonary vascular congestion.
[2018-07-07] MEDS ORDERED: Iodixanol 320 MG/ML 100 ML BOTTLE IV ONE (16:08)
--- NOTE | 2018-07-07 16:46 | CP.PCM.PCO ---
Physician Communication Note - Physician Communication Note Physician Communication Note: Lg Colon bleed(ASA/Plavix):Needs Bleeding scan/sigmoid/TX 2UPRBC
[2018-07-07 16:50] LABS: VENOUS BLOOD GAS BASE EXCESS 6.4 mmol/L (0.0-2.0); VENOUS BLOOD GAS PO2 42 mm/Hg (30-55); VENOUS BLOOD PH 7.31 (7.32-7.43)
--- NOTE | 2018-07-07 16:51 | CP.PCM.CON ---
<Hussain Menendez - Last Filed: 07/07/18 18:21> History of Present Illness - History of Present Illness History of Present Illness: Reason for consult: GI bleed CC: bloody bowel movement HPI: Pt is an 88yo female with PMH of lung cancer, colon cancer s/p colon resection by Dr. Blackman in 2003?, CAD, CABG, cardiomegaly, CHF w EF 25-30%, and HTN, presents to the ED after one bloody bowel movement at home. Pt states she went to the bathroom and had a normal bowel movement this afternoon and fo und the toilet bowl full of bright red blood. Pt endorses mild abdominal pain. Pt rated her pain at 5/10 at its worst, 2/10 in ED. The only other time she has noticed blood in her stools was prior to her colon cancer over ten years ago. Pt had one more episode of bright red blood in bed sanches in the ED witness by nurse. Both bloody bowel movements were painless. She takes Aspirin 81mg every day, ?Pl avix. Pt denies any recent travel or sick contact. She has chronic SOB and is on 2L NC at home. She sees Dr. Duncan and has a portacath in right chest wall which she gets flushed every 6 weeks. States she has not had chemotherapy treatments for three years. Pt denies fever, chills, chest pain, palpitations, nausea, vomiting, constipation, diarrhea, weakness, fatigue PMH: lung cancer, colon cancer s/p colectomy, CAD, CABG, CHF, cardiomegaly, HTN PSurgHx: colectomy 2002- Allergies: shellfish, meclizine, atorvastatin PMD: Dr. Gavin Oncologist: Dr. Duncan Review of Systems - Review of Systems Review of Systems: 10 pt ROS unremarkable except as stated in HPI Past Patient History - Infectious Disease Hx of Infectious Diseases: None - Tetanus Immunizations Tetanus Immunization: Unknown - Past Social History Smoking Status: Former Smoker - CARDIAC Hx Cardiac Disorders: Yes Hx Congestive Heart Failure: Yes Hx Hypertension: Yes - PULMONARY Hx Respiratory Disorders: No - NEUROLOGICAL Hx Neurological Disorder: No - HEENT Hx HEENT Problems: No - RENAL Hx Chronic Kidney Disease: No - ENDOCRINE/METABOLIC Hx Diabetes Mellitus Type 2: Yes - HEMATOLOGICAL/ONCOLOGICAL Hx Blood Disorders: No - INTEGUMENTARY Hx Dermatological Problems: No - MUSCULOSKELETAL/RHEUMATOLOGICAL Hx Arthritis: Yes - GASTROINTESTINAL Hx Gastrointestinal Disorders: Yes (POOR APPETITE,LUNG CA, COLON CA WITH RESECTION,) - GENITOURINARY/GYNECOLOGICAL Hx Genitourinary Disorders: Yes Hx Reproductive Disorders: No - PSYCHIATRIC Hx Psychophysiologic Disorder: No Hx Substance Use: No - SURGICAL HISTORY Hx Amputation: No Hx Appendectomy: Yes Hx Cardiac Catheterization: Yes Hx Cholecystectomy: Yes Hx Coronary Stent: No Hx Gastric Bypass Surgery: No Hx Hysterectomy: No Hx Joint Replacement: No Hx Kidney Transplant: No Hx Liver Transplant: No Hx Mastectomy: No Hx Musculoskeletal Surgery: No Hx Open Heart Surgery: Yes Hx Orthopedic Surgery: No Hx Splenectomy: No Hx Valve Replacement: No - ANESTHESIA Hx Anesthesia: Yes Hx Anesthesia Reactions: No Hx Malignant Hyperthermia: No Meds Allergies/Adverse Reactions: Allergies Allergy/AdvReac Type Severity Reaction Status Date / Time atorvastatin Allergy HEADACHE Verified 07/07/18 14:07 meclizine Allergy RASH Verified 07/07/18 14:07 shellfish derived Allergy SHORTNESS Verified 07/07/18 14:07 OF BREATH - Medications Medications: Current Medications Sodium Chloride (Sodium Chloride 0.9%) 1,000 mls @ 999 mls/hr IV .Q1H1M STA Stop: 07/07/18 17:14 Physical Exam - Head Exam Head Exam: ATRAUMATIC, NORMAL INSPECTION, NORMOCEPHALIC - ENT Exam ENT Exam: Mucous Membranes Moist, Normal Exam - Respiratory Exam Additional comments: on NC 2L - Cardiovascular Exam Cardiovascular Exam: REGULAR RHYTHM, +S1, +S2. absent: Tachycardia - GI/Abdominal Exam GI & Abdominal Exam: Normal Bowel Sounds, Soft, Tenderness. absent: Distended, Guarding, Hernia, Organomegaly, Rebound, Rigid Additional comments: mild abdominal tenderness in LLQ and RLQ to deep palpation - Rectal Exam Additional comments: presence of blood in rectal vault. No masses palpated in rectum, nontender - Back Exam Back exam: absent: CVA tenderness (L), CVA tenderness (R) - Neurological Exam Neurological exam: Alert - Skin Skin Exam: Normal Color, Warm Results - Vital Signs Recent Vital Signs: Last Vital Signs Temp 98.4 F 07/07/18 14:06 Pulse 80 07/07/18 14:06 Resp 18 07/07/18 14:06 BP 99/59 L 07/07/18 14:06 Pulse Ox 100 07/07/18 14:06 - Labs Result Diagrams: 07/07/18 14:40 07/07/18 14:40 Labs: Laboratory Results - last 24 hr 07/07/18 07/07/18 07/07/18 14:40 14:40 14:40 WBC 11.7 H D RBC 3.32 L Hgb 9.0 L Hct 28.5 L MCV 85.8 MCH 27.1 MCHC 31.6 RDW 14.9 H Plt Count 335 MPV 9.1 Gran % 81.4 H Lymph % (Auto) 13.0 L [place] % (Auto) 5.2 Eos % (Auto) 0.3 L Baso % (Auto) 0.1 Gran # 9.55 H Lymph # (Auto) 1.5 [place] # (Auto) 0.6 Eos # (Auto) 0.0 Baso # (Auto) 0.01 PT 12.2 INR 1.07 APTT 23.6 L Sodium 138 Potassium 4.7 Chloride 100 Carbon Dioxide 31 Anion Gap 12 BUN 26 H Creatinine 1.2 Est GFR ( Amer) 51 Est GFR (Non-Af Amer) 42 Random Glucose 104 Calcium 9.1 Total Bilirubin 0.3 AST 27 ALT 25 Alkaline Phosphatase 51 Troponin I Total Protein 6.7 Albumin 3.5 Globulin 3.2 Albumin/Globulin Ratio 1.1 Lipase 62 BBK History Checked 07/07/18 07/07/18 14:40 16:09 WBC RBC Hgb Hct MCV MCH MCHC RDW Plt Count MPV Gran % Lymph % (Auto) [place] % (Auto) Eos % (Auto) Baso % (Auto) Gran # Lymph # (Auto) [place] # (Auto) Eos # (Auto) Baso # (Auto) PT INR APTT Sodium Potassium Chloride Carbon Dioxide Anion Gap BUN Creatinine Est GFR ( Amer) Est GFR (Non-Af Amer) Random Glucose Calcium Total Bilirubin AST ALT Alkaline Phosphatase Troponin I 0.02 Total Protein Albumin Globulin Albumin/Globulin Ratio Lipase BBK History Checked No verified bt Assessment & Plan - Assessment and Plan (Free Text) Assessment: 88yo female presenting with lower GI bleed, likely 2/2 sigmoid diverticulosis Plan: NPO IVF, gentle hydration Transfuse 2 Units PRBC, maintain Hbg >9 Monitor H/H Hold asprin, plavix, hold anticoagulation. F/u GI bleeding scan F/u cardio recs F/u GI recs Further recommendations to follow based on imaging findings Case discussed with Dr. Yehuda Menendez PGY3 <Guzman Blackman - Last Filed: 07/09/18 10:21> Meds - Medications Medications: Current Medications Acetaminophen (Tylenol 325mg Tab) 650 mg PO ONCE PRN PRN Reason: prbc transfusion Alprazolam (Xanax) 0.25 mg PO HS PRN; Protocol PRN Reason: Insomnia Stop: 07/15/18 22:01 Last Admin: 07/09/18 03:24 Dose: 0.25 mg Carvedilol (Coreg) 3.125 mg PO 0800,1700 [facility] Last Admin: 07/08/18 17:34 Dose: 3.125 mg Digoxin (Digoxin) 0.125 mg PO 1400 [facility] Last Admin: 07/08/18 17:35 Dose: 0.125 mg Diphenhydramine HCl (Benadryl) 25 mg IVP ONCE PRN PRN Reason: prbc transfusion Last Admin: 07/09/18 01:02 Dose: 25 mg Furosemide (Lasix) 40 mg PO 0800,1400 [facility] Last Admin: 07/09/18 08:16 Dose: 40 mg Furosemide (Lasix) 20 mg IVP ONCE PRN PRN Reason: prbc transfusion Last Admin: 07/09/18 04:07 Dose: 20 mg Hydrocortisone Sodium Succinate (Solu-Cortef) 50 mg IVP ONCE PRN PRN Reason: prbc transfusion Losartan Potassium (Cozaar) 12.5 mg PO DAILY [facility] Last Admin: 07/08/18 11:24 Dose: 12.5 mg Pantoprazole Sodium (Protonix Inj) 40 mg IVP Q12 [facility] Last Admin: 07/08/18 21:06 Dose: 40 mg Spironolactone (Aldactone) 25 mg PO BID [facility] Results - Vital Signs Recent Vital Signs: Last Vital Signs Temp 98.5 F 07/09/18 05:30 Pulse 54 L 07/09/18 06:10 Resp 16 07/09/18 06:00 BP 125/43 L 07/09/18 08:16 Pulse Ox 100 07/09/18 06:10 - Labs Result Diagrams: 07/09/18 09:00 07/09/18 09:00 Labs: Laboratory Results - last 24 hr 07/07/18 07/08/18 07/08/18 14:40 06:40 11:30 WBC 14.2 H RBC 3.41 L Hgb 9.6 L Hct 28.7 L MCV 84.2 MCH 28.2 MCHC 33.4 RDW 15.0 H Plt Count 240 MPV 9.3 Gran % 81.9 H Lymph % (Auto) 12.0 L [place] % (Auto) 5.9 Eos % (Auto) 0.1 L Baso % (Auto) 0.1 Gran # 11.65 H Lymph # (Auto) 1.7 [place] # (Auto) 0.8 H Eos # (Auto) 0.0 Baso # (Auto) 0.01 PT INR Sodium Potassium Chloride Carbon Dioxide Anion Gap BUN Creatinine Est GFR ( Amer) Est GFR (Non-Af Amer) POC Glucose (mg/dL) Random Glucose Calcium Phosphorus Magnesium Total Bilirubin AST ALT Alkaline Phosphatase Total Protein Albumin Globulin Albumin/Globulin Ratio Procalcitonin < 0.05 L Blood Type B POSITIVE Antibody Screen Positive Antibody Identification Anti K Antigen Identification K Antigen - NEGATIVE Crossmatch See Detail BBK History Checked No verified bt 07/08/18 07/08/18 07/08/18 18:41 22:10 22:48 WBC 16.2 H 15.6 H RBC 2.94 L 2.68 L Hgb 8.3 L 7.7 L Hct 25.0 L 22.9 L MCV 85.0 85.4 MCH 28.2 28.7 MCHC 33.2 33.6 RDW 15.0 H 15.0 H Plt Count 218 192 MPV 9.3 9.0 Gran % 89.5 H 83.7 H Lymph % (Auto) 7.4 L 10.6 L [place] % (Auto) 3.0 5.5 Eos % (Auto) 0.0 L 0.1 L Baso % (Auto) 0.1 0.1 Gran # 14.50 H 13.08 H Lymph # (Auto) 1.2 1.7 [place] # (Auto) 0.5 0.9 H Eos # (Auto) 0.0 0.0 Baso # (Auto) 0.01 0.01 PT INR Sodium Potassium Chloride Carbon Dioxide Anion Gap BUN Creatinine Est GFR ( Amer) Est GFR (Non-Af Amer) POC Glucose (mg/dL) 119 H Random Glucose Calcium Phosphorus Magnesium Total Bilirubin AST ALT Alkaline Phosphatase Total Protein Albumin Globulin Albumin/Globulin Ratio Procalcitonin Blood Type Antibody Screen Antibody Identification Antigen Identification Crossmatch BBK History Checked 07/09/18 07/09/18 07/09/18 09:00 09:00 09:00 WBC 13.7 H RBC 3.87 Hgb 11.4 L D Hct 34.4 L MCV 88.9 D MCH 29.5 MCHC 33.1 RDW 15.5 H Plt Count 179 MPV 9.5 Gran % 82.8 H Lymph % (Auto) 10.7 L [place] % (Auto) 6.1 H Eos % (Auto) 0.3 L Baso % (Auto) 0.1 Gran # 11.37 H Lymph # (Auto) 1.5 [place] # (Auto) 0.8 H Eos # (Auto) 0.0 Baso # (Auto) 0.02 PT 12.0 INR 1.04 Sodium 141 Potassium 4.5 Chloride 109 H Carbon Dioxide 28 Anion Gap 8 L BUN 20 Creatinine 1.2 Est GFR ( Amer) 51 Est GFR (Non-Af Amer) 42 POC Glucose (mg/dL) Random Glucose 196 H Calcium 8.4 Phosphorus 3.3 Magnesium 2.0 Total Bilirubin 0.7 AST 25 ALT 25 Alkaline Phosphatase 41 Total Protein 5.7 L Albumin 2.9 L Globulin 2.7 Albumin/Globulin Ratio 1.1 Procalcitonin Blood Type Antibody Screen Antibody Identification Antigen Identification Crossmatch BBK History Checked Assessment & Plan - Assessment and Plan (Free Text) Plan: Dx Massive Lower GI Bleed/ASA-Plavix Sub total colectomy 2004-NO CA! This consult done under my direct supervision Juan Blackman MD FACS
--- NOTE | 2018-07-07 17:30 | CT ---
Date of service: 07/07/2018 PROCEDURE: CT Abdomen and Pelvis with contrast HISTORY: GI bleed COMPARISON: Renal ultrasound performed 06/22/18, CT abdomen and pelvis with contrast performed 11/13/16 TECHNIQUE: Contrast dose: 100 mL Visipaque 320 Radiation dose: Total exam DLP = 219.55 mGy-cm. This CT exam was performed using one or more of the following dose reduction techniques: Automated exposure control, adjustment of the mA and/or kV according to patient size, and/or use of iterative reconstruction technique. FINDINGS: LOWER THORAX: Limited visualization of the lower lobe reveals cardiomegaly. Atherosclerotic calcifications of the aorta and coronary arteries. 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 Right lower lobe consolidation. Bibasilar atelectasis. No visible pleural effusion or pneumothorax. LIVER: Hypoattenuation of the liver compatible with hepatic steatosis. Numerous hepatic hypodense lesions favored to reflect cysts. Additional too small to characterize hepatic hypodensities. GALLBLADDER AND BILE DUCTS: Unremarkable. PANCREAS: Atrophy. SPLEEN: Unremarkable. ADRENALS: Unremarkable. KIDNEYS AND URETERS: The kidneys enhance symmetrically. No hydronephrosis or obstructing calculus identified. Bilateral renal cysts. VASCULATURE: Aortic ectasia. Atherosclerotic calcifications and mural plaque present. 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 BOWEL: Stomach is nondistended. Lack of oral contrast limits evaluation for bowel pathology. Bowel loops appear within normal limits of caliber without evidence of obstruction. Postoperative changes consistent with partial colonic resection. APPENDIX: Not visualized. PERITONEUM: No significant free fluid. No definite free air. LYMPH NODES: No bulky adenopathy identified. BLADDER: Unremarkable. REPRODUCTIVE: The uterus is present. BONES: Osseous demineralization. Degenerative changes. Remote fracture deformities of the pelvis. OTHER FINDINGS: None. IMPRESSION: Limited visualization of the lower lobe reveals cardiomegaly. 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 Right lower lobe consolidation. Bibasilar atelectasis. Hepatic steatosis. Numerous hepatic hypodense lesions favored to reflect cysts. Additional too small to characterize hepatic hypodensities. Bilateral renal cysts. Evidence of partial colonic resection. Additional findings as above.
--- NOTE | 2018-07-07 19:24 | CARD ---
APPROVED REPORT Date of service: 07/07/2018 EKG Measurement Heart [id number] <Conclusion> Sinus rhythm with marked sinus arrhythmia Left axis deviation Left ventricular hypertrophy with repolarization abnormality Abnormal ECG
[2018-07-07 23:46] LABS: HEMOGLOBIN 9.2 g/dL (12.0-16.0); MEAN CELL VOLUME 86.4 fl (80.0-105.0); MEAN CORPUSCULAR HEMOGLOBIN 27.9 pg (25.0-35.0); MEAN CORPUSCULAR HGB CONC 32.3 g/dl (31.0-37.0); MEAN PLATELET VOLUME 9.8 fl (7.0-11.0); RBC 3.3 10^6/uL (3.5-6.1); RED CELL DISTRIBUTION WIDTH 14.6 % (11.5-14.5); WHITE BLOOD COUNT 13.3 10^3/uL (4.5-11.0)
--- NOTE | 2018-07-08 00:26 | CON ---
DATE: 07/07/2018 HISTORY OF PRESENT ILLNESS: The patient is seen and examined at bedside. This is an 88-year-old lady with history of severe left ventricular systolic dysfunction, history of colon CA, status post hemicolectomy with primary anastomosis more than [address] Blackman who presented this time with bright red blood per rectum which happened three times today. The patient reports moderate amount of margie blood with three bowel movements that she had, two of which prior to admission to ER and one after the admission. The patient, however, reports no shortness of breath, chest pain, syncopal episodes, lightheadedness, or vertigo. PAST MEDICAL HISTORY: As above. SOCIAL HISTORY: No alcohol or illicit drug abuse. No tobacco smoking. FAMILY HISTORY: Noncontributory. MEDICATIONS AT HOME: Simvastatin, Aldactone, Cozaar, Lasix, digoxin, Plavix, Coreg, Pulmicort, aspirin, Brovana, and Xanax. ALLERGIES: ATORVASTATIN, MECLIZINE, AND SHELLFISH DERIVED. REVIEW OF SYSTEMS: Review of 12-organ system other than mentioned in history of present illness is negative. PHYSICAL EXAMINATION: VITAL SIGNS: Heart rate 60, blood pressure 132/48, respiratory rate 16, oxygen saturation 100% on room air, temperature 98.4. HEENT: Head and neck atraumatic. LUNGS: Clear to auscultation bilaterally. HEART: Regular rate and rhythm. S1 and S2 normal. ABDOMEN: Soft, nontender, nondistended. (After my abdominal exam, the patient was examined by certified surgical assistant at my presence also concurred that abdominal exam is benign without any peritoneal signs). NEUROLOGIC: The patient is moving all extremities spontaneously. SKIN: Moist. PSYCHIATRIC: The patient is alert, awake and oriented x3, very comfortable, not in respiratory or otherwise distress. Mentating very well. LABORATORY DATA: WBC 11.7, hemoglobin 9, platelet count 335. Troponin 0.02. Lactic acid 0.6. INR 1.07. Creatinine 1.2, sodium 138, potassium 4.7, chloride 100, carbon dioxide 31. AST 27, ALT 25, total bilirubin 0.3. CT of abdomen and pelvis was done and official report is pending. Chest x-ray showed no active pulmonary disease, some emphysema present. Port-A-Cath appears to be presented well in the right subclavian vein. No perihilar mass present. ASSESSMENT AND PLAN This is an 88-year-old lady with lower gastrointestinal bleed without any signs of hemorrhagic shock or end-organ dysfunction including normal mentation, lack of respiratory distress or discomfort, no chest pain, shortness of breath or troponin leak, no acute kidney injury (creatinine is 1.2-the same as at baseline). The patient will be nothing by mouth, intravenous fluid. I would maintain hemoglobin above 9, serial complete blood count. The patient also asked for Do Not Resuscitate or Do Not Intubate order and her wishes will be honored. Gastrointestinal and surgery consults were obtained. No need for medical intensive care unit at present time. If clinical or social situation changes, please reconsult ICU ccm time 40 min Torsten Aviles MD [facility]
--- NOTE | 2018-07-08 01:27 | CP.PCM.CON ---
<Ant Heath - Last Filed: 07/08/18 01:57> History of Present Illness - History of Present Illness History of Present Illness: Ant Heath DO, PGY-1 ICU Consult Note for Dr. Gonzalez CC: blood in stool HPI: Ms. Escobar is an 88 year old female with PMH of lung CA (s/p chemo radiation), colon CA (s/p resection), COPD (on home O2 2L), CHF (last EF 25- 30%), CAD, and HTN presented to ED with bright red bloody bowel movements. Patient she states that, at the time, she went to the bathroom and the toilet bowel was full of blood afterwards. She had slight abdominal pain and SOB at the time. Her Hgb was noted to be 9 on admission in ED. Her primary oncologist (Dr. Duncan), GI, surgery, and cardiology were consulted. She was subsequently admitted to telemetry for additional management and monitoring. Bleeding scan was performed and is positive for signs of bleeding in the RLQ. She is subsequently admitted to ICU for additional transfusions and intensive monitoring prior to intervention tomorrow. Past Medical Hx: lung CA (s/p chemoradiation), colon CA (s/p resection), COPD (on home O2 2L), CHF (last EF 25-30%), CAD, and HTN Past Surgical Hx: colon CA resection in [id number] Allergies: shellfish, meclizine, atorvastatin Home medications: reviewed, as per MAR Family Hx: reviewed, non-contributory Social Hx: former smoker but quit many years ago, denies alcohol or illicit drug use Review of Systems - Constitutional Constitutional: absent: Chills, Fever - EENT Eyes: absent: Blurred Vision - Cardiovascular Cardiovascular: absent: Chest Pain, Diaphoresis, Dyspnea, Palpitations - Respiratory Respiratory: absent: Cough, Dyspnea - Gastrointestinal Gastrointestinal: Abdominal Pain, Hematochezia, Melena. absent: Nausea, Vomiting - Genitourinary Genitourinary: absent: Change in Urinary Stream, Difficulty Urinating - Musculoskeletal Musculoskeletal: absent: Numbness, Tingling - Neurological Neurological: absent: Headaches Past Patient History - Infectious Disease Hx of Infectious Diseases: None - Tetanus Immunizations Tetanus Immunization: Unknown - Past Social History Smoking Status: Former Smoker - CARDIAC Hx Cardiac Disorders: Yes Hx Congestive Heart Failure: Yes Hx Hypertension: Yes - PULMONARY Hx Respiratory Disorders: Yes (on 02 at home) - NEUROLOGICAL Hx Neurological Disorder: No - HEENT Hx HEENT Problems: No - RENAL Hx Chronic Kidney Disease: No - ENDOCRINE/METABOLIC Hx Endocrine Disorders: Yes Hx Diabetes Mellitus Type 2: Yes - HEMATOLOGICAL/ONCOLOGICAL Hx Blood Disorders: Yes Hx Anemia: Yes - INTEGUMENTARY Hx Dermatological Problems: No - MUSCULOSKELETAL/RHEUMATOLOGICAL Hx Falls: Yes - GASTROINTESTINAL Hx Gastrointestinal Disorders: Yes (POOR APPETITE,LUNG CA, COLON CA WITH RESECTION,) - GENITOURINARY/GYNECOLOGICAL Hx Genitourinary Disorders: Yes - PSYCHIATRIC Hx Substance Use: No - SURGICAL HISTORY Hx Surgeries: Yes Hx Amputation: No Hx Appendectomy: Yes Hx Cardiac Catheterization: Yes Hx Cholecystectomy: Yes Hx Coronary Stent: No Hx Gastric Bypass Surgery: No Hx Hysterectomy: No Hx Joint Replacement: No Hx Kidney Transplant: No Hx Liver Transplant: No Hx Mastectomy: No Hx Musculoskeletal Surgery: No Hx Open Heart Surgery: Yes Hx Orthopedic Surgery: No Hx Splenectomy: No Hx Valve Replacement: No - ANESTHESIA Hx Anesthesia: Yes Hx Anesthesia Reactions: No Hx Malignant Hyperthermia: No Meds Allergies/Adverse Reactions: Allergies Allergy/AdvReac Type Severity Reaction Status Date / Time atorvastatin Allergy HEADACHE Verified 07/07/18 14:07 meclizine Allergy RASH Verified 07/07/18 14:07 shellfish derived Allergy SHORTNESS Verified 07/07/18 14:07 OF BREATH - Medications Medications: Current Medications Pantoprazole Sodium (Protonix Inj) 40 mg IVP Q12 YAHIR Physical Exam - Constitutional Appears: Non-toxic, No Acute Distress - Head Exam Head Exam: ATRAUMATIC, NORMOCEPHALIC - Eye Exam Eye Exam: EOMI, Normal appearance, PERRL - ENT Exam ENT Exam: Mucous Membranes Moist - Neck Exam Neck exam: Positive for: Full Rom, Normal Inspection - Respiratory Exam Respiratory Exam: Clear to Auscultation Bilateral, NORMAL BREATHING PATTERN. absent: Rales, Rhonchi, Wheezes - Cardiovascular Exam Cardiovascular Exam: REGULAR RHYTHM, RRR, +S1, +S2. absent: Diastolic murmur, Gallop, Rubs, Systolic Murmur - GI/Abdominal Exam GI & Abdominal Exam: Soft, Tenderness (mild tenderness to palpation RLQ). absen t: Guarding, Mass, Organomegaly, Rebound, Rigid - Extremities Exam Extremities exam: Positive for: normal inspection. Negative for: pedal edema - Back Exam Back exam: NORMAL INSPECTION - Neurological Exam Neurological exam: Alert, Oriented x3 - Psychiatric Exam Psychiatric exam: Normal Affect, Normal Mood Results - Vital Signs Recent Vital Signs: Last Vital Signs Temp 98.7 F 07/08/18 01:21 Pulse 80 07/08/18 01:21 Resp 18 07/08/18 01:21 BP 127/57 L 07/08/18 01:21 Pulse Ox 100 07/08/18 00:01 - Labs Result Diagrams: 07/07/18 23:35 07/07/18 14:40 Labs: Laboratory Results - last 24 hr 07/07/18 07/07/18 07/07/18 14:40 14:40 14:40 WBC 11.7 H D RBC 3.32 L Hgb 9.0 L Hct 28.5 L MCV 85.8 MCH 27.1 MCHC 31.6 RDW 14.9 H Plt Count 335 MPV 9.1 Gran % 81.4 H Lymph % (Auto) 13.0 L [place] % (Auto) 5.2 Eos % (Auto) 0.3 L Baso % (Auto) 0.1 Gran # 9.55 H Lymph # (Auto) 1.5 [place] # (Auto) 0.6 Eos # (Auto) 0.0 Baso # (Auto) 0.01 PT 12.2 INR 1.07 APTT 23.6 L pO2 VBG pH VBG pCO2 VBG HCO3 VBG Total CO2 VBG O2 Sat (Calc) VBG Base Excess VBG Potassium Glucose Lactate FiO2 Sodium 138 Potassium 4.7 Chloride 100 Carbon Dioxide 31 Anion Gap 12 BUN 26 H Creatinine 1.2 Est GFR ( Amer) 51 Est GFR (Non-Af Amer) 42 Random Glucose 104 Calcium 9.1 Total Bilirubin 0.3 AST 27 ALT 25 Alkaline Phosphatase 51 Troponin I Total Protein 6.7 Albumin 3.5 Globulin 3.2 Albumin/Globulin Ratio 1.1 Lipase 62 Venous Blood Potassium Blood Type Blood Type Confirm Antibody Screen Antibody Identification Antigen Identification Crossmatch BBK History Checked 07/07/18 07/07/18 07/07/18 14:40 14:40 16:09 WBC RBC Hgb Hct MCV MCH MCHC RDW Plt Count MPV Gran % Lymph % (Auto) [place] % (Auto) Eos % (Auto) Baso % (Auto) Gran # Lymph # (Auto) [place] # (Auto) Eos # (Auto) Baso # (Auto) PT INR APTT pO2 VBG pH VBG pCO2 VBG HCO3 VBG Total CO2 VBG O2 Sat (Calc) VBG Base Excess VBG Potassium Glucose Lactate FiO2 Sodium Potassium Chloride Carbon Dioxide Anion Gap BUN Creatinine Est GFR ( Amer) Est GFR (Non-Af Amer) Random Glucose Calcium Total Bilirubin AST ALT Alkaline Phosphatase Troponin I 0.02 Total Protein Albumin Globulin Albumin/Globulin Ratio Lipase Venous Blood Potassium Blood Type B POSITIVE Cancelled Blood Type Confirm Antibody Screen Positive Cancelled Antibody Identification Anti K Antigen Identification K Antigen - NEGATIVE Crossmatch See Detail BBK History Checked No verified bt Cancelled 07/07/18 07/07/18 07/07/18 16:40 16:49 23:35 WBC 13.3 H RBC 3.30 L Hgb 9.2 L Hct 28.5 L MCV 86.4 MCH 27.9 MCHC 32.3 RDW 14.6 H Plt Count 288 MPV 9.8 Gran % Lymph % (Auto) [place] % (Auto) Eos % (Auto) Baso % (Auto) Gran # Lymph # (Auto) [place] # (Auto) Eos # (Auto) Baso # (Auto) PT INR APTT pO2 42 VBG pH 7.31 L VBG pCO2 70.0 H* VBG HCO3 35.2 H VBG Total CO2 37.3 H VBG O2 Sat (Calc) 79.3 H VBG Base Excess 6.4 H VBG Potassium 4.7 Glucose 88 Lactate 0.6 L FiO2 21.0 Sodium 135.0 Potassium Chloride 101.0 Carbon Dioxide Anion Gap BUN Creatinine Est GFR ( Amer) Est GFR (Non-Af Amer) Random Glucose Calcium Total Bilirubin AST ALT Alkaline Phosphatase Troponin I Total Protein Albumin Globulin Albumin/Globulin Ratio Lipase Venous Blood Potassium 4.7 Blood Type Blood Type Confirm B POSITIVE Antibody Screen Antibody Identification Antigen Identification Crossmatch BBK History Checked Assessment & Plan - Assessment and Plan (Free Text) Assessment: 88 yo F with PMH of admitted to ICU for active GI bleed and monitoring of H/H prior to possible IR embolization and/or surgery. Plan: Neuro: AAOx3, no FND, moving extremities past midline Monitor neuro status Reorient patient as necessary Cardio: RRR, normotensive Last H/H were 9.2/28.5 Continue to monitor H/H q4h Maintain MAP>65 Monitor for s/sx of worsening HD compromise Pulm: No signs of respiratory distress. CTA B/L, able to protect airway CTAP showed possible RLL consolidation but patient has no sx of fever, cough, SOB Patient is stating well on room air. Maintain O2 saturation>95%. O2 NC PRN GI: NPO pending GI and/or surgery recs Protonix 40 IVP given in ED Continue protonix 40 IVP q12h Plan per surgery is to monitor H/H for resolution If H/H continues to worsen, plan for IR consultation for possible embolization in AM Surgery would prefer no operative management given patient's co-morbidities F/u additional GI, surgery, and IR recs Heme/Onc: H/H stable at 9.2/28.5 No overt signs of HD compromise Transfused 1 u PRBC in ED Will transfuse unit of platelets, give 20 mg lasix (pt has hx of CHF), then transfuse additional unit of PRBC Continue q4h CBC monitoring CTAP showed numerous hepatic hypodense lesions favored to reflect cysts Unclear whether these may represent metastatic disease Case discussed with Dr. Duncan and Dr. Blackman who are following the patient Continue monitoring H/H and f/u GI, surgery, IR, heme/onc recs /Nephro: BUN/Cr stable at 26/1.[address] jason Monitor UOP closely Replete electrolytes as needed Maintain euvolemia Endocrinology: Maintain euglycemia. ID: Afebrile, no leukocytosis F/u blood, urine cx results, procal Monitor for signs and symptoms of infection DVT/GI PPX: SCD/protonix BID DNR/DNI NPO Monitor in MICU Case and plan reviewed and discussed with my attending Dr. Carlos Heath, DO IM Resident PGY-1 <Yobani Gonzalez - Last Filed: 07/08/18 06:44> Meds - Medications Medications: Current Medications Pantoprazole Sodium (Protonix Inj) 40 mg IVP Q12 YAHIR Results - Vital Signs Recent Vital Signs: Last Vital Signs Temp 98.7 F 07/08/18 01:21 Pulse 62 07/08/18 04:40 Resp 20 07/08/18 04:40 BP 126/55 L 07/08/18 04:00 Pulse Ox 100 07/08/18 04:40 - Labs Result Diagrams: 07/07/18 23:35 07/07/18 14:40 Labs: Laboratory Results - last 24 hr 07/07/18 07/07/18 07/07/18 14:40 14:40 14:40 WBC 11.7 H D RBC 3.32 L Hgb 9.0 L Hct 28.5 L MCV 85.8 MCH 27.1 MCHC 31.6 RDW 14.9 H Plt Count 335 MPV 9.1 Gran % 81.4 H Lymph % (Auto) 13.0 L [place] % (Auto) 5.2 Eos % (Auto) 0.3 L Baso % (Auto) 0.1 Gran # 9.55 H Lymph # (Auto) 1.5 [place] # (Auto) 0.6 Eos # (Auto) 0.0 Baso # (Auto) 0.01 PT 12.2 INR 1.07 APTT 23.6 L pO2 VBG pH VBG pCO2 VBG HCO3 VBG Total CO2 VBG O2 Sat (Calc) VBG Base Excess VBG Potassium Glucose Lactate FiO2 Sodium 138 Potassium 4.7 Chloride 100 Carbon Dioxide 31 Anion Gap 12 BUN 26 H Creatinine 1.2 Est GFR ( Amer) 51 Est GFR (Non-Af Amer) 42 Random Glucose 104 Calcium 9.1 Total Bilirubin 0.3 AST 27 ALT 25 Alkaline Phosphatase 51 Troponin I Total Protein 6.7 Albumin 3.5 Globulin 3.2 Albumin/Globulin Ratio 1.1 Lipase 62 Venous Blood Potassium Blood Type Blood Type Confirm Antibody Screen Antibody Identification Antigen Identification Crossmatch BBK History Checked 07/07/18 07/07/18 07/07/18 14:40 14:40 16:09 WBC RBC Hgb Hct MCV MCH MCHC RDW Plt Count MPV Gran % Lymph % (Auto) [place] % (Auto) Eos % (Auto) Baso % (Auto) Gran # Lymph # (Auto) [place] # (Auto) Eos # (Auto) Baso # (Auto) PT INR APTT pO2 VBG pH VBG pCO2 VBG HCO3 VBG Total CO2 VBG O2 Sat (Calc) VBG Base Excess VBG Potassium Glucose Lactate FiO2 Sodium Potassium Chloride Carbon Dioxide Anion Gap BUN Creatinine Est GFR ( Amer) Est GFR (Non-Af Amer) Random Glucose Calcium Total Bilirubin AST ALT Alkaline Phosphatase Troponin I 0.02 Total Protein Albumin Globulin Albumin/Globulin Ratio Lipase Venous Blood Potassium Blood Type B POSITIVE Cancelled Blood Type Confirm Antibody Screen Positive Cancelled Antibody Identification Anti K Antigen Identification K Antigen - NEGATIVE Crossmatch See Detail BBK History Checked No verified bt Cancelled 07/07/18 07/07/18 07/07/18 16:40 16:49 23:35 WBC 13.3 H RBC 3.30 L Hgb 9.2 L Hct 28.5 L MCV 86.4 MCH 27.9 MCHC 32.3 RDW 14.6 H Plt Count 288 MPV 9.8 Gran % Lymph % (Auto) [place] % (Auto) Eos % (Auto) Baso % (Auto) Gran # Lymph # (Auto) [place] # (Auto) Eos # (Auto) Baso # (Auto) PT INR APTT pO2 42 VBG pH 7.31 L VBG pCO2 70.0 H* VBG HCO3 35.2 H VBG Total CO2 37.3 H VBG O2 Sat (Calc) 79.3 H VBG Base Excess 6.4 H VBG Potassium 4.7 Glucose 88 Lactate 0.6 L FiO2 21.0 Sodium 135.0 Potassium Chloride 101.0 Carbon Dioxide Anion Gap BUN Creatinine Est GFR ( Amer) Est GFR (Non-Af Amer) Random Glucose Calcium Total Bilirubin AST ALT Alkaline Phosphatase Troponin I Total Protein Albumin Globulin Albumin/Globulin Ratio Lipase Venous Blood Potassium 4.7 Blood Type Blood Type Confirm B POSITIVE Antibody Screen Antibody Identification Antigen Identification Crossmatch BBK History Checked Attending/Attestation - Attestation I have personally seen and examined this patient.: Yes I have fully participated in the care of the patient.: Yes I have reviewed all pertinent clinical information: Yes
--- NOTE | 2018-07-08 02:31 | CP.PCM.PCO ---
Physician Communication Note - Physician Communication Note Physician Communication Note: 5 Bloody Evac-ICU/2UPRBC/Platel ets/ConsRxnow/Follow H & H/Tx PRBC
[2018-07-08] MEDS ORDERED: DiphenhydrAMINE 50 mg/ml Inj IVP ONE (04:19)
[2018-07-08 06:59] LABS: HEMOGLOBIN 10.4 g/dL (12.0-16.0); MEAN CELL VOLUME 83.8 fl (80.0-105.0); MEAN CORPUSCULAR HGB CONC 33.4 g/dl (31.0-37.0); MEAN PLATELET VOLUME 9.2 fl (7.0-11.0); RBC 3.71 10^6/uL (3.5-6.1); RED CELL DISTRIBUTION WIDTH 14.7 % (11.5-14.5); WHITE BLOOD COUNT 13.7 10^3/uL (4.5-11.0)
[2018-07-08 07:23] LABS: ALB/GLOB RATIO 1.1 (1.1-1.8); CALCIUM 8.3 mg/dL (8.4-10.5)
--- NOTE | 2018-07-08 07:32 | CP.PCM.PCO ---
Physician Communication Note - Physician Communication Note Physician Communication Note: 4 new bloody BM/ HgB10.4/NEEDS EGD-Colonoscopy
--- NOTE | 2018-07-08 08:17 | CP.CCUPN ---
CCU Subjective - Physician Review Subjective (Free Text): CRITICAL CARE PROGRESS NOTE FOR DR. ESSENCE Vincent PGY-1 Pt seen and examined at bedside this am. She reports difficulty sleeping, and slight abdominal pain. She reports she had 3 total bloody bowel movements, last one being overnight. She is s/p 3u pRBC and 1u platelets. She denies headache, dizziness, chest pain, palpitations, shortness of breath, hemoptysis, nausea, vomiting, diarrhea. CCU Objective - Vital Signs / Intake & Output Vital Signs (Last 4 hours): Vital Signs Pulse Resp BP Pulse Ox 07/08/18 07:40 57 L 16 100 07/08/18 07:30 63 19 100 07/08/18 07:20 57 L 11 L 100 07/08/18 07:10 65 17 100 07/08/18 07:00 56 L 19 124/50 L 100 07/08/18 06:50 54 L 19 100 07/08/18 06:40 58 L 18 100 07/08/18 06:30 66 17 100 07/08/18 06:20 66 29 H 100 07/08/18 06:10 62 19 100 07/08/18 06:02 59 L 129/57 L 100 07/08/18 06:00 63 10 L 100 07/08/18 05:50 61 20 100 07/08/18 05:40 60 100 07/08/18 05:30 59 L 22 100 07/08/18 05:20 68 8 L 100 07/08/18 05:10 61 23 100 07/08/18 05:00 134/83 07/08/18 04:59 55 L 100 07/08/18 04:50 58 L 21 100 07/08/18 04:40 62 20 100 07/08/18 04:30 55 L 19 100 07/08/18 04:20 60 23 100 Intake and Output (Last 8hrs): Intake & Output 07/07/18 07/08/18 07/08/18 22:59 06:59 14:59 Intake Total 325 801 Output Total 1400 Balance 325 -599 Intake: Blood Product 325 801 Apheresis Plts Acda Lr 203 Irr Unit [id number] Red Blood Cells Cpd As1 325 Lr Unit [id number] Output: Urine 1400 Urethral (Walls) 1400 - Physical Exam Head: Positive for: Atraumatic, Normocephalic Pupils: Positive for: PERRL Extroacular Muscles: Positive for: EOMI Conjunctiva: Positive for: Normal Mouth: Positive for: Moist Mucous Membranes Neck: Positive for: Normal Range of Motion Respiratory/Chest: Positive for: Clear to Auscultation, Good Air Exchange, Other (Power port noted in R hemithorax ). Negative for: Respiratory Distress, Accessory Muscle Use Cardiovascular: Positive for: Regular Rate and Rhythm, Normal S1, S2. Negative for: Murmurs Abdomen: Positive for: Tenderness (tender to palpation of the LLQ & subrapubic region), Normal Bowel Sounds, Scars (well healed periumbilical scars noted), Other. Negative for: Distention, Peritoneal Signs, Rebound, Guarding Rectal: Positive for: Rectal Tenderness, Gross Blood, Hemorrhoids, Normal Rectal Tone, Other (hemeoccult positive, external non-thrombosed hemrroid present at 6 o'clock position) Back: Positive for: Normal Inspection Upper Extremity: Positive for: Normal Inspection. Negative for: Cyanosis, Edema Lower Extremity: Positive for: Normal Inspection. Negative for: Edema Neurological: Positive for: GCS=15, CN II-XII Intact, Speech Normal Skin: Positive for: Warm, Dry, Normal Color. Negative for: Rashes Psychiatric: Positive for: Alert, Oriented x 3, Normal Insight, Normal Concentration - Medications Active Medications: Active Medications Generic Name Dose Route Start Last Admin Trade Name Freq PRN Reason Stop Dose Admin Pantoprazole Sodium 40 mg 07/08/18 10:00 Protonix Inj IVP Q12 YAHIR - Patient Studies Lab Studies: Lab Studies 07/08/18 07/08/18 07/07/18 Range/Units 06:40 06:40 23:35 WBC 13.7 H 13.3 H (4.5-11.0) 10^3/uL RBC 3.71 3.30 L (3.5-6.1) 10^6/uL Hgb 10.4 L 9.2 L (12.0-16.0) g/dL Hct 31.1 L 28.5 L (36.0-48.0) % MCV 83.8 86.4 (80.0-105.0) fl MCH 28.0 27.9 (25.0-35.0) pg MCHC 33.4 32.3 (31.0-37.0) g/dl RDW 14.7 H 14.6 H (11.5-14.5) % Plt Count 240 288 (120.0-450.0) 10^3/uL MPV 9.2 9.8 (7.0-11.0) fl Gran % (50.0-68.0) % Lymph % (Auto) (22.0-35.0) % Jefferson % (Auto) (1.0-6.0) % Eos % (Auto) (1.5-5.0) % Baso % (Auto) (0.0-3.0) % Gran # (1.4-6.5) Lymph # (Auto) (1.2-3.4) Jefferson # (Auto) (0.1-0.6) Eos # (Auto) (0.0-0.7) Baso # (Auto) (0.0-2.0) K/mm3 PT (9.4-12.5) SECONDS INR APTT (25.1-36.5) Seconds pO2 (30-55) mm/Hg VBG pH (7.32-7.43) VBG pCO2 (40-60) VBG HCO3 (21-28) mmol/l VBG Total CO2 (22-28) mmol.L VBG O2 Sat (Calc) (40-65) % VBG Base Excess (0.0-2.0) mmol/L VBG Potassium (3.6-5.2) mmol/L Glucose (65-105) mg/dl Lactate (0.7-2.1) mmol/L FiO2 % Sodium 141 (132-148) mmol/L Potassium 4.6 (3.6-5.0) mmol/L Chloride 107 (98-107) mmol/L Carbon Dioxide 30 (21-33) mmol/L Anion Gap 9 L (10-20) BUN 20 (7-21) mg/dL Creatinine 1.1 (0.7-1.2) mg/dl Est GFR ( Amer) 57 Est GFR (Non-Af Amer) 47 Random Glucose 99 (70-110) mg/dL Calcium 8.3 L (8.4-10.5) mg/dL Total Bilirubin 0.8 (0.2-1.3) mg/dL AST 24 (14-36) U/L ALT 24 (7-56) U/L Alkaline Phosphatase 45 (38-126) U/L Troponin I ng/mL Total Protein 5.7 L (5.8-8.3) g/dL Albumin 3.0 (3.0-4.8) g/dL Globulin 2.7 gm/dL Albumin/Globulin Ratio 1.1 (1.1-1.8) Lipase (23-300) U/L Venous Blood Potassium (3.6-5.2) mmol/L Blood Type Blood Type Confirm Antibody Screen Antibody Identification Antigen Identification Crossmatch BBK History Checked 07/07/18 07/07/18 07/07/18 Range/Units 16:49 16:40 16:09 WBC (4.5-11.0) 10^3/uL RBC (3.5-6.1) 10^6/uL Hgb (12.0-16.0) g/dL Hct (36.0-48.0) % MCV (80.0-105.0) fl MCH (25.0-35.0) pg MCHC (31.0-37.0) g/dl RDW (11.5-14.5) % Plt Count (120.0-450.0) 10^3/uL MPV (7.0-11.0) fl Gran % (50.0-68.0) % Lymph % (Auto) (22.0-35.0) % Jefferson % (Auto) (1.0-6.0) % Eos % (Auto) (1.5-5.0) % Baso % (Auto) (0.0-3.0) % Gran # (1.4-6.5) Lymph # (Auto) (1.2-3.4) Jefferson # (Auto) (0.1-0.6) Eos # (Auto) (0.0-0.7) Baso # (Auto) (0.0-2.0) K/mm3 PT (9.4-12.5) SECONDS INR APTT (25.1-36.5) Seconds pO2 42 (30-55) mm/Hg VBG pH 7.31 L (7.32-7.43) VBG pCO2 70.0 H* (40-60) VBG HCO3 35.2 H (21-28) mmol/l VBG Total CO2 37.3 H (22-28) mmol.L VBG O2 Sat (Calc) 79.3 H (40-65) % VBG Base Excess 6.4 H (0.0-2.0) mmol/L VBG Potassium 4.7 (3.6-5.2) mmol/L Glucose 88 (65-105) mg/dl Lactate 0.6 L (0.7-2.1) mmol/L FiO2 21.0 % Sodium 135.0 (132-148) mmol/L Potassium (3.6-5.0) mmol/L Chloride 101.0 (98-107) mmol/L Carbon Dioxide (21-33) mmol/L Anion Gap (10-20) BUN (7-21) mg/dL Creatinine (0.7-1.2) mg/dl Est GFR ( Amer) Est GFR (Non-Af Amer) Random Glucose (70-110) mg/dL Calcium (8.4-10.5) mg/dL Total Bilirubin (0.2-1.3) mg/dL AST (14-36) U/L ALT (7-56) U/L Alkaline Phosphatase (38-126) U/L Troponin I ng/mL Total Protein (5.8-8.3) g/dL Albumin (3.0-4.8) g/dL Globulin gm/dL Albumin/Globulin Ratio (1.1-1.8) Lipase (23-300) U/L Venous Blood Potassium 4.7 (3.6-5.2) mmol/L Blood Type Cancelled Blood Type Confirm B POSITIVE Antibody Screen Cancelled Antibody Identification Antigen Identification Crossmatch BBK History Checked Cancelled 07/07/18 07/07/18 07/07/18 Range/Units 14:40 14:40 14:40 WBC (4.5-11.0) 10^3/uL RBC (3.5-6.1) 10^6/uL Hgb (12.0-16.0) g/dL Hct (36.0-48.0) % MCV (80.0-105.0) fl MCH (25.0-35.0) pg MCHC (31.0-37.0) g/dl RDW (11.5-14.5) % Plt Count (120.0-450.0) 10^3/uL MPV (7.0-11.0) fl Gran % (50.0-68.0) % Lymph % (Auto) (22.0-35.0) % Jefferson % (Auto) (1.0-6.0) % Eos % (Auto) (1.5-5.0) % Baso % (Auto) (0.0-3.0) % Gran # (1.4-6.5) Lymph # (Auto) (1.2-3.4) Jefferson # (Auto) (0.1-0.6) Eos # (Auto) (0.0-0.7) Baso # (Auto) (0.0-2.0) K/mm3 PT (9.4-12.5) SECONDS INR APTT (25.1-36.5) Seconds pO2 (30-55) mm/Hg VBG pH (7.32-7.43) VBG pCO2 (40-60) VBG HCO3 (21-28) mmol/l VBG Total CO2 (22-28) mmol.L VBG O2 Sat (Calc) (40-65) % VBG Base Excess (0.0-2.0) mmol/L VBG Potassium (3.6-5.2) mmol/L Glucose (65-105) mg/dl Lactate (0.7-2.1) mmol/L FiO2 % Sodium 138 (132-148) mmol/L Potassium 4.7 (3.6-5.0) mmol/L Chloride 100 (98-107) mmol/L Carbon Dioxide 31 (21-33) mmol/L Anion Gap 12 (10-20) BUN 26 H (7-21) mg/dL Creatinine 1.2 (0.7-1.2) mg/dl Est GFR ( Amer) 51 Est GFR (Non-Af Amer) 42 Random Glucose 104 (70-110) mg/dL Calcium 9.1 (8.4-10.5) mg/dL Total Bilirubin 0.3 (0.2-1.3) mg/dL AST 27 (14-36) U/L ALT 25 (7-56) U/L Alkaline Phosphatase 51 (38-126) U/L Troponin I 0.02 ng/mL Total Protein 6.7 (5.8-8.3) g/dL Albumin 3.5 (3.0-4.8) g/dL Globulin 3.2 gm/dL Albumin/Globulin Ratio 1.1 (1.1-1.8) Lipase 62 (23-300) U/L Venous Blood Potassium (3.6-5.2) mmol/L Blood Type B POSITIVE Blood Type Confirm Antibody Screen Positive Antibody Identification Anti K Antigen Identification K Antigen - NEGATIVE Crossmatch See Detail BBK History Checked No verified bt 07/07/18 07/07/18 Range/Units 14:40 14:40 WBC 11.7 H D (4.5-11.0) 10^3/uL RBC 3.32 L (3.5-6.1) 10^6/uL Hgb 9.0 L (12.0-16.0) g/dL Hct 28.5 L (36.0-48.0) % MCV 85.8 (80.0-105.0) fl MCH 27.1 (25.0-35.0) pg MCHC 31.6 (31.0-37.0) g/dl RDW 14.9 H (11.5-14.5) % Plt Count 335 (120.0-450.0) 10^3/uL MPV 9.1 (7.0-11.0) fl Gran % 81.4 H (50.0-68.0) % Lymph % (Auto) 13.0 L (22.0-35.0) % Jefferson % (Auto) 5.2 (1.0-6.0) % Eos % (Auto) 0.3 L (1.5-5.0) % Baso % (Auto) 0.1 (0.0-3.0) % Gran # 9.55 H (1.4-6.5) Lymph # (Auto) 1.5 (1.2-3.4) Jefferson # (Auto) 0.6 (0.1-0.6) Eos # (Auto) 0.0 (0.0-0.7) Baso # (Auto) 0.01 (0.0-2.0) K/mm3 PT 12.2 (9.4-12.5) SECONDS INR 1.07 APTT 23.6 L (25.1-36.5) Seconds pO2 (30-55) mm/Hg VBG pH (7.32-7.43) VBG pCO2 (40-60) VBG HCO3 (21-28) mmol/l VBG Total CO2 (22-28) mmol.L VBG O2 Sat (Calc) (40-65) % VBG Base Excess (0.0-2.0) mmol/L VBG Potassium (3.6-5.2) mmol/L Glucose (65-105) mg/dl Lactate (0.7-2.1) mmol/L FiO2 % Sodium (132-148) mmol/L Potassium (3.6-5.0) mmol/L Chloride (98-107) mmol/L Carbon Dioxide (21-33) mmol/L Anion Gap (10-20) BUN (7-21) mg/dL Creatinine (0.7-1.2) mg/dl Est GFR ( Amer) Est GFR (Non-Af Amer) Random Glucose (70-110) mg/dL Calcium (8.4-10.5) mg/dL Total Bilirubin (0.2-1.3) mg/dL AST (14-36) U/L ALT (7-56) U/L Alkaline Phosphatase (38-126) U/L Troponin I ng/mL Total Protein (5.8-8.3) g/dL Albumin (3.0-4.8) g/dL Globulin gm/dL Albumin/Globulin Ratio (1.1-1.8) Lipase (23-300) U/L Venous Blood Potassium (3.6-5.2) mmol/L Blood Type Blood Type Confirm Antibody Screen Antibody Identification Antigen Identification Crossmatch BBK History Checked Laboratory Results - last 24 hr 07/07/18 07/07/18 07/07/18 14:40 14:40 14:40 WBC 11.7 H D RBC 3.32 L Hgb 9.0 L Hct 28.5 L MCV 85.8 MCH 27.1 MCHC 31.6 RDW 14.9 H Plt Count 335 MPV 9.1 Gran % 81.4 H Lymph % (Auto) 13.0 L Jefferson % (Auto) 5.2 Eos % (Auto) 0.3 L Baso % (Auto) 0.1 Gran # 9.55 H Lymph # (Auto) 1.5 Jefferson # (Auto) 0.6 Eos # (Auto) 0.0 Baso # (Auto) 0.01 PT 12.2 INR 1.07 APTT 23.6 L pO2 VBG pH VBG pCO2 VBG HCO3 VBG Total CO2 VBG O2 Sat (Calc) VBG Base Excess VBG Potassium Glucose Lactate FiO2 Sodium 138 Potassium 4.7 Chloride 100 Carbon Dioxide 31 Anion Gap 12 BUN 26 H Creatinine 1.2 Est GFR ( Amer) 51 Est GFR (Non-Af Amer) 42 Random Glucose 104 Calcium 9.1 Total Bilirubin 0.3 AST 27 ALT 25 Alkaline Phosphatase 51 Troponin I Total Protein 6.7 Albumin 3.5 Globulin 3.2 Albumin/Globulin Ratio 1.1 Lipase 62 Venous Blood Potassium Blood Type Blood Type Confirm Antibody Screen Antibody Identification Antigen Identification Crossmatch BBK History Checked 07/07/18 07/07/18 07/07/18 14:40 14:40 16:09 WBC RBC Hgb Hct MCV MCH MCHC RDW Plt Count MPV Gran % Lymph % (Auto) Jefferson % (Auto) Eos % (Auto) Baso % (Auto) Gran # Lymph # (Auto) Jefferson # (Auto) Eos # (Auto) Baso # (Auto) PT INR APTT pO2 VBG pH VBG pCO2 VBG HCO3 VBG Total CO2 VBG O2 Sat (Calc) VBG Base Excess VBG Potassium Glucose Lactate FiO2 Sodium Potassium Chloride Carbon Dioxide Anion Gap BUN Creatinine Est GFR ( Amer) Est GFR (Non-Af Amer) Random Glucose Calcium Total Bilirubin AST ALT Alkaline Phosphatase Troponin I 0.02 Total Protein Albumin Globulin Albumin/Globulin Ratio Lipase Venous Blood Potassium Blood Type B POSITIVE Cancelled Blood Type Confirm Antibody Screen Positive Cancelled Antibody Identification Anti K Antigen Identification K Antigen - NEGATIVE Crossmatch See Detail BBK History Checked No verified bt Cancelled 07/07/18 07/07/18 07/07/18 16:40 16:49 23:35 WBC 13.3 H RBC 3.30 L Hgb 9.2 L Hct 28.5 L MCV 86.4 MCH 27.9 MCHC 32.3 RDW 14.6 H Plt Count 288 MPV 9.8 Gran % Lymph % (Auto) Jefferson % (Auto) Eos % (Auto) Baso % (Auto) Gran # Lymph # (Auto) Jefferson # (Auto) Eos # (Auto) Baso # (Auto) PT INR APTT pO2 42 VBG pH 7.31 L VBG pCO2 70.0 H* VBG HCO3 35.2 H VBG Total CO2 37.3 H VBG O2 Sat (Calc) 79.3 H VBG Base Excess 6.4 H VBG Potassium 4.7 Glucose 88 Lactate 0.6 L FiO2 21.0 Sodium 135.0 Potassium Chloride 101.0 Carbon Dioxide Anion Gap BUN Creatinine Est GFR ( Amer) Est GFR (Non-Af Amer) Random Glucose Calcium Total Bilirubin AST ALT Alkaline Phosphatase Troponin I Total Protein Albumin Globulin Albumin/Globulin Ratio Lipase Venous Blood Potassium 4.7 Blood Type Blood Type Confirm B POSITIVE Antibody Screen Antibody Identification Antigen Identification Crossmatch BBK History Checked 07/08/18 07/08/18 06:40 06:40 WBC 13.7 H RBC 3.71 Hgb 10.4 L Hct 31.1 L MCV 83.8 MCH 28.0 MCHC 33.4 RDW 14.7 H Plt Count 240 MPV 9.2 Gran % Lymph % (Auto) Jefferson % (Auto) Eos % (Auto) Baso % (Auto) Gran # Lymph # (Auto) Jefferson # (Auto) Eos # (Auto) Baso # (Auto) PT INR APTT pO2 VBG pH VBG pCO2 VBG HCO3 VBG Total CO2 VBG O2 Sat (Calc) VBG Base Excess VBG Potassium Glucose Lactate FiO2 Sodium 141 Potassium 4.6 Chloride 107 Carbon Dioxide 30 Anion Gap 9 L BUN 20 Creatinine 1.1 Est GFR ( Amer) 57 Est GFR (Non-Af Amer) 47 Random Glucose 99 Calcium 8.3 L Total Bilirubin 0.8 AST 24 ALT 24 Alkaline Phosphatase 45 Troponin I Total Protein 5.7 L Albumin 3.0 Globulin 2.7 Albumin/Globulin Ratio 1.1 Lipase Venous Blood Potassium Blood Type Blood Type Confirm Antibody Screen Antibody Identification Antigen Identification Crossmatch BBK History Checked EKG/Cardiology Studies: Cardiology / EKG Studies 07/07/18 14:49 EKG [ELECTROCARDIOGRAM] Stat Comment: Reason For Exam: BLOOD IN STOOL Review of Systems - Review of Systems Review of Systems: per HPI Critical Care Progress Note - Nutrition Nutrition: Nutrition Category Date Time Status NPO Diet [DIET] Diets 07/07/18 Dinner Ordered Assessment/Plan - Assessment and Plan (Free Text) Assessment: 88 y/o F with PMHx of CAD s/p CABG on asa/plavix, colon ca s/p resection, lung ca s/p chemoradiation, CHF w/ last known EF 20-25%, HTN admitted to ICU for GI bleed. Plan: Neuro: AAOx3, no FND, moving extremities past midline Monitor neuro status Reorient patient as necessary Cardio: RRR, normotensive H/H uptrending s/p 3u pRBC Continue to monitor H/H q4h Maintain MAP>65 Monitor for s/sx of worsening HD compromise Pulm: No signs of respiratory distress. CTA B/L, able to protect airway CTAP showed possible RLL consolidation but patient has no sx of fever, cough, SOB Patient is stating well on room air. Maintain O2 saturation>95%. O2 NC PRN GI: s/p colon cancer s/p hemicolectomy w/ primary anastamosis [address] Blackman Bleeding scan shows bleeding in RLQ NPO pending GI and/or surgery recs Continue protonix 40 IVP q12h Plan per surgery is to monitor H/H for resolution If H/H continues to worsen, plan for IR consultation for possible embolization in AM Surgery would prefer no operative management given patient's co-morbidities Maintain hemoglobin >9 F/u additional GI, surgery, and IR recs Heme/Onc: H/H stable s/p 3u pRBC and 1u platelets No overt signs of HD compromise No signs of hemorrhagic shock, global end-organ damage Continue q4h CBC monitoring CTAP showed numerous hepatic hypodense lesions favored to reflect cysts Unclear whether these may represent metastatic disease Case discussed with Dr. Duncan and Dr. Blackman who are following the patient Continue monitoring H/H and f/u GI, surgery, IR, heme/onc recs /Nephro: BUN/Cr stable Walls in place Monitor UOP closely Replete electrolytes as needed Maintain euvolemia Endocrinology: Maintain euglycemia. ID: Afebrile, no leukocytosis F/u blood, urine cx results, procal Monitor for signs and symptoms of infection DVT/GI PPX: SCD/protonix BID DNR/DNI NPO Dispo: Pt is s/p 3u pRBC. She is doing well without complaints. She is currently NPO. Vital signs are stable, she is hemodynamicaly stable. Hemoglobin/hematocrit have improved. She had bleeding scan completed last night which showed RLQ bleeding, however demonstrates no signs of hemorrhagic shock. Per surgery, no surgical intervention at this time. Further recs per IR for embolization. She no longer requires ICU care. She is stable for transfer to telemetry. Case seen, examined and discussed with attending physician, Dr. Wilson
--- NOTE | 2018-07-08 11:01 | CP.PCM.CON ---
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 Patient notes urge to defecate leading to two large bloody bowel movements with clots prior to ER presentation. Since admission, noted to have at least an additional four large bloody bowel movements with clots. Associated lower abdominal pain, weakness, and shortness of breath. Denies chest pain, vomiting, hematemesis diaphoresis, melena, unintentional weight loss, or NSAIDs/ETOH use. Prior c olonoscopy 2010 showed anastomotic ulcers. Prior EGD 2011 showed esophagitis and gastritis. Family History- denies stomach cancer, colon cancer Social History-quit tobacco, denies alcohol or illicit drug use Surgical History- CABG, subtotal colectomy, port-a-cath Review of Systems - Review of Systems Review of Systems: 12-point review of systems negative except for as above Past Patient History - Infectious Disease Hx of Infectious Diseases: None - Tetanus Immunizations Tetanus Immunization: Unknown - Past Social History Smoking Status: Former Smoker - CARDIAC Hx Cardiac Disorders: Yes Hx Congestive Heart Failure: Yes Hx Hypertension: Yes - PULMONARY Hx Respiratory Disorders: Yes (on at home) - NEUROLOGICAL Hx Neurological Disorder: No - HEENT Hx HEENT Problems: No - RENAL Hx Chronic Kidney Disease: No - ENDOCRINE/METABOLIC Hx Endocrine Disorders: Yes Hx Diabetes Mellitus Type 2: Yes - HEMATOLOGICAL/ONCOLOGICAL Hx Blood Disorders: Yes Hx Anemia: Yes - INTEGUMENTARY Hx Dermatological Problems: No - MUSCULOSKELETAL/RHEUMATOLOGICAL Hx Falls: Yes - GASTROINTESTINAL Hx Gastrointestinal Disorders: Yes (POOR APPETITE,LUNG CA, COLON CA WITH RESECTION,) - GENITOURINARY/GYNECOLOGICAL Hx Genitourinary Disorders: Yes - PSYCHIATRIC Hx Substance Use: No - SURGICAL HISTORY Hx Surgeries: Yes Hx Amputation: No Hx Appendectomy: Yes Hx Cardiac Catheterization: Yes Hx Cholecystectomy: Yes Hx Coronary Stent: No Hx Gastric Bypass Surgery: No Hx Hysterectomy: No Hx Joint Replacement: No Hx Kidney Transplant: No Hx Liver Transplant: No Hx Mastectomy: No Hx Musculoskeletal Surgery: No Hx Open Heart Surgery: Yes Hx Orthopedic Surgery: No Hx Splenectomy: No Hx Valve Replacement: No - ANESTHESIA Hx Anesthesia: Yes Hx Anesthesia Reactions: No Hx Malignant Hyperthermia: No Meds Allergies/Adverse Reactions: Allergies Allergy/AdvReac Type Severity Reaction Status Date / Time atorvastatin Allergy HEADACHE Verified 07/07/18 14:07 meclizine Allergy RASH Verified 07/07/18 14:07 shellfish derived Allergy SHORTNESS Verified 07/07/18 14:07 OF BREATH - Medications Medications: Current Medications Carvedilol (Coreg) 3.125 mg PO 0800,1700 [facility] Digoxin (Digoxin) 0.125 mg PO 1400 [facility] Furosemide (Lasix) 40 mg PO 0800,1400 [facility] Losartan Potassium (Cozaar) 12.5 mg PO DAILY [facility] Pantoprazole Sodium (Protonix Inj) 40 mg IVP Q12 [facility] Spironolactone (Aldactone) 25 mg PO BID [facility] Physical Exam - Constitutional Appears: No Acute Distress - Head Exam Head Exam: ATRAUMATIC, NORMOCEPHALIC - Eye Exam Eye Exam: EOMI, PERRL. absent: Scleral icterus Pupil Exam: PERRL. absent: Miosis, Mydriatic - ENT Exam ENT Exam: Mucous Membranes Moist, Normal Oropharynx - Neck Exam Neck exam: Positive for: Full Rom, Normal Inspection - Respiratory Exam Respiratory Exam: Clear to Auscultation Bilateral. absent: Rales, Rhonchi, Wheezes - Cardiovascular Exam Cardiovascular Exam: RRR, +S1, +S2. absent: Gallop, Rubs - GI/Abdominal Exam GI & Abdominal Exam: Normal Bowel Sounds, Soft, Tenderness. absent: Distended, Firm, Guarding, Organomegaly, Rebound, Rigid Additional comments: RLQ>LLQ tenderness to palpation - Rectal Exam Rectal Exam: Bloody Stool - Extremities Exam Extremities exam: Positive for: normal inspection. Negative for: pedal edema - Neurological Exam Neurological exam: Alert, Oriented x3 - Psychiatric Exam Psychiatric exam: Normal Affect, Normal Mood - Skin Skin Exam: Dry, Intact, Normal Color, Warm Results - Vital Signs Recent Vital Signs: Last Vital Signs Temp 98.7 F 07/08/18 08:00 Pulse 57 L 07/08/18 07:40 Resp 16 07/08/18 07:40 BP 124/50 L 07/08/18 07:00 Pulse Ox 100 07/08/18 07:40 - Labs Result Diagrams: 07/08/18 06:40 07/08/18 06:40 Labs: Laboratory Results - last 24 hr 07/07/18 07/07/18 07/07/18 14:40 14:40 14:40 WBC 11.7 H D RBC 3.32 L Hgb 9.0 L Hct 28.5 L MCV 85.8 MCH 27.1 MCHC 31.6 RDW 14.9 H Plt Count 335 MPV 9.1 Gran % 81.4 H Lymph % (Auto) 13.0 L Pitt % (Auto) 5.2 Eos % (Auto) 0.3 L Baso % (Auto) 0.1 Gran # 9.55 H Lymph # (Auto) 1.5 Pitt # (Auto) 0.6 Eos # (Auto) 0.0 Baso # (Auto) 0.01 PT 12.2 INR 1.07 APTT 23.6 L pO2 VBG pH VBG pCO2 VBG HCO3 VBG Total CO2 VBG O2 Sat (Calc) VBG Base Excess VBG Potassium Glucose Lactate FiO2 Sodium 138 Potassium 4.7 Chloride 100 Carbon Dioxide 31 Anion Gap 12 BUN 26 H Creatinine 1.2 Est GFR ( Amer) 51 Est GFR (Non-Af Amer) 42 Random Glucose 104 Calcium 9.1 Total Bilirubin 0.3 AST 27 ALT 25 Alkaline Phosphatase 51 Troponin I Total Protein 6.7 Albumin 3.5 Globulin 3.2 Albumin/Globulin Ratio 1.1 Lipase 62 Venous Blood Potassium Blood Type Blood Type Confirm Antibody Screen Antibody Identification Antigen Identification Crossmatch BBK History Checked 07/07/18 07/07/18 07/07/18 14:40 14:40 16:09 WBC RBC Hgb Hct MCV MCH MCHC RDW Plt Count MPV Gran % Lymph % (Auto) Pitt % (Auto) Eos % (Auto) Baso % (Auto) Gran # Lymph # (Auto) Pitt # (Auto) Eos # (Auto) Baso # (Auto) PT INR APTT pO2 VBG pH VBG pCO2 VBG HCO3 VBG Total CO2 VBG O2 Sat (Calc) VBG Base Excess VBG Potassium Glucose Lactate FiO2 Sodium Potassium Chloride Carbon Dioxide Anion Gap BUN Creatinine Est GFR ( Amer) Est GFR (Non-Af Amer) Random Glucose Calcium Total Bilirubin AST ALT Alkaline Phosphatase Troponin I 0.02 Total Protein Albumin Globulin Albumin/Globulin Ratio Lipase Venous Blood Potassium Blood Type B POSITIVE Cancelled Blood Type Confirm Antibody Screen Positive Cancelled Antibody Identification Anti K Antigen Identification K Antigen - NEGATIVE Crossmatch See Detail BBK History Checked No verified bt Cancelled 07/07/18 07/07/18 07/07/18 16:40 16:49 23:35 WBC 13.3 H RBC 3.30 L Hgb 9.2 L Hct 28.5 L MCV 86.4 MCH 27.9 MCHC 32.3 RDW 14.6 H Plt Count 288 MPV 9.8 Gran % Lymph % (Auto) Pitt % (Auto) Eos % (Auto) Baso % (Auto) Gran # Lymph # (Auto) Pitt # (Auto) Eos # (Auto) Baso # (Auto) PT INR APTT pO2 42 VBG pH 7.31 L VBG pCO2 70.0 H* VBG HCO3 35.2 H VBG Total CO2 37.3 H VBG O2 Sat (Calc) 79.3 H VBG Base Excess 6.4 H VBG Potassium 4.7 Glucose 88 Lactate 0.6 L FiO2 21.0 Sodium 135.0 Potassium Chloride 101.0 Carbon Dioxide Anion Gap BUN Creatinine Est GFR ( Amer) Est GFR (Non-Af Amer) Random Glucose Calcium Total Bilirubin AST ALT Alkaline Phosphatase Troponin I Total Protein Albumin Globulin Albumin/Globulin Ratio Lipase Venous Blood Potassium 4.7 Blood Type Blood Type Confirm B POSITIVE Antibody Screen Antibody Identification Antigen Identification Crossmatch BBK History Checked 07/08/18 07/08/18 06:40 06:40 WBC 13.7 H RBC 3.71 Hgb 10.4 L Hct 31.1 L MCV 83.8 MCH 28.0 MCHC 33.4 RDW 14.7 H Plt Count 240 MPV 9.2 Gran % Lymph % (Auto) Pitt % (Auto) Eos % (Auto) Baso % (Auto) Gran # Lymph # (Auto) Pitt # (Auto) Eos # (Auto) Baso # (Auto) PT INR APTT pO2 VBG pH VBG pCO2 VBG HCO3 VBG Total CO2 VBG O2 Sat (Calc) VBG Base Excess VBG Potassium Glucose Lactate FiO2 Sodium 141 Potassium 4.6 Chloride 107 Carbon Dioxide 30 Anion Gap 9 L BUN 20 Creatinine 1.1 Est GFR ( Amer) 57 Est GFR (Non-Af Amer) 47 Random Glucose 99 Calcium 8.3 L Total Bilirubin 0.8 AST 24 ALT 24 Alkaline Phosphatase 45 Troponin I Total Protein 5.7 L Albumin 3.0 Globulin 2.7 Albumin/Globulin Ratio 1.1 Lipase Venous Blood Potassium Blood Type Blood Type Confirm Antibody Screen Antibody Identification Antigen Identification Crossmatch BBK History Checked Assessment & Plan - Assessment and Plan (Free Text) Assessment: 88 year old female with PMH of Lung cancer s/p chemoradiation, GI bleed s/p subtotal colectomy (2010) complicated by anastomotic ulcers, CAD s/p CABG (on ASA/Plavix), sCHF EF25-30%, and COPD presenting with rectal bleeding. Active treatment of symptomatic anemia 2/2 to concern for lower GI bleed. Prior colonoscopy 2010 showed anastomotic ulcers. Prior EGD 2011 showed esophagitis and gastritis. Plan: -Bleeding scan- active bleed at distal ileum/cecum -s/p 2U pRBCs, inappropriate response -scheduled for EGD and colonoscopy today -discussed case with ICU team -plan for IR on standby -surgery following -NPO -PPI IV BID -further recommendations after endoscopic evaluation <Serafin Hernandez V - Last Filed: 07/09/18 23:33> Meds - Medications Medications: Current Medications Acetaminophen (Tylenol 325mg Tab) 650 mg PO ONCE PRN PRN Reason: prbc transfusion Alprazolam (Xanax) 0.25 mg PO HS PRN; Protocol PRN Reason: Insomnia Stop: 07/15/18 22:01 Last Admin: 07/09/18 03:24 Dose: 0.25 mg Carvedilol (Coreg) 3.125 mg PO 0800,1700 [facility] Last Admin: 07/09/18 17:38 Dose: Not Given Digoxin (Digoxin) 0.125 mg PO 1400 [facility] Last Admin: 07/09/18 14:02 Dose: 0.125 mg Diphenhydramine HCl (Benadryl) 25 mg IVP ONCE PRN PRN Reason: prbc transfusion Last Admin: 07/09/18 01:02 Dose: 25 mg Furosemide (Lasix) 40 mg PO 0800,1400 [facility] Last Admin: 07/09/18 14:02 Dose: Not Given Furosemide (Lasix) 20 mg IVP ONCE PRN PRN Reason: prbc transfusion Last Admin: 07/09/18 04:07 Dose: 20 mg Hydrocortisone Sodium Succinate (Solu-Cortef) 50 mg IVP ONCE PRN PRN Reason: prbc transfusion Losartan Potassium (Cozaar) 12.5 mg PO DAILY [facility] Last Admin: 07/09/18 10:58 Dose: 12.5 mg Pantoprazole Sodium (Protonix Inj) 40 mg IVP Q12 [facility] Last Admin: 07/09/18 21:29 Dose: 40 mg Spironolactone (Aldactone) 25 mg PO BID [facility] Last Admin: 07/09/18 17:56 Dose: 25 mg Results - Vital Signs Recent Vital Signs: Last Vital Signs Temp 97.4 F L 07/09/18 17:01 Pulse 53 L 07/09/18 22:00 Resp 20 07/09/18 17:01 BP 98/61 L 07/09/18 17:38 Pulse Ox 100 07/09/18 17:01 - Labs Result Diagrams: 07/09/18 09:00 07/09/18 09:00 Labs: Laboratory Results - last 24 hr 07/07/18 07/09/18 07/09/18 14:40 09:00 09:00 WBC RBC Hgb Hct MCV MCH MCHC RDW Plt Count MPV Gran % Lymph % (Auto) Pitt % (Auto) Eos % (Auto) Baso % (Auto) Gran # Lymph # (Auto) Pitt # (Auto) Eos # (Auto) Baso # (Auto) PT 12.0 INR 1.04 Sodium 141 Potassium 4.5 Chloride 109 H Carbon Dioxide 28 Anion Gap 8 L BUN 20 Creatinine 1.2 Est GFR ( Amer) 51 Est GFR (Non-Af Amer) 42 Random Glucose 196 H Calcium 8.4 Phosphorus 3.3 Magnesium 2.0 Total Bilirubin 0.7 AST 25 ALT 25 Alkaline Phosphatase 41 Total Protein 5.7 L Albumin 2.9 L Globulin 2.7 Albumin/Globulin Ratio 1.1 Blood Type B POSITIVE Antibody Screen Positive Antibody Identification Anti K Antigen Identification K Antigen - NEGATIVE Crossmatch See Detail BBK History Checked No verified bt 07/09/18 09:00 WBC 13.7 H RBC 3.87 Hgb 11.4 L D Hct 34.4 L MCV 88.9 D MCH 29.5 MCHC 33.1 RDW 15.5 H Plt Count 179 MPV 9.5 Gran % 82.8 H Lymph % (Auto) 10.7 L Pitt % (Auto) 6.1 H Eos % (Auto) 0.3 L Baso % (Auto) 0.1 Gran # 11.37 H Lymph # (Auto) 1.5 Pitt # (Auto) 0.8 H Eos # (Auto) 0.0 Baso # (Auto) 0.02 PT INR Sodium Potassium Chloride Carbon Dioxide Anion Gap BUN Creatinine Est GFR ( Amer) Est GFR (Non-Af Amer) Random Glucose Calcium Phosphorus Magnesium Total Bilirubin AST ALT Alkaline Phosphatase Total Protein Albumin Globulin Albumin/Globulin Ratio Blood Type Antibody Screen Antibody Identification Antigen Identification Crossmatch BBK History Checked Attending/Attestation - Attestation I have personally seen and examined this patient.: Yes I have fully participated in the care of the patient.: Yes I have reviewed all pertinent clinical information: Yes
--- NOTE | 2018-07-08 11:22 | NM ---
Date of service: 07/07/2018 PROCEDURE: Nuclear medicine gastrointestinal bleeding scan. HISTORY: Large lower GI Bleeding COMPARISON: June 09, 2018 CT abdomen and pelvis TECHNIQUE: 4ccof patient blood was withdrawn and mixed with mCi of technetium ultra tagged. Images of the abdomen and pelvis were obtained in the anterior and posterior projection at 1 min intervals over a period of 45 min. FINDINGS: Abnormal transit following accumulation of radionuclide in the right lower quadrant likely within the cecum at the surgical anastomotic suture line. IMPRESSION: Positive gastrointestinal bleeding scan. Surgical anastomotic site/cecum appears to be the source of the bleeding. Concordant findings (preliminary report) provided by [facility].
[2018-07-08 11:43] LABS: BASO # 0.01 K/mm3 (0.0-2.0); BASO % 0.1 % (0.0-3.0); EOS % 0.1 % (1.5-5.0); GRAN # 11.65 (1.4-6.5); GRAN % 81.9 % (50.0-68.0); HEMOGLOBIN 9.6 g/dL (12.0-16.0); LYMPH # 1.7 (1.2-3.4); MEAN CELL VOLUME 84.2 fl (80.0-105.0); MEAN CORPUSCULAR HEMOGLOBIN 28.2 pg (25.0-35.0); MEAN CORPUSCULAR HGB CONC 33.4 g/dl (31.0-37.0); MEAN PLATELET VOLUME 9.3 fl (7.0-11.0); MONO # 0.8 (0.1-0.6); MONO % 5.9 % (1.0-6.0); RBC 3.41 10^6/uL (3.5-6.1); WHITE BLOOD COUNT 14.2 10^3/uL (4.5-11.0)
--- NOTE | 2018-07-08 12:41 | CP.PCM.PN ---
Subjective - Date & Time of Evaluation Date of Evaluation: 07/08/18 Time of Evaluation: 11:00 - Subjective Subjective: General Surgery Dr. Blackman Pt S&E @bedside. Pt has PSHx of subtotal colectomy 15yrs ago for GIB. Pt transfused 2 units pRBC and 1 unit Plts for GIB w/ BRBPR. Pt continues to have hematochezia w/ 1 episode overnight. Vitals stable. Pt has no complaints this AM. reports minor abd pain in RUQ. denies F/C, N/V, CP, SOB. Pt states that she does not want any intervention. Objective - Vital Signs/Intake and Output Vital Signs (last 24 hours): Temp Pulse Resp BP Pulse Ox 98.7 F 80 18 103/60 100 07/08/18 08:00 07/08/18 11:24 07/08/18 11:10 07/08/18 11:24 07/08/18 11:10 Intake and Output: 07/08/18 07/08/18 06:59 18:59 Intake Total 1126 Output Total 1400 Balance -274 - Medications Medications: Current Medications Carvedilol (Coreg) 3.125 mg PO 0800,1700 [facility] Digoxin (Digoxin) 0.125 mg PO 1400 [facility] Furosemide (Lasix) 40 mg PO 0800,1400 [facility] Losartan Potassium (Cozaar) 12.5 mg PO DAILY [facility] Last Admin: 07/08/18 11:24 Dose: 12.5 mg Pantoprazole Sodium (Protonix Inj) 40 mg IVP Q12 [facility] Last Admin: 07/08/18 11:22 Dose: Not Given Spironolactone (Aldactone) 25 mg PO BID [facility] - Labs Labs: 07/08/18 11:30 07/08/18 06:40 PT 12.2 SECONDS (9.4-12.5) 07/07/18 14:40 INR 1.07 07/07/18 14:40 APTT 23.6 Seconds (25.1-36.5) L 07/07/18 14:40 Assessment and Plan - Assessment and Plan (Free Text) Assessment: 88 y/o F w/ GI bleeding, refusing medical intervention Plan: - pt refusing any and all surgical intervention. - cleared for PO intake from surgical standpoint - recommend EGD +/- possible IR embolization for bleeding - IVF, gentle hydration - Transfuse to maintain Hbg >9 - Monitor H/H - Hold asprin, plavix, hold anticoagulation. Pt discussed w/ Dr. Yehuda Cardenas DO PGY3
--- NOTE | 2018-07-08 14:07 | CP.PCM.HP ---
History of Present Illness - History of Present Illness History of Present Illness: Hematology/Oncology History and Physical (Dr. Duncan's Service) Mrs. Martins is an 88 year old female with a past medical history significant for COPD, systolic CHF (EF 25-30%), CAD, HTN, HLD, lung cancer s/p chemoradiation and colon cancer s/p resection who presented with rectal bleeding. Patient reports that approximately 24 hours [employer], she had two large bloody BM's with associated clots. At that time, she was also experiencing lower abdominal pain that she described as crampy and self limited after the BM's were completed. She reports that she has had this once in the past, leading to her partial colectomy done in 2004. The patient is not currently on any anticoagulation at home but does take ASA and Plavix daily. She denies any OTC NSAID use, alcohol use or While in the ED and again once in the ICU, patient was noted to have multiple bloody BM's with large amounts of bright red blood in the basin. She currently denies any fevers, chills, headache, changes in her vision, dysphagia, palpitations, cough, wheezing, sputum production, hemoptysis, abdominal pain, N/V/D/C, skin changes or any numbness/tingling of any extremity. Of note, a prior colonoscopy in 2010 showed anastomotic ulcers and a prior EGD in 2011 showed esophagitis and gastritis. In the ED, patient was found to have a hemoglobin of 9.0. She has been transfused three total units of pRBC's and one unit of platelets. PMH: As stated above PSH: CABG, partial colectomy, portacath Family History: Non-contributory Social History: Denies any current tobacco, alcohol or illicit drug use; Former smoker; Lives alone Allergies: Lipitor, Meclizine, and Shellfish Home Medications: As per [facility] Medical Review Specialist: Dr. Howard Oncologist: Dr. Duncan Present on Admission - Present on Admission Any Indicators Present on Admission: No Review of Systems - Review of Systems Review of Systems: As stated in HPI, otherwise negative Past Patient History - Infectious Disease Hx of Infectious Diseases: None - Tetanus Immunizations Tetanus Immunization: Unknown - Past Social History Smoking Status: Former Smoker - CARDIAC Hx Cardiac Disorders: Yes Hx Congestive Heart Failure: Yes Hx Hypertension: Yes - PULMONARY Hx Respiratory Disorders: Yes (on 02 at home) - NEUROLOGICAL Hx Neurological Disorder: No - HEENT Hx HEENT Problems: No - RENAL Hx Chronic Kidney Disease: No - ENDOCRINE/METABOLIC Hx Endocrine Disorders: Yes Hx Diabetes Mellitus Type 2: Yes - HEMATOLOGICAL/ONCOLOGICAL Hx Blood Disorders: Yes Hx Anemia: Yes - INTEGUMENTARY Hx Dermatological Problems: No - MUSCULOSKELETAL/RHEUMATOLOGICAL Hx Falls: Yes - GASTROINTESTINAL Hx Gastrointestinal Disorders: Yes (POOR APPETITE,LUNG CA, COLON CA WITH RESECTION,) - GENITOURINARY/GYNECOLOGICAL Hx Genitourinary Disorders: Yes - PSYCHIATRIC Hx Substance Use: No - SURGICAL HISTORY Hx Surgeries: Yes Hx Amputation: No Hx Appendectomy: Yes Hx Cardiac Catheterization: Yes Hx Cholecystectomy: Yes Hx Coronary Stent: No Hx Gastric Bypass Surgery: No Hx Hysterectomy: No Hx Joint Replacement: No Hx Kidney Transplant: No Hx Liver Transplant: No Hx Mastectomy: No Hx Musculoskeletal Surgery: No Hx Open Heart Surgery: Yes Hx Orthopedic Surgery: No Hx Splenectomy: No Hx Valve Replacement: No - ANESTHESIA Hx Anesthesia: Yes Hx Anesthesia Reactions: No Hx Malignant Hyperthermia: No Meds Allergies/Adverse Reactions: Allergies Allergy/AdvReac Type Severity Reaction Status Date / Time atorvastatin Allergy HEADACHE Verified 07/07/18 14:07 meclizine Allergy RASH Verified 07/07/18 14:07 shellfish derived Allergy SHORTNESS Verified 07/07/18 14:07 OF BREATH Physical Exam - Constitutional Appears: Non-toxic, No Acute Distress - Head Exam Head Exam: ATRAUMATIC, NORMOCEPHALIC - Eye Exam Eye Exam: EOMI, Normal appearance - ENT Exam ENT Exam: Mucous Membranes Moist, Normal Exam - Neck Exam Neck exam: Positive for: Full Rom, Normal Inspection. Negative for: Lympha denopathy, Meningismus, Tenderness, Thyromegaly - Respiratory Exam Respiratory Exam: Clear to Auscultation Bilateral, NORMAL BREATHING PATTERN. absent: Accessory Muscle Use, Chest Wall Tenderness, Decreased Breath Sounds, Prolonged Expiratory Phase, Rales, Rhonchi, Wheezes, Respiratory Distress, Stridor - Cardiovascular Exam Cardiovascular Exam: RRR, +S1, +S2 - GI/Abdominal Exam GI & Abdominal Exam: Normal Bowel Sounds, Soft. absent: Distended, Firm, Guarding, Hernia, Rebound, Rigid, Tenderness - Rectal Exam Rectal Exam: Deferred - Extremities Exam Extremities exam: Negative for: calf tenderness - Neurological Exam Neurological exam: Alert, Oriented x3 - Psychiatric Exam Psychiatric exam: Normal Affect, Normal Mood - Skin Skin Exam: Dry, Intact, Normal Color, Warm Results - Vital Signs Recent Vital Signs: Last Vital Signs Temp 98.7 F 07/08/18 08:00 Pulse 80 07/08/18 11:24 Resp 18 07/08/18 11:10 BP 103/60 07/08/18 11:24 Pulse Ox 100 07/08/18 11:10 - Labs Result Diagrams: 07/08/18 11:30 07/08/18 06:40 Labs: Laboratory Results - last 24 hr 07/07/18 07/07/18 07/07/18 14:40 14:40 14:40 WBC 11.7 H D RBC 3.32 L Hgb 9.0 L Hct 28.5 L MCV 85.8 MCH 27.1 MCHC 31.6 RDW 14.9 H Plt Count 335 MPV 9.1 Gran % 81.4 H Lymph % (Auto) 13.0 L Vernon % (Auto) 5.2 Eos % (Auto) 0.3 L Baso % (Auto) 0.1 Gran # 9.55 H Lymph # (Auto) 1.5 Vernon # (Auto) 0.6 Eos # (Auto) 0.0 Baso # (Auto) 0.01 PT 12.2 INR 1.07 APTT 23.6 L pO2 VBG pH VBG pCO2 VBG HCO3 VBG Total CO2 VBG O2 Sat (Calc) VBG Base Excess VBG Potassium Glucose Lactate FiO2 Sodium 138 Potassium 4.7 Chloride 100 Carbon Dioxide 31 Anion Gap 12 BUN 26 H Creatinine 1.2 Est GFR ( Amer) 51 Est GFR (Non-Af Amer) 42 Random Glucose 104 Calcium 9.1 Total Bilirubin 0.3 AST 27 ALT 25 Alkaline Phosphatase 51 Troponin I Total Protein 6.7 Albumin 3.5 Globulin 3.2 Albumin/Globulin Ratio 1.1 Lipase 62 Procalcitonin Venous Blood Potassium Blood Type Blood Type Confirm Antibody Screen Antibody Identification Antigen Identification Crossmatch BBK History Checked 07/07/18 07/07/18 07/07/18 14:40 14:40 16:09 WBC RBC Hgb Hct MCV MCH MCHC RDW Plt Count MPV Gran % Lymph % (Auto) Vernon % (Auto) Eos % (Auto) Baso % (Auto) Gran # Lymph # (Auto) Vernon # (Auto) Eos # (Auto) Baso # (Auto) PT INR APTT pO2 VBG pH VBG pCO2 VBG HCO3 VBG Total CO2 VBG O2 Sat (Calc) VBG Base Excess VBG Potassium Glucose Lactate FiO2 Sodium Potassium Chloride Carbon Dioxide Anion Gap BUN Creatinine Est GFR ( Amer) Est GFR (Non-Af Amer) Random Glucose Calcium Total Bilirubin AST ALT Alkaline Phosphatase Troponin I 0.02 Total Protein Albumin Globulin Albumin/Globulin Ratio Lipase Procalcitonin Venous Blood Potassium Blood Type B POSITIVE Cancelled Blood Type Confirm Antibody Screen Positive Cancelled Antibody Identification Anti K Antigen Identification K Antigen - NEGATIVE Crossmatch See Detail BBK History Checked No verified bt Cancelled 07/07/18 07/07/18 07/07/18 16:40 16:49 23:35 WBC 13.3 H RBC 3.30 L Hgb 9.2 L Hct 28.5 L MCV 86.4 MCH 27.9 MCHC 32.3 RDW 14.6 H Plt Count 288 MPV 9.8 Gran % Lymph % (Auto) Vernon % (Auto) Eos % (Auto) Baso % (Auto) Gran # Lymph # (Auto) Vernon # (Auto) Eos # (Auto) Baso # (Auto) PT INR APTT pO2 42 VBG pH 7.31 L VBG pCO2 70.0 H* VBG HCO3 35.2 H VBG Total CO2 37.3 H VBG O2 Sat (Calc) 79.3 H VBG Base Excess 6.4 H VBG Potassium 4.7 Glucose 88 Lactate 0.6 L FiO2 21.0 Sodium 135.0 Potassium Chloride 101.0 Carbon Dioxide Anion Gap BUN Creatinine Est GFR ( Amer) Est GFR (Non-Af Amer) Random Glucose Calcium Total Bilirubin AST ALT Alkaline Phosphatase Troponin I Total Protein Albumin Globulin Albumin/Globulin Ratio Lipase Procalcitonin Venous Blood Potassium 4.7 Blood Type Blood Type Confirm B POSITIVE Antibody Screen Antibody Identification Antigen Identification Crossmatch BBK History Checked 07/08/18 07/08/18 07/08/18 06:40 06:40 06:40 WBC 13.7 H RBC 3.71 Hgb 10.4 L Hct 31.1 L MCV 83.8 MCH 28.0 MCHC 33.4 RDW 14.7 H Plt Count 240 MPV 9.2 Gran % Lymph % (Auto) Vernon % (Auto) Eos % (Auto) Baso % (Auto) Gran # Lymph # (Auto) Vernon # (Auto) Eos # (Auto) Baso # (Auto) PT INR APTT pO2 VBG pH VBG pCO2 VBG HCO3 VBG Total CO2 VBG O2 Sat (Calc) VBG Base Excess VBG Potassium Glucose Lactate FiO2 Sodium 141 Potassium 4.6 Chloride 107 Carbon Dioxide 30 Anion Gap 9 L BUN 20 Creatinine 1.1 Est GFR ( Amer) 57 Est GFR (Non-Af Amer) 47 Random Glucose 99 Calcium 8.3 L Total Bilirubin 0.8 AST 24 ALT 24 Alkaline Phosphatase 45 Troponin I Total Protein 5.7 L Albumin 3.0 Globulin 2.7 Albumin/Globulin Ratio 1.1 Lipase Procalcitonin < 0.05 L Venous Blood Potassium Blood Type Blood Type Confirm Antibody Screen Antibody Identification Antigen Identification Crossmatch BBK History Checked 07/08/18 11:30 WBC 14.2 H RBC 3.41 L Hgb 9.6 L Hct 28.7 L MCV 84.2 MCH 28.2 MCHC 33.4 RDW 15.0 H Plt Count 240 MPV 9.3 Gran % 81.9 H Lymph % (Auto) 12.0 L Vernon % (Auto) 5.9 Eos % (Auto) 0.1 L Baso % (Auto) 0.1 Gran # 11.65 H Lymph # (Auto) 1.7 Vernon # (Auto) 0.8 H Eos # (Auto) 0.0 Baso # (Auto) 0.01 PT INR APTT pO2 VBG pH VBG pCO2 VBG HCO3 VBG Total CO2 VBG O2 Sat (Calc) VBG Base Excess VBG Potassium Glucose Lactate FiO2 Sodium Potassium Chloride Carbon Dioxide Anion Gap BUN Creatinine Est GFR ( Amer) Est GFR (Non-Af Amer) Random Glucose Calcium Total Bilirubin AST ALT Alkaline Phosphatase Troponin I Total Protein Albumin Globulin Albumin/Globulin Ratio Lipase Procalcitonin Venous Blood Potassium Blood Type Blood Type Confirm Antibody Screen Antibody Identification Antigen Identification Crossmatch BBK History Checked Assessment & Plan - Assessment and Plan (Free Text) Assessment: 88 year old female with a past medical history significant for COPD, systolic CHF (EF 25-30%), CAD, HTN, HLD, lung cancer s/p chemoradiation and colon cancer s/p resection who presented with rectal bleeding. Plan: 1. Hematochezia -H/H currently stable at 10.4 s/p three units of pRBC's -s/p one unit of platelets for Plavix reversal -Holding all AC/AP at this time -Protonix 40mg IVP Q12 -Serial CBC's Q4 -NPO diet -NS at 50mls/hr -s/p two liters of NS given in ED -No surgical interventions indicated at this time -Planned for EGD/CSPY today (07/08) -GI, Cardiology and Surgery consulted, all recommendations appreciated GI Prophylaxis: Protonix DVT Prophylaxis: Contraindicated at this time Diet: NPO Code Status: DNR/DNI Patient Status: Inpatient Location: ICU Disposition: Patient to EGD/CSPY today (07/08). Will await the results of this to base further management. Will also discuss restarting DAPT with GI and Cardiology teams. Patient seen and case discussed with attending, Dr. Duncan. Dane Newsome PGY2 - Date & Time Date: 07/08/18 Time: 09:00
[2018-07-08] MEDS ORDERED: Propofol 10 mg/ml Inj (20 ML) ONE (15:52)
[2018-07-08] MEDS ORDERED: Etomidate 20 mg/10ml Inj IV ONE (16:05)
[2018-07-08] MEDS: Digoxin 125 mcg (0.125 mg) Tab PO SCH (17:35)
[2018-07-08 19:05] LABS: BASO # 0.01 K/mm3 (0.0-2.0); BASO % 0.1 % (0.0-3.0); GRAN # 14.5 (1.4-6.5); GRAN % 89.5 % (50.0-68.0); HEMOGLOBIN 8.3 g/dL (12.0-16.0); LYMPH # 1.2 (1.2-3.4); LYMPH % 7.4 % (22.0-35.0); MEAN CORPUSCULAR HEMOGLOBIN 28.2 pg (25.0-35.0); MEAN CORPUSCULAR HGB CONC 33.2 g/dl (31.0-37.0); MEAN PLATELET VOLUME 9.3 fl (7.0-11.0); MONO # 0.5 (0.1-0.6); RBC 2.94 10^6/uL (3.5-6.1); WHITE BLOOD COUNT 16.2 10^3/uL (4.5-11.0)
[2018-07-08] MEDS ORDERED: Sodium Chloride 0.9% 1,000 ML IV SCH (19:30)
--- NOTE | 2018-07-08 19:40 | CON ---
DATE: 07/08/2018 CONSULT SERVICE: Cardiology. REASON FOR CONSULTATION: Cardiac evaluation, admitted with lower GI bleed, bright red blood per rectum, history of coronary artery disease, history of CABG, history of stent, history of aortic regurgitation, and history of cardiomyopathy. BRIEF CLINICAL HISTORY: This is an 88-year-old female with past medical history significant for lung CA, colon cancer, colonic resection, CAD, status post CABG, status post stent, cardiomyopathy ischemic, hypertension, aortic regurgitation who was in her usual state of health who was recently discharged last week, saw bright red blood per rectum in the toilet bowl, so called the ambulance and brought here. Patient claims that while she was here in the hospital, went to the bath room three times and had bright red blood per rectum. Denies any chest pain. Denies any shortness of breath. Denies any palpitation. PAST MEDICAL HISTORY: Significant for coronary artery disease, as mentioned history of coronary artery bypass surgery, last catheterization revealed occluded CALLAHAN to LAD, patent saphenous graft to the diagonal one, patent saphenous graft to the RCA. Last stent was placed many years ago. History of CABG, history of ischemic cardiomyopathy, ejection fraction significantly decreased, COPD, goiter, small cell lung cancer, inoperable, treated with chemo and radiation. PAST SURGICAL HISTORY: Significant for subtotal colectomy, history of Port-A-Cath placement, and history of lung cancer inoperable. ALLERGIES: SHELLFISH, ALLERGY TO MECLIZINE AND ATORVASTATIN. CURRENT MEDICATIONS: Patient is on at home spironolactone, simvastatin, pyridoxine, losartan, ferrous sulfate, digoxin, Plavix, carvedilol, and aspirin. Recent cardiac workup as follows. Patient had echocardiography done on 05/11/2018 that revealed ejection fraction 25% to 30%, mild valvular aortic stenosis, [id number] mitral regurgitation, [id number] tricuspid regurgitation, RV systolic pressure of 31. No pericardial effusion noted dated 05/11/2018. REVIEW OF SYSTEMS: As per HPI. PHYSICAL EXAMINATION: VITAL SIGNS: As follows; height of the patient 5 feet 1 inch, weight of the patient 110 pounds, body mass index 20 kg/m2. Temperature afebrile, heart rate 57, blood pressure 130/80. HEENT: PERRLA. Extraocular muscles intact. NECK: Supple. No carotid bruit or thyromegaly. CHEST: Clear to auscultation. HEART: S1 and S2 regular. ABDOMEN: Soft. EXTREMITIES: Clubbing and cyanosis negative. LABORATORY DATA: WBC 13.3, hemoglobin 9.2, hematocrit 28.4, and platelet count 288,000. Chemistry shows sodium 141, potassium 4.6, chloride 107, carbon dioxide 30, anion gap 9, BUN 20, and creatinine 1.1. EKG shows normal sinus, heart rate of 79. IMPRESSION: An 88-year-old female with past medical history significant for coronary artery disease, coronary artery bypass graft many years ago, history of stents many years ago. Last catheterization revealed occluded left internal mammary artery, patent saphenous graft to the diagonal one and patent saphenous graft to right coronary artery. Cardiomyopathy most recent echo 04/2007 shows the ejection fraction 25% to 30%, trace mitral regurgitation, trace tricuspid regurgitation, and moderate aortic regurgitation. Admitted with gastrointestinal bleed, multiple episodes. Admitting hemoglobin 10.4, repeat hemoglobin 9.2. Patient got 2 units of blood. Today's lab is pending. No ischemic symptom on EKG. No angina complaint. RECOMMENDATIONS: We will hold Plavix, the patient was on Plavix. Resume beta-dudley, monitor electrolytes closely keep n.p.o. If the patient needs endoscopy, patient okay to go for colonoscopy, endoscopy, cleared from the Cardiology point of view with moderate risk with underlying comorbidity, but no contraindication. Please notify OR and GI. We will resume Lasix and start from tomorrow. We will start Coreg and losartan and digoxin. We will clear the patient to go for endoscopy. Thank you Dr. Gavin for providing us the opportunity in taking care of the patient, Enriqueta Escobar. Shekhar Howard MD [facility]
[2018-07-08 22:19] LABS: BASO # 0.01 K/mm3 (0.0-2.0); BASO % 0.1 % (0.0-3.0); EOS % 0.1 % (1.5-5.0); GRAN # 13.08 (1.4-6.5); GRAN % 83.7 % (50.0-68.0); HEMOGLOBIN 7.7 g/dL (12.0-16.0); LYMPH # 1.7 (1.2-3.4); LYMPH % 10.6 % (22.0-35.0); MEAN CELL VOLUME 85.4 fl (80.0-105.0); MEAN CORPUSCULAR HEMOGLOBIN 28.7 pg (25.0-35.0); MEAN CORPUSCULAR HGB CONC 33.6 g/dl (31.0-37.0); MONO # 0.9 (0.1-0.6); MONO % 5.5 % (1.0-6.0); RBC 2.68 10^6/uL (3.5-6.1); WHITE BLOOD COUNT 15.6 10^3/uL (4.5-11.0)
[2018-07-08] MEDS ORDERED: DiphenhydrAMINE 50 mg/ml Inj IVP PRN (23:47)
--- NOTE | 2018-07-09 07:27 | CP.PCM.PN ---
<Lucy Sharpe - Last Filed: 07/09/18 07:38> Subjective - Date & Time of Evaluation Date of Evaluation: 07/09/18 Time of Evaluation: 07:21 - Subjective Subjective: Gastroenterology Fellow/PGY6 Progress Note Patient denies recurrent bloody stools since after colonoscopy. Notes resolved abdominal pain. States she is thirsty. A 12-point review of systems negative except for as above. Objective - Vital Signs/Intake and Output Vital Signs (last 24 hours): Temp Pulse Resp BP Pulse Ox 98.7 F 54 L 16 123/54 L 100 07/09/18 05:27 07/09/18 06:10 07/09/18 06:00 07/09/18 06:00 07/09/18 06:10 Intake and Output: 07/09/18 07/09/18 06:59 18:59 Intake Total 625 Output Total 600 Balance 25 - Medications Medications: Current Medications Acetaminophen (Tylenol 325mg Tab) 650 mg PO ONCE PRN PRN Reason: prbc transfusion Alprazolam (Xanax) 0.25 mg PO HS PRN; Protocol PRN Reason: Insomnia Stop: 07/15/18 22:01 Last Admin: 07/09/18 03:24 Dose: 0.25 mg Carvedilol (Coreg) 3.125 mg PO 0800,1700 [facility] Last Admin: 07/08/18 17:34 Dose: 3.125 mg Digoxin (Digoxin) 0.125 mg PO 1400 [facility] Last Admin: 07/08/18 17:35 Dose: 0.125 mg Diphenhydramine HCl (Benadryl) 25 mg IVP ONCE PRN PRN Reason: prbc transfusion Last Admin: 07/09/18 01:02 Dose: 25 mg Furosemide (Lasix) 40 mg PO 0800,1400 [facility] Furosemide (Lasix) 20 mg IVP ONCE PRN PRN Reason: prbc transfusion Last Admin: 07/09/18 04:07 Dose: 20 mg Hydrocortisone Sodium Succinate (Solu-Cortef) 50 mg IVP ONCE PRN PRN Reason: prbc transfusion Losartan Potassium (Cozaar) 12.5 mg PO DAILY [facility] Last Admin: 07/08/18 11:24 Dose: 12.5 mg Pantoprazole Sodium (Protonix Inj) 40 mg IVP Q12 [facility] Last Admin: 07/08/18 21:06 Dose: 40 mg Spironolactone (Aldactone) 25 mg PO BID [facility] - Labs Labs: 07/08/18 22:10 07/08/18 06:40 PT 12.2 SECONDS (9.4-12.5) 07/07/18 14:40 INR 1.07 07/07/18 14:40 APTT 23.6 Seconds (25.1-36.5) L 07/07/18 14:40 - Constitutional Appears: Non-toxic, No Acute Distress - Head Exam Head Exam: ATRAUMATIC, NORMOCEPHALIC - Eye Exam Eye Exam: EOMI, PERRL. absent: Scleral icterus Pupil Exam: PERRL. absent: Miosis, Mydriatic - ENT Exam ENT Exam: Mucous Membranes Moist, Normal Oropharynx - Neck Exam Neck Exam: Full ROM, Normal Inspection - Respiratory Exam Respiratory Exam: Clear to Ausculation Bilateral. absent: Rales, Rhonchi, Wheezes - Cardiovascular Exam Cardiovascular Exam: RRR, +S1, +S2. absent: Gallop, Rubs - GI/Abdominal Exam GI & Abdominal Exam: Soft, Normal Bowel Sounds. absent: Distended, Firm, Guarding, Rigid, Tenderness, Organomegaly, Rebound - Extremities Exam Extremities Exam: Normal Inspection - Neurological Exam Neurological Exam: Alert, Awake - Psychiatric Exam Psychiatric exam: Normal Affect, Normal Mood - Skin Skin Exam: Dry, Intact, Normal Color, Warm Assessment and Plan - Assessment and Plan (Free Text) Assessment: 88 year old female with PMH of Lung cancer s/p chemoradiation, GI bleed s/p subtotal colectomy with anastomosis (2002) complicated by anastomotic ulcers, CAD s/p CABG (on ASA/Plavix), sCHF EF25-30%, and COPD presenting with rectal bleeding. Active treatment of symptomatic anemia 2/2 to lower GI bleed. Prior colonoscopy 2010 showed anastomotic ulcers. Prior EGD 2011 showed esophagitis and gastritis. Plan: -POD1 (07/08) EGD-gastritis, no signs of bleeding colonoscopy- active bleed from ulcer with visible oozing vessel in sigmoid colon near anastomosis s/p 2 hemoclips with successful hemostasis -no signs of ongoing bleed post-procedure -received additional 2U pRBCs overnight -monitor H/H -clear liquid diet today -will follow clinical course <Mary,Kovil V - Last Filed: 07/09/18 23:33> Objective - Vital Signs/Intake and Output Vital Signs (last 24 hours): Temp Pulse Resp BP Pulse Ox 97.4 F L 53 L 20 98/61 L 100 07/09/18 17:01 07/09/18 22:00 07/09/18 17:01 07/09/18 17:38 07/09/18 17:01 Intake and Output: 07/09/18 07/10/18 18:59 06:59 Intake Total 1165 Balance 1165 - Medications Medications: Current Medications Acetaminophen (Tylenol 325mg Tab) 650 mg PO ONCE PRN PRN Reason: prbc transfusion Alprazolam (Xanax) 0.25 mg PO HS PRN; Protocol PRN Reason: Insomnia Stop: 07/15/18 22:01 Last Admin: 07/09/18 03:24 Dose: 0.25 mg Carvedilol (Coreg) 3.125 mg PO 0800,1700 [facility] Last Admin: 07/09/18 17:38 Dose: Not Given Digoxin (Digoxin) 0.125 mg PO 1400 [facility] Last Admin: 07/09/18 14:02 Dose: 0.125 mg Diphenhydramine HCl (Benadryl) 25 mg IVP ONCE PRN PRN Reason: prbc transfusion Last Admin: 07/09/18 01:02 Dose: 25 mg Furosemide (Lasix) 40 mg PO 0800,1400 [facility] Last Admin: 07/09/18 14:02 Dose: Not Given Furosemide (Lasix) 20 mg IVP ONCE PRN PRN Reason: prbc transfusion Last Admin: 07/09/18 04:07 Dose: 20 mg Hydrocortisone Sodium Succinate (Solu-Cortef) 50 mg IVP ONCE PRN PRN Reason: prbc transfusion Losartan Potassium (Cozaar) 12.5 mg PO DAILY [facility] Last Admin: 07/09/18 10:58 Dose: 12.5 mg Pantoprazole Sodium (Protonix Inj) 40 mg IVP Q12 [facility] Last Admin: 07/09/18 21:29 Dose: 40 mg Spironolactone (Aldactone) 25 mg PO BID [facility] Last Admin: 07/09/18 17:56 Dose: 25 mg - Labs Labs: 07/09/18 09:00 07/09/18 09:00 PT 12.0 SECONDS (9.4-12.5) 07/09/18 09:00 INR 1.04 07/09/18 09:00 APTT 23.6 Seconds (25.1-36.5) L 07/07/18 14:40 Attending/Attestation - Attestation I have personally seen and examined this patient.: Yes I have fully participated in the care of the patient.: Yes I have reviewed all pertinent clinical information, including history, physical exam and plan: Yes
--- NOTE | 2018-07-09 08:26 | CP.PCM.PN ---
Subjective - Date & Time of Evaluation Date of Evaluation: 07/09/18 Time of Evaluation: 07:00 - Subjective Subjective: Pt seen and examined this morning. No episodes of bloody bowel movements overnight as per nursing staff. Pt denies chest pain, SOB, fever, chills, abdominal pain, nausea, vomiting. Objective - Vital Signs/Intake and Output Vital Signs (last 24 hours): Temp Pulse Resp BP Pulse Ox 98.5 F 54 L 16 125/43 L 100 07/09/18 05:30 07/09/18 06:10 07/09/18 06:00 07/09/18 08:16 07/09/18 06:10 Intake and Output: 07/09/18 07/09/18 06:59 18:59 Intake Total 625 325 Output Total 600 Balance 25 325 - Medications Medications: Current Medications Acetaminophen (Tylenol 325mg Tab) 650 mg PO ONCE PRN PRN Reason: prbc transfusion Alprazolam (Xanax) 0.25 mg PO HS PRN; Protocol PRN Reason: Insomnia Stop: 07/15/18 22:01 Last Admin: 07/09/18 03:24 Dose: 0.25 mg Carvedilol (Coreg) 3.125 mg PO 0800,1700 [facility] Last Admin: 07/08/18 17:34 Dose: 3.125 mg Digoxin (Digoxin) 0.125 mg PO 1400 [facility] Last Admin: 07/08/18 17:35 Dose: 0.125 mg Diphenhydramine HCl (Benadryl) 25 mg IVP ONCE PRN PRN Reason: prbc transfusion Last Admin: 07/09/18 01:02 Dose: 25 mg Furosemide (Lasix) 40 mg PO 0800,1400 [facility] Last Admin: 07/09/18 08:16 Dose: 40 mg Furosemide (Lasix) 20 mg IVP ONCE PRN PRN Reason: prbc transfusion Last Admin: 07/09/18 04:07 Dose: 20 mg Hydrocortisone Sodium Succinate (Solu-Cortef) 50 mg IVP ONCE PRN PRN Reason: prbc transfusion Losartan Potassium (Cozaar) 12.5 mg PO DAILY [facility] Last Admin: 07/08/18 11:24 Dose: 12.5 mg Pantoprazole Sodium (Protonix Inj) 40 mg IVP Q12 [facility] Last Admin: 07/08/18 21:06 Dose: 40 mg Spironolactone (Aldactone) 25 mg PO BID [facility] - Labs Labs: 07/08/18 22:10 07/08/18 06:40 PT 12.2 SECONDS (9.4-12.5) 07/07/18 14:40 INR 1.07 07/07/18 14:40 APTT 23.6 Seconds (25.1-36.5) L 07/07/18 14:40 - Constitutional Appears: Well, No Acute Distress - Head Exam Head Exam: NORMAL INSPECTION - Respiratory Exam Respiratory Exam: Rales Additional comments: mild rales present in bilateral bases posteriorly. - Cardiovascular Exam Cardiovascular Exam: REGULAR RHYTHM, +S1, +S2 - GI/Abdominal Exam GI & Abdominal Exam: Soft, Diminished Bowel Sounds. absent: Distended, Guarding, Rigid, Tenderness, Organomegaly - Extremities Exam Extremities Exam: Normal Inspection Additional comments: Cap refill 4 seconds - Neurological Exam Neurological Exam: Alert, Awake, Oriented x3 - Skin Skin Exam: Dry, Intact, Normal Color, Warm Assessment and Plan - Assessment and Plan (Free Text) Assessment: 88 yo female with past surgical history significant for total colectomy 14 years ago, presented with acute GI bleed with BRBPR. Colonoscopy yesterday revealed a 5mm bleeding ulcer at the ileorectal anastamosis site and two hemostatic clips placed by GI to control bleeding. Pt is s/p 5 units PRBCs and 1 unit plts. Plan: CLD Hbg 7.7 prior to 2 units PRBCs last night, 11.4 this AM Monitor H/H No plan for surgical intervention at this present time OOB to chair with assistance PT Further recs per Dr. Yehuda Veladre PGY3
--- NOTE | 2018-07-09 08:30 | CP.PCM.PCO ---
Physician Communication Note - Physician Communication Note Physician Communication Note: no bleeding/1 U PRBC IN/await CBC
[2018-07-09 09:18] LABS: BASO # 0.02 K/mm3 (0.0-2.0); BASO % 0.1 % (0.0-3.0); EOS % 0.3 % (1.5-5.0); GRAN # 11.37 (1.4-6.5); GRAN % 82.8 % (50.0-68.0); HEMOGLOBIN 11.4 g/dL (12.0-16.0); LYMPH # 1.5 (1.2-3.4); LYMPH % 10.7 % (22.0-35.0); MEAN CELL VOLUME 88.9 fl (80.0-105.0); MEAN CORPUSCULAR HEMOGLOBIN 29.5 pg (25.0-35.0); MEAN CORPUSCULAR HGB CONC 33.1 g/dl (31.0-37.0); MEAN PLATELET VOLUME 9.5 fl (7.0-11.0); MONO # 0.8 (0.1-0.6); MONO % 6.1 % (1.0-6.0); RBC 3.87 10^6/uL (3.5-6.1); RED CELL DISTRIBUTION WIDTH 15.5 % (11.5-14.5); WHITE BLOOD COUNT 13.7 10^3/uL (4.5-11.0)
[2018-07-09 09:30] LABS: INR 1.04
[2018-07-09 09:42] LABS: ALB/GLOB RATIO 1.1 (1.1-1.8); ALBUMIN 2.9 g/dL (3.0-4.8); CALCIUM 8.4 mg/dL (8.4-10.5)
--- NOTE | 2018-07-09 11:26 | CP.CCUPN ---
<Tolu Vincent - Last Filed: 07/09/18 11:43> CCU Subjective - Physician Review Subjective (Free Text): CRITICAL CARE PROGRESS NOTE Tolu Vincent PGY-1 Pt seen and examined at bedside this am. No acute nursing events overnight. She reports no episodes of blood per rectum. She is tolerating her clear liquid diet. She denies 12 point ROS. CCU Objective - Vital Signs / Intake & Output Vital Signs (Last 4 hours): Vital Signs Pulse BP 07/09/18 10:58 78 126/67 07/09/18 10:56 74 126/67 07/09/18 08:16 125/43 L Intake and Output (Last 8hrs): Intake & Output 07/08/18 07/09/18 07/09/18 22:59 06:59 14:59 Intake Total 120 625 325 Output Total 600 600 Balance -480 25 325 Intake: IV 0 250 Right Subclavian 0 250 Oral 120 Blood Product 325 325 Red Blood Cells Cpd As1 325 Lr Unit [id number] Red Blood Cells Cpd As1 0 325 Lr Unit [id number] Other 50 Red Blood Cells Cpd As1 50 Lr Unit [id number] Output: Urine 600 600 Urethral (Jason) 600 600 Stool 0 Emesis 0 Other: # Bowel Movements 5 - Physical Exam Head: Positive for: Atraumatic, Normocephalic Pupils: Positive for: PERRL Extroacular Muscles: Positive for: EOMI Conjunctiva: Positive for: Normal Mouth: Positive for: Moist Mucous Membranes Neck: Positive for: Normal Range of Motion Respiratory/Chest: Positive for: Clear to Auscultation, Good Air Exchange, Other (Power port noted in R hemithorax ). Negative for: Respiratory Distress, Accessory Muscle Use Cardiovascular: Positive for: Regular Rate and Rhythm, Normal S1, S2. Negative for: Murmurs Abdomen: Positive for: Tenderness (tender to palpation of the LLQ & subrapubic region), Normal Bowel Sounds. Negative for: Distention, Peritoneal Signs Rectal: Positive for: Rectal Tenderness, Gross Blood, Hemorrhoids, Normal Rectal Tone, Other (hemeoccult positive, external non-thrombosed hemrroid present at 6 o'clock position) Back: Positive for: Normal Inspection Upper Extremity: Positive for: Normal Inspection. Negative for: Cyanosis, Edema Lower Extremity: Positive for: Normal Inspection. Negative for: Edema Neurological: Positive for: GCS=15, CN II-XII Intact, Speech Normal Skin: Positive for: Warm, Dry, Normal Color. Negative for: Rashes Psychiatric: Positive for: Alert, Oriented x 3, Normal Insight, Normal Concentration - Medications Active Medications: Active Medications Generic Name Dose Route Start Last Admin Trade Name Freq PRN Reason Stop Dose Admin Acetaminophen 650 mg 07/08/18 23:47 Tylenol 325mg Tab PO ONCE PRN prbc transfusion Alprazolam 0.25 mg 07/08/18 19:49 07/09/18 03:24 Xanax PO 07/15/18 22:01 0.25 mg HS PRN Administration Insomnia Protocol Carvedilol 3.125 mg 07/08/18 17:00 07/09/18 10:56 Coreg PO 3.125 mg 0800,1700 YAHIR Administration Digoxin 0.125 mg 07/08/18 14:00 07/08/18 17:35 Digoxin PO 0.125 mg 1400 YAHIR Administration Diphenhydramine HCl 25 mg 07/08/18 23:47 07/09/18 01:02 Benadryl IVP 25 mg ONCE PRN Administration prbc transfusion Furosemide 40 mg 07/09/18 08:00 07/09/18 08:16 Lasix PO 40 mg 0800,1400 YAHIR Administration Furosemide 20 mg 07/08/18 23:47 07/09/18 04:07 Lasix IVP 20 mg ONCE PRN Administration prbc transfusion Hydrocortisone Sodium Succinate 50 mg 07/08/18 23:47 Solu-Cortef IVP ONCE PRN prbc transfusion Losartan Potassium 12.5 mg 07/08/18 10:00 07/09/18 10:58 Cozaar PO 12.5 mg DAILY YAHIR Administration Pantoprazole Sodium 40 mg 07/08/18 10:00 07/09/18 10:58 Protonix Inj IVP 40 mg Q12 YAHIR Administration Spironolactone 25 mg 07/09/18 10:00 07/09/18 10:57 Aldactone PO 25 mg BID YAHIR Administration - Patient Studies Lab Studies: Microbiology Studies 07/08/18 00:30 MRSA Culture (Admit) - Final Nose MRSA NOT DETECTED 07/07/18 15:45 Blood Culture - Preliminary Blood-Venous NO GROWTH AFTER 24 HOURS 07/07/18 15:30 Blood Culture - Preliminary Blood-Venous NO GROWTH AFTER 24 HOURS Lab Studies 07/09/18 07/09/18 07/09/18 Range/Units 09:00 09:00 09:00 WBC 13.7 H (4.5-11.0) 10^3/uL RBC 3.87 (3.5-6.1) 10^6/uL Hgb 11.4 L D (12.0-16.0) g/dL Hct 34.4 L (36.0-48.0) % MCV 88.9 D (80.0-105.0) fl MCH 29.5 (25.0-35.0) pg MCHC 33.1 (31.0-37.0) g/dl RDW 15.5 H (11.5-14.5) % Plt Count 179 (120.0-450.0) 10^3/uL MPV 9.5 (7.0-11.0) fl Gran % 82.8 H (50.0-68.0) % Lymph % (Auto) 10.7 L (22.0-35.0) % [place] % (Auto) 6.1 H (1.0-6.0) % Eos % (Auto) 0.3 L (1.5-5.0) % Baso % (Auto) 0.1 (0.0-3.0) % Gran # 11.37 H (1.4-6.5) Lymph # (Auto) 1.5 (1.2-3.4) [place] # (Auto) 0.8 H (0.1-0.6) Eos # (Auto) 0.0 (0.0-0.7) Baso # (Auto) 0.02 (0.0-2.0) K/mm3 PT 12.0 (9.4-12.5) SECONDS INR 1.04 Sodium 141 (132-148) mmol/L Potassium 4.5 (3.6-5.0) mmol/L Chloride 109 H (98-107) mmol/L Carbon Dioxide 28 (21-33) mmol/L Anion Gap 8 L (10-20) BUN 20 (7-21) mg/dL Creatinine 1.2 (0.7-1.2) mg/dl Est GFR ( Amer) 51 Est GFR (Non-Af Amer) 42 POC Glucose (mg/dL) (65-110) mg/dL Random Glucose 196 H (70-110) mg/dL Calcium 8.4 (8.4-10.5) mg/dL Phosphorus 3.3 (2.5-4.5) mg/dL Magnesium 2.0 (1.7-2.2) mg/dL Total Bilirubin 0.7 (0.2-1.3) mg/dL AST 25 (14-36) U/L ALT 25 (7-56) U/L Alkaline Phosphatase 41 (38-126) U/L Total Protein 5.7 L (5.8-8.3) g/dL Albumin 2.9 L (3.0-4.8) g/dL Globulin 2.7 gm/dL Albumin/Globulin Ratio 1.1 (1.1-1.8) Procalcitonin (0.19-0.49) NG/ML Blood Type Antibody Screen Antibody Identification Antigen Identification Crossmatch BBK History Checked 07/08/18 07/08/18 07/08/18 Range/Units 22:48 22:10 18:41 WBC 15.6 H 16.2 H (4.5-11.0) 10^3/uL RBC 2.68 L 2.94 L (3.5-6.1) 10^6/uL Hgb 7.7 L 8.3 L (12.0-16.0) g/dL Hct 22.9 L 25.0 L (36.0-48.0) % MCV 85.4 85.0 (80.0-105.0) fl MCH 28.7 28.2 (25.0-35.0) pg MCHC 33.6 33.2 (31.0-37.0) g/dl RDW 15.0 H 15.0 H (11.5-14.5) % Plt Count 192 218 (120.0-450.0) 10^3/uL MPV 9.0 9.3 (7.0-11.0) fl Gran % 83.7 H 89.5 H (50.0-68.0) % Lymph % (Auto) 10.6 L 7.4 L (22.0-35.0) % [place] % (Auto) 5.5 3.0 (1.0-6.0) % Eos % (Auto) 0.1 L 0.0 L (1.5-5.0) % Baso % (Auto) 0.1 0.1 (0.0-3.0) % Gran # 13.08 H 14.50 H (1.4-6.5) Lymph # (Auto) 1.7 1.2 (1.2-3.4) [place] # (Auto) 0.9 H 0.5 (0.1-0.6) Eos # (Auto) 0.0 0.0 (0.0-0.7) Baso # (Auto) 0.01 0.01 (0.0-2.0) K/mm3 PT (9.4-12.5) SECONDS INR Sodium (132-148) mmol/L Potassium (3.6-5.0) mmol/L Chloride (98-107) mmol/L Carbon Dioxide (21-33) mmol/L Anion Gap (10-20) BUN (7-21) mg/dL Creatinine (0.7-1.2) mg/dl Est GFR ( Amer) Est GFR (Non-Af Amer) POC Glucose (mg/dL) 119 H (65-110) mg/dL Random Glucose (70-110) mg/dL Calcium (8.4-10.5) mg/dL Phosphorus (2.5-4.5) mg/dL Magnesium (1.7-2.2) mg/dL Total Bilirubin (0.2-1.3) mg/dL AST (14-36) U/L ALT (7-56) U/L Alkaline Phosphatase (38-126) U/L Total Protein (5.8-8.3) g/dL Albumin (3.0-4.8) g/dL Globulin gm/dL Albumin/Globulin Ratio (1.1-1.8) Procalcitonin (0.19-0.49) NG/ML Blood Type Antibody Screen Antibody Identification Antigen Identification Crossmatch BBK History Checked 07/08/18 07/08/18 07/07/18 Range/Units 11:30 06:40 14:40 WBC 14.2 H (4.5-11.0) 10^3/uL RBC 3.41 L (3.5-6.1) 10^6/uL Hgb 9.6 L (12.0-16.0) g/dL Hct 28.7 L (36.0-48.0) % MCV 84.2 (80.0-105.0) fl MCH 28.2 (25.0-35.0) pg MCHC 33.4 (31.0-37.0) g/dl RDW 15.0 H (11.5-14.5) % Plt Count 240 (120.0-450.0) 10^3/uL MPV 9.3 (7.0-11.0) fl Gran % 81.9 H (50.0-68.0) % Lymph % (Auto) 12.0 L (22.0-35.0) % [place] % (Auto) 5.9 (1.0-6.0) % Eos % (Auto) 0.1 L (1.5-5.0) % Baso % (Auto) 0.1 (0.0-3.0) % Gran # 11.65 H (1.4-6.5) Lymph # (Auto) 1.7 (1.2-3.4) [place] # (Auto) 0.8 H (0.1-0.6) Eos # (Auto) 0.0 (0.0-0.7) Baso # (Auto) 0.01 (0.0-2.0) K/mm3 PT (9.4-12.5) SECONDS INR Sodium (132-148) mmol/L Potassium (3.6-5.0) mmol/L Chloride (98-107) mmol/L Carbon Dioxide (21-33) mmol/L Anion Gap (10-20) BUN (7-21) mg/dL Creatinine (0.7-1.2) mg/dl Est GFR ( Amer) Est GFR (Non-Af Amer) POC Glucose (mg/dL) (65-110) mg/dL Random Glucose (70-110) mg/dL Calcium (8.4-10.5) mg/dL Phosphorus (2.5-4.5) mg/dL Magnesium (1.7-2.2) mg/dL Total Bilirubin (0.2-1.3) mg/dL AST (14-36) U/L ALT (7-56) U/L Alkaline Phosphatase (38-126) U/L Total Protein (5.8-8.3) g/dL Albumin (3.0-4.8) g/dL Globulin gm/dL Albumin/Globulin Ratio (1.1-1.8) Procalcitonin < 0.05 L (0.19-0.49) NG/ML Blood Type B POSITIVE Antibody Screen Positive Antibody Identification Anti K Antigen Identification K Antigen - NEGATIVE Crossmatch See Detail BBK History Checked No verified bt Laboratory Results - last 24 hr 07/07/18 07/08/18 07/08/18 14:40 06:40 11:30 WBC 14.2 H RBC 3.41 L Hgb 9.6 L Hct 28.7 L MCV 84.2 MCH 28.2 MCHC 33.4 RDW 15.0 H Plt Count 240 MPV 9.3 Gran % 81.9 H Lymph % (Auto) 12.0 L [place] % (Auto) 5.9 Eos % (Auto) 0.1 L Baso % (Auto) 0.1 Gran # 11.65 H Lymph # (Auto) 1.7 [place] # (Auto) 0.8 H Eos # (Auto) 0.0 Baso # (Auto) 0.01 PT INR Sodium Potassium Chloride Carbon Dioxide Anion Gap BUN Creatinine Est GFR ( Amer) Est GFR (Non-Af Amer) POC Glucose (mg/dL) Random Glucose Calcium Phosphorus Magnesium Total Bilirubin AST ALT Alkaline Phosphatase Total Protein Albumin Globulin Albumin/Globulin Ratio Procalcitonin < 0.05 L Blood Type B POSITIVE Antibody Screen Positive Antibody Identification Anti K Antigen Identification K Antigen - NEGATIVE Crossmatch See Detail BBK History Checked No verified bt 07/08/18 07/08/18 07/08/18 18:41 22:10 22:48 WBC 16.2 H 15.6 H RBC 2.94 L 2.68 L Hgb 8.3 L 7.7 L Hct 25.0 L 22.9 L MCV 85.0 85.4 MCH 28.2 28.7 MCHC 33.2 33.6 RDW 15.0 H 15.0 H Plt Count 218 192 MPV 9.3 9.0 Gran % 89.5 H 83.7 H Lymph % (Auto) 7.4 L 10.6 L [place] % (Auto) 3.0 5.5 Eos % (Auto) 0.0 L 0.1 L Baso % (Auto) 0.1 0.1 Gran # 14.50 H 13.08 H Lymph # (Auto) 1.2 1.7 [place] # (Auto) 0.5 0.9 H Eos # (Auto) 0.0 0.0 Baso # (Auto) 0.01 0.01 PT INR Sodium Potassium Chloride Carbon Dioxide Anion Gap BUN Creatinine Est GFR ( Amer) Est GFR (Non-Af Amer) POC Glucose (mg/dL) 119 H Random Glucose Calcium Phosphorus Magnesium Total Bilirubin AST ALT Alkaline Phosphatase Total Protein Albumin Globulin Albumin/Globulin Ratio Procalcitonin Blood Type Antibody Screen Antibody Identification Antigen Identification Crossmatch BBK History Checked 07/09/18 07/09/18 07/09/18 09:00 09:00 09:00 WBC 13.7 H RBC 3.87 Hgb 11.4 L D Hct 34.4 L MCV 88.9 D MCH 29.5 MCHC 33.1 RDW 15.5 H Plt Count 179 MPV 9.5 Gran % 82.8 H Lymph % (Auto) 10.7 L [place] % (Auto) 6.1 H Eos % (Auto) 0.3 L Baso % (Auto) 0.1 Gran # 11.37 H Lymph # (Auto) 1.5 [place] # (Auto) 0.8 H Eos # (Auto) 0.0 Baso # (Auto) 0.02 PT 12.0 INR 1.04 Sodium 141 Potassium 4.5 Chloride 109 H Carbon Dioxide 28 Anion Gap 8 L BUN 20 Creatinine 1.2 Est GFR ( Amer) 51 Est GFR (Non-Af Amer) 42 POC Glucose (mg/dL) Random Glucose 196 H Calcium 8.4 Phosphorus 3.3 Magnesium 2.0 Total Bilirubin 0.7 AST 25 ALT 25 Alkaline Phosphatase 41 Total Protein 5.7 L Albumin 2.9 L Globulin 2.7 Albumin/Globulin Ratio 1.1 Procalcitonin Blood Type Antibody Screen Antibody Identification Antigen Identification Crossmatch BBK History Checked Review of Systems - Review of Systems Review of Systems: per HPI Critical Care Progress Note - Nutrition Nutrition: Nutrition Category Date Time Status Liquid Diet [DIET] Diets 07/09/18 Breakfast Ordered Assessment/Plan - Assessment and Plan (Free Text) Assessment: 88 yo F with PMH of admitted to ICU for active GI bleed s/p colonoscopy with hemostatic clip placement x 2 Plan: Neuro: AAOx3, no FND, moving extremities past midline Monitor neuro status Reorient patient as necessary Cardio: RRR, normotensive s/p 2u pRBC overnight H/H improved Maintain MAP>65 Monitor for s/sx of worsening HD compromise Pulm: Patient is saturating well on room air. Maintain O2 saturation>95%. O2 NC PRN GI: Tolerating clear liquid diet Protonix 40 IVP given in ED Continue protonix 40 IVP q12h No plans for surgical intervention at the moment d/t multiple comorbidities Total colectomy report from 2004 in chart If H/H worsens, plan for IR consultation for possible embolization in AM F/u additional GI, surgery recs Heme/Onc: H/H had dropped yesterday. Per GI, h/h likely equilibrating. Not concerned for active bleeding H/H improved s/p 2u pRBC Continue CBC monitoring CTAP showed numerous hepatic hypodense lesions favored to reflect cysts Unclear whether these may represent metastatic disease Case discussed with Dr. Duncan and Dr. Blackman who are following the patient Continue monitoring H/H and f/u GI, surgery, IR, heme/onc recs /Nephro: BUN/Cr stable Place jason Monitor UOP closely Replete electrolytes as needed Maintain euvolemia Endocrinology: Maintain euglycemia. ID: Afebrile. Leukocytosis improving F/u blood, urine cx results. Procal negative Monitor for signs and symptoms of infection DVT/GI PPX: SCD/protonix DNR/DNI Monitor in MICU Dispo: Pt report improved abdominal pain. No events of bloody bowel movement after hemostasis of bleeding vessel by GI. Vital signs stable. She is hemodynamically stable. She no longer requires ICU care. She is stable for transfer to remote telemetry Case seen, examined and discussed with attending physician Dr. Soto <Daphne Soto - Last Filed: 07/09/18 12:45> CCU Objective - Vital Signs / Intake & Output Vital Signs (Last 4 hours): Vital Signs Temp Pulse Resp BP Pulse Ox 07/09/18 12:21 98.4 F 76 18 100/56 L 100 07/09/18 10:58 78 126/67 07/09/18 10:56 74 126/67 Intake and Output (Last 8hrs): Intake & Output 07/08/18 07/09/18 07/09/18 22:59 06:59 14:59 Intake Total 120 625 325 Output Total 600 600 Balance -480 25 325 Intake: IV 0 250 Right Subclavian 0 250 Oral 120 Blood Product 325 325 Red Blood Cells Cpd As1 325 Lr Unit [id number] Red Blood Cells Cpd As1 0 325 Lr Unit [id number] Other 50 Red Blood Cells Cpd As1 50 Lr Unit [id number] Output: Urine 600 600 Urethral (Jason) 600 600 Stool 0 Emesis 0 Other: # Bowel Movements 5 - Medications Active Medications: Active Medications Generic Name Dose Route Start Last Admin Trade Name Freq PRN Reason Stop Dose Admin Acetaminophen 650 mg 07/08/18 23:47 Tylenol 325mg Tab PO ONCE PRN prbc transfusion Alprazolam 0.25 mg 07/08/18 19:49 07/09/18 03:24 Xanax PO 07/15/18 22:01 0.25 mg HS PRN Administration Insomnia Protocol Carvedilol 3.125 mg 07/08/18 17:00 07/09/18 10:56 Coreg PO 3.125 mg 0800,1700 YAHIR Administration Digoxin 0.125 mg 07/08/18 14:00 07/08/18 17:35 Digoxin PO 0.125 mg 1400 YAHIR Administration Diphenhydramine HCl 25 mg 07/08/18 23:47 07/09/18 01:02 Benadryl IVP 25 mg ONCE PRN Administration prbc transfusion Furosemide 40 mg 07/09/18 08:00 07/09/18 08:16 Lasix PO 40 mg 0800,1400 YAHIR Administration Furosemide 20 mg 07/08/18 23:47 07/09/18 04:07 Lasix IVP 20 mg ONCE PRN Administration prbc transfusion Hydrocortisone Sodium Succinate 50 mg 07/08/18 23:47 Solu-Cortef IVP ONCE PRN prbc transfusion Losartan Potassium 12.5 mg 07/08/18 10:00 07/09/18 10:58 Cozaar PO 12.5 mg DAILY YAHIR Administration Pantoprazole Sodium 40 mg 07/08/18 10:00 07/09/18 10:58 Protonix Inj IVP 40 mg Q12 YAHIR Administration Spironolactone 25 mg 07/09/18 10:00 07/09/18 10:57 Aldactone PO 25 mg BID YAHIR Administration - Patient Studies Lab Studies: Microbiology Studies 07/08/18 00:30 MRSA Culture (Admit) - Final Nose MRSA NOT DETECTED 07/07/18 15:45 Blood Culture - Preliminary Blood-Venous NO GROWTH AFTER 24 HOURS 07/07/18 15:30 Blood Culture - Preliminary Blood-Venous NO GROWTH AFTER 24 HOURS Lab Studies 07/09/18 07/09/18 07/09/18 Range/Units 09:00 09:00 09:00 WBC 13.7 H (4.5-11.0) 10^3/uL RBC 3.87 (3.5-6.1) 10^6/uL Hgb 11.4 L D (12.0-16.0) g/dL Hct 34.4 L (36.0-48.0) % MCV 88.9 D (80.0-105.0) fl MCH 29.5 (25.0-35.0) pg MCHC 33.1 (31.0-37.0) g/dl RDW 15.5 H (11.5-14.5) % Plt Count 179 (120.0-450.0) 10^3/uL MPV 9.5 (7.0-11.0) fl Gran % 82.8 H (50.0-68.0) % Lymph % (Auto) 10.7 L (22.0-35.0) % [place] % (Auto) 6.1 H (1.0-6.0) % Eos % (Auto) 0.3 L (1.5-5.0) % Baso % (Auto) 0.1 (0.0-3.0) % Gran # 11.37 H (1.4-6.5) Lymph # (Auto) 1.5 (1.2-3.4) [place] # (Auto) 0.8 H (0.1-0.6) Eos # (Auto) 0.0 (0.0-0.7) Baso # (Auto) 0.02 (0.0-2.0) K/mm3 PT 12.0 (9.4-12.5) SECONDS INR 1.04 Sodium 141 (132-148) mmol/L Potassium 4.5 (3.6-5.0) mmol/L Chloride 109 H (98-107) mmol/L Carbon Dioxide 28 (21-33) mmol/L Anion Gap 8 L (10-20) BUN 20 (7-21) mg/dL Creatinine 1.2 (0.7-1.2) mg/dl Est GFR ( Amer) 51 Est GFR (Non-Af Amer) 42 POC Glucose (mg/dL) (65-110) mg/dL Random Glucose 196 H (70-110) mg/dL Calcium 8.4 (8.4-10.5) mg/dL Phosphorus 3.3 (2.5-4.5) mg/dL Magnesium 2.0 (1.7-2.2) mg/dL Total Bilirubin 0.7 (0.2-1.3) mg/dL AST 25 (14-36) U/L ALT 25 (7-56) U/L Alkaline Phosphatase 41 (38-126) U/L Total Protein 5.7 L (5.8-8.3) g/dL Albumin 2.9 L (3.0-4.8) g/dL Globulin 2.7 gm/dL Albumin/Globulin Ratio 1.1 (1.1-1.8) Procalcitonin (0.19-0.49) NG/ML Blood Type Antibody Screen Antibody Identification Antigen Identification Crossmatch BBK History Checked 07/08/18 07/08/18 07/08/18 Range/Units 22:48 22:10 18:41 WBC 15.6 H 16.2 H (4.5-11.0) 10^3/uL RBC 2.68 L 2.94 L (3.5-6.1) 10^6/uL Hgb 7.7 L 8.3 L (12.0-16.0) g/dL Hct 22.9 L 25.0 L (36.0-48.0) % MCV 85.4 85.0 (80.0-105.0) fl MCH 28.7 28.2 (25.0-35.0) pg MCHC 33.6 33.2 (31.0-37.0) g/dl RDW 15.0 H 15.0 H (11.5-14.5) % Plt Count 192 218 (120.0-450.0) 10^3/uL MPV 9.0 9.3 (7.0-11.0) fl Gran % 83.7 H 89.5 H (50.0-68.0) % Lymph % (Auto) 10.6 L 7.4 L (22.0-35.0) % [place] % (Auto) 5.5 3.0 (1.0-6.0) % Eos % (Auto) 0.1 L 0.0 L (1.5-5.0) % Baso % (Auto) 0.1 0.1 (0.0-3.0) % Gran # 13.08 H 14.50 H (1.4-6.5) Lymph # (Auto) 1.7 1.2 (1.2-3.4) [place] # (Auto) 0.9 H 0.5 (0.1-0.6) Eos # (Auto) 0.0 0.0 (0.0-0.7) Baso # (Auto) 0.01 0.01 (0.0-2.0) K/mm3 PT (9.4-12.5) SECONDS INR Sodium (132-148) mmol/L Potassium (3.6-5.0) mmol/L Chloride (98-107) mmol/L Carbon Dioxide (21-33) mmol/L Anion Gap (10-20) BUN (7-21) mg/dL Creatinine (0.7-1.2) mg/dl Est GFR ( Amer) Est GFR (Non-Af Amer) POC Glucose (mg/dL) 119 H (65-110) mg/dL Random Glucose (70-110) mg/dL Calcium (8.4-10.5) mg/dL Phosphorus (2.5-4.5) mg/dL Magnesium (1.7-2.2) mg/dL Total Bilirubin (0.2-1.3) mg/dL AST (14-36) U/L ALT (7-56) U/L Alkaline Phosphatase (38-126) U/L Total Protein (5.8-8.3) g/dL Albumin (3.0-4.8) g/dL Globulin gm/dL Albumin/Globulin Ratio (1.1-1.8) Procalcitonin (0.19-0.49) NG/ML Blood Type Antibody Screen Antibody Identification Antigen Identification Crossmatch BBK History Checked 07/08/18 07/07/18 Range/Units 06:40 14:40 WBC (4.5-11.0) 10^3/uL RBC (3.5-6.1) 10^6/uL Hgb (12.0-16.0) g/dL Hct (36.0-48.0) % MCV (80.0-105.0) fl MCH (25.0-35.0) pg MCHC (31.0-37.0) g/dl RDW (11.5-14.5) % Plt Count (120.0-450.0) 10^3/uL MPV (7.0-11.0) fl Gran % (50.0-68.0) % Lymph % (Auto) (22.0-35.0) % [place] % (Auto) (1.0-6.0) % Eos % (Auto) (1.5-5.0) % Baso % (Auto) (0.0-3.0) % Gran # (1.4-6.5) Lymph # (Auto) (1.2-3.4) [place] # (Auto) (0.1-0.6) Eos # (Auto) (0.0-0.7) Baso # (Auto) (0.0-2.0) K/mm3 PT (9.4-12.5) SECONDS INR Sodium (132-148) mmol/L Potassium (3.6-5.0) mmol/L Chloride (98-107) mmol/L Carbon Dioxide (21-33) mmol/L Anion Gap (10-20) BUN (7-21) mg/dL Creatinine (0.7-1.2) mg/dl Est GFR ( Amer) Est GFR (Non-Af Amer) POC Glucose (mg/dL) (65-110) mg/dL Random Glucose (70-110) mg/dL Calcium (8.4-10.5) mg/dL Phosphorus (2.5-4.5) mg/dL Magnesium (1.7-2.2) mg/dL Total Bilirubin (0.2-1.3) mg/dL AST (14-36) U/L ALT (7-56) U/L Alkaline Phosphatase (38-126) U/L Total Protein (5.8-8.3) g/dL Albumin (3.0-4.8) g/dL Globulin gm/dL Albumin/Globulin Ratio (1.1-1.8) Procalcitonin < 0.05 L (0.19-0.49) NG/ML Blood Type B POSITIVE Antibody Screen Positive Antibody Identification Anti K Antigen Identification K Antigen - NEGATIVE Crossmatch See Detail BBK History Checked No verified bt Laboratory Results - last 24 hr 07/07/18 07/08/18 07/08/18 14:40 06:40 18:41 WBC 16.2 H RBC 2.94 L Hgb 8.3 L Hct 25.0 L MCV 85.0 MCH 28.2 MCHC 33.2 RDW 15.0 H Plt Count 218 MPV 9.3 Gran % 89.5 H Lymph % (Auto) 7.4 L [place] % (Auto) 3.0 Eos % (Auto) 0.0 L Baso % (Auto) 0.1 Gran # 14.50 H Lymph # (Auto) 1.2 [place] # (Auto) 0.5 Eos # (Auto) 0.0 Baso # (Auto) 0.01 PT INR Sodium Potassium Chloride Carbon Dioxide Anion Gap BUN Creatinine Est GFR ( Amer) Est GFR (Non-Af Amer) POC Glucose (mg/dL) Random Glucose Calcium Phosphorus Magnesium Total Bilirubin AST ALT Alkaline Phosphatase Total Protein Albumin Globulin Albumin/Globulin Ratio Procalcitonin < 0.05 L Blood Type B POSITIVE Antibody Screen Positive Antibody Identification Anti K Antigen Identification K Antigen - NEGATIVE Crossmatch See Detail BBK History Checked No verified bt 07/08/18 07/08/18 07/09/18 22:10 22:48 09:00 WBC 15.6 H RBC 2.68 L Hgb 7.7 L Hct 22.9 L MCV 85.4 MCH 28.7 MCHC 33.6 RDW 15.0 H Plt Count 192 MPV 9.0 Gran % 83.7 H Lymph % (Auto) 10.6 L [place] % (Auto) 5.5 Eos % (Auto) 0.1 L Baso % (Auto) 0.1 Gran # 13.08 H Lymph # (Auto) 1.7 [place] # (Auto) 0.9 H Eos # (Auto) 0.0 Baso # (Auto) 0.01 PT INR Sodium 141 Potassium 4.5 Chloride 109 H Carbon Dioxide 28 Anion Gap 8 L BUN 20 Creatinine 1.2 Est GFR ( Amer) 51 Est GFR (Non-Af Amer) 42 POC Glucose (mg/dL) 119 H Random Glucose 196 H Calcium 8.4 Phosphorus 3.3 Magnesium 2.0 Total Bilirubin 0.7 AST 25 ALT 25 Alkaline Phosphatase 41 Total Protein 5.7 L Albumin 2.9 L Globulin 2.7 Albumin/Globulin Ratio 1.1 Procalcitonin Blood Type Antibody Screen Antibody Identification Antigen Identification Crossmatch BBK History Checked 07/09/18 07/09/18 09:00 09:00 WBC 13.7 H RBC 3.87 Hgb 11.4 L D Hct 34.4 L MCV 88.9 D MCH 29.5 MCHC 33.1 RDW 15.5 H Plt Count 179 MPV 9.5 Gran % 82.8 H Lymph % (Auto) 10.7 L [place] % (Auto) 6.1 H Eos % (Auto) 0.3 L Baso % (Auto) 0.1 Gran # 11.37 H Lymph # (Auto) 1.5 [place] # (Auto) 0.8 H Eos # (Auto) 0.0 Baso # (Auto) 0.02 PT 12.0 INR 1.04 Sodium Potassium Chloride Carbon Dioxide Anion Gap BUN Creatinine Est GFR ( Amer) Est GFR (Non-Af Amer) POC Glucose (mg/dL) Random Glucose Calcium Phosphorus Magnesium Total Bilirubin AST ALT Alkaline Phosphatase Total Protein Albumin Globulin Albumin/Globulin Ratio Procalcitonin Blood Type Antibody Screen Antibody Identification Antigen Identification Crossmatch BBK History Checked Critical Care Progress Note - Nutrition Nutrition: Nutrition Category Date Time Status Liquid Diet [DIET] Diets 07/09/18 Lunch Ordered Addendum Addendum: 07/09/18 12:45 ICU Attending Addendum Patient seen and examined. Case reviewed on round with housestaff. Agree with resident note above with the following additions/exceptions: 88 year old female with a past medical history significant for COPD, systolic CHF (EF 25-30%), CAD, HTN, HLD, lung cancer s/p chemoradiation and colon cancer s/p resection who presented with rectal bleeding s/p colonoscopy which showed 5mm bleeding ulcer at the ileorectal anastamosis site. 2 clips placed by GI. HB stable this AM, given 2 units overnight when HB was down trending. GI On board. Holding home plavix in lieu for bleeding would cont other home meds as long as BP tolerates monitor resp status as she has rec'd blood products as volume with an unlying hx of CHF no longer need MICU level care ok to transfer Rest of care as above Daphne Soto MD Pulmonary Critical Care and Sleep Medicine
[2018-07-09] MEDS ORDERED: Magnesium Citrate Oral SOL (300 ml) PO ONE (11:37)
--- NOTE | 2018-07-09 12:48 | PN ---
DATE: 07/09/2018 REASON FOR CONSULTATION AND FOLLOWUP: Cardiac evaluation, admitted with lower GI bleed, bright-red blood per rectum, history of coronary artery disease, history of stent, history of aortic regurgitation and history of cardiomyopathy. SUBJECTIVE: The patient denies any chest pain, but complaints of could not sleep last night. PHYSICAL EXAMINATION GENERAL: Not in apparent distress. VITAL SIGNS: Temperature afebrile, heart rate 54, blood pressure 124/43. HEENT: PERRLA. Extraocular muscles intact. NECK: Supple. No carotid bruit or thyromegaly. CHEST: Clear to auscultation. HEART: S1 and S2 regular. ABDOMEN: Soft. EXTREMITIES: Clubbing and cyanosis negative. LABORATORY DATA: Blood workup as follows: WBC , hemoglobin 11.4, hematocrit 34.4 and platelet count 179,000. Chemistry shows sodium 141, potassium 4.5, chloride 109, carbon dioxide 28, anion gap of 15, BUN 23, creatinine 1.2. Total protein 5.7 and albumin 2.9. IMPRESSION: An 88-year-old female with past medical history significant for coronary artery disease status post coronary artery bypass graft in the past, history of stent, history of cardiomyopathy, significant ejection fraction in the range of 25% to 30%, history of moderate aortic regurgitation, admitted with gastrointestinal bleed, multiple episodes status post packed red blood cells transfusion, now hemoglobin and hemodynamically stable. The patient denies any chest pain, shortness of breath, history of coronary artery disease, history of lung carcinoma, status post chemo and status post radiation, inoperable. RECOMMENDATION: Hold Plavix and hold aspirin. If no further episode of bleeding, we will resume back aspirin, resume back losartan, resume back Coreg, spironolactone and get Lasix. We will follow with you. Thank you Dr. Duncan/Dr. Gavin, for providing us the opportunity in taking care of patient, Enriqueta Escobar. We will repeat the CBC in the morning. Shekhar Howard MD
[2018-07-09] MEDS: Digoxin 125 mcg (0.125 mg) Tab PO SCH (14:02)
[2018-07-09 14:04] VITALS: PULSE 68
--- NOTE | 2018-07-09 16:54 | PN ---
DATE: 07/09/2018 This is [facility] visit in the Intensive Care Unit. For Dr. Duncan. SUBJECTIVE: The patient is an 88-year-old female with known history of severe COPD, congestive failure, coronary artery disease, status post treatment for lung cancer, colon cancer with resections. She is now admitted for rectal bleeding for which the patient is now status post treatment by Dr. Hernandez, gastrointestinal workday consultant with clipping of multiple ulcers near the anastomosis site after colonoscopy and EGD were done. She continues to have anemic indices with the patient being monitored in the Intensive Care Unit with transfusion of a total of 5 units of packed red blood cells and 1 unit of single-donor apheresis platelets. At present, her most recent labs show a hemoglobin of 11.4 with the patient in no acute distress, resting comfortably in the intensive care unit. OBJECTIVE PHYSICAL EXAMINATION: VITAL SIGNS: Temperature 98.4, pulse 76, respirations 18, blood pressure 94/45, pulse ox of 100%. HEENT: Unremarkable. NECK: Supple. HEART: Regular rate with occasional ectopic beat. LUNGS: Clear. ABDOMEN: Soft. EXTREMITIES: No edema. SKIN: Warm and dry. NEUROLOGIC: Awake and alert. LABORATORY DATA: The patient's labs were done. White blood cell count of 13.7, hemoglobin of 11.4 after value of 7.7 yesterday, hematocrit 34.4, platelet count of 179,000 with a chem metabolic panel within normal range except for nonfasting glucose of 196, procalcitonin of less than 0.05. INR of 1.04. ASSESSMENT: The assessment for this patient is that of severe gastrointestinal bleed, status post colonoscopy with hemostatic clips placed with good effect; symptomatic anemia, status post transfusion; severe atherosclerotic cardiovascular disease. 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 PLAN: The plan for this patient is to continue present medical regimen. We will monitor clinically and with labs with surgical and gastrointestinal consults appreciated. Upkeep Mechanic monitoring appreciated. The prognosis for this patient is guarded. We will monitor clinically and with labs. This is a complex patient with comprehensive medically necessary and appropriate visit carried out in excess of 40 minutes with the patient's questions answered to her satisfaction. Adrián MD [facility] # [phone]
[2018-07-10 06:23] LABS: BASO # 0.01 K/mm3 (0.0-2.0); BASO % 0.1 % (0.0-3.0); EOS # 0.1 (0.0-0.7); EOS % 0.6 % (1.5-5.0); GRAN # 8.61 (1.4-6.5); HEMOGLOBIN 9.7 g/dL (12.0-16.0); LYMPH # 1.6 (1.2-3.4); LYMPH % 14.2 % (22.0-35.0); MEAN CELL VOLUME 88.6 fl (80.0-105.0); MEAN CORPUSCULAR HEMOGLOBIN 29.2 pg (25.0-35.0); MEAN PLATELET VOLUME 9.3 fl (7.0-11.0); MONO # 0.8 (0.1-0.6); MONO % 7.1 % (1.0-6.0); RBC 3.32 10^6/uL (3.5-6.1); RED CELL DISTRIBUTION WIDTH 15.3 % (11.5-14.5); WHITE BLOOD COUNT 11.1 10^3/uL (4.5-11.0)
[2018-07-10 07:34] LABS: ALBUMIN 2.5 g/dL (3.0-4.8); CALCIUM 8.2 mg/dL (8.4-10.5)
--- NOTE | 2018-07-10 07:38 | CP.PCM.PN ---
<Lucy Sharpe - Last Filed: 07/10/18 07:35> Subjective - Date & Time of Evaluation Date of Evaluation: 07/10/18 Time of Evaluation: 07:35 - Subjective Subjective: Gastroenterology Fellow/PGY6 Progress Note Patient notes bowel movement yesterday without melena or hematochezia. Resolved abdominal pain. Tolerated clear liquid diet.. A 12-point review of systems negative except for as above. Objective - Vital Signs/Intake and Output Vital Signs (last 24 hours): Temp Pulse Resp BP Pulse Ox 98.4 F 60 20 110/63 99 07/10/18 06:00 07/10/18 06:00 07/10/18 06:00 07/10/18 06:00 07/10/18 06:00 Intake and Output: 07/10/18 07/10/18 06:59 18:59 Intake Total 100 Output Total 460 Balance -360 - Medications Medications: Current Medications Acetaminophen (Tylenol 325mg Tab) 650 mg PO ONCE PRN PRN Reason: prbc transfusion Alprazolam (Xanax) 0.25 mg PO HS PRN; Protocol PRN Reason: Insomnia Stop: 07/15/18 22:01 Last Admin: 07/10/18 00:04 Dose: 0.25 mg Carvedilol (Coreg) 3.125 mg PO 0800,1700 [facility] Last Admin: 07/09/18 17:38 Dose: Not Given Digoxin (Digoxin) 0.125 mg PO 1400 [facility] Last Admin: 07/09/18 14:02 Dose: 0.125 mg Diphenhydramine HCl (Benadryl) 25 mg IVP ONCE PRN PRN Reason: prbc transfusion Last Admin: 07/09/18 01:02 Dose: 25 mg Furosemide (Lasix) 40 mg PO 0800,1400 [facility] Last Admin: 07/09/18 14:02 Dose: Not Given Furosemide (Lasix) 20 mg IVP ONCE PRN PRN Reason: prbc transfusion Last Admin: 07/09/18 04:07 Dose: 20 mg Hydrocortisone Sodium Succinate (Solu-Cortef) 50 mg IVP ONCE PRN PRN Reason: prbc transfusion Losartan Potassium (Cozaar) 12.5 mg PO DAILY [facility] Last Admin: 07/09/18 10:58 Dose: 12.5 mg Pantoprazole Sodium (Protonix Inj) 40 mg IVP Q12 [facility] Last Admin: 07/09/18 21:29 Dose: 40 mg Spironolactone (Aldactone) 25 mg PO BID [facility] Last Admin: 07/09/18 17:56 Dose: 25 mg - Labs Labs: 07/10/18 06:00 07/10/18 06:00 PT 12.0 SECONDS (9.4-12.5) 07/09/18 09:00 INR 1.04 07/09/18 09:00 APTT 23.6 Seconds (25.1-36.5) L 07/07/18 14:40 - Constitutional Appears: Non-toxic, No Acute Distress - Eye Exam Eye Exam: EOMI, PERRL. absent: Scleral icterus Pupil Exam: PERRL. absent: Miosis, Mydriatic - ENT Exam ENT Exam: Mucous Membranes Moist, Normal Oropharynx - Neck Exam Neck Exam: Full ROM, Normal Inspection - Respiratory Exam Respiratory Exam: Clear to Ausculation Bilateral. absent: Rales, Rhonchi, Wheezes - Cardiovascular Exam Cardiovascular Exam: RRR, +S1, +S2. absent: Gallop, Rubs - GI/Abdominal Exam GI & Abdominal Exam: Soft, Normal Bowel Sounds. absent: Distended, Firm, Guarding, Rigid, Tenderness, Organomegaly, Rebound - Extremities Exam Extremities Exam: Normal Inspection. absent: Pedal Edema - Neurological Exam Neurological Exam: Alert, Awake - Psychiatric Exam Psychiatric exam: Normal Affect, Normal Mood - Skin Skin Exam: Dry, Intact, Normal Color, Warm Assessment and Plan - Assessment and Plan (Free Text) Assessment: 88 year old female with PMH of Lung cancer s/p chemoradiation, GI bleed s/p subtotal colectomy with anastomosis (2002) complicated by anastomotic ulcers, CAD s/p CABG/stents (on ASA/Plavix), sCHF EF25-30%, and COPD presenting with rectal bleeding. Active treatment of symptomatic anemia 2/2 to lower GI bleed POD2 (07/08) EGD-gastritis, no signs of bleeding and colonoscopy showing active bleed from ulcer with visible oozing vessel in sigmoid colon near anastomosis s/p 2 hemoclips with successful hemostasis. Prior colonoscopy 2010 showed anastomotic ulcers. Prior EGD 2011 showed esophagitis and gastritis. Plan: - no signs of recurrent bleeding -H/H at baseline -s/p 4U pRBCs total -monitor H/H -advance to soft liquid diet -will follow clinical course <Serafin Hernandez V - Last Filed: 07/10/18 23:44> Objective - Vital Signs/Intake and Output Vital Signs (last 24 hours): Temp Pulse Resp BP Pulse Ox 99.0 F 64 19 121/63 100 07/10/18 17:17 07/10/18 18:00 07/10/18 17:17 07/10/18 17:22 07/10/18 17:17 - Labs Labs: 07/10/18 09:30 07/10/18 06:00 PT 12.0 SECONDS (9.4-12.5) 07/09/18 09:00 INR 1.04 07/09/18 09:00 APTT 23.6 Seconds (25.1-36.5) L 07/07/18 14:40 Attending/Attestation - Attestation I have personally seen and examined this patient.: Yes I have fully participated in the care of the patient.: Yes I have reviewed all pertinent clinical information, including history, physical exam and plan: Yes Notes (Text): This is an addendum to GI progress report dictated by the GI Fellow.The patient was seen and examined earlier. Medical records, lab studies, imagings were reviewed. Last 24 hours events reviewed. Agreed with the above treatment plan as outlined in GI Fellow 's notes with the addition of the following Tolerating diet No further episodes of bleeding Followup Hb Status post clipping of bleeding visible vessel in the colon No bleeding now hb stable 07/10/18 23:42
--- NOTE | 2018-07-10 08:00 | CP.PCM.PCO ---
Physician Communication Note - Physician Communication Note Physician Communication Note: No reported bleeding-Recheck H & H daily
[2018-07-10] MEDS ORDERED: Potassium Phosphate 3 mmol/ml Inj IV ONE (08:04)
[2018-07-10] MEDS ORDERED: Potassium Phosphate 30 MMOLE in Sodium Chloride 0.9% 250 ML IVPB ONE (08:15)
--- NOTE | 2018-07-10 09:42 | CP.PCM.PN ---
Subjective - Date & Time of Evaluation Date of Evaluation: 07/10/18 Time of Evaluation: 07:10 - Subjective Subjective: Surgery progress note for Dr. Blackman Patient seen and examined at bedside. No acute overnight events. Patient reports she feels well and denies further bleeding. Denies chest pain, SOB, nausea, hematochezia. Patient reports she is tolerating liquids, and has an appetite. Objective - Vital Signs/Intake and Output Vital Signs (last 24 hours): Temp Pulse Resp BP Pulse Ox 98.4 F 60 20 110/63 99 07/10/18 06:00 07/10/18 09:23 07/10/18 06:00 07/10/18 09:23 07/10/18 06:00 Intake and Output: 07/10/18 07/10/18 06:59 18:59 Intake Total 100 Output Total 460 Balance -360 - Medications Medications: Current Medications Acetaminophen (Tylenol 325mg Tab) 650 mg PO ONCE PRN PRN Reason: prbc transfusion Alprazolam (Xanax) 0.25 mg PO HS PRN; Protocol PRN Reason: Insomnia Stop: 07/15/18 22:01 Last Admin: 07/10/18 00:04 Dose: 0.25 mg Carvedilol (Coreg) 3.125 mg PO 0800,1700 [facility] Last Admin: 07/10/18 09:05 Dose: 3.125 mg Digoxin (Digoxin) 0.125 mg PO 1400 [facility] Last Admin: 07/09/18 14:02 Dose: 0.125 mg Diphenhydramine HCl (Benadryl) 25 mg IVP ONCE PRN PRN Reason: prbc transfusion Last Admin: 07/09/18 01:02 Dose: 25 mg Furosemide (Lasix) 40 mg PO 0800,1400 [facility] Last Admin: 07/10/18 09:04 Dose: 40 mg Furosemide (Lasix) 20 mg IVP ONCE PRN PRN Reason: prbc transfusion Last Admin: 07/09/18 04:07 Dose: 20 mg Hydrocortisone Sodium Succinate (Solu-Cortef) 50 mg IVP ONCE PRN PRN Reason: prbc transfusion Potassium Phosphate 30 mmole/ (Sodium Chloride) 260 mls @ 43.333 mls/hr IVPB ONCE ONE Stop: 07/10/18 14:14 Losartan Potassium (Cozaar) 12.5 mg PO DAILY [facility] Last Admin: 07/10/18 09:23 Dose: 12.5 mg Pantoprazole Sodium (Protonix Inj) 40 mg IVP Q12 [facility] Last Admin: 07/10/18 09:23 Dose: 40 mg Polyethylene Glycol (Miralax) 17 gm PO DAILY [facility] Last Admin: 07/10/18 09:23 Dose: 17 gm Spironolactone (Aldactone) 25 mg PO BID [facility] Last Admin: 07/10/18 09:23 Dose: 25 mg - Labs Labs: 07/10/18 06:00 07/10/18 06:00 PT 12.0 SECONDS (9.4-12.5) 07/09/18 09:00 INR 1.04 07/09/18 09:00 APTT 23.6 Seconds (25.1-36.5) L 07/07/18 14:40 - Constitutional Appears: Non-toxic, No Acute Distress - Head Exam Head Exam: ATRAUMATIC, NORMAL INSPECTION, NORMOCEPHALIC - Eye Exam Eye Exam: EOMI, Normal appearance - ENT Exam ENT Exam: Mucous Membranes Moist, Normal Exam - Neck Exam Neck Exam: Normal Inspection - Respiratory Exam Respiratory Exam: NORMAL BREATHING PATTERN. absent: Respiratory Distress - Cardiovascular Exam Cardiovascular Exam: REGULAR RHYTHM. absent: Tachycardia - GI/Abdominal Exam GI & Abdominal Exam: Soft. absent: Tenderness - Rectal Exam Rectal Exam: NORMAL INSPECTION. absent: Hemorrhoids - Extremities Exam Extremities Exam: Normal Inspection. absent: Calf Tenderness, Pedal Edema - Neurological Exam Neurological Exam: Alert, Awake - Psychiatric Exam Psychiatric exam: Normal Affect, Normal Mood - Skin Skin Exam: Dry, Intact, Normal Color, Warm Assessment and Plan - Assessment and Plan (Free Text) Assessment: 88 year old female admitted for acute blood loss anemia 2/2 lower GI bleed Plan: -Hgb down 9.7 from 11.4 yesterday, f/u repeat H&H, H&H daily -stool guaiac negative -ADAT -electrolyte repletion PRN -encourage ambulation/PT -GI ppx -medical management per primary Will discuss with Dr. Yehuda Riddle, PGY-1
[2018-07-10 09:48] LABS: BASO # 0.01 K/mm3 (0.0-2.0); BASO % 0.1 % (0.0-3.0); EOS # 0.1 (0.0-0.7); EOS % 0.5 % (1.5-5.0); GRAN # 10.18 (1.4-6.5); GRAN % 81.4 % (50.0-68.0); HEMOGLOBIN 10.5 g/dL (12.0-16.0); LYMPH # 1.5 (1.2-3.4); LYMPH % 11.8 % (22.0-35.0); MEAN CELL VOLUME 88.5 fl (80.0-105.0); MEAN CORPUSCULAR HEMOGLOBIN 29.6 pg (25.0-35.0); MEAN CORPUSCULAR HGB CONC 33.4 g/dl (31.0-37.0); MEAN PLATELET VOLUME 9.1 fl (7.0-11.0); MONO # 0.8 (0.1-0.6); MONO % 6.2 % (1.0-6.0); RBC 3.55 10^6/uL (3.5-6.1); RED CELL DISTRIBUTION WIDTH 15.2 % (11.5-14.5); WHITE BLOOD COUNT 12.5 10^3/uL (4.5-11.0)
[2018-07-10] MEDS ORDERED: POLYETHYLENE GLYCOL 3350 17 GM/Dose PACKET PO SCH (10:00)
--- NOTE | 2018-07-10 10:10 | CP.PCM.PN ---
Subjective - Date & Time of Evaluation Date of Evaluation: 07/10/18 Time of Evaluation: 10:10 Objective - Vital Signs/Intake and Output Vital Signs (last 24 hours): Temp Pulse Resp BP Pulse Ox 98.4 F 60 20 110/63 99 07/10/18 06:00 07/10/18 09:23 07/10/18 06:00 07/10/18 09:23 07/10/18 06:00 Intake and Output: 07/10/18 07/10/18 06:59 18:59 Intake Total 100 Output Total 460 Balance -360 - Medications Medications: Current Medications Acetaminophen (Tylenol 325mg Tab) 650 mg PO ONCE PRN PRN Reason: prbc transfusion Alprazolam (Xanax) 0.25 mg PO HS PRN; Protocol PRN Reason: Insomnia Stop: 07/15/18 22:01 Last Admin: 07/10/18 00:04 Dose: 0.25 mg Carvedilol (Coreg) 3.125 mg PO 0800,1700 [facility] Last Admin: 07/10/18 09:05 Dose: 3.125 mg Digoxin (Digoxin) 0.125 mg PO 1400 [facility] Last Admin: 07/09/18 14:02 Dose: 0.125 mg Diphenhydramine HCl (Benadryl) 25 mg IVP ONCE PRN PRN Reason: prbc transfusion Last Admin: 07/09/18 01:02 Dose: 25 mg Furosemide (Lasix) 40 mg PO 0800,1400 [facility] Last Admin: 07/10/18 09:04 Dose: 40 mg Furosemide (Lasix) 20 mg IVP ONCE PRN PRN Reason: prbc transfusion Last Admin: 07/09/18 04:07 Dose: 20 mg Hydrocortisone Sodium Succinate (Solu-Cortef) 50 mg IVP ONCE PRN PRN Reason: prbc transfusion Potassium Phosphate 30 mmole/ (Sodium Chloride) 260 mls @ 43.333 mls/hr IVPB ONCE ONE Stop: 07/10/18 14:14 Last Admin: 07/10/18 09:57 Dose: 43.333 mls/hr Losartan Potassium (Cozaar) 12.5 mg PO DAILY [facility] Last Admin: 07/10/18 09:23 Dose: 12.5 mg Pantoprazole Sodium (Protonix Inj) 40 mg IVP Q12 [facility] Last Admin: 07/10/18 09:23 Dose: 40 mg Polyethylene Glycol (Miralax) 17 gm PO DAILY [facility] Last Admin: 07/10/18 09:23 Dose: 17 gm Spironolactone (Aldactone) 25 mg PO BID [facility] Last Admin: 07/10/18 09:23 Dose: 25 mg - Labs Labs: 07/10/18 09:30 07/10/18 06:00 PT 12.0 SECONDS (9.4-12.5) 07/09/18 09:00 INR 1.04 07/09/18 09:00 APTT 23.6 Seconds (25.1-36.5) L 07/07/18 14:40
[2018-07-10] MEDS: Digoxin 125 mcg (0.125 mg) Tab PO SCH (13:52)
[2018-07-10 17:18] VITALS: BP 121/63; RESP 19; TEMP 99; O2SAT 100
--- NOTE | 2018-07-10 18:29 | PN ---
DATE: 07/10/2018 LOCATION: The patient is in room 372, bed 2. REASON FOR CONSULTATION AND FOLLOWUP: Coronary artery disease, stent insertion, ischemic cardiomyopathy, aortic regurgitation, and lower GI bleeding. SUBJECTIVE: Patient lying flat in bed without any cardiac symptoms like chest pain, shortness of breath, or palpitation. PHYSICAL EXAMINATION: VITAL SIGNS: Blood pressure 115/60, respirations 20, pulse 69, and patient is afebrile. HEENT: Head is normocephalic. Eyes; pupils normal. Conjunctivae slightly pale. NECK: JVP low. Carotids equal. THORAX: AP diameter normal. LUNGS: No rales. CARDIOVASCULAR: S1 and S2. ABDOMEN: Soft. No tenderness. No organomegaly. Bowel sounds normal. EXTREMITIES: No clubbing. No cyanosis. LABORATORY DATA: WBC 12.5, hemoglobin 10.5, hematocrit 31.4 and platelets 176,000. Sodium 137, potassium 3.9, BUN 16, and creatinine 1.2. Calcium 8.2, phosphorus 2.3, and magnesium 1.9. AST and ALT are normal. Total protein 4.9 and albumin 2.5. DIAGNOSES: Coronary artery disease, status post coronary artery bypass graft in the past, history of multiple stents, history of ischemic cardiomyopathy, ejection fraction in the range of 25% to 30%, history of moderate aortic regurgitation, history of carcinoma of the lung, treated with radiation and chemotherapy, admitted with bright red blood per rectum with lower gastrointestinal bleeding, status post blood transfusions. PLAN: Plavix and aspirin is still in hold. Patient is on spironolactone 25 b.i.d., Coreg 3.125 daily, losartan 12.5 mg daily, digoxin 0.125 daily, furosemide 40 b.i.d., Protonix 40 IV every 12 hours, hydrocortisone 50 mg once was given before, and Xanax 0.25 p.r.n. Shekhar Stringer MD
[2018-07-10 18:32] VITALS: PULSE 64
--- NOTE | 2018-07-10 18:51 | CP.PCM.DIS ---
Provider - Provider Date of Admission: 07/07/18 17:08 Attending physician: Adrián Gavin MD Primary care physician: Adrián Gavin MD Consults: GI: Dr. Hernandez Cardio: Dr. Howard Surgery: Dr. Blackman Time Spent in preparation of Discharge (in minutes): 46 Hospital Course - Lab Results Lab Results: Micro Results 07/07/18 15:45 Blood-Venous Blood Culture - Preliminary NO GROWTH AFTER 3 DAYS 07/07/18 15:30 Blood-Venous Blood Culture - Preliminary NO GROWTH AFTER 3 DAYS 07/08/18 00:30 Nose MRSA Culture (Admit) - Final MRSA NOT DETECTED Most Recent Lab Values WBC 12.5 10^3/uL (4.5-11.0) H 07/10/18 09:30 RBC 3.55 10^6/uL (3.5-6.1) 07/10/18 09:30 Hgb 10.5 g/dL (12.0-16.0) L 07/10/18 09:30 Hct 31.4 % (36.0-48.0) L 07/10/18 09:30 MCV 88.5 fl (80.0-105.0) 07/10/18 09:30 MCH 29.6 pg (25.0-35.0) 07/10/18 09:30 MCHC 33.4 g/dl (31.0-37.0) 07/10/18 09:30 RDW 15.2 % (11.5-14.5) H 07/10/18 09:30 Plt Count 176 10^3/uL (120.0-450.0) 07/10/18 09:30 MPV 9.1 fl (7.0-11.0) 07/10/18 09:30 Gran % 81.4 % (50.0-68.0) H 07/10/18 09:30 Lymph % (Auto) 11.8 % (22.0-35.0) L 07/10/18 09:30 [place] % (Auto) 6.2 % (1.0-6.0) H 07/10/18 09:30 Eos % (Auto) 0.5 % (1.5-5.0) L 07/10/18 09:30 Baso % (Auto) 0.1 % (0.0-3.0) 07/10/18 09:30 Gran # 10.18 (1.4-6.5) H 07/10/18 09:30 Lymph # (Auto) 1.5 (1.2-3.4) 07/10/18 09:30 [place] # (Auto) 0.8 (0.1-0.6) H 07/10/18 09:30 Eos # (Auto) 0.1 (0.0-0.7) 07/10/18 09:30 Baso # (Auto) 0.01 K/mm3 (0.0-2.0) 07/10/18 09:30 PT 12.0 SECONDS (9.4-12.5) 07/09/18 09:00 INR 1.04 07/09/18 09:00 APTT 23.6 Seconds (25.1-36.5) L 07/07/18 14:40 pO2 42 mm/Hg (30-55) 07/07/18 16:40 VBG pH 7.31 (7.32-7.43) L 07/07/18 16:40 VBG pCO2 70.0 (40-60) H* 07/07/18 16:40 VBG HCO3 35.2 mmol/l (21-28) H 07/07/18 16:40 VBG Total CO2 37.3 mmol.L (22-28) H 07/07/18 16:40 VBG O2 Sat (Calc) 79.3 % (40-65) H 07/07/18 16:40 VBG Base Excess 6.4 mmol/L (0.0-2.0) H 07/07/18 16:40 VBG Potassium 4.7 mmol/L (3.6-5.2) 07/07/18 16:40 Sodium 135.0 mmol/L (132-148) 07/07/18 16:40 Chloride 101.0 mmol/L (98-107) 07/07/18 16:40 Glucose 88 mg/dl (65-105) 07/07/18 16:40 Lactate 0.6 mmol/L (0.7-2.1) L 07/07/18 16:40 FiO2 21.0 % 07/07/18 16:40 Sodium 137 mmol/L (132-148) 07/10/18 06:00 Potassium 3.9 mmol/L (3.6-5.0) 07/10/18 06:00 Chloride 106 mmol/L (98-107) 07/10/18 06:00 Carbon Dioxide 30 mmol/L (21-33) 07/10/18 06:00 Anion Gap 5 (10-20) L 07/10/18 06:00 BUN 16 mg/dL (7-21) 07/10/18 06:00 Creatinine 1.2 mg/dl (0.7-1.2) 07/10/18 06:00 Est GFR ( Amer) 51 07/10/18 06:00 Est GFR (Non-Af Amer) 42 07/10/18 06:00 POC Glucose (mg/dL) 119 mg/dL (65-110) H 07/08/18 22:48 Random Glucose 83 mg/dL (70-110) 07/10/18 06:00 Calcium 8.2 mg/dL (8.4-10.5) L 07/10/18 06:00 Phosphorus 2.3 mg/dL (2.5-4.5) L 07/10/18 06:00 Magnesium 1.9 mg/dL (1.7-2.2) 07/10/18 06:00 Total Bilirubin 0.5 mg/dL (0.2-1.3) 07/10/18 06:00 AST 19 U/L (14-36) 07/10/18 06:00 ALT 26 U/L (7-56) 07/10/18 06:00 Alkaline Phosphatase 40 U/L (38-126) 07/10/18 06:00 Troponin I 0.02 ng/mL 07/07/18 14:40 Total Protein 4.9 g/dL (5.8-8.3) L 07/10/18 06:00 Albumin 2.5 g/dL (3.0-4.8) L 07/10/18 06:00 Globulin 2.4 gm/dL 07/10/18 06:00 Albumin/Globulin Ratio 1.0 (1.1-1.8) L 07/10/18 06:00 Lipase 62 U/L (23-300) 07/07/18 14:40 Procalcitonin < 0.05 NG/ML (0.19-0.49) L 07/08/18 06:40 Venous Blood Potassium 4.7 mmol/L (3.6-5.2) 07/07/18 16:40 Blood Type B POSITIVE 07/07/18 14:40 Blood Type Confirm B POSITIVE 07/07/18 16:49 Antibody Screen Positive 07/07/18 14:40 Antibody Identification Anti K 07/07/18 14:40 Antigen Identification K Antigen - NEGATIVE 07/07/18 14:40 Crossmatch See Detail 07/07/18 14:40 BBK History Checked No verified bt 07/07/18 14:40 - Hospital Course Hospital Course: Mrs. Escobar is an 88 year old female with a past medical history significant for COPD, systolic CHF (EF 25-30%), CAD, HTN, HLD, lung cancer s/p chemoradiation and colon cancer s/p resection who presented with rectal bleeding. She was transfused five total units of pRBC's for acute anemia associated with her hemorrhage. She had an EGD/CSPY that revealed the source of bleeding to be a lesion at her ileocecal anastamosis site that was clipped by GI. Surgery was consulted with no interventions being indicated. Cardio was consulted for EGD/CSPY clearance. She was restarted on her DAPT. She was advanced on her diet. She was medically optimized and is now being transferred to the TCU for further physical rehabilitation. - Date & Time of H&P Date of H&P: 07/08/18 Time of H&P: 09:00 Discharge Exam - Head Exam Head Exam: ATRAUMATIC, NORMAL INSPECTION, NORMOCEPHALIC - Eye Exam Eye Exam: EOMI, Normal appearance Pupil Exam: NORMAL ACCOMODATION - ENT Exam ENT Exam: Mucous Membranes Moist - Neck Exam Neck exam: Full Rom, Normal Inspection - Respiratory Exam Respiratory Exam: Clear to PA & Lateral, NORMAL BREATHING PATTERN, UNREMARKABLE - Cardiovascular Exam Cardiovascular Exam: REGULAR RHYTHM - GI/Abdominal Exam GI & Abdominal Exam: Normal Bowel Sounds, Unremarkable - Extremities Exam Extremities exam: normal inspection - Neurological Exam Neurological exam: Alert, Oriented x3 - Psychiatric Exam Psychiatric exam: Normal Affect, Normal Mood - Skin Skin Exam: Dry, Intact, Normal Color, Warm Discharge Plan - Follow Up Plan Condition: GUARDED Disposition: TRANSF TO SNF Instructions: Gastrointestinal Bleeding (DC) Additional Instructions: FOLLOW FACILITY PROTOCOL. MD TO FOLLOW ON TCU. CONTINUE MEDICATION ORDERED. Referrals: Adrián Gavin MD [Primary Care Provider] -
== END 2018-07-10 18:45 | DRG 378 ==
LOC: ED 14:05 → ERH 17:08 → 2RSO 21:30 → ERH 21:50 → 2RSO 23:07 → ICU 07-08 01:44 → 3RSO 07-09 12:18
PROVIDERS: ADMIT Family Medicine; ATTEND Family Medicine
PROC: 30233N1 Transfusion of Nonautologous Red Blood Cells into Peripheral Vein, Percutaneous Approach (ICD-10-PCS; 2018-07-07)
PROC: 30233R1 Transfusion of Nonautologous Platelets into Peripheral Vein, Percutaneous Approach (ICD-10-PCS; 2018-07-08)
PROC: 0W3P8ZZ Control Bleeding in Gastrointestinal Tract, Via Natural or Artificial Opening Endoscopic (ICD-10-PCS; principal; 2018-07-08 15:30)
PROC: 0DJ08ZZ Inspection of Upper Intestinal Tract, Via Natural or Artificial Opening Endoscopic (ICD-10-PCS; 2018-07-08 15:30)
DX: K28.0 Acute gastrojejunal ulcer with hemorrhage (principal); J98.11 Atelectasis; I50.22 Chronic systolic (congestive) heart failure; D62 Acute posthemorrhagic anemia; C34.90 Malignant neoplasm of unspecified part of unspecified bronchus or lung; I11.0 Hypertensive heart disease with heart failure; I25.5 Ischemic cardiomyopathy; K57.30 Diverticulosis of large intestine without perforation or abscess without bleeding; K29.70 Gastritis, unspecified, without bleeding; I25.10 Atherosclerotic heart disease of native coronary artery without angina pectoris; J44.9 Chronic obstructive pulmonary disease, unspecified; I08.3 Combined rheumatic disorders of mitral, aortic and tricuspid valves; K64.1 Second degree hemorrhoids; E11.9 Type 2 diabetes mellitus without complications; E78.5 Hyperlipidemia, unspecified; Z66 Do not resuscitate; Z99.81 Dependence on supplemental oxygen; Z85.038 Personal history of other malignant neoplasm of large intestine; Z92.3 Personal history of irradiation; Z92.21 Personal history of antineoplastic chemotherapy; Z87.891 Personal history of nicotine dependence; Z95.1 Presence of aortocoronary bypass graft; Z95.5 Presence of coronary angioplasty implant and graft; Z79.82 Long term (current) use of aspirin

== ENCOUNTER 2018-07-10 18:45 | Inpatient (IN) | payer OTHER ==
[2018-07-10 19:59] VITALS: BMI 22.1
[2018-07-11] MEDS: Pantoprazole 40 mg EC Tab PO SCH ×2 (06:28→17:00)
[2018-07-11 07:22] LABS: ALBUMIN 2.8 g/dL (3.0-4.8); CALCIUM 8.3 mg/dL (8.4-10.5)
[2018-07-11 07:29] LABS: BASO # 0.02 K/mm3 (0.0-2.0); BASO % 0.2 % (0.0-3.0); EOS # 0.1 (0.0-0.7); EOS % 0.9 % (1.5-5.0); GRAN # 8.08 (1.4-6.5); GRAN % 76.3 % (50.0-68.0); HEMOGLOBIN 9.7 g/dL (12.0-16.0); LYMPH # 1.6 (1.2-3.4); LYMPH % 14.6 % (22.0-35.0); MEAN CELL VOLUME 88.9 fl (80.0-105.0); MEAN CORPUSCULAR HEMOGLOBIN 29.2 pg (25.0-35.0); MEAN CORPUSCULAR HGB CONC 32.9 g/dl (31.0-37.0); MEAN PLATELET VOLUME 9.5 fl (7.0-11.0); MONO # 0.9 (0.1-0.6); RBC 3.32 10^6/uL (3.5-6.1); RED CELL DISTRIBUTION WIDTH 15.2 % (11.5-14.5); WHITE BLOOD COUNT 10.6 10^3/uL (4.5-11.0)
--- NOTE | 2018-07-11 09:04 | CP.PCM.PCO ---
Physician Communication Note - Physician Communication Note Physician Communication Note: No bleeding/H & H equilibrating
[2018-07-11] MEDS: POLYETHYLENE GLYCOL 3350 17 GM/Dose PACKET PO SCH (09:09)
--- NOTE | 2018-07-11 10:50 | CP.PCM.PN ---
Subjective - Date & Time of Evaluation Date of Evaluation: 07/11/18 Time of Evaluation: 08:00 - Subjective Subjective: GI Fellow PGY5 Progress Note Pt seen and evaluated at bedside, pt denies any abdominal pain. No rectal bleeding. Per nursing normal brown BM overnight. ROS: A 12pt ROS was negative except as above. Objective - Vital Signs/Intake and Output Vital Signs (last 24 hours): Temp Pulse Resp BP Pulse Ox 98.4 F 52 L 18 110/65 07/11/18 01:12 07/11/18 09:09 07/11/18 01:12 07/11/18 09:09 - Medications Medications: Current Medications Acetaminophen (Tylenol 325mg Tab) 650 mg PO ONCE PRN; Protocol PRN Reason: Pain, Mild (1-3) Alprazolam (Xanax) 0.25 mg PO HS PRN; Protocol PRN Reason: Anxiety Stop: 07/17/18 23:07 Last Admin: 07/10/18 23:39 Dose: 0.25 mg Carvedilol (Coreg) 3.125 mg PO 0800,1700 YAHIR; Protocol Last Admin: 07/11/18 08:45 Dose: Not Given Digoxin (Digoxin) 0.125 mg PO 1400 YAHIR; Protocol Furosemide (Lasix) 40 mg PO 0600,1800 YAHIR; Protocol Last Admin: 07/11/18 06:28 Dose: 40 mg Losartan Potassium (Cozaar) 12.5 mg PO DAILY YAHIR; Protocol Last Admin: 07/11/18 09:09 Dose: 12.5 mg Pantoprazole Sodium (Protonix Ec Tab) 40 mg PO 0600,1600 YAHIR; Protocol Last Admin: 07/11/18 06:28 Dose: 40 mg Polyethylene Glycol (Miralax) 17 gm PO DAILY YAHIR; Protocol Last Admin: 07/11/18 09:09 Dose: Not Given Spironolactone (Aldactone) 25 mg PO BID YAHIR; Protocol Last Admin: 07/11/18 09:08 Dose: 25 mg - Labs Labs: 07/11/18 06:30 07/11/18 06:30 - Constitutional Appears: Non-toxic, No Acute Distress - Head Exam Head Exam: ATRAUMATIC, NORMAL INSPECTION, NORMOCEPHALIC - Eye Exam Eye Exam: EOMI, Normal appearance Pupil Exam: PERRL - ENT Exam ENT Exam: Mucous Membranes Moist - Respiratory Exam Respiratory Exam: NORMAL BREATHING PATTERN - Cardiovascular Exam Cardiovascular Exam: RRR, +S1, +S2 - GI/Abdominal Exam GI & Abdominal Exam: Soft, Normal Bowel Sounds. absent: Distended, Firm, Guarding, Tenderness - Neurological Exam Neurological Exam: Alert, Awake, Oriented x3 - Psychiatric Exam Psychiatric exam: Normal Affect, Normal Mood - Skin Skin Exam: Dry, Intact, Normal Color, Warm Assessment and Plan - Assessment and Plan (Free Text) Assessment: 88 year old female with PMH of Lung cancer s/p chemoradiation, GI bleed s/p subtotal colectomy with anastomosis (2002) complicated by anastomotic ulcers, CAD s/p CABG/stents (on ASA/Plavix), sCHF EF25-30%, and COPD presenting with rectal bleeding. Active treatment of symptomatic anemia 2/2 to lower GI bleed POD2 (07/08) EGD-gastritis, no signs of bleeding and colonoscopy showing active bleed from ulcer with visible oozing vessel in sigmoid colon near anastomosis s/p 2 hemoclips with successful hemostasis. Prior colonoscopy 2010 showed anastomotic ulcers. Prior EGD 2011 showed esophagitis and gastritis. Plan: -Continue supportive care -no signs of recurrent bleeding -H/H at baseline -s/p 4U PRBCs total -monitor H/H -advance diet as tolerated -Please call with any questions or concerns
[2018-07-11] MEDS: Digoxin 125 mcg (0.125 mg) Tab PO SCH (13:46)
--- NOTE | 2018-07-11 21:13 | CON ---
DATE: 07/11/2018 LOCATION: Room 302, bed 1. REASON FOR CONSULTATION: Ischemic cardiomyopathy, coronary artery disease, GI bleeding, history of coronary artery disease with stent insertion, history of CABG, aortic regurgitation, deconditioning. BRIEF HISTORY: An 88-year-old female who was admitted to medical floor with GI bleeding and now she is stabilized and now admitted to transitional care unit for deconditioning and physical therapy. The patient known case of ischemic cardiomyopathy and history of coronary artery disease status post coronary artery bypass surgery but had multiple stent insertion, was admitted with GI bleeding. The patient also has history of chemotherapy and radiation for carcinoma of the lung. The patient also has history of colon CA for which she had resection. The patient was also given blood transfusions and workup showed the patient had a bleeding from the ileocecal anastomotic site and the patient was treated medically. The patient denies chest pain, short of breath. The patient is now in transitional care unit for deconditioning and physical therapy. PAST MEDICAL HISTORY: Significant for coronary artery disease, history of CABG, history of stent insertion. Last cardiac catheterization revealed occluded CALLAHAN to LAD, patent saphenous graft to diagonal one, patent saphenous graft to the RCA. Last stent was placed many years ago, history of CABG, history of ischemic cardiomyopathy, LV systolic dysfunction, COPD, goiter, right small cell lung cancer, inoperable, treated with chemo and radiation therapy. PAST SURGICAL HISTORY: Significant for subtotal colectomy, history of Port-A-Cath placement, history of lung cancer, inoperable, treated radiation and chemotherapy. ALLERGIES: THE PATIENT ALLERGIC TO SHELLFISH, MECLIZINE, ATORVASTATIN. MEDICATIONS:: The patient's home medication prior to admission include spironolactone, simvastatin, pyridoxine, losartan, ferrous sulfate, digoxin, Plavix, carvedilol and aspirin. Recent cardiac workup, the patient had echocardiogram done on 05/11/2018 that revealed ejection fraction of 25-30%, mild valvular aortic stenosis, trace to mild mitral regurgitation, mild tricuspid regurgitation, RV systolic pressure of 31. No murmur. No pericardial effusion noted. PERSONAL HISTORY: The patient denies any smoking or drinking. REVIEW OF SYSTEMS: All other system reviewed, positive mentioned in history, otherwise negative. PHYSICAL EXAMINATION: VITAL SIGNS: Blood pressure 110/65, respiration 18, pulse 52, the patient afebrile. HEENT: Head is normocephalic. Eyes, pupils normal. Conjunctivae pale. NECK: JVP low. Carotid equal. THORAX: AP diameter normal. LUNGS: No rales. CARDIOVASCULAR: Sinus. ABDOMEN: Soft. No organomegaly. Bowel sound normal. EXTREMITIES: No clubbing or cyanosis. LABORATORY DATA: WBC 10.6, hemoglobin 9.7, hematocrit 29.5, platelet 192. Sodium 138, potassium 4, BUN 16, creatinine 1.1, calcium 8.3. AST, ALT normal. Total protein 5.5, globulin 2.7. The patient's EKG showed normal sinus rhythm. IMPRESSION: Deconditioning, coronary artery disease, history of coronary artery bypass graft, history of multiple stents, ischemic cardiomyopathy, left ventricular systolic dysfunction, ejection fraction of 25-30%, chronic obstructive pulmonary disease, history of lung cancer treated with radiation and chemotherapy, history of colon cancer, the patient had surgical resection, gastrointestinal bleeding, multiple blood transfusions. Chronic obstructive pulmonary disease. PLAN: Is the patient is on spironolactone 25 b.i.d., carvedilol 3.125 b.i.d., losartan 12.5 daily, digoxin 0.125 daily furosemide 40 p.o. b.i.d., Protonix 40 b.i.d. The patient's Plavix, aspirin, still on hold because of GI bleeding. The patient will be getting physical therapy. We will continue to follow closely with you. Shekhar Stringer MD
[2018-07-12 06:31] LABS: BASO # 0.02 K/mm3 (0.0-2.0); BASO % 0.2 % (0.0-3.0); EOS # 0.1 (0.0-0.7); EOS % 0.8 % (1.5-5.0); GRAN # 9.38 (1.4-6.5); GRAN % 78.3 % (50.0-68.0); LYMPH # 1.7 (1.2-3.4); LYMPH % 13.9 % (22.0-35.0); MEAN CELL VOLUME 89.2 fl (80.0-105.0); MEAN CORPUSCULAR HEMOGLOBIN 29.1 pg (25.0-35.0); MEAN CORPUSCULAR HGB CONC 32.6 g/dl (31.0-37.0); MONO # 0.8 (0.1-0.6); MONO % 6.8 % (1.0-6.0); RBC 3.44 10^6/uL (3.5-6.1); RED CELL DISTRIBUTION WIDTH 15.1 % (11.5-14.5)
[2018-07-12] MEDS: Pantoprazole 40 mg EC Tab PO SCH ×2 (06:41→16:29)
[2018-07-12 06:43] LABS: IRON 36 ug/dL (45-180)
[2018-07-12 06:44] LABS: CALCIUM 8.7 mg/dL (8.4-10.5)
[2018-07-12 06:53] LABS: % IRON SATURATION 15 % (20-55); TOTAL IRON BINDING CAPACITY 238 ug/dL (265-497)
[2018-07-12] MEDS: POLYETHYLENE GLYCOL 3350 17 GM/Dose PACKET PO SCH (10:40)
[2018-07-12] MEDS: Digoxin 125 mcg (0.125 mg) Tab PO SCH (14:15)
--- NOTE | 2018-07-12 19:05 | PN ---
DATE: 07/12/2018 LOCATION: Patient in room 302, bed 1. REASON FOR CONSULTATION: Follow up ischemic cardiomyopathy, coronary artery disease, history of CABG, history of multiple stent insertions, deconditioning. SUBJECTIVE: Patient was admitted to medical floor with GI bleed. She was worked up and stabilized and patient now admitted to Transition Care Unit for deconditioning. Patient denies any chest pain. Her breathing is better. PHYSICAL EXAMINATION VITAL SIGNS: Blood pressure 118/66, respirations 18, pulse 70, patient is afebrile. HEENT: Head is normocephalic. Eyes, pupils are normal. Conjunctivae, slightly pale. NECK: JVP low. Carotid equal. THORAX: AP diameter is normal. LUNGS: No significant rales. CARDIOVASCULAR: SI and S2. ABDOMEN: Soft, nontender. No organomegaly. EXTREMITIES: No clubbing. No cyanosis. LABORATORY DATA: WBC 12, hemoglobin 10, hematocrit 30, platelet 216. Sodium 137, potassium 4.1, BUN 20, and creatinine 1.3. Total iron is low. TIBC 238, which is low. Percent saturation is 15, which is also low. AST and ALT normal. Protein and albumin normal. DIAGNOSES: Deconditioning, coronary artery disease, history of coronary artery bypass graft surgery, history of multiple stents, ischemic cardiomyopathy, left ventricular systolic dysfunction with ejection fraction of 25-30%, history of lung cancer treated with radiation and chemotherapy, history of colon cancer for which patient had surgical resection, gastrointestinal bleeding, multiple blood transfusions, and chronic obstructive pulmonary disease. Patient had bleeding from the ileocecal anastomotic site. PLAN: Patient is being treated medically at present including losartan 12.5 mg daily, digoxin 0.125 daily, spirolactone 25 b.i.d., carvedilol 3.125 b.i.d., and furosemide 40 mg b.i.d. We will continue physical therapy. We will follow. Shekhar Stringer MD
--- NOTE | 2018-07-13 02:58 | PN ---
DATE: 07/12/2018 LOCATION: The patient is in [facility] room 302, bed 1. SUBJECTIVE: The patient has been feeling better and she is being going to participate in physical therapy. The patient is able to ambulate with walker and assistance. The patient has no significant pain. She has had no other significant problems since being in the [facility]. There is any other episodes of bleeding. The patient was recently on the acute side where she was admitted with acute lower GI bleeding for which she had undergone a colonoscopy and ligation of the bleeding blood vessel at the anastomotic site of the ileum to the sigmoid colon. The patient had a prior history of having had a subtotal colectomy. Subjectively, the patient is feeling better. She just tells me that she was not able to sleep and required a sleeping medication. Otherwise, she has been holding her own without any fevers, chills, nausea, vomiting. PHYSICAL EXAMINATION GENERAL: Patient is awake, alert, and oriented. The patient is examined in bed. VITAL SIGNS: Blood pressure is 118/56, respirations 18, pulse of 70, the patient is afebrile. HEENT: Head is normocephalic, atraumatic. Conjunctivae pale. Sclerae anicteric. Examination of the oropharynx reveals no oropharyngeal lesions. Tongue is moist. No ulcerations are noted. Patient is edentulous. NECK: Supple. There is no adenopathy. LUNGS: Clear to percussion and auscultation. CARDIOVASCULAR SYSTEM: Reveals PMI within the fifth intercostal space inside the midclavicular line. S1 and S2 are normal. No gallop or murmur is heard. ABDOMEN: Soft. nontender. Bowel sounds are present. No rebound, rigidity or guarding is noted. EXTREMITIES: Reveals no cyanosis, clubbing or edema. AND RECTAL: Deferred. LABORATORY DATA: From today reveals a white count of 12, hemoglobin 10, hematocrit 30, platelet counts are 216,000. Sodium is 137, K is 4.1, BUN 20, creatinine 1.3. Total iron is low. Percent saturation is 15. AST and ALT are normal. Protein and albumin are normal. ASSESSMENT NOTES AND PLAN: Deconditioning, coronary artery disease, history of coronary artery bypass surgery, history of multiple stents, ischemic cardiomyopathy, left ventricular systolic dysfunction along with this patient had a recent gastrointestinal bleed status post colonoscopy and banding of the bleeding area with arrest of the bleeding and stabilization of blood counts, history of stage IV lung cancer involving the right lower lobe of the lung status post chemo and radiation, currently the tumor is in remission, status post multiple blood transfusions. The patient is currently clinically stable. We will continue with her current medications that she is on which include losartan, digoxin, spironolactone, carvedilol and furosemide. The patient will also continue physical therapy while in the Transition Care Unit. Routine post exam instructions have been given to the patient. Labs for a.m. have been requested. Jose Francisco Duncan MD
[2018-07-13] MEDS: Pantoprazole 40 mg EC Tab PO SCH ×2 (05:19→17:22)
--- NOTE | 2018-07-13 06:58 | CP.PCM.PN ---
Subjective - Date & Time of Evaluation Date of Evaluation: 07/13/18 Time of Evaluation: 13:30 - Subjective Subjective: Pablo Chacon-Internal Medicine Resident- Hematology Oncology Progress Note Subjective: Patient seen and examined at bedside. No acute events overnight. Patient admits to mild abdominal pain with associated nausea. Denies vomiting. Able to tolerate diet. Further denies fever, chills, chest pain, SOB. 12 point ROS negative except as indicated in HPI Physical Examination: - Constitutional Appears: Non-toxic, No Acute Distress - Head Exam Head Exam: ATRAUMATIC, NORMAL INSPECTION, NORMOCEPHALIC - Eye Exam Eye Exam: EOMI, Normal appearance Pupil Exam: PERRL - ENT Exam ENT Exam: Mucous Membranes Moist - Respiratory Exam Respiratory Exam: NORMAL BREATHING PATTERN - Cardiovascular Exam Cardiovascular Exam: RRR, +S1, +S2 - GI/Abdominal Exam GI & Abdominal Exam: Soft, Hyperactive Bowel Sounds. absent: Distended, Firm, Guarding, Tenderness - Neurological Exam Neurological Exam: Alert, Awake, Oriented x3 - Psychiatric Exam Psychiatric exam: Normal Affect, Normal Mood - Skin Skin Exam: Dry, Intact, Normal Color, Warm Assessment and Plan: Patient is a 88 year old female with a past medical history significant for COPD, systolic CHF (EF 25-30%), CAD, HTN, HLD, lung cancer s/p chemoradiation and colon cancer s/p resection who was admitted for evaluation and treatment of rectal bleeding. Patient was transferred to the TCU for physical rehab. Abdominal Pain - GI consulted appreciate recommendations - abdominal xray ordered and pendin Hx of HTN - continue losartan and coreg Hx of Systolic CHF - continue spironolactone, digoxin, and lasix Hx of Lung cancer s/p chemoradiation & Colon cancer s/p resection - no acute intervention required at this time Patient case discussed with and plan approved by attending physician, Dr. Duncan. Objective - Vital Signs/Intake and Output Vital Signs (last 24 hours): Temp Pulse Resp BP Pulse Ox 98.2 F 70 18 101/58 L 98 07/12/18 16:00 07/12/18 16:28 07/12/18 16:00 07/13/18 05:18 07/12/18 16:00 - Medications Medications: Current Medications Acetaminophen (Tylenol 325mg Tab) 650 mg PO ONCE PRN; Protocol PRN Reason: Pain, Mild (1-3) Last Admin: 07/11/18 13:47 Dose: 650 mg Alprazolam (Xanax) 0.25 mg PO HS PRN; Protocol PRN Reason: Anxiety Stop: 07/17/18 23:07 Last Admin: 07/12/18 22:40 Dose: 0.25 mg Carvedilol (Coreg) 3.125 mg PO 0800,1700 YAHIR; Protocol Last Admin: 07/12/18 16:28 Dose: 3.125 mg Digoxin (Digoxin) 0.125 mg PO 1400 YAHIR; Protocol Last Admin: 07/12/18 14:15 Dose: 0.125 mg Furosemide (Lasix) 40 mg PO 0600,1800 YAHIR; Protocol Last Admin: 07/13/18 05:18 Dose: Not Given Losartan Potassium (Cozaar) 12.5 mg PO DAILY YAHIR; Protocol Last Admin: 07/12/18 10:39 Dose: 12.5 mg Pantoprazole Sodium (Protonix Ec Tab) 40 mg PO 0600,1600 YAHIR; Protocol Last Admin: 07/13/18 05:19 Dose: 40 mg Polyethylene Glycol (Miralax) 17 gm PO DAILY YAHIR; Protocol Last Admin: 07/12/18 10:40 Dose: Not Given Spironolactone (Aldactone) 25 mg PO BID YAHIR; Protocol Last Admin: 07/12/18 17:16 Dose: 25 mg - Labs Labs: 07/12/18 06:15 07/12/18 06:15
--- NOTE | 2018-07-13 07:40 | HP ---
DATE OF EXAM: 07/11/2018 ONCOLOGY AND HEMATOLOGY HISTORY AND PHYSICAL The patient has been transferred to room# 302, bed 1 from the acute side for deconditioning and management. HISTORY OF PRESENT ILLNESS: This is an 88-year-old female who was admitted to the medical floor with GI bleeding, which stabilized after having colonoscopy and clipping of the AVM, which was at the junction of anastomosis of the small bowel to the colon after patient having had a subtotal colectomy many years ago. The patient was admitted for active bleeding was sudden in nature, and this was immediately attended to. The patient received several units of blood along with a unit of platelets to correct the platelet abnormalities from dysfunctional platelet. The patient is on aspirin and Plavix for her cardiac condition. The patient has a known case of ischemic cardiomyopathy, history of coronary artery, status post coronary artery bypass surgery, multiple stent insertions, history of chemotherapy and radiation for stage IV carcinoma of the lung, history of diverticular bleeding, and having had subtotal colectomy for CA of the colon several years ago in 2004. The patient since admission and correction of the bleeding requiring blood products and clipping of the bleeding blood vessel, patient has a dramatic turn around she is improved and then transferred to the TCU for deconditioning and physical therapy. PAST MEDICAL HISTORY: Significant for coronary artery disease, history of coronary artery bypass surgery, history of multiple stent insertions, history of cardiac catheterization. The patient has a patent saphenous graft to the right coronary artery, last stent was placed many years ago, history of stage IV carcinoma of the lung, status post radiation status post chemotherapy, history of ischemic cardiomyopathy with left ventricular systolic dysfunction with ejection fraction of less than 18%, COPD, and goiter. PAST SURGICAL HISTORY: Significant for subtotal colectomy, history of port placement and history of lung cancer, inoperable, treated with chemo and radiation, chronically in remission. ALLERGIES: THE PATIENT IS ALLERGIC TO SHELLFISH, MECLIZINE, AND ATORVASTATIN. MEDICATIONS: The patient's home medications in the past include spironolactone, simvastatin, pyridoxine, losartan, ferrous sulfate, digoxin, Plavix, , and aspirin. PERSONAL HISTORY: The patient denies any history of smoking or drinking. REVIEW OF SYSTEMS: A 12-system review was done and they were all negative except what is mentioned in the HPI. PHYSICAL EXAMINATION: GENERAL: The patient is examined in bed. VITAL SIGNS: Stable. Blood pressure 110/65, respirations 18, pulse is 52. This patient is afebrile. HEENT: Head is normocephalic, atraumatic. Conjunctivae pale. Pupils are equally reactive to light and accommodation. Examination of the oropharynx with no oropharyngeal lesions. NECK: Supple. There is no adenopathy. No jugular venous distention noted. LUNGS: Clear to percussion and auscultation. HEART: Examination of the cardiovascular system revealed S1 and S2 to be normal. No gallop or murmur is heard. ABDOMEN: Soft and nontender. No rebound, rigidity, or guarding is noted. EXTREMITIES: There is no cyanosis, clubbing, or edema. /RECTAL: Deferred. NEUROLOGIC: Reveals higher functions to be normal. No focal deficits are noted. LABORATORY DATA: Revealed a white count of 10.6, hemoglobin 9.7, hematocrit 29.4, and platelet count of 192,000. Sodium is 138, K is 4, BUN is 15, creatinine 1.1, calcium 8.3. AST and ALT are within normal limits. Total protein is 5.5. Beta globulin is 2.7. EKG showed normal sinus rhythm. ASSESSMENT: The patient is here for deconditioning, coronary artery disease status post coronary artery bypass surgery, recent clipping of abdominal blood vessel; it is done because patient has significant bleeding, requiring more than 3 units of blood and a unit of platelets, severe coronary artery dysfunction with poor ejection fraction and cardiomyopathy, history of stage IV non-small cell lung carcinoma, status post radiation and chemotherapy, currently in remission, status post subtotal colectomy in the past . PLAN: The patient will continue her current medications and be on physical therapy for deconditioning. Monitor her blood work . Orders for blood has been requested in the a.m. Patient has been made DNR/DNI as per the patient and family request. Jose Francisco Duncan MD
[2018-07-13] MEDS: POLYETHYLENE GLYCOL 3350 17 GM/Dose PACKET PO SCH (10:17)
--- NOTE | 2018-07-13 13:08 | PN ---
DATE: 07/13/2018 REASON FOR CONSULTATION AND FOLLOWUP: Ischemic cardiomyopathy, coronary artery disease, CABG, multiple PTCAs, deconditioning of the body, aortic regurgitation, lung CA. SUBJECTIVE: Patient denies any chest pain, shortness of breath or any palpitations, did not sleep well at night. PHYSICAL EXAMINATION GENERAL: Sitting on the chair watching [employer] television. VITAL SIGNS: Temperature afebrile, heart rate 73 and blood pressure 105/65. HEENT: PERRLA, extraocular muscles intact. NECK: Supple. No carotid bruits. No thyromegaly. CHEST: Clear to auscultation. HEART: S1, S2 regular. ABDOMEN: Soft. EXTREMITIES: Clubbing and cyanosis negative. LABORATORY DATA: Blood workup as follows: WBC 12, hemoglobin 10, hematocrit 30.7 and platelet count 216,000. Chemistry shows sodium 130, potassium 4.9, chloride 99, carbon dioxide 35, anion gap of 7, BUN 20 and creatinine 1.3. IMPRESSION: An 88-year-old female with past medical history significant for inoperable lung cancer, history of coronary artery disease, history of coronary artery bypass graft, history of stent, cardiomyopathy, decreased left ventricular function, ejection fraction 20% to 25%, history of colon cancer, history of gastrointestinal bleed in the past, multiple blood transfusions and chronic obstructive pulmonary disease, history of bleeding for mildly cecal anastomotic site, now for TCU for continuity of care for decondition of the body. RECOMMENDATION: Continue losartan, continue digoxin and spironolactone, Lasix and carvedilol. Continue rehab therapy. Overall, patient's condition is critical. Code status is DNR. Continue supportive care, continue nutritional support. Thank you Dr. Duncan for providing us the opportunity in taking care of the patient, Enriqueta Escobar. Patient had protein-calorie malnutrition, albumin is 2.8, now improved to 3, it improved. It was present since TCU, now it is improved. Shekhar Howard MD
[2018-07-13] MEDS: Digoxin 125 mcg (0.125 mg) Tab PO SCH (14:57)
[2018-07-14] MEDS: Pantoprazole 40 mg EC Tab PO SCH ×2 (05:53→17:00)
--- NOTE | 2018-07-14 07:06 | CP.PCM.PN ---
Subjective - Date & Time of Evaluation Date of Evaluation: 07/14/18 Time of Evaluation: 08:30 - Subjective Subjective: Pablo Chacon-Internal Medicine Resident- Hematology Oncology Progress Note Subjective: Patient seen and examined at bedside. No acute events overnight. Patient states abdominal pain has improved from yesterday. Denies vomiting. Able to tolerate diet. Further denies fever, chills, chest pain, SOB. 12 point ROS negative except as indicated in HPI Physical Examination: - Constitutional Appears: Non-toxic, No Acute Distress - Head Exam Head Exam: ATRAUMATIC, NORMAL INSPECTION, NORMOCEPHALIC - Eye Exam Eye Exam: EOMI, Normal appearance - ENT Exam ENT Exam: Mucous Membranes Moist - Respiratory Exam Respiratory Exam: NORMAL BREATHING PATTERN - Cardiovascular Exam Cardiovascular Exam: RRR, +S1, +S2 - GI/Abdominal Exam GI & Abdominal Exam: Soft, Hyperactive Bowel Sounds. absent: Distended, Firm, Guarding, Tenderness - Neurological Exam Neurological Exam: Alert, Awake, Oriented x3 - Psychiatric Exam Psychiatric exam: Normal Affect, Normal Mood - Skin Skin Exam: Dry, Intact, Normal Color, Warm Assessment and Plan: Patient is a 88 year old female with a past medical history significant for COPD, systolic CHF (EF 25-30%), CAD, HTN, HLD, lung cancer s/p chemoradiation and colon cancer s/p resection who was admitted for evaluation and treatment of rectal bleeding. Patient was transferred to the TCU for physical rehab. Abdominal Pain - GI consulted appreciate recommendations - abdominal xray ordered and pending- non-obstructing gas pattern - start on simethicone 80mg TID Hx of HTN - continue losartan and coreg Hx of Systolic CHF - continue spironolactone, digoxin, and lasix Hx of Lung cancer s/p chemoradiation & Colon cancer s/p resection - no acute intervention required at this time Patient case discussed with and plan approved by attending physician, Dr. Duncan. Objective - Vital Signs/Intake and Output Vital Signs (last 24 hours): Temp Pulse Resp BP Pulse Ox 98.7 F 65 18 96/52 L 96 07/13/18 16:00 07/13/18 17:22 07/13/18 16:00 07/14/18 05:53 07/13/18 16:00 - Medications Medications: Current Medications Acetaminophen (Tylenol 325mg Tab) 650 mg PO ONCE PRN; Protocol PRN Reason: Pain, Mild (1-3) Last Admin: 07/11/18 13:47 Dose: 650 mg Alprazolam (Xanax) 0.25 mg PO HS PRN; Protocol PRN Reason: Anxiety Stop: 07/17/18 23:07 Last Admin: 07/13/18 23:24 Dose: 0.25 mg Carvedilol (Coreg) 3.125 mg PO 0800,1700 YAHIR; Protocol Last Admin: 07/13/18 17:22 Dose: 3.125 mg Digoxin (Digoxin) 0.125 mg PO 1400 YAHIR; Protocol Last Admin: 07/13/18 14:57 Dose: 0.125 mg Furosemide (Lasix) 40 mg PO 0600,1800 YAHIR; Protocol Last Admin: 07/14/18 05:53 Dose: Not Given Losartan Potassium (Cozaar) 12.5 mg PO DAILY YAHIR; Protocol Last Admin: 07/13/18 10:20 Dose: Not Given Pantoprazole Sodium (Protonix Ec Tab) 40 mg PO 0600,1600 YAHIR; Protocol Last Admin: 07/14/18 05:53 Dose: 40 mg Polyethylene Glycol (Miralax) 17 gm PO DAILY YAHIR; Protocol Last Admin: 07/13/18 10:17 Dose: 17 gm Spironolactone (Aldactone) 25 mg PO BID YAHIR; Protocol Last Admin: 07/13/18 17:23 Dose: 25 mg - Labs Labs: 07/12/18 06:15 07/12/18 06:15
--- NOTE | 2018-07-14 08:38 | RAD ---
Date of service: 07/13/2018 HISTORY: abdominal pain COMPARISON: None available. FINDINGS: BOWEL: Nonobstructive bowel gas pattern appreciated. Postoperative changes seen in the central and left upper quadrant abdomen may reflect hernia repair. Vascular calcifications seen in the abdomen pelvis soft tissues. Radiodense urolithiasis is not excluded related to right renal silhouette. No prominent free intra peritoneal gas collection appreciable. BONES: Diffuse osteopenia suggests osteoporosis. OTHER FINDINGS: None. IMPRESSION: Nonobstructive bowel gas pattern.
[2018-07-14] MEDS: POLYETHYLENE GLYCOL 3350 17 GM/Dose PACKET PO SCH (09:52)
--- NOTE | 2018-07-14 14:14 | PN ---
DATE: 07/14/2018 REASON FOR CONSULTATION AND FOLLOWUP: Ischemic cardiomyopathy, coronary artery disease, CABG, history of PTCA, decondition of the body, aortic regurgitation, lungs CA. SUBJECTIVE: The patient denies any chest pain, shortness of breath or palpitation. OBJECTIVE: GENERAL: Not in apparent distress, complaining left nose is dry and hurts. VITAL SIGNS: Temperature afebrile, heart rate 61, blood pressure 132/72. HEENT: PERRLA. Extraocular muscles intact. NECK: Supple. No carotid bruit or thyromegaly. CHEST: Clear to auscultation. HEART: S1, S2 regular. ABDOMEN: Soft. EXTREMITIES: Clubbing and cyanosis negative. LABORATORY DATA: Blood workup as follows; WBC 12, hemoglobin 10, hematocrit 30.7, platelet count 216. Chemistry shows sodium 130, potassium 4.0, chloride 99, carbon dioxide 35, anion gap of 7, BUN 20, creatinine 1.3. IMPRESSION: The patient is an 88-year-old with a medical history of significant for lung cancer, inoperable; history of coronary artery disease, history of coronary artery bypass graft, history of a stent, history of cardiomyopathy, decreased left ventricular function, ejection fraction 20-25%, history of colon cancer, history of gastrointestinal bleed, multiple blood transfusion, history of chronic obstructive pulmonary disease, now patient is getting rehab therapy for decondition of the body. RECOMMENDATIONS: Continue losartan, continue Coreg, continue spirolactone, continue diuretics. Will give nasal saline. Continue with rehab. Possible discharge. We will give 1 spray to both nostrils b.i.d. Shekhar Howard MD
[2018-07-14] MEDS: Digoxin 125 mcg (0.125 mg) Tab PO SCH (14:24)
[2018-07-14] MEDS: Simethicone 80 mg Chewtab PO SCH ×2 (14:25→18:11)
[2018-07-15] MEDS: Pantoprazole 40 mg EC Tab PO SCH ×2 (05:41→17:00)
[2018-07-15] MEDS: POLYETHYLENE GLYCOL 3350 17 GM/Dose PACKET PO SCH (09:36)
[2018-07-15] MEDS: Simethicone 80 mg Chewtab PO SCH (09:36)
--- NOTE | 2018-07-15 11:37 | CP.PCM.PN ---
Subjective - Date & Time of Evaluation Date of Evaluation: 07/15/18 Time of Evaluation: 11:30 - Subjective Subjective: Pablo Chacon-Internal Medicine Resident- Hematology Oncology Progress Note Subjective: Patient seen and examined at bedside. No acute events overnight. Patient states abdominal pain has worsened from yesterday. Admits to nausea. Denies vomiting. Able to tolerate diet. Further denies fever, chills, chest pain, SOB. 12 point ROS negative except as indicated in HPI Physical Examination: - Constitutional Appears: Non-toxic, No Acute Distress - Head Exam Head Exam: ATRAUMATIC, NORMAL INSPECTION, NORMOCEPHALIC - Eye Exam Eye Exam: EOMI, Normal appearance - ENT Exam ENT Exam: Mucous Membranes Moist - Respiratory Exam Respiratory Exam: NORMAL BREATHING PATTERN - Cardiovascular Exam Cardiovascular Exam: RRR, +S1, +S2 - GI/Abdominal Exam GI & Abdominal Exam: Soft, Hyperactive Bowel Sounds. absent: Distended, Firm, Guarding, Tenderness - Neurological Exam Neurological Exam: Alert, Awake, Oriented x3 - Psychiatric Exam Psychiatric exam: Normal Affect, Normal Mood - Skin Skin Exam: Dry, Intact, Normal Color, Warm Assessment and Plan: Patient is a 88 year old female with a past medical history significant for COPD, systolic CHF (EF 25-30%), CAD, HTN, HLD, lung cancer s/p chemoradiation and colon cancer s/p resection who was admitted for evaluation and treatment of rectal bleeding. Patient was transferred to the TCU for physical rehab. Abdominal Pain - GI consulted appreciate recommendations - abdominal xray ordered and pending- non-obstructing gas pattern - obstructive series ordered and pending - start on simethicone 80mg TID Hx of HTN - continue losartan and coreg Hx of Systolic CHF - continue spironolactone, digoxin, and lasix Hx of Lung cancer s/p chemoradiation & Colon cancer s/p resection - no acute intervention required at this time Patient case discussed with and plan approved by attending physician, Dr. Duncan. Objective - Vital Signs/Intake and Output Vital Signs (last 24 hours): Temp Pulse Resp BP Pulse Ox 97.8 F 81 18 122/66 99 07/15/18 10:00 07/15/18 10:00 07/15/18 10:00 07/15/18 10:00 07/15/18 10:00 - Medications Medications: Current Medications Acetaminophen (Tylenol 325mg Tab) 650 mg PO ONCE PRN; Protocol PRN Reason: Pain, Mild (1-3) Last Admin: 07/11/18 13:47 Dose: 650 mg Alprazolam (Xanax) 0.25 mg PO HS PRN; Protocol PRN Reason: Anxiety Stop: 07/17/18 23:07 Last Admin: 07/14/18 22:37 Dose: 0.25 mg Carvedilol (Coreg) 3.125 mg PO 0800,1700 YAHIR; Protocol Last Admin: 07/15/18 09:00 Dose: 3.125 mg Digoxin (Digoxin) 0.125 mg PO 1400 YAHIR; Protocol Last Admin: 07/14/18 14:24 Dose: 0.125 mg Furosemide (Lasix) 40 mg PO 0600,1800 YAHIR; Protocol Last Admin: 07/15/18 05:40 Dose: 40 mg Losartan Potassium (Cozaar) 12.5 mg PO DAILY YAHIR; Protocol Last Admin: 07/15/18 09:34 Dose: 12.5 mg Pantoprazole Sodium (Protonix Ec Tab) 40 mg PO 0600,1600 YAHIR; Protocol Last Admin: 07/15/18 05:41 Dose: 40 mg Polyethylene Glycol (Miralax) 17 gm PO DAILY YAHIR; Protocol Last Admin: 07/15/18 09:36 Dose: Not Given Simethicone (Mylicon Chew Tab) 80 mg PO TID YAHIR Last Admin: 07/15/18 09:36 Dose: 80 mg Sodium Chloride ([place] Nasal [place]) 0 ml NS TID PRN PRN Reason: Nasal congestion Last Admin: 07/14/18 12:05 Dose: 2 sprays Spironolactone (Aldactone) 25 mg PO BID YAHIR; Protocol Last Admin: 07/15/18 09:34 Dose: 25 mg - Labs Labs: 07/12/18 06:15 07/12/18 06:15
--- NOTE | 2018-07-15 12:16 | PN ---
DATE: 07/15/2018 REASON FOR CONSULTATION: Ischemic cardiomyopathy, coronary artery disease, CABG, history of PTCA, deconditioning of the body, aortic regurgitation, lung CA inoperable. SUBJECTIVE: The patient denies any chest pain, shortness of breath. Complaining of dryness of left nostril, nasal spray was given, feeling better. Now complains of insomnia. OBJECTIVE: GENERAL: Not in apparent distress, 18 breath sounds. VITAL SIGNS: As follows, temperature afebrile, heart rate 65, blood pressure 112/60. HEENT: PERRLA. Extraocular muscles intact. NECK: Supple. No carotid bruit or thyromegaly. CHEST: Clear to auscultation. HEART: S1, S2 regular. ABDOMEN: Soft. EXTREMITIES: Clubbing and cyanosis negative. LABORATORY DATA: Blood workup as follows; WBC 12, hemoglobin 10, hematocrit 30.7, platelet count 216,000. Chemistry shows sodium 137, potassium , chloride 99, carbon dioxide 35, anion gap of 7, BUN 20, creatinine 1.3 as of 07/12/2018. IMPRESSION: An 88-year-old female with a past medical history significant for coronary artery disease, coronary artery bypass graft, inoperable lung cancer, history of a stent, history of aortic regurgitation, decreased left ventricular function ejection fraction 20-25%, history of colon cancer, history of gastrointestinal bleed, multiple blood transfusions, history of chronic obstructive pulmonary disease, deconditioning of the body, now in the rehab. RECOMMENDATIONS: Continue losartan, continue Coreg, continue spironolactone, continue diuretics, continue nasal saline spray. Continue rehab. Discharge planning. Thank you Dr. Duncan for providing us the opportunity in taking care of the patient, Enriqueta Escobar. We will follow with you. Shekhar Howard MD
--- NOTE | 2018-07-15 12:48 | RAD ---
Date of service: 07/15/2018 HISTORY: persistent abdominal pain COMPARISON: 07/13/2018 FINDINGS: BOWEL: Unremarkable bowel gas pattern without evidence of mechanical obstruction or free air. Surgical clips and suture lines identified BONES: Normal. OTHER FINDINGS: None. IMPRESSION: No acute findings related to/accounting for the clinical presentation. No significant interval change compared to the prior examination(s).
[2018-07-15] MEDS: Digoxin 125 mcg (0.125 mg) Tab PO SCH (14:52)
[2018-07-16] MEDS: Pantoprazole 40 mg EC Tab PO SCH ×2 (05:04→16:40)
[2018-07-16 05:49] LABS: BASO # 0.02 K/mm3 (0.0-2.0); BASO % 0.2 % (0.0-3.0); EOS # 0.1 (0.0-0.7); EOS % 0.7 % (1.5-5.0); GRAN # 7.14 (1.4-6.5); HEMOGLOBIN 10.5 g/dL (12.0-16.0); LYMPH # 2.3 (1.2-3.4); LYMPH % 21.8 % (22.0-35.0); MEAN CELL VOLUME 88.4 fl (80.0-105.0); MEAN CORPUSCULAR HEMOGLOBIN 29.1 pg (25.0-35.0); MEAN CORPUSCULAR HGB CONC 32.9 g/dl (31.0-37.0); MEAN PLATELET VOLUME 9.1 fl (7.0-11.0); MONO % 9.3 % (1.0-6.0); RBC 3.61 10^6/uL (3.5-6.1); RED CELL DISTRIBUTION WIDTH 14.7 % (11.5-14.5); WHITE BLOOD COUNT 10.5 10^3/uL (4.5-11.0)
[2018-07-16 07:27] LABS: ALBUMIN 3.2 g/dL (3.0-4.8); CALCIUM 9.1 mg/dL (8.4-10.5)
[2018-07-16] MEDS: POLYETHYLENE GLYCOL 3350 17 GM/Dose PACKET PO SCH (10:39)
--- NOTE | 2018-07-16 12:05 | PN ---
DATE: 07/16/2018 LOCATION: Patient in room 302, bed 1. REASON FOR CONSULTATION: Followup ischemic cardiomyopathy, coronary artery disease, COPD, history of PTCA, deconditioning, aortic regurgitation, history of lung CA, treated with chemoradiation therapy. LV systolic dysfunction. SUBJECTIVE: Patient complaining of not able to sleep. Denies any chest pain. She says breathing is better. She is lying flat. Patient getting physical therapy for deconditioning. PHYSICAL EXAMINATION VITAL SIGNS: Blood pressure 101/54, respirations 20, pulse 53, patient is afebrile. HEENT: Head is normocephalic. Eyes, pupil normal. Conjunctivae slightly pale. NECK: JVP low. Carotid equal. THORAX: AP diameter normal. LUNGS: No significant rales. CARDIOVASCULAR: S1 and S2. ABDOMEN: Soft, no tenderness. No organomegaly. Bowel sounds normal. EXTREMITIES: No clubbing, no cyanosis. LABORATORY DATA: WBC 10.5, hemoglobin 10.5, hematocrit 31.9, platelets 350,000. Sodium 135, potassium 4.2, BUN 42, creatinine 1.8, glucose 106. AST and ALT normal. DIAGNOSES: Ischemic cardiomyopathy, left ventricular systolic dysfunction, coronary artery disease, history of coronary artery bypass surgery, multiple angioplasties and stent insertion, aortic regurgitation, ejection fraction 20% to 25%, history of colon cancer, history of gastrointestinal bleeding, multiple blood transfusions, chronic obstructive lung disease, deconditioning, history of inoperable carcinoma of the lung treated with chemotherapy and radiation therapy. PLAN: We will put patient on Ambien 5 mg p.r.n. at bedtime for sleep. She is complaining about sleeping. In the meantime, we will continue medication as ordered including Coreg, spironolactone, losartan, digoxin, furosemide. Since putting Ambien 5 mg, we will Xanax. We will follow with you. Shekhar Stringer MD
[2018-07-16] MEDS: Digoxin 125 mcg (0.125 mg) Tab PO SCH (13:11)
--- NOTE | 2018-07-16 19:22 | PN ---
DATE: 07/16/2018 This is [facility] visit on TCU. For Dr. Duncan. 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 The patient also has a history of cardiomyopathy and coronary artery disease and stage IV carcinoma of the lung history. At present, we await a re-consult with Dr. Hernandez, gastrointestinal proposal consultant, as she has recurrent abdominal discomfort that prompted her to be evaluated early in her hospital stay. She also reports insomnia which will be addressed with Ambien to be started. PHYSICAL EXAMINATION VITAL SIGNS: Temperature 97.8, pulse 81, respirations 19, blood pressure 108/70. HEENT: Unremarkable. NECK: Supple. HEART: Regular rate, I/ systolic ejection murmur. LUNGS: Minimal decreased breath sounds at the bases. ABDOMEN: Soft. Minimal tenderness to gentle palpation of the lower mid epigastrium. EXTREMITIES: No edema. SKIN: Warm and dry. NEUROLOGIC: Awake and alert. LABORATORY DATA: The patient's labs were done today; white blood cell count of 10.5, hemoglobin of 10.5, hematocrit of 31.9, platelet count of 350,000 with a chem metabolic panel showing a BUN of 42 and creatinine of 1.8, otherwise normal chem metabolic panel. ASSESSMENT: Deconditioning, abdominal pain, status post arteriovenous malformation clipping, severe coronary artery disease, cardiomyopathy, history of lung cancer, hypertension, insomnia, abnormal blood urea nitrogen and creatinine. PLAN: After conversation with Dr. Duncan, continue with present medical regimen. We will add Ambien at bedtime to see if this will help her with her sleep with monitoring of her labs in two days' time as per TCU protocols to make certain that the kidney function does not deteriorate, and she is on Lasix twice a day along with spironolactone and digoxin. We will wait a re-consult with Dr. Hernandez. This is a complex patient with a comprehensive medically necessary and appropriate visit carried out in excess of 20 minutes with the patient and her daughters, and questions answered to their satisfaction. Adrián Gavin MD
[2018-07-17] MEDS: Pantoprazole 40 mg EC Tab PO SCH ×2 (05:05→16:28)
[2018-07-17 06:31] VITALS: RESP 20
[2018-07-17] MEDS: POLYETHYLENE GLYCOL 3350 17 GM/Dose PACKET PO SCH (10:04)
--- NOTE | 2018-07-17 13:58 | PN ---
DATE: 07/17/2018 REASON FOR CONSULTATION: Ischemic cardiomyopathy, coronary artery disease, CABG, history of PTCA, deconditioning of the body, aortic regurgitation, lung CA inoperable. Continue care in the Transitional Care Unit. SUBJECTIVE: The patient denies any chest pain, shortness of breath or any palpitation, but complained of insomnia, could not sleep at night, wanted Ambien. OBJECTIVE: GENERAL: Not in apparent distress. The left side of the nose got better after having a saline nasal spray. VITAL SIGNS: Temperature afebrile, heart rate 80, blood pressure 102/64. HEENT: PERRLA. Extraocular muscles intact. NECK: Supple. No carotid bruit or thyromegaly. CHEST: Clear to auscultation. HEART: S1, S2 regular. ABDOMEN: Soft. EXTREMITIES: Clubbing and cyanosis negative. LABORATORY DATA: Blood workup as follows: WBC 10.5, hemoglobin 10.5, hematocrit 31.9, platelet count 350,000. Chemistry shows sodium 135, potassium 4.2, chloride 98, carbon dioxide 34, anion gap of 7, BUN 42, creatinine 1.8 as of yesterday. IMPRESSION: An 88-year-old female with a past medical history significant for ischemic cardiomyopathy, decreased left ventricular function, history of colon cancer, history of lung cancer inoperable, history of coronary artery disease, coronary artery bypass graft, history of stent, history of aortic regurgitation. The patient had shortness of breath and deconditioning of the body, now patient in the Transitional Care Unit. Yesterday, BUN and creatinine were elevated possibly secondary to over diuresed. RECOMMENDATIONS: Hold Lasix today and we will reevaluate in a day or two. We will start Ambien. We will follow with you. Thank you Dr. Duncan for providing us an opportunity in taking care of the patient, Enriqueta Escobar. Shekhar Howard MD
[2018-07-17] MEDS: Digoxin 125 mcg (0.125 mg) Tab PO SCH (14:16)
[2018-07-17] MEDS ORDERED: Simethicone 80 mg Chewtab PO PRN (15:13)
--- NOTE | 2018-07-18 00:23 | DS ---
For Dr. Duncan, SUBJECTIVE: The patient is an 88-year-old female seen sitting up in bed with her daughter at the bedside with plan for discharge home early tomorrow with preparation being made with social workers and staff for transition to home. Her medication was adjusted by Dr. Howard and that he cut back her Lasix to once a day with the patient now reporting that she has been taking Xanax 0.25 mg one in the morning, two at night time and this why she had insomnia. We will adjust this as far as her meds for tonight and also for home. With this patient now feeling improved with rare occasional abdominal discomfort for a bleeding episode, which Dr. 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 She also has significant coronary artery disease and is on home oxygen, which we will continue. Otherwise, she is in no acute distress. OBJECTIVE/PHYSICAL EXAMINATION: VITAL SIGNS: Temperature 98.1, pulse 80, respirations 20, blood pressure 102/64 and pulse oximetry 94%. HEENT: Unremarkable. NECK: Supple. HEART: Regular rate with a 1/6 systolic ejection murmur. LUNGS: Clear. ABDOMEN: Soft and nontender. EXTREMITIES: No edema. SKIN: Warm and dry. NEUROLOGICAL: Awake and alert with decreased hearing noted. LABORATORY DATA: The patient's labs were done; white blood cell count of 10.5, hemoglobin 10.5, hematocrit 31.9, platelet count of 350,000 done yesterday, with a Chem metabolic panel showing BUN of 42 and creatinine 1.8, to be repeated tomorrow as per Dr. Howard. MEDICATIONS: Include spironolactone 25 mg once a day, carvedilol 3.125 twice a day, Cozaar 12.5 mg once a day, digoxin 0.125 a day, Lasix 40 mg once a day in the morning, MiraLax p.r.n., simethicone p.r.n., [place] Nasal [place] to the nostrils p.r.n., Protonix 40 mg daily, Tylenol p.r.n. for pain, and we will add Xanax 0.25 mg at bedtime and 0.125 or half a tablet twice a day as needed for stress. DIET: The patient's diet is that of hepatic diet with dietary supplements also. ASSESSMENT: For this patient is that of deconditioning, abdominal pain status post arteriovenous malformation clipping for gastrointestinal bleed with severe anemia, severe coronary artery disease, cardiomyopathy, history of lung cancer, hypertension, insomnia, anxiety, mild dehydration secondary to diuretics, and also insomnia. PLAN: For this patient is to continue present medical regimen as listed above. We will ask for maximum home assist including homemaker, home visiting nurses, home physiotherapy. Continue her home oxygen p.r.n. We will restart her Xanax, low dose and continue the Lasix once a day instead of twice a day. This is a complex patient with a comprehensive medically necessary and appropriate visit carried out in an excess of 40 minutes with the patient and her daughter's questions answered to their satisfaction, also visited the nurses on the floor, were informed of the recommendations as above with the patient to follow up in 1 week's time or early with Dr. Duncan in the office. It should be noted that the patient's plans eventually to relocate to a different city where her daughter now has moved in the near future; however, this will not affect this discharge after conversation with the patient and the daughter at the bedside. Adrián Gavin MD
[2018-07-18] MEDS: Pantoprazole 40 mg EC Tab PO SCH (06:12)
[2018-07-18 07:41] LABS: CALCIUM 9.2 mg/dL (8.4-10.5)
[2018-07-18 10:13] VITALS: BP 100/83; PULSE 79; TEMP 98.2; O2SAT 98
[2018-07-18] MEDS: POLYETHYLENE GLYCOL 3350 17 GM/Dose PACKET PO SCH (10:27)
[2018-07-18] MEDS: Digoxin 125 mcg (0.125 mg) Tab PO SCH (14:43)
[2018-07-18 14:44] VITALS: PULSE 67
[2018-07-19] MEDS ORDERED: Pantoprazole 20 mg EC Tab PO SCH (07:30)
[2018-07-19] MEDS ORDERED: Pantoprazole 40 mg EC Tab PO SCH ×2 (07:30)
== END 2018-07-18 18:28 | disposition home or self-care (01) | DRG 378 ==
LOC: TRCU 18:45
PROVIDERS: ADMIT Family Medicine; ATTEND Family Medicine
PROC: F07Z9FZ Gait Training/Functional Ambulation Treatment using Assistive, Adaptive, Supportive or Protective Equipment (ICD-10-PCS; principal; 2018-07-11)
PROC: F07M6ZZ Therapeutic Exercise Treatment of Musculoskeletal System - Whole Body (ICD-10-PCS; 2018-07-11)
PROC: F08Z1ZZ Dressing Techniques Treatment (ICD-10-PCS; 2018-07-11)
PROC: F08Z2ZZ Grooming/Personal Hygiene Treatment (ICD-10-PCS; 2018-07-11)
DX: K92.2 Gastrointestinal hemorrhage, unspecified (principal); C34.90 Malignant neoplasm of unspecified part of unspecified bronchus or lung; I50.22 Chronic systolic (congestive) heart failure; E46 Unspecified protein-calorie malnutrition; I25.10 Atherosclerotic heart disease of native coronary artery without angina pectoris; I25.5 Ischemic cardiomyopathy; E78.5 Hyperlipidemia, unspecified; G47.00 Insomnia, unspecified; I11.0 Hypertensive heart disease with heart failure; I35.1 Nonrheumatic aortic (valve) insufficiency; J44.9 Chronic obstructive pulmonary disease, unspecified; K29.70 Gastritis, unspecified, without bleeding; I08.3 Combined rheumatic disorders of mitral, aortic and tricuspid valves; Z79.02 Long term (current) use of antithrombotics/antiplatelets; Z79.82 Long term (current) use of aspirin; Z85.038 Personal history of other malignant neoplasm of large intestine; Z85.118 Personal history of other malignant neoplasm of bronchus and lung; Z90.49 Acquired absence of other specified parts of digestive tract; Z92.21 Personal history of antineoplastic chemotherapy; Z92.3 Personal history of irradiation; Z95.1 Presence of aortocoronary bypass graft; Z95.5 Presence of coronary angioplasty implant and graft; Z99.81 Dependence on supplemental oxygen; Z91.013 Allergy to seafood

== ENCOUNTER 2018-11-17 14:41 | Outpatient (CLI) | payer MEDICARE | END 2018-11-17 14:42 | disposition home or self-care (01) | LOC: OPLAB 14:41 ==

== ENCOUNTER 2019-01-05 11:42 | Outpatient (CLI) | payer MEDICARE | END 2019-01-05 11:43 | disposition home or self-care (01) | LOC: RAD 11:42 | DX: C34.31 Malignant neoplasm of lower lobe, right bronchus or lung (principal) ==